=== PATIENT | female | born 1975 | race Caucasian/White ===

== ENCOUNTER 2016-06-09 10:20 | Emergency (ER) | payer MEDICAID ==
[~2016-06-09] VITALS: Ht 162.6 cm; Wt 81.6 kg
[~2016-06-09 10:20] MED LIST: ADVAIR 10028 PUFF/IN IN; ALBUTEROL-200 PUFFS/ IH; ALBUTEROL2 PUFFS/17 IN; ALBUTEROL2.5 MG/NEB IN; ARTHRITIS PILL PO; ASPIRIN ADULT L81 M2 PO; ATORVASTATIN CA80 MG PO; BACTRIM DS 8001 TA1 PO; BACTROBAN2% TP; BRILINTA90 MG PO; BUSPAR 10MG TAB10 MG PO; CETIRIZINE HCL10 MG PO; CETIRIZINE HYDR10 MG OR; CHANTIX0.5 MG PO; CIPRO 500MG TA500 MG PO; CITALOPRAM40 MG PO; CLINDAMYCIN HC300 MG PO; CLONAZEPAM 1MG T1 MG PO; DICLOFENAC SODI75 M3 PO; DOXYCYCLINE HY100 M3 PO; DULERA1 AR1 IH; DULERA1 ARO IH; FLEXERIL10 MG PO; FLONASE 50 MCG16 GM; GABAPENTIN100 M1 PO; GABAPENTIN100 MG PO; GABAPENTIN800 MG PO; HABITROL21 MG/24 H TD; HYDROCODONE1 TABLET PO; IMITREX100 MG PO; IPRATROPIUM BROM3 M1 IH; ISOSORBIDE MONO60 M1 PO; KEFLEX 500MG.500 MG PO; LEVAQUIN 750 M750 MG PO; LEVAQUIN500 MG PO; LEXAPRO 20 MG T20 MG PO; LEXAPRO10 MG PO; LISINOPRIL10 MG PO; LOPRESSOR 25MG.25 MG PO; LORTAB 5/500 501 TAB PO; MACROBID 100MG100 MG PO; MEDROL 4MG. DOSE4 MG PO; MINOCYCLINE 10100 MG PO; MORPHINE SULFAT15 M3 PO; NAPROSYN375 MG PO; NICODERM C21 MG/24 H TD; NITROGLYCERIN0.4 MG SL; NORCO 325 MG-101 TAB PO; NYSTATIN 1 ML1 M1; OMEPRAZOLE40 MG PO; PAROXETINE40 MG PO; PAXIL20 MG PO; PERCOCET 325 MG1 TA3 PO; PERCOGESIC PO; PREDNISONE 10MG10 MG PO; PREDNISONE 20MG20 MG PO; PREDNISONE50 MG PO; PRILOSEC OTC20 MG PO; PROVENTIL0.09 MG/AC IH; RANITIDINE HCL150 MG PO; SINGULAIR 10 MG10 MG PO; SLEEPING PILL PO; SPIRIVA HA1 PUFF/INH IH; TESSALON PERLE100 MG PO; TESSALON PERLE200 MG PO; TIZANIDINE HYDRO2 MG PO; TORADOL10 M2 PO; TRAMADOL 50MG T50 M1 PO; TRAMADOL 50MG T50 MG PO; TRAZADONE HYDR100 MG PO; VERAMYST27.5 MCG/A NS; VIBRAMYCIN 100100 MG PO; VICODIN 5/500 T1 TAB PO; VOLTAREN75 MG PO; ZANTAC 150150 MG PO; ZITHROMAX Z PA250 MG PO; ZITHROMAX Z-PA250 M1 PO; ZOFRAN4 MG PO; ZYRTEC ALLERGY10 MG PO; [UNRECOGNIZED DRUG - OTHER] PO; [UNRECOGNIZED DRUG - REMARK] PO
--- NOTE | 2016-06-09 10:26 | Emergency Room Report ---
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 Clinical Suspician of Infection? Mental Status: Sepsis Risk: Have you (or family members/close friends) recently traveled outside the [place]? If Yes, where/when: Have you had exposure to infectious disease within the past month? TB? Other? Specify: Patient with hx of panic attack, states experiencing panic attack now. Arrives per PD as event occurred during court. She is here for medical clearance. ALLERGIES Coded Allergies: Sulfa (Sulfonamide Antibiotics) (03/18/16) Home Medications Active Scripts Levofloxacin (Levaquin 500MG) 500 MG PO DAILY #7 TAB Prov: 03/19/16 Prednisone (Prednisone 20MG) 20 MG PO BID #10 TAB Prov: 03/19/16 Nicotine (Nicotine Patch) 21 MG TD DAILYP PRN SMOKING CESSATION #30 PATCH Prov: 03/19/16 Aspirin 81 MG PO DAILY 30 Days Prov: 02/26/15 Ticagrelor (Brilinta) 90 MG PO BID #60 TAB Ref 6 Prov: 12/24/15 Reported Medications Isosorbide Mononitrate (Isosorbide Mononitrate ER) 60 MG PO DAILY #30 ALBUTEROL-IPRATROPIUM (Iprat-Albut 0.5-3(2.5) MG/3 Ml) 3 ML IH Q2HP PRN COPD #360 Fluticasone Propionate (Flonase 50 Mcg Nasal [place]) 1 SPRAY NA DAILYP PRN ALLERGIES Clonazepam (Clonazepam 1MG) 1 MG PO BID #60 NITROGLYCERIN (Nitrostat) 0.4 MG SL [id number] PRN NEEDED FOR CHEST PAIN Metoprolol Tartrate (Lopressor) 12.5 MG PO BID #30 Atorvastatin Calcium 80 MG PO QHS #30 Montelukast Sodium (Singulair 10MG) 10 MG PO DAILY Cetirizine Hcl (Zyrtec) 10 MG PO DAILY PAROXETINE (Paroxetine HCl) 40 MG PO DAILY Tiotropium [place] (Spiriva) 1 PUFF IH DAILY Omeprazole (Omeprazole 40MG) 40 MG PO DAILY #30 Gabapentin (Gabapentin 800MG) 800 MG PO Q8 #90 History Medical History General CAD? Yes Angina: Yes NM: Yes Hypertension? Yes Hyperlipidemia? Yes CHF? No DVT? No PE? No COPD? Yes Asthma? Yes Anemia? No GERD? Yes Gastric ulcers? No GI Bleed? No Hernia? No Thyroid Problems? No Hypothyroidism? No CVA? No Seizures? No Diabetes? No Insulin Dependent: No Insulin Pump: No Home FSBS? No Renal Insuffiency? Yes End Stage Renal Disease? No UTI? Yes Stones? No BPH? No GB Disease: Yes Nephritic Syndrome? No Asplenia? No Hepatitis? No Sickle Cell Disease? No Arthritis? Yes Migraines? Yes Cataracts? No Glaucoma? No MRSA? No HIV? No TB? No Anxiety? Yes Depression? Yes Cancer? Yes Site: CERVICAL More? 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 ), WD/WN (anxious and angry) Eye Exam - bilateral eye normal exam, bilateral eye PERRL Ear, Nose, Throat hearing grossly normal (atraumatic) Neck normal inspection, non-tender, full range of motion Respiratory Status Yes: trachea midline, chest symmetrical, non tender chest. No: respiratory distress, tender on palpation, use of accessory muscles, pain on inspiration, pain on expiration, productive cough, non productive cough. Lung Sounds bilateral: normal breath sounds, lungs clear. 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 No tremor. Glascow Coma Scale Glascow Coma Scale Response Value EYE response: 4 Spontaneously 4 MOTOR response: 6 OBEYS 6 VERBAL response: 5 Oriented & Converses 5 Total 15 Mental status normal mood/affect (angry with PD) Skin intact, normal color, warm/dry Lymphatic no adenopathy Medical Decision Making LABS/Meds/Orders Pt receiving controlled substance in ED? No (offered Vistaril and Benadryl) Results/Orders Current Medication Orders Sig/Sylvia Start time Last Medication Dose Route Stop Time Status Admin Diphenhydramine HCl 25 MG ONCE ONE 06/09 1030 DC PO 06/09 1031 Hydroxyzine Pamoate 25 MG ONCE ONE 06/09 1030 DC PO 06/09 1031 Diphenhydramine HCl 0 .STK-MED ONE 06/09 1025 DC PO Hydroxyzine Pamoate 0 .STK-MED ONE 06/09 1025 DC PO Progress ED Progress Notes Date 06/09/16 Time 1035 Comment Patient cooperative, but will not answer if is suicidal, states she "doesn't care"; I recommend suuicide watch as a precaution and d/w PD at bedside. 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 Although you have not stated your are suicidal, you are in an emotional state where you state you "don't care", which puts you at risk for suicidal gesture or thoughts. For your own safety, I have recommended suicide watch until it's determined at the snf that you are calming down and have verbalized specifically that you are not suicidal. Discharge Counseling Counseled pt/family regarding diagnosis, Need for suicide watch ED Critical Care Critical Care No at [phone]
[2016-06-09 10:45] VITALS: BP 148/70
== END 2016-06-09 10:45 ==
LOC: ER 10:20
DX: F43.0 Acute stress reaction (principal); K21.9 Gastro-esophageal reflux disease without esophagitis; I10 Essential (primary) hypertension; J44.9 Chronic obstructive pulmonary disease, unspecified

== ENCOUNTER 2017-01-31 16:53 | Emergency (ER) | payer MEDICAID ==
[~2017-01-31] VITALS: Ht 160 cm; Wt 79.4 kg
--- NOTE | 2017-01-31 16:56 | Emergency Room Report ---
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 Clinical Suspician of Infection? Mental Status: Sepsis Risk: Have you (or family members/close friends) recently traveled outside the [place]? If Yes, where/when: Have you had exposure to infectious disease within the past month? TB? Other? Specify: Source patient, RN notes reviewed Exam Limitations no limitations Comment Pt brought to the ED with a stroke alert. On arrival, she was aphasic but I see no focal weakness but she is not Diabetic but has history of hypertension. CT Scan without contrast is normal but she has been in the ED now for about 30 min. Time of onset is unclear Cardiac Chest Pain Chest pain indicative of cardiac No Timing/Duration just prior to arrival ALLERGIES Coded Allergies: Sulfa (Sulfonamide Antibiotics) (01/31/17) Home Medications Active Scripts RANOLAZINE (RANEXA) 500 MG PO BID #60 TAB Ref 2 Prov: 12/30/16 Trazodone Hcl (Trazodone HCl) 50 MG PO QHS #30 TAB Prov: 12/30/16 ALBUTEROL-IPRATROPIUM (Iprat-Albut 0.5-3(2.5) MG/3 Ml) 3 ML IH Q2HP PRN COPD #360 Prov: 12/30/16 Ticagrelor (Brilinta) 90 MG PO BID #60 TAB Ref 6 Prov: 12/30/16 Aspirin 81 MG PO DAILY 30 Days Prov: 12/30/16 Atorvastatin Calcium 80 MG PO QHS #30 TAB Prov: 12/30/16 Metoprolol Tartrate (Lopressor) 12.5 MG PO BID #30 TAB Prov: 12/30/16 NITROGLYCERIN (Nitrostat) 0.4 MG SL [id number] PRN NEEDED FOR CHEST PAIN #25 Ref 2 Prov: 12/30/16 Isosorbide Mononitrate (Isosorbide Mononitrate ER) 60 MG PO DAILY #30 Prov: 12/30/16 Gabapentin (Gabapentin 800MG) 800 MG PO Q8 #90 TAB Prov: 12/30/16 Omeprazole (Omeprazole 40MG) 40 MG PO DAILY #30 Prov: 12/30/16 Tiotropium [place] (Spiriva) 1 PUFF IH DAILY #30 Ref 1 Prov: 12/30/16 Cetirizine Hcl (Zyrtec) 10 MG PO DAILY #30 CAPSULE Ref 1 Prov: 12/30/16 PAROXETINE (Paroxetine HCl) 40 MG PO DAILY #30 TAB Ref 2 Prov: 12/30/16 Montelukast Sodium (Singulair 10MG) 10 MG PO DAILY #30 TAB Ref 2 Prov: 12/30/16 Fluticasone Propionate (Flonase 50 Mcg Nasal [place]) 1 SPRAY NA DAILYP PRN ALLERGIES #2 Ref 2 Prov: 12/30/16 Clonazepam (Clonazepam 1MG) 1 MG PO BID #60 TAB Prov: 12/30/16 History Medical History General CAD? Yes Angina: Yes ID: Yes Hypertension? Yes Hyperlipidemia? Yes CHF? No DVT? No PE? No COPD? Yes Asthma? Yes Anemia? No GERD? Yes Gastric ulcers? No GI Bleed? No Hernia? No Thyroid Problems? No Hypothyroidism? No CVA? No Seizures? No Diabetes? No Insulin Dependent: No Insulin Pump: No Home FSBS? No Renal Insuffiency? Yes End Stage Renal Disease? No UTI? Yes Stones? No BPH? No GB Disease: Yes Nephritic Syndrome? No Asplenia? No Hepatitis? No Sickle Cell Disease? No Arthritis? Yes Migraines? Yes Cataracts? No Glaucoma? No MRSA? No HIV? No TB? No Anxiety? Yes Depression? Yes Cancer? Yes Site: CERVICAL More? Yes Additional hx: NEUROPATHY, BIPOLAR, FIBROMYLGIA, ENDOMETRIOSIS Immunization Hx DT/Tetanus 5-10 Years Ago Flu 2015-FSN Pneumonia Received In Past Surgical Hx Previous Surgery?Y [place]ET ORAL EXTRACTION W/RODS 2 KIDNEY SURGERIES 2 C -SECTION Hysterectomy-Partial Appendectomy [facility] LT FEMUR HEART STENTS X7 LEEP OPEN HEART SURGERY 09/27 [facility]ENTS [facility]RETER Family History Family Hx Diabetes Yes CAD Yes Hypertension Yes Hyperlipidemia Yes Cancer Yes TB No Social History Smoking Hx Packs/day 1 1/2 - 2 Packs Alcohol Alcohol: No Review of Systems All Other Systems Reviewed and Negative Constitutional see HPI Psychiatric/Neurological see HPI Physical Exam Vital Signs Vital Signs Date Time Temp Pulse Resp B/P Pulse O2 O2 Flow FiO2 Ox Delivery Rate 01/31 1711 98.0 70 18 156/94 96 - WBC >12,000 or <4,000 or 10% bands? 2 or more SIRS Criteria Met? B/P:156/94 MAP:114 Creatinine >2.0? UA output<0.5ml/kg/hr for 2 hrs? Platelet count >100,000? Lactate >2.0mmol/1? INR >1.2 or PTT > than 60 sec? Evidence of Organ Dysfunction? Provider documented clinical suspician of infection? N Sepsis Criteria Count: 0 Sepsis Risk: Low Sepsis Risk General Appearance no apparent distress, aphasic, no obvious facial weakness or extremity weakness Respiratory Status No: respiratory distress. Lung Sounds bilateral: wheezing. 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 No Results/Orders Laboratory Tests 01/31/17 1725: Sodium Pending, Potassium Pending, Chloride Pending, Carbon Dioxide Pending, BUN Pending, Creatinine Pending, Estimated Creat Clear Pending, Estimated GFR (MDRD) Pending, Glucose Pending, Calcium Pending, Total Bilirubin Pending, AST Pending, ALT Pending, Alkaline Phosphatase Pending, Creatine Kinase Pending, CK-MB (CK-2) Rel Index Pending, CK and CKMB Interp Pending, Troponin I Pending, Total Protein Pending, Albumin Pending, Globulin Pending, Albumin/Globulin Ratio Pending Orders Procedure Date/time Status DIET-NOTHING BY MOUTH 01/31 D Active ELECTROCARDIOGRAM REQUEST 01/31 172 Active URINALYSIS/COMPLETE 01/31 1729 Active CBC WITH AUTO DIFF 01/31 1729 Active CARDIAC ENZYMES 01/31 1729 Active CHEM 12 PROFILE 01/[address] HEAD REQ 01/31 1655 Complete Departure Departure Time of Disposition 1740 Disposition DC/XFER from ER to [facility] Clinical Impression Primary Impression: Expressive aphasia Condition STABLE Referrals NO REFERRAL Additional Instructions Discussed with Dr. Khalil of the Stroke Team and he will take her in transfer to for further workup Discharge Counseling Counseled pt/family regarding diagnosis, test results, follow up needs ED Critical Care Critical Care No If Critical Care minutes are documented, the time involved in the performance of seperately reportable procedures was not counted toward critical care time documented. I directly delivered medical care to this critically ill and/or injured patient. Timely evaluation and treatment was necessary to address the significant organ system(s) dysfunction present in this patient. at [id number]
--- NOTE | 2017-01-31 17:15 | RADIOLOGY REPORT PS360 ---
CT HEAD W/O CONTRAST HISTORY: Slurred speech, facial numbness STROKE ORDERING PHYSICIAN: Patricia John MD PATIENT AGE: 41 years COMPARISON: 04/13/2015 TECHNIQUE: Axial images obtained without contrast. Brain and bone windows reviewed. FINDINGS: No midline shift, mass effect, intracranial hemorrhage, hydrocephalus, or extra-axial fluid collection is evident. The calvarium has an unremarkable appearance. No mastoid effusion. The visualized paranasal sinuses are unremarkable. IMPRESSION: No acute intracranial findings. There is no evidence of intracranial hemorrhage, focal mass, or acute territorial infarction. A negative CT does not exclude an acute CVA. A follow-up head CT or MRI is recommended if neurological symptoms persist Significant findings called to the ER and given to Nithya on 01/31/2017 5:10 PM.
[2017-01-31 17:50] LABS: HEMOGLOBIN 11.8 g/dL (12.2-16.2); LYMPH # 1.9 K/mm3 (0.7-4.5); LYMPH % 19.4 % (10-50.0)
[2017-01-31 17:58] LABS: BUN 16 mg/dL (7-18); GFR (ESTIMATED) 33 ML/MIN (59-)
[2017-01-31 18:30] VITALS: BP 155/85
== END 2017-01-31 18:31 | disposition short-term general hospital (02) ==
LOC: ER 16:53
PROVIDERS: General Practice
DX: R47.01 Aphasia (principal); I25.10 Atherosclerotic heart disease of native coronary artery without angina pectoris; I25.2 Old myocardial infarction; J44.9 Chronic obstructive pulmonary disease, unspecified; F41.9 Anxiety disorder, unspecified; F31.9 Bipolar disorder, unspecified; Z79.82 Long term (current) use of aspirin; Z79.899 Other long term (current) drug therapy; G62.9 Polyneuropathy, unspecified

== ENCOUNTER 2017-02-13 12:35 | Emergency (ER) | payer MEDICAID ==
[~2017-02-13] VITALS: Ht 160 cm; Wt 90.7 kg
[2017-02-13 13:06] LABS: HEMOGLOBIN 12.5 g/dL (12.2-16.2); LYMPH # 2.2 K/mm3 (0.7-4.5); LYMPH % 17.6 % (10-50.0)
--- NOTE | 2017-02-13 13:17 | Emergency Room Report ---
History of Present Illness Time Seen by MD Bello Presenting Problem in Triage Pt arrived:Walked Presenting Problem:PT REPORTS PRESSURE ACROSS CHEST, STATES FEELS SOA WITH ACTIVITY, REPORTS TIRED FEELING. REPORTS LOOSE PRODUCTIVE COUGH. PT REPORTS NUMBNESS OF NUMBNESS AROUND MOUTH, TOP AND BOTTOM LIPS AND TIP OF TONGUE. STATES NUMBNESS REOCCURRED YESTERDAY AND HAS PERSISTED. STATES HAD NUMBNESS PREVIOUSLY AND WAS TRANSFERRED TO R/T IT. 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 N Clinical Suspician of Infection? N Mental Status: 1 - Regular (Normal Baseline) Sepsis Risk:Low Sepsis Risk Have you (or family members/close friends) recently traveled outside the [place]? N If Yes, where/when: Have you had exposure to infectious disease within the past month? N TB? Other? Specify: Source patient, RN notes reviewed Exam Limitations no limitations Comment Pt comes to the ED with complaints of a pressure across her chest and some SOA associated with increased activity and feels tired. She has a history of CAD and is on Ranexa, Brilinta and Aspirin. She also complains of a productive cough and some numbness around the mouth and tip of her tongue. She was seen here recently for numbness and expressive aphasia and sent to for a possible stroke alert. She is afebrile and her BP is 144/76 Cardiac Chest Pain Chest pain indicative of cardiac Yes Timing/Duration 1-3 hours ALLERGIES Coded Allergies: Sulfa (Sulfonamide Antibiotics) (01/31/17) Home Medications Active Scripts RANOLAZINE (RANEXA) 500 MG PO BID #60 TAB Ref 2 Prov: 12/30/16 Trazodone Hcl (Trazodone HCl) 50 MG PO QHS #30 TAB Prov: 12/30/16 ALBUTEROL-IPRATROPIUM (Iprat-Albut 0.5-3(2.5) MG/3 Ml) 3 ML IH Q2HP PRN COPD #360 Prov: 12/30/16 Ticagrelor (Brilinta) 90 MG PO BID #60 TAB Ref 6 Prov: 12/30/16 Aspirin 81 MG PO DAILY 30 Days Prov: 12/30/16 Atorvastatin Calcium 80 MG PO QHS #30 TAB Prov: 12/30/16 Metoprolol Tartrate (Lopressor) 12.5 MG PO BID #30 TAB Prov: 12/30/16 NITROGLYCERIN (Nitrostat) 0.4 MG SL [id number] PRN NEEDED FOR CHEST PAIN #25 Ref 2 Prov: 12/30/16 Isosorbide Mononitrate (Isosorbide Mononitrate ER) 60 MG PO DAILY #30 Prov: 12/30/16 Gabapentin (Gabapentin 800MG) 800 MG PO Q8 #90 TAB Prov: 12/30/16 Omeprazole (Omeprazole 40MG) 40 MG PO DAILY #30 Prov: 12/30/16 Tiotropium [place] (Spiriva) 1 PUFF IH DAILY #30 Ref 1 Prov: 12/30/16 Cetirizine Hcl (Zyrtec) 10 MG PO DAILY #30 CAPSULE Ref 1 Prov: 12/30/16 PAROXETINE (Paroxetine HCl) 40 MG PO DAILY #30 TAB Ref 2 Prov: 12/30/16 Montelukast Sodium (Singulair 10MG) 10 MG PO DAILY #30 TAB Ref 2 Prov: 12/30/16 Fluticasone Propionate (Flonase 50 Mcg Nasal [place]) 1 SPRAY NA DAILYP PRN ALLERGIES #2 Ref 2 Prov: 12/30/16 Clonazepam (Clonazepam 1MG) 1 MG PO BID #60 TAB Prov: 12/30/16 History Medical History General CAD? Yes Angina: Yes PA: Yes Hypertension? Yes Hyperlipidemia? Yes CHF? No DVT? No PE? No COPD? Yes Asthma? Yes Anemia? No GERD? Yes Gastric ulcers? No GI Bleed? No Hernia? No Thyroid Problems? No Hypothyroidism? No CVA? No Seizures? No Diabetes? No Insulin Dependent: No Insulin Pump: No Home FSBS? No Renal Insuffiency? Yes End Stage Renal Disease? No UTI? Yes Stones? No BPH? No GB Disease: Yes Nephritic Syndrome? No Asplenia? No Hepatitis? No Sickle Cell Disease? No Arthritis? Yes Migraines? Yes Cataracts? No Glaucoma? No MRSA? No HIV? No TB? No Anxiety? Yes Depression? Yes Cancer? Yes Site: CERVICAL More? 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 Respiratory see HPI Cardiovascular see HPI Physical Exam Vital Signs Vital Signs Date Time Temp Pulse Resp B/P Pulse O2 O2 Flow FiO2 Ox Delivery Rate 02/13 1243 98.1 74 18 144/76 97 General Appearance normal appearance, WD/WN, no apparent distress Ear, Nose, Throat hearing grossly normal, normal ENT inspection Respiratory Status No: respiratory distress. Lung Sounds bilateral: wheezing. 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 No Results/Orders Laboratory Tests 02/13/17 1250: Sodium 141, Potassium 4.5, Chloride 103, Carbon Dioxide 30, BUN 10, Creatinine 1.1 H, Estimated Creat Clear 94, Estimated GFR (MDRD) 54 L, Glucose 98, Calcium 8.6, Total Bilirubin 0.4, AST 8 L, ALT 24, Alkaline Phosphatase 113, Creatine Kinase 34, CK-MB (CK-2) Rel Index 1.5, CK and CKMB Interp < 0.5, Troponin I < 0.02, Total Protein 7.3, Albumin 3.4, Globulin 3.9 H, Albumin/ Globulin Ratio 0.9 L, WBC 12.8 H, RBC 3.80 L, Hgb 12.5, Hct 38.1, MCV 100.4 H, RDW 15.9, Plt Count 304, MPV 7.6, Gran % 76.7, Gran # 9.8 H, Lymphocytes % 17.6, Monocytes % 4.1, Eosinophils % 1.3, Basophils % 0.3, Lymphocytes # 2.2, Monocytes # 0.5, Eosinophils # 0.2, Basophils # 0.0, PUBS MCHC 32.8, MCH 32.9 H Current Medication Orders Sig/Sylvia Start time Last Medication Dose Route Stop Time Status Admin Ceftriaxone Sodium 0 .STK-MED ONE 02/13 1359 DC IV Methylprednisolone 0 .STK-MED ONE 02/13 1359 DC Sodium Succinate .ROUTE Sodium Chloride 50 ML .STK-MED ONE 02/13 1358 DC IV Ceftriaxone Sodium 1 GM ONCE ONE 02/13 1345 DC 02/13 Sodium Chloride 50 ML IV 02/13 1414 1409 Methylprednisolone 125 MG ONCE ONE 02/13 1345 DC 02/13 Sodium Succinate IV 02/13 1346 1409 Sodium Chloride 10 ML PRN PRN 02/13 1300 AC IV 02/14 1253 Orders Procedure Date/time Status DIET-NOTHING BY MOUTH 02/13 D Active ELECTROCARDIOGRAM REQUEST 02/[address] HEAD REQ 02/13 1254 Complete IV SALINE LOCK 02/13 1254 Active STEEL PLACER 02/13 1254 Active CBC WITH AUTO DIFF 02/13 1254 Complete CARDIAC ENZYMES 02/13 1254 Complete CHEM 12 PROFILE 02/13 1254 Complete 12 LEAD EKG-RICKY (INITIAL) 02/13 UNK Active XRAY/CT/US XRAY/CT/US XRAY chest XR interpretation by reviewed by me Xray Results normal/NAD Departure Departure Time of Disposition 1453 Disposition DC Home or Self Care(routine) Clinical Impression Primary Impression: Acute exacerbation of COPD with asthma Condition STABLE Referrals Luciano Thornton MD (Family): 2 Days-Call Office Patient Instructions Asthma (Alternative Therapy), Asthma -- Adult, Chronic Obstructive Pulmonary Disease, DI for Asthma -- Adult, DI for Chronic Obstructive Pulmonary Disease Additional Instructions Use inhalers and Nebulizers as ordered. Take medicines as directed. Return to the ED with any worsening symptoms Discharge Counseling Counseled pt/family regarding diagnosis, test results, medications/RX, home care, follow up needs Prescriptions Current Visit Scripts CEFDINIR (Cefdinir) 300 MG PO BID #20 CAP Prednisone (Prednisone 5MG) 5 MG PO DIRECTED #39 TAB 6 tab QD X 3D 4 tab QD X 3D 2 Tab QD X 3D 1 tab QD X 3D ED Critical Care Critical Care No If Critical Care minutes are documented, the time involved in the performance of seperately reportable procedures was not counted toward critical care time documented. I directly delivered medical care to this critically ill and/or injured patient. Timely evaluation and treatment was necessary to address the significant organ system(s) dysfunction present in this patient. at 0573
[2017-02-13 13:22] LABS: BUN 10 mg/dL (7-18)
[2017-02-13 13:24] LABS: GFR (ESTIMATED) 54 ML/MIN (59-)
--- NOTE | 2017-02-13 13:27 | RADIOLOGY REPORT PS360 ---
CT HEAD W/O CONTRAST HISTORY: 1 RECURRENT NUMBNESS AROUNG MOUTH ORDERING PHYSICIAN: Patricia John MD PATIENT AGE: 41 years COMPARISON: None 1916 TECHNIQUE: Axial images obtained without contrast. Brain and bone windows reviewed. FINDINGS: No midline shift, mass effect, intracranial hemorrhage, hydrocephalus, or extra-axial fluid collection is evident. The calvarium has an unremarkable appearance. No mastoid effusion. The visualized paranasal sinuses are unremarkable. IMPRESSION: 1. No acute intracranial findings. 2. There is no evidence of intracranial hemorrhage, focal mass, or acute territorial infarction. A negative CT does not exclude an acute CVA. A follow-up head CT or MRI is recommended if neurological symptoms persist
--- NOTE | 2017-02-13 13:34 | RADIOLOGY REPORT PS360 ---
CHEST-PORTABLE HISTORY: SOA, CHEST PAIN, COUGH ORDERING PHYSICIAN: Patricia John MD PATIENT AGE: 41 years COMPARISON: 12/28/2016 FINDINGS: There has been a prior median sternotomy with CABG. Normal heart size. No evidence of CHF. Lungs are clear bilaterally. No acute bony anomalies. IMPRESSION: Prior CABG. No change with no acute finding
[2017-02-13 15:16] VITALS: BP 130/73
--- OUTSIDE RECORDS SUMMARY | 2017-02-23 03:23 | External Medical Summary Rpt | CCD ---
Author Author , RYLIE RITTERDOT Address Unknown Phone [email or web address] Finance Scholar Care Team Providers Care Professional Athletes Coach Name Role Phone JAZZ-MARIBEL AHM, Unavailable Unavailable JAZZ-MARIBEL AHM ISAAC GILBERT, ISAAC Unavailable Unavailable GILBERT MARKELL ADA, MARKELL ADA Unavailable [facility]available [facility] Unavailable Unavailable [facility], [facility] ARNOLD GRACE, ARNOLD Unavailable Unavailable GRACE ARNOLD GRACE, ARNOLD Unavailable Unavailable GRACE ZEKE GOMEZ, ZEKE Unavailable Unavailable JASON GELLER, Unavailable Unavailable MD,PSC, ATTILA GELLER MD,PSC BEINEKE, BEINEKE Unavailable Unavailable BEINEKE MONALISA, BEINEKE Unavailable Unavailable MONALISA BESSON, BESSON Unavailable Unavailable BESSON KEN, BESSON Unavailable Unavailable KEN PETERS, PETERS Unavailable Unavailable PETERS ALL, PETERS ALL Unavailable Unavailable ZOYA ANT, ZOYA ANT Unavailable Unavailable ZOYA ANT, ZOYA ANT Unavailable Unavailable [facility] Unavailable Unavailable SERVICE, [facility] Unavailable Unavailable SERVICE, [facility] ROBERTA EBONI, ROBERTA Unavailable Unavailable EBONI BRODY CAR, BRODY Unavailable Unavailable [facility] Unavailable Unavailable [facility], [facility], Unavailable [facility]available [facility] Unavailable Unavailable PODIATRY, [facility] & Unavailable Unavailable [facility], [facility] & [facility]available Unavailable [facility], [facility] COOK, COOK Unavailable Unavailable CORNEA MIH, CORNEA Unavailable Unavailable MIH NICOLE, NICOLE Unavailable Unavailable NICOLE HENRY, Unavailable Unavailable NICOLE HENRY NICOLE HENRY, Unavailable Unavailable NICOLE HENRY GEOVANNY RBUY PA-C Unavailable Unavailable GEOVANNY TURK PA-C ROSLAEE CROFT MAT, CROFT Unavailable Unavailable MAT CALLAHAN, CALLAHAN Unavailable Unavailable [facility] Unavailable [place]available [place] [place] [facility] Unavailable Unavailable [facility]OC[facility], [facility] JUÁREZ, JUÁREZ Unavailable Unavailable JUÁREZ, JUÁREZ Unavailable Unavailable FARZAD MELISA, Unavailable Unavailable FARZAD MELISA FARZAD MELISA, Unavailable Unavailable FARZAD SAR STEVENS, STEVENS Unavailable Unavailable FRYMAN EUG, FRYMAN Unavailable Unavailable EUG BRANDYN RAFIA, BRANDYN Unavailable Unavailable RAFIA BRANDYN RAFIA, BRANDYN Unavailable Unavailable RAFIA BRIANA BRUCE MD, Unavailable Unavailable BRIANA BRUCE MD NA JONI, NA Unavailable Unavailable JONI HARPEL OSCAR, HARPEL Unavailable Unavailable OSCAR HARPEL OSCAR, HARPEL Unavailable Unavailable OSCAR [facility] Unavailable Unavailable INC, [facility] Unavailable Unavailable HOSPITAL, [facility] Unavailable [facility]available HOSPITAL P, [facility] P [address] SRAVANTHI, L[address] SRAVANTHI Unavailable Unavailable [facility], Unavailable Unavailable [facility], Unavailable Unavailable [facility] HILLARY SABRINA, HILLARY SABRINA Unavailable Unavailable JACKSON MARTHA, JACKSON MARTHA Unavailable Unavailable DELROY NAN, DELROY Unavailable Unavailable NAN RUBINA IMT, RUBINA Unavailable Unavailable IMT LISSETTE ABR, LISSETTE Unavailable Unavailable ABR [facility] Unavailable [facility], [facility] Unavailable Unavailable MEDICAL G, [facility] G KOSTELIC IAIN, Unavailable Unavailable KOSTELIC IAIN KSEIBI SARAH, KSEIBI Unavailable Unavailable SARAH LULA [facility], LULA [facility] Un[facility] LAMBERT CRI, LAMBERT CRI Unavailable Unavailable JEREMIAS, JEREMIAS Unavailable Unavailable RICKY JR, RICYK JR Unavailable Unavailable RICKY JR DWI, RICKY Unavailable Unavailable JR DWI RICKY JR DWI, RICKY Unavailable Unavailable JR DWI [facility] Unavailable Unavailable [facility], [facility] LIZ HAM, LIZ HAM Unavailable Unavailable LIZ HAM, LIZ HAM Unavailable Unavailable TINY LUIS ANTONIO, TINY Unavailable Unavailable LUIS ANTONIO FADIA CHRISTIN, Unavailable Unavailable FADIA CHRISTIN FADIA CHRISTIN, Unavailable Unavailable FADIA CHRISTIN ROSADO GRACE, ROSADO Unavailable Unavailable GRACE MCKEMIE JR PAULA, Unavailable Unavailable MCKEMIE JR PAULA MCKEMIE JR PAULA, Unavailable Unavailable MCKEMIE JR PAULA [facility] Unavailable Unavailable MEDICAL, [facility], Unavailable Unavailable [facility] NADIG VID, NADIG VID Unavailable Unavailable [facility], Unavailable Unavailable [facility], Unavailable Unavailable [facility], Unavailable Unavailable [facility], [facility] PETTEY JAM, PETTEY Unavailable Unavailable J[facility], Unavailable Unavailable [facility] RENUSCH PAULINA, RENUSCH Unavailable Unavailable PAULINA LAMONT KEN, LAMONT KEN Unavailable Unavailable RODES CHANDA, RODES CHANDA Unavailable Unavailable RODES CHANDA, RODES CHANDA Unavailable Unavailable SADEK MOH, SADEK MOH Unavailable Unavailable SANTROCK GILBERT, Unavailable Unavailable SANTROCK GILBERT SCALF GRACE, SCALF GRACE Unavailable Unavailable GREGORIO RAFIA, Unavailable Unavailable GREGORIO RAFIA SCIFRES, SCIFRES Unavailable Unavailable SCIFRES, SCIFRES Unavailable Unavailable SCIFRES ANG, SCIFRES Unavailable Unavailable ANG SCIFRES ANG, SCIFRES Unavailable Unavailable ANG EMY, EMY Unavailable Unavailable EMY MAT, Unavailable Unavailable EMY MAT [facility] Unavailable Unavailable [facility], [facility] Unavailable Unavailable [facility], [facility] SOTINGEANU, Unavailable Unavailable SOTINGEANU SOTINGEANU MONALISA, Unavailable Unavailable SOTINGEANU MONALISA [facility] Unavailable Unavailable EMERGENCY PHYS, [facility] JR. ADELAIDE MCGRAW, MARILUZ, Unavailable Unavailable JR. BRYSON [facility], Unavailable Unavailable [facility] WAFFORD SINA, WAFFORD Unavailable Unavailable SINA [facility] # Unavailable Unavailable [id number], [facility] # [id number] ORDONEZ LORENZ RAC, ORDONEZ Unavailable Unavailable LORENZ RAC WEHRMAN III PAULA, Unavailable Unavailable WEHRMAN III PAULA WEHRMAN III PAULA, Unavailable Unavailable WEHRMAN III PAULA BRANDON TRA, Unavailable Unavailable BRANDON TRA GELLER PET, GELLER Unavailable Unavailable [facility], Un[facility], Unavailable [facility]available [facility] Purpose Continuity of Care Document - 01-19-2011 through 2016 Problems Code Diagnosis DOS Provider Status E785 HYPERLIPIDE 12-29-2016 [facility] STACEY PHYSICIANS UNSPECIFIED GROUP I10 ESSENTIAL 12-29-2016 [facility] HYPERTENSIO IMAGING ASS N I2510 ASHD CHALKYITSIK 12-29-2016 [facility] CORONARY PHYSICIANS ARTERY W/O GROUP ANGINA PECTORIS R0602 SHORTNESS 12-29-2016 [facility] OF BREATH MEDICAL IMAGING ASS R079 CHEST PAIN 12-29-2016 [facility] UNSPECIFIED MEDICAL IMAGING ASS R5383 OTHER 12-29-2016 [facility] FATIGUE [facility]ICAL IMAGING ASS R9439 ABNORMAL 12-29-2016 [facility] OT PHYSICIANS CARDIOVASCU GROUP LR FUNCTION STUDY Z955 PRESENCE OF 12-29-2016 [facility] CORONARY PHYSICIANS ANGIOPLASTY GROUP IMPLANT & GRAFT E29105 PAIN IN 12-27-2016 [facility] RIGHT [facility] SHOULDER INC [id number] PAIN IN 12-27-2016 [facility] LEFT KNEE [facility] INC M542 CERVICALGIA 12-27-2016 [facility] INC M7061 TROCHANTERI 12-27-2016 [facility] C BURSITIS [facility] RIGHT HIP INC P36189 PAIN IN 11-04-2016 [facility] LEFT FOOT [place] INTERNAL MED Z0000 ENCOUNTER 11-04-2016 [facility] GEN ADULT [place] MED EXAM INTERNAL W/O MED ABNORMAL FIND M7989 OTHER 10-29-2016 [facility] SPECIFIED MEDICAL SOFT TISSUE IMAGING ASS DISORDERS [id number] UNSPECIFIED 10-29-2016 [facility] SPRAIN [facility] LEFT FOOT INC INITIAL ENCOUNTER L982LOF STRAIN 10-09-2016 [facility] MUSCLE FASC [facility] & TENDON INC NECK LEVL INIT ENC [id number] CONTUSION 10-09-2016 [facility] UNS FRONT [facility] WALL THORAX INC INITIAL ENCNTR I208 OTHER FORMS 08-23-2016 [facility] OF ANGINA PHYSICIANS PECTORIS GROUP J449 CHRONIC 08-23-2016 [facility] OBSTRUCTIVE [facility] PULMONARY INC DISEASE UNS Z720 TOBACCO USE 08-23-2016 [facility] INC I200 UNSTABLE 07-15-2016 [facility] ANGINA PHYSICIAN GROUP V60072 ASHD CHALKYITSIK 07-15-2016 [facility] COR ART PHYSICIAN W/UNSTABLE GROUP ANGINA PECTORIS Z70195 ASHD CHALKYITSIK 07-15-2016 [facility] COR ARTREY [facility] W/UNS INC ANGINA PECTORIS Z951 PRESENCE OF 07-15-2016 [facility] AORTOCORONA INC RY BYPASS GRAFT H5213 MYOPIA 06-30-2016 [facility] BILATERAL J441 CHRONIC 06-27-2016 [facility] OBSTRUCTIVE TISHOM[place]O PULMONARY INTERNAL DZ MED W/EXACERBAT ION R0789 OTHER CHEST 06-27-2016 [facility] PAIN [facility] INC R064 HYPERVENTIL 06-09-2016 [facility] AMBULANCE SERVICE J029 ACUTE 03-18-2016 [facility] UNSPECIFIED H75024 ASHD CHALKYITSIK 02-03-2016 [facility] COR ART PHYSICIANS W/OTH FORMS GROUP ANGINA PECTORIS I252 OLD 02-03-2016 [facility] MYOCARDIAL PHYSICIANS INFARCTION GROUP M797 FIBROMYALGI 02-03-2016 [facility] Z8679 PERSONAL 02-03-2016 [facility] H[facility] OT ASSOCIATES DISEASES CIRCULATORY SYSTEM R072 PRECORDIAL 02-02-2016 [facility] PAIN [facility], [facility] V10023 PAIN IN 01-16-2016 [facility] RIGHT ANKLE PHYSICIANS, [facility] [id number] SPRAIN 12-31-2015 [facility] UNSPEC PHYSICIAN LIGAMENT GROUP RIGHT ANKLE INITIAL ENC G479 SLEEP 12-30-2015 [facility] DISORDER PHYSICIANS UNSPECIFIED GROUP M549 DORSALGIA 12-30-2015 [facility] UNSPECIFIED PHYSICIANS GROUP I214 NON-ST 12-24-2015 [facility] ELEVATION PHYSICIANS MYOCARDIAL GROUP INFARCTION O97672 ATHEROSCLER 12-24-2015 [facility] OSIS CABG PHYSICIANS UNS UNSTABL GROUP ANGINA PECTORIS D39371 ATHEROSCLER 12-24-2015 [facility] OSIS CABG [facility] P ANGINA PECTORIS E118 TYPE 2 12-23-2015 [facility] DIABETES PHYSICIANS MELLITUS GROUP W/UNS COMPLICATIO NS I209 ANGINA 12-23-2015 [facility] PECTORIS PHYSICIANS UNSPECIFIED GROUP Z9119 PATIENTS 12-23-2015 [facility] NONCOMPLIAN PHYSICIANS CE W/OTH GROUP MED TX & REGIMEN Z9861 CORONARY 12-23-2015 [facility] ANGIOPLASTY PHYSICIANS STATUS GROUP L19338 OTHER LONG 12-07-2015 [facility] TERM PHYSICIANS CURRENT GROUP DRUG THERAPY M68570 PRESENCE OF 12-07-2015 [facility] OTHER PHYSICIANS CARDIAC GROUP IMPLANTS AND GRAFTS I2582 CHRONIC 12-02-2015 [facility] OCCLUSION FOUNDATION OF CORONARY ARTERY R9431 ABNORMAL 12-02-2015 [facility] ELECTROCARD SERV IOGRAM FOUNDATION G8929 OTHER 12-01-2015 [facility] CHRONIC SERV PAIN FOUND[facility] I351 NONRHEUMATI 12-01-2015 [facility] C AORTIC SERV VALVE FOUNDATION INSUFFICIEN CY R001 BRADYCARDIA 12-01-2015 [facility] UNSPECIFIED FOUNDATION I510 CARDIAC 11-30-2015 [facility] SEPTAL [facility] DEFECT FOUND[facility] ACQUIRED I517 CARDIOMEGAL 11-30-2015 [facility] Y SERV [facility] R7989 OTHER SPEC 11-13-2015 [facility] ABNORMAL PH[facility]ICIANS, FINDINGS [facility] BLOOD CHEMISTRY L0390 CELLULITIS 10-10-2015 [facility] UNSPECIFIED PHYSICIANS, [facility] J90 PLEURAL 10-03-2015 [facility] [place] [facility] NOT ELSEWHERE CLASSIFIED V41369 POSTPROC 10-01-2015 [facility] CIRC [facility] SYS PSC ORGAN/STRUC FLW CARD BP C86996H HEMORRHAGE 10-01-2015 [facility] D/T CARD HEALTH PROSTH DEV MEDICAL G IMPL & GFT INIT I6502 OCCLUSION 09-30-2015 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 J9811 ATELECTASIS 09-30-2015 [facility] R0989 OTH SPEC SX 09-30-2015 [facility] SIGNS [facility]BULANCE INVLV THE SERVICE CIRC & RESP SYS Q92901 ENCOUNTER 09-29-2015 [facility] FOR PHYSICIANS PREPROCEDUR GROUP AL CARIOVASCUL AR EXAM E663 OVERWEIGHT 09-04-2015 [facility] PHYSICIANS GROUP J40 BRONCHITIS 09-03-2015 [facility] NOT PHYSICIANS, SPECIFIED PLLC ACUTE OR CHRONIC R05 COUGH 09-03-2015 [facility] M80292L LAC W/O FB 08-12-2015 [facility] RT INDEX PHYSICIANS, FINGER W/O PLLC DAMAGE NAIL INIT M545 LOW BACK 08-05-2015 [facility] PAIN M546 PAIN IN 08-05-2015 [facility] THORACIC SPINE M9901 SEGMENTAL & 08-05-2015 [facility] SOMATIC DYSFUNCTION CERVICAL REGION M9902 SEGMENTAL & 08-05-2015 [facility] SOMATIC DYSFUNCTION THORACIC REGION M9903 SEGMENTAL & 08-05-2015 [facility] SOMATIC DYSFUNCTION OF LUMBAR REGION M9905 SEGMENTAL & 08-05-2015 [facility] SOMATIC DYSFUNCTION OF PELVIC REGION B078 OTHER VIRAL 08-04-2015 [facility] M2011 HALLUX 08-04-2015 [facility] VALGUS MEDICAL ACQUIRED IMAGING ASS RIGHT FOOT M2041 OTHER 08-04-2015 [facility] [place] HAMMER TOES MEDICAL ACQUIRED IMAGING ASS RIGHT FOOT M2570 OSTEOPHYTE 08-04-2015 [facility] UNSPECIFIED PODIATRY JOINT M7731 CALCANEAL 08-04-2015 [facility] SPUR RIGHT MEDICAL FOOT IMAGING ASS V20010 PAIN IN 08-04-2015 [facility] RIGHT FOOT PODIATRY K219 GASTRO-ESOP 07-23-2015 [facility] P WITHOUT ESOPHAGITIS Z23 ENCOUNTER 07-22-2015 [facility] FOR PHYSICIANS IMMUNIZATIO GROUP N B349 VIRAL 07-15-2015 [facility] INFECTION PHYSICIANS, UNSPECIFIED PLLC J069 ACUTE UPPER 07-15-2015 [facility], RESPIRATORY PLLC INFECTION UNSPECIFIED R197 DIARRHEA 07-15-2015 [facility] UNSPECIFIED PHYSICIANS, PLLC J439 EMPHYSEMA 07-09-2015 [facility] UNSPECIFIED SERV FOUNDATION N8320 UNSPECIFIED 07-09-2015 [facility] OVARIAN SERV CYSTS FOUNDATION R102 PELVIC AND 07-09-2015 [facility] PERINEAL [facility] PAIN [facility]OUND[facility] N9489 OTH COND 06-30-2015 BRIANA Hernandez ASSOC W/FE JANIS VIZCARRA GEN ORGN & MENSTRUAL CYCL [id number] CONTUSION 06-26-2015 [facility] LOWER BACK PHYSICIANS, & PELVIS PLLC INITIAL ENCOUNTER S67JLFN UNSPECIFIED 06-26-2015 [facility] INITIAL SERVICE ENCOUNTER Z043 ENCOUNTER 06-26-2015 [place] EXAM & MEDICAL OBSERVATION IMAGING ASS FOLLOW OTH ACCIDENT I455 OTHER 06-11-2015 [facility] SPECIFIED AMBULANCE HEART BLOCK SERVICE N761 SUBACUTE 06-08-2015 BRIANA Hernandez AND CHRONIC JANIS VIZCARRA VAGINITIS G99361 ENCOUNTER 06-08-2015 [facility] FOR OTHER [facility] PREPROCEDUR INC AL EXAMINATION N819 FEMALE 05-29-2015 BRIANA Hernandez GENITAL JANIS VIZCARRA PROLAPSE UNSPECIFIED N8329 OTHER 05-27-2015 [facility] OVARIAN PHYSICIANS, CYSTS PLLC R1084 GENERALIZED 05-27-2015 [facility] ABDOMINAL MEDICAL PAIN IMAGING ASS Z959 PRESENCE 04-30-2015 [facility] CARDIAC & [facility] VASCULAR INC IMPLANT & GRAFT UNS N202 CALCULUS OF 04-13-2015 [facility] KIDNEY [facility] WITH INC CALCULUS OF URETER N3000 ACUTE 04-13-2015 [facility] CYSTITIS PHYSICIANS, WITHOUT PLLC HEMATURIA N390 URINARY 04-13-2015 [facility] TRACT [facility]YSICIANS, INFECTION PLLC SITE NOT SPECIFIED R200 ANESTHESIA 04-13-2015 [place] OF SKIN MEDICAL IMAGING ASS R202 PARESTHESIA 04-13-2015 [facility] OF SKIN PHYSICIANS, PLLC R4781 SLURRED 04-13-2015 [facility] SPEECH MEDICAL IMAGING ASS F25168 PERSONAL 04-13-2015 [facility] HISTORY OF MEM [facility]OS[facility] NICOTINE INC DEPENDENCE F88363 PRESENCE OF 03-06-2015 [facility] OTHER [facility] VASCULAR INC IMPLANTS AND GRAFTS R9430 ABNORMAL 02-27-2015 [facility] RESULT CV LAR FUNCTION CONSULTANTS STUDY UNS O I459 CONDUCTION 02-26-2015 [facility] DISORDER [facility]ANCE UNSPECIFIED SERVICE J42 UNSPECIFIED 02-26-2015 [facility] R0600 DYSPNEA 02-26-2015 [facility] UNSPECIFIED LAR CONSULTANTS O Z881 ALLERGY 02-26-2015 [place] STATUS TO REGIONAL OTHER MEDICAL ANTIBIOTIC AGENTS STATUS I272 OTHER 02-25-2015 [facility] P HYPERTENSIO N J410 SIMPLE 02-25-2015 [facility] P R55 SYNCOPE AND 02-25-2015 [facility] COLLAPSE PHYSICIANS, [facility] J4520 MILD 02-23-2015 [facility] [place] [address] DEGEN 01-26-2015 [facility] LUMBAR/LUMB [facility] OSACRAL INC INTERVERTEB RAL DISC 7291 UNSPECIFIED 01-26-2015 [facility] MYALGIA [facility] AND INC MYOSITIS 9134 ELB 01-06-2015 [facility] FORARM&WRST PHYSICIANS, INSECT PLL BITE NONVENOMOUS W/O INF 5990 URINARY 12-14-2014 [facility] TRACT [facility] INFECTION INC SITE NOT SPECIFIED 73167 OBSTRUCTIVE 12-05-2014 [facility] [place] CHRONIC MEDICAL BRONCHITIS IMAGING ASS WITHOUT EXACERBAT 7862 COUGH 12-05-2014 [facility] 74431 OTHER 12-05-2014 [facility] [place] NONSPECIFIC MEDICAL ABNORMAL IMAGING ASS FINDING OF LUNG FIELD 30604 EXTRINSIC 12-04-2014 [facility] AST[facility], HOME UNSPECIFIED MEDICAL EQUIPME 42477 GEN 12-04-2014 [facility] OSTEOARTHRO HOME SIS MEDICAL INVOLVING EQUIPME MULTIPLE SITES 77503 PAIN IN 11-23-2014 [facility] JOINT, PHYSICIANS, LOWER LEG PLLC 7245 UNSPECIFIED 11-23-2014 [facility] BACKACHE PHYSICIANS, [facility] 4919 UNSPECIFIED 11-12-2014 [facility] CHRONIC [facility] BRONCHITIS INC 7231 CERVICALGIA 10-31-2014 ATTILA GELLER MD,PSC 7295 PAIN IN 10-31-2014 SELIN HOOD,PSC LIMB 4139 OTHER AND 10-24-2014 [facility] UNSPECIFIED [facility] ANGINA INC PECTORIS 496 CHRONIC 10-24-2014 [facility] AIRWAY [facility] OBSTRUCTION INC NEC 00536 PAIN IN 10-24-2014 [place] JOINT, MEDICAL FOREARM IMAGING ASS 23653 CONTUSION 10-24-2014 [facility] OF HAND PHYSICIANS, PLLC 5641 IRRITABLE 10-07-2014 [facility] BOWEL PHYSICIANS SYNDROME GROUP 98206 OBSTRUCTIVE 10-02-2014 [facility] P WITH EXACERBATIO N 6929 CONTACT 10-02-2014 [facility] DERMATITIS& [facility] OTHER [facility] P ECZEMA DUE UNSPEC CAUSE 88199 OTHER CHEST 10-02-2014 [facility] PAIN [facility] P 46225 CHEST PAIN 10-01-2014 [facility] UNSPECIFIED PHYSICIANS, [facility] 05589 ABDOMINAL 09-02-2014 [place] PAIN RIGHT MEDICAL UPPER IMAGING ASS QUADRANT 490 BRONCHITIS 08-18-2014 [facility] P ACUTE OR CHRONIC 7906 OTHER 08-18-2014 [facility] P CHEMISTRY 6256 FEMALE 06-17-2014 BRIANA BRUCE MD INCONTINENC E 34426 INSOMNIA 06-03-2014 [facility] UNSPECIFIED PHYSICIANS GROUP 7831 ABNORMAL 06-03-2014 [facility] WEIGHT GAIN PHYSICIANS GROUP V5415 AFTERCARE 03-26-2014 [facility] TRAUMATIC FOUNDATION FRACTURE UPPER LEG V5489 OTHER 03-26-2014 [facility] AFTERCARE 90896 PAIN IN 02-21-2014 [place] JOINT MEDICAL PELVIC IMAGING ASS REGION AND THIGH 56942 COR 2014 [facility] ATHEROSLERO [facility] UNSPEC INC TYPE VESSEL CHALKYITSIK/NATHALIE T V5869 LONG-TERM 02-12-2014 [facility] (CURRENT) DUYEN USE OF ,PSC OTHER MEDICATIONS V8281 SPECIAL 02-12-2014 [facility] SCREENING JOHNATHAN GELLER MD,PSC OSTEOPOROSI S 56059 CORONARY 02-11-2014 [facility] ATHEROSCLER SERV OSIS [facility]ATION CORONARY ARTERY 462 ACUTE 02-07-2014 [facility] PH[facility] 25245 NAUSEA WITH 01-27-2014 [facility] VOMITING MEDICAL IMAGING ASS 55087 ABDOMINAL 01-27-2014 [place] PAIN, MEDICAL UNSPECIFIED IMAGING ASS SITE 4019 UNSPECIFIED 12-18-2013 [place] ESSENTIAL DWI HYPERTENSIO N 49824 ASTHMA, 12-18-2013 [place] UNSPECIFIED DWI , UNSPECIFIED STATUS 04537 PRECORDIAL 12-18-2013 [facility] PAIN AMBULANCE SERVICE V7612 OTHER 10-22-2013 [facility] SCREENING [facility] MAMMOGRAM INC 7282 MUSCULAR 10-15-2013 [facility] WASTING AND DEN DISUSE ATROPHY NEC 70551 DISORDER OF 10-15-2013 [facility] BONE AND DEN CARTILAGE UNSPECIFIED 37558 OTHER 10-15-2013 [facility] MALAISE AND DEN FATIGUE 61103 OTHER 10-15-2013 [facility] GENERAL DEN SYMPTOMS 52510 NERVOUSNESS 10-15-2013 [facility] DEN 93665 ATTENTION 10-15-2013 [facility] OR DEN CONCENTRATI ON DEFICIT V7231 ROUTINE 10-11-2013 [facility] GYNECOLOGIC AL EXAMINATION V7641 SCREENING 10-11-2013 [facility] FOR MALIGNANT NEOPLASM OF THE RECTUM 3671 MYOPIA 09-20-2013 SCIF[facility] ANG 7840 HEADACHE 09-19-2013 BRAND[facility] RAFIA 8449 SPRAIN&STRA 05-08-2014 [facility] RAFIA IN OF UNSPECIFIED SITE OF KNEE&LEG 1120 CANDIDIASIS 09-12-2013 [facility] OF MOUTH CHRISTIN 2689 UNSPECIFIED 09-12-2013 [facility] VITAMIN D [facility] DEFICIENCY INC 2793 UNSPECIFIED 09-12-2013 [facility] IMMUNITY [facility] DEFICIENCY INC 2859 UNSPECIFIED 09-12-2013 [facility] ANEMIA [facility] INC 4739 UNSPECIFIED 09-12-2013 [facility] SINUSITIS CHRISTIN 60559 CHRONIC 09-12-2013 [facility] OBSTRUCTIVE [facility]OSP ASTHMA INC UNSPECIFIED 43968 CHRONIC 09-12-2013 [facility] OBSTRUCTIVE CHRISTIN ASTHMA W/STATUS ASTHMATICUS 96956 SCOLIOSIS , 09-12-2013 [facility] IDIOPATHIC HENRY 79293 OTHER 09-12-2013 [facility] DYSPNEA AND [place] ES 78859 ESOPHAGEAL 09-11-2013 BRANDYN RAFIA REFLUX 3804 IMPACTED 08-22-2013 [facility] CERUMEN CHRISTIN 4660 ACUTE 08-22-2013 [facility] BRONCHITIS CHRISTIN 4770 ALLERGIC 08-22-2013 [facility] RHINITIS CHRISTIN DUE TO POLLEN 4778 ALLERGIC 08-22-2013 [facility] RHINITIS CHRISTIN DUE TO OTHER ALLERGEN 38668 CHRONIC 08-22-2013 [facility] OBSTRUCTIVE CHRISTIN ASTHMA WITH EXACERBATIO N 3555 TARSAL 08-05-2013 RODES CHANDA TUNNEL SYNDROME 7350 HALLUX 08-05-2013 R[facility]ES CHANDA VALGUS 7354 OTHER 08-05-2013 R[facility]ES CHANDA HAMMER TOE 5759 UNSPECIFIED 06-22-2012 [facility] DISORDER HENRY OF GALLBLADDER 69407 ABDOMINAL 06-22-2012 [facility] PAIN RIGHT [facility] LOWER INC QUADRANT 486 PNEUMONIA, 06-07-2012 [place] ORGANISM PAULA UNSPECIFIED 37221 DIVERTICULI 06-07-2012 [place] TIS OF PAULA COLON 07228 DEHYDRATION 06-05-2012 BRANDYN RAFIA 95366 LEUKOCYTOSI 06-05-2012 BRANDYN RAFIA S UNSPECIFIED 5183 PULMONARY 06-05-2012 NICOLE EOSINOPHILI HENRY A 68458 FEVER 06-05-2012 [facility] UNSPECIFIED AMBULANCE SERVICE 40959 MIGRAINE 05-31-2012 [facility] UNSP W/O MELISA INTRACT W/O STATUS MIGRAINOSUS 7242 LUMBAGO 05-31-2012 F[facility] MELISA 03679 SPASM OF 05-31-2012 [facility] MUSCLE MELISA 7292 UNSPECIFIED 05-31-2012 [facility] NEURALGIA MELISA NEURITIS AND RADICULITIS V5883 ENCOUNTER 05-31-2012 F[facility]AD FOR [facility] THERAPEUTIC DRUG MONITORING 4772 ALLERGIC 04-17-2012 FADIA RHINITIS CHRISTIN DUE TO ANIMAL HAIR AND DANDER 7011 ACQUIRED 04-12-2012 RODES CHANDA KERATODERMA 34767 OTHER 04-12-2012 RODES CHANDA DISORDERS OF BONE AND CARTILAGE OTHER 09999 CONTUSION 04-12-2012 RODES CHANDA OF FOOT 9243 CONTUSION 01-31-2012 WEHRMAN III OF TOE PAULA 9599 INJURY 01-31-2012 [place] OTHER AND MEDICAL UNSPECIFIED IMAGING ASS UNSPECIFIED SITE 03993 OBESITY, 01-28-2012 NEHA EDWARDS UNSPECIFIED 45387 OSTEOARTHRO 11-03-2011 NEHA EDWARDS S INVLV MX SITES BUT NOT SPEC GEN 5999 UNSPECIFIED 09-28-2011 NEHA EDWARDS DISORDER OF URETHRA&URI NARY TRACT 78762 DIARRHEA 09-21-2011 [facility] ANT 7873 FLATULENCE 08-03-2011 [facility] ANT ERUCTATION AND GAS PAIN V642 SURG/OTH 07-31-2011 [facility] PROC NOT [facility] CARRIED OUT INC BECAUSE PTS DECN 4780 HYPERTROPHY 06-02-2011 COMMUNITY OF NASAL ALLERGY & TURBINATES ASTHMA P 62941 EXTRINSIC 06-02-2011 COMM[facility] ASTHMA, ALLERGY & WITH ASTHMA P EXACERBATIO N V720 EXAMINATION 04-29-2011 SCIF[facility] ANG OF EYES AND VISION 83643 ENTHESOPATH 04-05-2011 [facility] Y OF H PODIATRY UNSPECIFIED SITE 7213 LUMBOSACRAL 03-30-2011 LIZ HAM SPONDYLOSIS WITHOUT MYELOPATHY 7234 BRACHIAL 03-11-2011 [facility] NEURITIS OR [facility] INC RADICULITIS NOS 7244 THORACIC/SOFIA 03-11-2011 [facility] MBOSACRAL [facility] NEURITIS/RA INC DICULITIS UNSPEC 31742 PAIN IN 02-09-2011 [facility] JOINT, [facility] MULTIPLE INC SITES 26454 MUSCLE 02-09-2011 [facility] WEAKNESS [facility] (GENERALIZE INC D) V727 DIAGNOSTIC 02-03-2011 [facility] SKIN AND CHRISTIN SENSITIZATI ON TESTS V5409 OTH 01-28-2011 [place] INVOLVING IMAGING ASS INTERNAL FIXATION DEVICE Medications Na ND Rx Da Fi Fi Am Da Di Ph RX Ph St me C No te ll ll ou ys ag ar # ys at rm s nt no ma ic us Or Da si cy ia de te s n re d MO 57 09 10 30 30 00 SD Ac NT 23 -0 -0 .0 00 L- ti EL 70 8- 6- 00 07 MA ve UK 25 20 20 50 RT 53 17 17 46 T 0 78 PH SO AR D MA 10 CY MG #5 91 TA BL ET TR 50 08 30 30 00 SD Ac AZ 11 -1 -1 .0 00 L- ti OD 10 8- 5- 07 MA ve ON 43 20 20 50 RT E 30 17 17 46 50 1 70 PH AR MG MA CY TA BL #5 ET 91 BR 00 08 09 60 30 00 SD Ac IL 18 -1 -1 .0 00 L- ti IN 60 8- - 07 MA ve TA 77 20 20 50 RT 76 17 17 46 90 0 71 PH AR MG MA CY TA BL #5 ET 91 AT 68 08 30 30 00 SD Ac OR 64 -1 -1 .0 00 L- ti VA 50 8- 5- [address] 46 20 20 50 RT AT 15 17 17 46 IN 4 74 PH AR 80 MA CY MG #5 TA 91 BL ET SP 00 08 30 30 00 SD Ac IR 59 -1 -1 .0 00 L- ti IV 70 8- 07 MA ve A 07 20 20 50 RT 18 54 17 17 48 1 65 PH MC AR G MA CP CY -H AN #5 DI 91 LOWERY LE R FL 60 08 16 30 00 SD Ac UT 43 -1 -1 .0 00 L- ti IC 20 8- 5- 00 07 MA ve 26 20 20 50 RT ON 41 17 17 48 E 5 66 PH AZ AR OP MA CY 50 #5 MC 91 G SP RA Y EQ 49 08 30 30 00 SD Ac 03 -1 -1 .0 00 L- ti 50 8- 5- 08 MA ve PI 46 20 20 84 RT RI 76 17 17 07 N 8 68 PH 81 AR MA MG CY CH #5 EW 91 AB LE TA B NI 43 08 09 25 5 00 SD Ac TR 59 -1 -1 .0 00 L- ti OG 80 8- 5- 00 07 MA ve LY 43 20 20 50 RT CE 61 17 17 48 RI 1 67 PH N AR 0. MA 4 CY MG #5 TA 91 BL ET SL IP 00 08 09 10 30 00 SD Ac RA 48 -1 -1 80 00 L- ti T- 70 8- 5- .0 07 MA ve AL 20 20 20 00 50 RT BU 10 17 17 48 T 3 68 PH 0. AR 5- MA 3( CY 2. 5) #5 91 MG /3 ML OM 60 08 30 30 00 SD Ac EP 50 -1 -1 .0 00 L- ti RA 50 8- 5- 00 07 MA ve ZO 14 20 20 50 RT LE 60 17 17 [address] AR MA 40 CY MG #5 91 CA PS UL E GA 00 08 09 30 00 WA Ac BA 22 -1 -1 .0 00 L- ti PE 82 8- 5- 00 04 MA ve NT 63 20 20 53 RT IN 71 17 17 17 1 22 PH 80 AR 0 MA MG CY TA #5 BL 91 ET CE 16 08 02 11 30 SD Ac TI 57 -2 -1 .0 00 L- ti RI 10 0- 5- 00 08 MA ve ZI 40 20 20 84 RT NE 25 17 17 07 0 53 PH HC AR L MA 10 CY MG #5 91 TA BL ET PA 68 08 02 11 30 SD Ac RO 38 -2 -1 .0 00 L- ti XE 20 0- 5- 00 07 MA ve TI 00 20 20 50 RT NE 10 17 17 46 6 73 PH HC AR L MA 40 CY MG #5 91 TA BL ET LI 68 08 02 11 30 00 SD Ac SI 64 -2 -1 .0 00 L- ti NO 50 1- 5- 00 07 MA ve AZ 55 20 20 50 RT IL 25 17 17 51 4 47 PH 10 AR MA MG CY TA #5 BL 91 ET CL 16 08 30 00 SD Ac ON 72 -1 -0 .0 00 L- ti AZ 90 5- 8- 00 04 MA ve EP 13 20 20 53 RT AM 71 17 17 16 1 6 46 PH AR MG MA CY TA BL #5 ET 91 MO 57 08 30 30 00 SD Ac NT 23 -1 -0 .0 00 L- ti EL 70 6- 8- 00 07 MA ve UK 25 20 20 49 RT 53 17 17 26 T 0 16 PH SO AR D MA 10 CY MG #5 91 TA BL ET IS 23 08 30 30 00 SD Ac OS 15 -0 -0 .0 00 L- ti OR 50 4- 1- 00 07 MA ve BI 17 20 20 49 RT DE 80 17 17 33 1 53 PH MN AR MA ER CY 60 #5 91 MG TA BL ET ME 00 08 30 30 00 SD Ac TO 37 -0 -0 .0 00 L- ti AZ 80 4- 1- 00 07 MA ve OL 01 20 20 49 RT OL 80 17 17 68 5 53 PH TA AR RT MA RA CY TE #5 25 91 MG TA B SP 00 08 09 4. 30 00 SD Ac IR 59 -0 -0 00 00 L- ti IV 70 8- 1- 0 07 MA ve A 16 20 20 50 RT RE 06 17 17 26 SP 1 43 PH IM AR AT MA CY 1. 25 #5 91 MC G IN H PA 68 07 08 30 30 00 SD Ac RO 38 -2 -2 .0 00 L- ti XE 20 8- 5- 00 07 MA ve TI 00 20 20 47 RT NE 10 17 17 42 6 92 PH HC AR L MA 40 CY MG #5 91 TA BL ET CE 16 07 08 30 30 00 SD Ac TI 57 -2 -2 .0 00 L- ti RI 10 8- 5- 00 08 MA ve ZI 40 20 20 83 RT NE 25 17 17 68 0 85 PH HC AR L MA 10 CY MG #5 91 TA BL ET PN 00 07 08 0. 1 00 SD Ac EU 00 -2 -1 50 00 L- ti MO 64 4- 8- 0 07 MA ve VA 83 20 20 50 RT X 70 17 17 03 23 3 63 PH AR SY MA RI CY NG E #5 91 TR 50 07 08 30 30 00 SD Ac AZ 11 -2 -1 .0 00 L- ti OD 10 5- 8- 00 07 MA ve ON 43 20 20 50 RT E 30 17 17 03 50 1 96 PH AR MG MA CY TA BL #5 ET 91 GA 00 07 08 90 30 00 SD Ac BA 22 -1 -1 .0 00 L- ti PE 82 5- 1- 00 04 MA ve NT 63 20 20 53 RT IN 71 17 17 10 1 77 PH 80 AR 0 MA MG CY TA #5 BL 91 ET OM 60 07 08 30 30 00 SD Ac EP 50 -1 -1 .0 00 L- ti RA 50 9- 1- 00 07 MA ve ZO 14 20 20 49 RT LE 60 17 17 [address] AR MA 40 CY MG #5 91 CA PS UL E CL 16 07 08 60 30 00 SD Ac ON 72 -1 -1 .0 00 L- ti AZ 90 4- 1- 00 04 MA ve EP 13 20 20 53 RT AM 71 17 17 10 1 6 47 PH AR MG MA CY TA BL #5 ET 91 BR 00 07 08 60 30 00 WA Ac IL 18 -1 -1 .0 00 L- ti IN 60 4- 1- 00 07 MA ve TA 77 20 20 49 RT 76 17 17 87 90 0 20 PH AR MG MA CY TA BL #5 ET 91 MO 31 07 08 30 30 00 SD Ac NT 72 -1 -0 .0 00 L- ti EL 20 2- 4- 00 07 MA ve UK 72 20 20 49 RT 61 17 17 26 T 0 16 PH SO AR D MA 10 CY MG #5 91 TA BL ET IS 23 07 08 30 30 00 SD Ac OS 15 -0 -0 .0 00 L- ti OR 50 6- 4- 00 07 MA ve BI 17 20 20 49 RT DE 80 17 17 33 1 53 PH MN AR MA ER CY 60 #5 91 MG TA BL ET CE 16 10 19 30 30 00 SD Ac TI 57 -3 -2 .0 00 L- ti RI 10 0- 8- 00 08 MA ve ZI 40 20 20 83 RT NE 25 17 17 68 0 85 PH HC AR L MA 10 CY MG #5 91 TA BL ET PA 68 06 30 30 00 SD Ac RO 38 -3 -2 .0 00 L- ti XE 20 0- 8- 00 07 MA ve TI 00 20 20 47 RT NE 10 17 17 42 6 92 PH HC AR L MA 40 CY MG #5 91 TA BL ET EQ 49 07 30 30 00 SD Ac 03 -0 -2 .0 00 L- ti 50 5- 8- 00 08 MA ve PI 56 20 20 83 RT RI 33 17 17 57 N 2 52 PH EC AR MA 81 CY MG #5 91 TA BL ET ME 00 11 18 30 30 00 SD Ac TO 37 -0 -2 .0 00 L- ti AZ 80 5- 8- 00 07 MA ve OL 01 20 20 49 RT OL 80 17 17 68 5 53 PH TA AR RT MA RA CY TE #5 25 91 MG TA B SP 00 10 19 30 30 00 SD Ac IR 59 -2 -2 .0 00 L- ti IV 70 5- 1- 00 07 MA ve A 07 20 20 48 RT 18 54 17 17 08 1 47 PH MC AR G MA CP CY -H AN #5 DI 91 LOWERY LE R OM 60 06 12 11 30 00 SD Ac EP 50 -1 -1 .0 00 L- ti RA 50 9- 4- 00 07 MA ve ZO 14 20 20 49 RT LE 60 17 17 [address] AR MA 40 CY MG #5 91 CA PS UL E MO 57 10 19 30 30 00 WA Ac NT 23 -0 -0 .0 00 L- ti EL 70 9- 7- 00 07 MA ve UK 25 20 20 49 RT 53 17 17 26 T 0 16 PH SO AR D MA 10 CY MG #5 91 TA BL ET CL 16 06 07 60 30 00 WA Ac ON 72 -0 -0 .0 00 L- ti AZ 90 9- 7- 00 04 MA ve EP 13 20 20 53 RT AM 71 17 17 05 1 6 95 PH AR MG MA CY TA BL #5 ET 91 TR 50 10 19 30 30 00 WA Ac AZ 11 -1 -0 .0 00 L- ti OD 10 3- 7- 00 07 MA ve ON 43 20 20 48 RT E 30 17 17 69 50 1 03 PH AR MG MA CY TA BL #5 ET 91 BR 00 10 19 60 30 00 SD Ac IL 18 -1 -0 .0 00 L- ti IN 60 2 7- 00 07 MA ve TA 77 20 20 43 RT 76 17 17 60 90 0 75 PH AR MG MA CY TA BL #5 ET 91 00 10 19 30 30 00 WA Ac PI 90 -1 -0 .0 00 L- ti R- 47 2- 7- 00 08 MA ve LO 70 20 20 83 RT W 48 17 17 57 EC 0 52 PH AR 81 MA CY MG #5 TA 91 BL ET AT 68 10 19 30 30 00 SD Ac OR 64 -1 -0 .0 00 L- ti VA 50 2- 7- [address] 46 20 20 43 RT AT 15 17 17 60 IN 4 78 PH AR 80 MA CY MG #5 TA 91 BL ET ME 00 07 30 30 00 WA Ac TO 37 -1 -0 .0 00 L- ti AZ 80 2- 7- 00 07 MA ve OL 01 20 20 43 RT OL 80 17 17 61 5 11 PH TA AR RT MA RA CY TE #5 25 91 MG TA B GA 00 06 07 90 30 00 WA Ac BA 22 -1 -0 .0 00 L- ti PE 82 2- 7- 00 07 MA ve NT 63 20 20 49 RT IN 71 17 17 28 1 97 PH 80 AR 0 MA MG CY TA #5 BL 91 ET IS 23 06 07 30 30 00 WA Ac OS 15 -1 -0 .0 00 L- ti OR 50 3- 7- 00 07 MA ve BI 17 20 20 49 RT DE 80 17 17 33 1 53 PH MN AR MA ER CY 60 #5 91 MG TA BL ET AM 00 10 18 30 30 00 SD Ac LO 37 -0 -3 .0 00 L- ti DI 85 2- 0- 00 07 MA ve PI 20 20 20 49 RT NE 90 17 17 13 5 87 PH BE AR SY MA LA CY TE 5 #5 91 MG TA B PA 68 06 11 11 30 00 SD Ac RO 38 -0 -3 .0 00 L- ti XE 20 2- 0- 00 07 MA ve TI 00 20 20 47 RT NE 10 17 17 42 6 92 PH HC AR L MA 40 CY MG #5 91 TA BL ET CE 16 06 11 11 30 00 SD Ac TI 57 -0 -3 .0 00 L- ti RI 10 2- 0- 00 08 MA ve ZI 40 20 20 83 RT NE 25 17 17 68 0 85 PH HC AR L MA 10 CY MG #5 91 TA BL ET NI 43 05 06 25 7 00 SD Ac TR 59 -3 -2 .0 00 L- ti OG 80 0- 3- 00 07 MA ve LY 43 20 20 49 RT CE 61 17 17 06 RI 1 69 PH N AR 0. MA 4 CY MG #5 TA 91 BL ET SL HY 00 05 06 [address] 40 -3 -2 .0 00 L- ti OC 60 0- 3- 00 02 MA ve OD 12 20 20 24 RT ON 30 17 17 05 -A 1 38 PH CE AR TA MA SC CY NO PH #5 EN 91 5- 32 5 OM 60 05 30 30 00 SD Ac EP 50 -2 -1 .0 00 L- ti RA 50 2- 6- 00 07 MA ve ZO 14 20 20 48 RT LE 60 17 17 [address] AR MA 40 CY MG #5 91 CA PS UL E BR 00 05 60 30 00 SD Ac IL 18 -1 -0 .0 00 L- ti IN 60 5- 9- 00 07 MA ve TA 77 20 20 43 RT 76 17 17 60 90 0 75 PH AR MG MA CY TA BL #5 ET 91 LI 54 05 30 30 00 SD Ac SI 45 -1 -0 .0 00 L- ti NO 80 5- 9- 00 07 MA ve AZ 99 20 20 43 RT IL 71 17 17 60 0 82 PH 10 AR MA MG CY TA #5 BL 91 ET AT 60 05 11 11 29 00 WA Ac OR 50 -1 -0 .0 00 L- ti VA [address] 67 20 20 43 RT AT 10 17 17 60 IN 9 78 PH AR 80 MA CY MG #5 TA 91 BL ET ME 00 SD Ac TO 37 -1 -0 .0 00 L- ti AZ 80 07 MA ve OL 01 20 20 43 RT OL 80 17 17 61 5 11 PH TA AR RT MA RA CY TE #5 25 91 MG TA B IS 23 SD Ac OS 15 -1 -0 .0 00 L- ti OR 50 07 MA ve BI 17 20 20 45 RT DE 80 17 17 10 1 79 PH MN AR MA ER CY 60 #5 91 MG TA BL ET GA 00 05 30 00 SD Ac BA 22 -1 -0 .0 00 L- ti PE 82 07 MA ve NT 63 20 20 47 RT IN 71 17 17 76 1 13 PH 80 AR 0 MA MG CY TA #5 BL 91 ET EQ 49 00 SD Ac 03 -1 -0 .0 00 L- ti 50 08 MA ve PI 56 20 20 83 RT RI 33 17 17 57 N 2 52 PH EC AR MA 81 CY MG #5 91 TA BL ET CE 16 00 SD Ac TI 57 -0 -0 .0 00 L- ti RI 10 7- 2- 08 MA ve ZI 40 20 20 83 RT NE 25 17 17 68 0 85 PH HC AR L MA 10 CY MG #5 91 TA BL ET PA 68 05 SD Ac RO 38 -0 -0 .0 00 L- ti XE 20 7- 2- 00 07 MA ve TI 00 20 20 47 RT NE 10 17 17 42 6 92 PH HC AR L MA 40 CY MG #5 91 TA BL ET TR 50 00 SD Ac AZ 11 -0 -0 .0 00 L- ti OD 10 9 2- 07 MA ve ON 43 20 20 48 RT E 30 17 17 69 50 1 03 PH AR MG MA CY TA BL #5 ET 91 CL 16 05 30 00 SD Ac ON 72 -0 -0 .0 00 L- ti AZ 90 9- 2- 00 04 MA ve EP 13 20 20 53 RT AM 71 17 17 02 1 6 87 PH AR MG MA CY TA BL #5 ET 91 OM 60 04 05 30 30 00 WA Ac EP 50 -2 -1 .0 00 L- ti RA 50 1- 9- 00 07 MA ve ZO 14 20 20 48 RT LE 60 17 17 [address] AR MA 40 CY MG #5 91 CA PS UL E AT 68 04 05 30 30 00 WA Ac OR 64 -1 -1 .0 00 L- ti VA 50 8- 2- [address] 46 20 20 43 RT AT 15 17 17 60 IN 4 78 PH AR 80 MA CY MG #5 TA 91 BL ET IS 23 04 05 30 30 00 WA Ac OS 15 -1 -1 .0 00 L- ti OR 50 8- 2- 00 07 MA ve BI 17 20 20 45 RT DE 80 17 17 10 1 79 PH MN AR MA ER CY 60 #5 91 MG TA BL ET ME 00 04 30 30 00 SD Ac TO 37 -1 -1 .0 00 L- ti AZ 80 8- 2- 00 07 MA ve OL 01 20 20 43 RT OL 80 17 17 61 5 11 PH TA AR RT MA RA CY TE #5 25 91 MG TA B BR 00 04 05 60 30 00 WA Ac IL 18 -1 -1 .0 00 L- ti IN 60 8- 2- 00 07 MA ve TA 77 20 20 43 RT 76 17 17 60 90 0 75 PH AR MG MA CY TA BL #5 ET 91 LI 68 04 05 30 30 00 SD Ac SI 18 -1 -1 .0 00 L- ti NO 00 8- 2- 00 07 MA ve AZ 51 20 20 43 RT IL 40 17 17 60 1 82 PH 10 AR MA MG CY TA #5 BL 91 ET GA 00 04 05 90 30 00 WA Ac BA 22 -1 -1 .0 00 L- ti PE 82 8- 2- 00 07 MA ve NT 63 20 20 47 RT IN 71 17 17 76 1 13 PH 80 AR 0 MA MG CY TA #5 BL 91 ET 00 04 05 30 30 00 WA Ac PI 53 -1 -1 .0 00 L- ti RI 61 8- 2- 00 08 MA ve N 00 20 20 83 RT EC 41 17 17 57 0 52 PH 81 AR MA MG CY TA #5 BL 91 ET FL 60 04 05 16 30 00 WA Ac UT 50 -1 -1 .0 00 L- ti IC 50 8- 2- 00 07 MA ve 82 20 20 48 RT ON 90 17 17 29 E 1 48 PH AZ AR OP MA CY 50 #5 MC 91 G SP RA Y PA 68 04 10 11 30 00 SD Ac RO 38 -0 -0 .0 00 L- ti XE 20 9- 07 MA ve TI 00 20 20 47 RT NE 10 17 17 42 6 92 PH HC AR L MA 40 CY MG #5 91 TA BL ET CE 16 04 10 11 30 00 SD Ac TI 57 -0 -0 .0 00 L- ti RI 10 08 MA ve ZI 40 20 20 83 RT NE 25 17 17 68 0 85 PH HC AR L MA 10 CY MG #5 91 TA BL ET CL 16 04 30 00 SD Ac ON 72 -0 -0 .0 00 L- ti AZ 90 6 5 04 MA ve EP 13 20 20 52 RT AM 71 17 17 99 1 6 24 PH AR MG MA CY TA BL #5 ET 91 SP 00 04 10 11 29 00 SD Ac IR 59 -0 -0 .0 00 L- ti IV 70 6 07 MA ve A 07 20 20 48 RT 18 54 17 17 08 1 47 PH MC AR G MA CP CY -H AN #5 DI 91 LOWERY LE R ME 00 03 09 11 29 00 SD Ac TO 37 -2 -1 .0 00 L- ti AZ 80 4 07 MA ve OL 01 20 20 43 RT OL 80 17 17 61 5 11 PH TA AR RT MA RA CY TE #5 25 91 MG TA B BR 00 03 04 30 00 SD Ac IL 18 -2 -1 .0 00 L- ti IN 60 07 MA ve TA 77 20 20 43 RT 76 17 17 60 90 0 75 PH AR MG MA CY TA BL #5 ET 91 LI 54 03 30 30 00 SD Ac SI 45 -2 -1 .0 00 L- ti NO 80 07 MA ve AZ 99 20 20 43 RT IL 71 17 17 60 0 82 PH 10 AR MA MG CY TA #5 BL 91 ET IS 23 03 04 30 30 00 SD Ac OS 15 -2 -1 .0 00 L- ti OR 50 07 MA ve BI 17 20 20 45 RT DE 80 17 17 10 1 79 PH MN AR MA ER CY 60 #5 91 MG TA BL ET AT 68 03 04 30 30 00 WA Ac OR 64 -2 -1 .0 00 L- ti VA 50 1- 4- [address] 46 20 20 43 RT AT 15 17 17 60 IN 4 78 PH AR 80 MA CY MG #5 TA 91 BL ET FL 60 03 04 16 30 00 WA Ac UT 43 -2 -1 .0 00 L- ti IC 20 1- 4- 00 07 MA ve 26 20 20 44 RT ON 41 17 17 78 E 5 07 PH AZ AR OP MA CY 50 #5 MC 91 G SP RA Y EQ 49 03 04 30 30 00 WA Ac 03 -2 -1 .0 00 L- ti 50 1- 4- 00 08 MA ve PI 56 20 20 83 RT RI 33 17 17 57 N 2 52 PH EC AR MA 81 CY MG #5 91 TA BL ET GA 00 03 04 90 30 00 WA Ac BA 22 -2 -1 .0 00 L- ti PE 82 1- 4- 00 07 MA ve NT 63 20 20 47 RT IN 71 17 17 76 1 13 PH 80 AR 0 MA MG CY TA #5 BL 91 ET PA 68 03 03 30 30 00 WA Ac RO 38 -0 -3 .0 00 L- ti XE 20 4- 1- 00 07 MA ve TI 00 20 20 47 RT NE 10 17 17 42 6 92 PH HC AR L MA 40 CY MG #5 91 TA BL ET OM 60 03 03 30 30 00 WA Ac EP 50 -0 -3 .0 00 L- ti RA 50 7- 1- 00 07 MA ve ZO 14 20 20 45 RT LE 60 17 17 [address] AR MA 40 CY MG #5 91 CA PS UL E CL 16 03 03 60 30 00 WA Ac ON 72 -0 -3 .0 00 L- ti AZ 90 6- 1- 00 04 MA ve EP 13 20 20 52 RT AM 71 17 17 95 1 6 75 PH AR MG MA CY TA BL #5 ET 91 MO 54 03 03 30 30 00 WA Ac NT 45 -0 -3 .0 00 L- ti EL 80 8- 1- 00 07 MA ve UK 89 20 20 47 RT 01 17 17 50 T 0 02 PH SO AR D MA 10 CY MG #5 91 TA BL ET ME 00 02 03 30 30 00 WA Ac TO 37 -2 -2 .0 00 L- ti AZ 80 3- 4- 00 07 MA ve OL 01 20 20 43 RT OL 80 17 17 61 5 11 PH TA AR RT MA RA CY TE #5 25 91 MG TA B LI 54 02 03 30 30 00 WA Ac SI 45 -2 -2 .0 00 L- ti NO 80 3- 4- 00 07 MA ve AZ 99 20 20 43 RT IL 71 17 17 60 0 82 PH 10 AR MA MG CY TA #5 BL 91 ET CE 16 02 03 30 30 00 WA Ac TI 57 -2 -2 .0 00 L- ti RI 10 3- 4- 00 08 MA ve ZI 40 20 20 83 RT NE 25 17 17 68 0 85 PH HC AR L MA 10 CY MG #5 91 TA BL ET BR 00 02 03 60 30 00 WA Ac IL 18 -1 -1 .0 00 L- ti IN 60 8- 7- 00 07 MA ve TA 77 20 20 43 RT 76 17 17 60 90 0 75 PH AR MG MA CY TA BL #5 ET 91 AT 68 02 03 30 30 00 WA Ac OR 64 -1 -1 .0 00 L- ti VA 50 8- 7- [address] 46 20 20 43 RT AT 15 17 17 60 IN 4 78 PH AR 80 MA CY MG #5 TA 91 BL ET IS 23 02 03 30 30 00 WA Ac OS 15 -1 -1 .0 00 L- ti OR 50 8- 7- 00 07 MA ve BI 17 20 20 45 RT DE 80 17 17 10 1 79 PH MN AR MA ER CY 60 #5 91 MG TA BL ET FL 60 02 03 16 30 00 WA Ac UT 50 -1 -1 .0 00 L- ti IC 50 8- 7- 00 07 MA ve 82 20 20 44 RT ON 90 17 17 78 E 1 07 PH AZ AR OP MA CY 50 #5 MC 91 G SP RA Y GA 00 02 03 90 30 00 WA Ac BA 22 -1 -1 .0 00 L- ti PE 82 8- 7- 00 07 MA ve NT 63 20 20 46 RT IN 71 17 17 04 1 12 PH 80 AR 0 MA MG CY TA #5 BL 91 ET EQ 49 02 03 30 30 00 WA Ac 03 -1 -1 .0 00 L- ti 50 8- 7- 00 08 MA ve PI 56 20 20 83 RT RI 33 17 17 57 N 2 52 PH EC AR MA 81 CY MG #5 91 TA BL ET MO 54 02 03 30 30 00 WA Ac NT 45 -0 -0 .0 00 L- ti EL 80 3- 3- 00 07 MA ve UK 89 20 20 46 RT 01 17 17 85 T 0 23 PH SO AR D MA 10 CY MG #5 91 TA BL ET OM 60 02 03 30 30 00 WA Ac EP 50 -0 -0 .0 00 L- ti RA 50 8- 3- 00 07 MA ve ZO 14 20 20 45 RT LE 60 17 17 [address] AR MA 40 CY MG #5 91 CA PS UL E CL 16 01 02 60 30 00 WA Ac ON 72 -3 -2 .0 00 L- ti AZ 90 0- 4- 00 04 MA ve EP 13 20 20 52 RT AM 71 17 17 91 1 6 97 PH AR MG MA CY TA BL #5 ET 91 LI 54 01 02 30 30 00 SD Ac SI 45 -2 -2 .0 00 L- ti NO 80 8- 4- 00 07 MA ve AZ 99 20 20 43 RT IL 71 17 17 60 0 82 PH 10 AR MA MG CY TA #5 BL 91 ET ME 00 02 30 30 00 SD Ac TO 37 -2 -2 .0 00 L- ti AZ 80 8- 4- 00 07 MA ve OL 01 20 20 43 RT OL 80 17 17 61 5 11 PH TA AR RT MA RA CY TE #5 25 91 MG TA B CE 16 02 30 30 00 SD Ac TI 57 -2 -2 .0 00 L- ti RI 10 8- 4- 00 08 MA ve ZI 40 20 20 83 RT NE 25 17 17 68 0 18 PH HC AR L MA 10 CY MG #5 91 TA BL ET IS 23 02 30 30 00 WA Ac OS 15 -2 -1 .0 00 L- ti OR 50 3- 7- 00 07 MA ve BI 17 20 20 45 RT DE 80 17 17 10 1 79 PH MN AR MA ER CY 60 #5 91 MG TA BL ET AT 68 01 02 30 30 00 WA Ac OR 64 -2 -1 .0 00 L- ti VA 50 3- 7- [address] 46 20 20 43 RT AT 15 17 17 60 IN 4 78 PH AR 80 MA CY MG #5 TA 91 BL ET BR 00 01 02 60 30 00 WA Ac IL 18 -2 -1 .0 00 L- ti IN 60 3- 7- 00 07 MA ve TA 77 20 20 43 RT 76 17 17 60 90 0 75 PH AR MG MA CY TA BL #5 ET 91 00 01 02 30 30 00 WA Ac PI 53 -2 -1 .0 00 L- ti RI 61 3- 7- 00 08 MA ve N 00 20 20 83 RT EC 41 17 17 57 0 52 PH 81 AR MA MG CY TA #5 BL 91 ET GA 00 01 02 90 30 00 WA Ac BA 22 -2 -1 .0 00 L- ti PE 82 3- 7- 00 07 MA ve NT 63 20 20 46 RT IN 71 17 17 04 1 12 PH 80 AR 0 MA MG CY TA #5 BL 91 ET FL 60 01 02 16 30 00 SD Ac UT 43 -2 -1 .0 00 L- ti IC 20 3- 7- 00 07 MA ve 26 20 20 44 RT ON 41 17 17 78 E 5 07 PH AZ AR OP MA CY 50 #5 MC 91 G SP RA Y PA 68 05 16 29 30 00 SD Ac RO 38 -2 -1 .0 00 L- ti XE 20 5- 7- 00 07 MA ve TI 00 20 20 46 RT NE 10 17 17 69 6 89 PH HC AR L MA 40 CY MG #5 91 TA BL ET OM 60 05 16 29 30 00 SD Ac EP 50 -1 -1 .0 00 L- ti RA 50 3- 0- 00 07 MA ve ZO 14 20 20 45 RT LE 60 17 17 [address] AR MA 40 CY MG #5 91 CA PS UL E LI 54 12 30 00 SD Ac SI 45 -3 -0 .0 00 L- ti NO 80 0- 3- 00 07 MA ve AZ 99 20 20 43 RT IL 71 16 17 60 0 82 PH 10 AR MA MG CY TA #5 BL 91 ET CE 16 05 15 29 30 SD Ac TI 57 -0 -2 .0 00 L- ti RI 10 2- 7- 00 08 MA ve ZI 40 20 20 83 RT NE 25 17 17 68 0 18 PH HC AR L MA 10 CY MG #5 91 TA BL ET ME 00 05 15 30 30 00 SD Ac TO 37 -0 -2 .0 00 L- ti AZ 80 2- 7- 00 07 MA ve OL 01 20 20 43 RT OL 80 17 17 61 5 11 PH TA AR RT MA RA CY TE #5 25 91 MG TA B MO 54 01 06 13 30 SD Ac NT 45 -0 -2 .0 00 L- ti EL 80 2- 7- 00 07 MA ve UK 89 20 20 46 RT 01 17 17 19 T 0 54 PH SO AR D MA 10 CY MG #5 91 TA BL ET IP 00 01 01 36 30 00 YO Ac RA 48 -0 -2 0. 00 UR ti T- 70 4- 7- 00 00 ve AL 20 20 20 0 03 PH BU 16 17 17 19 AR T 0 03 MA 0. CY 5- 3( LL 2. C 5) MG /3 ML BR 00 12 60 30 00 WA Ac IL 18 -2 -2 .0 00 L- ti IN 60 3- 7- 00 07 MA ve TA 77 20 20 43 RT 76 16 17 60 90 0 75 PH AR MG MA CY TA BL #5 ET 91 AT 68 12 06 13 30 00 WA Ac OR 64 -2 -2 .0 00 L- ti VA 50 3- 7- [address] 46 20 20 43 RT AT 15 16 17 60 IN 4 78 PH AR 80 MA CY MG #5 TA 91 BL ET EC 42 12 06 13 30 00 WA Ac OT 03 -2 -2 .0 00 L- ti RI 70 3 7- 00 08 MA ve N 10 20 20 83 RT EC 42 16 17 57 7 52 PH 81 AR MA MG CY TA #5 BL 91 ET CL 16 12 60 30 00 WA Ac ON 72 -2 -2 .0 00 L- ti AZ 90 3- 7- 00 04 MA ve EP 13 20 20 52 RT AM 71 16 17 88 1 6 29 PH AR MG MA CY TA BL #5 ET 91 GA 00 12 01 90 30 00 WA Ac BA 22 -2 -2 .0 00 L- ti PE 82 3- 7- 00 07 MA ve NT 63 20 20 46 RT IN 71 16 17 04 1 12 PH 80 AR 0 MA MG CY TA #5 BL 91 ET PA 68 12 30 30 00 WA Ac RO 38 -1 -2 .0 00 L- ti XE 20 5- 0- 00 07 MA ve TI 00 20 20 45 RT NE 10 16 17 84 6 50 PH HC AR L MA 40 CY MG #5 91 TA BL ET NI 43 12 28 28 00 WA Ac CO 59 -1 -2 .0 00 L- ti TI 80 6- 0- 00 08 MA ve NE 44 20 20 83 RT 82 16 17 73 21 8 60 PH AR MG MA /2 CY 4H R #5 PA 91 TC H IS 23 12 01 30 30 00 WA Ac OS 15 -1 -1 .0 00 L- ti OR 50 4- 3- 00 07 MA ve BI 17 20 20 45 RT DE 80 16 17 10 1 79 PH MN AR MA ER CY 60 #5 91 MG TA BL ET OM 57 12 06 13 29 00 WA Ac EP 23 -0 -1 .0 00 L- ti RA 70 9- 3- 00 07 MA ve ZO 16 20 20 45 RT LE 23 16 17 [address] AR MA 40 CY MG #5 91 CA PS UL E ME 00 12 WA Ac TO 37 -0 -0 .0 00 L- ti AZ 80 2- 9- 00 07 MA ve OL 01 20 20 43 RT OL 80 16 17 61 5 11 PH TA AR RT MA RA CY TE #5 25 91 MG TA B LI 68 12 06 13 29 00 WA Ac SI 18 -0 -0 .0 00 L- ti NO 00 3 9 07 MA ve AZ 51 20 20 43 RT IL 40 16 17 60 1 82 PH 10 AR MA MG CY TA #5 BL 91 ET CE 16 12 WA Ac TI 57 -0 -0 .0 00 L- ti RI 10 2- 9- 00 08 MA ve ZI 40 20 20 83 RT NE 25 16 17 68 0 18 PH HC AR L MA 10 CY MG #5 91 TA BL ET AL 67 10 10 2 90 30 EA 24 AR Ac AZ 25 -2 -[address] 65 NO ti AZ 30 5- 5- 00 SI 22 LD ve OL 90 20 20 DE AM 35 11 11 RI 2 0 PH CH AR AR MG MA D CY W TA BL OF ET CY NT HI AN A CI 55 07 10 5 30 30 WA 71 NO Ac TA 11 -2 -1 .0 L- 28 RF ti LO 10 8- 8- 00 MA 73 LE ve AZ 34 20 20 RT 5 ET AM 43 11 11 R 0 PH HB AR HE R MA NR 40 CY Y # MG 10 TA 05 BL 91 ET SY 00 09 10 6 10 30 WA 71 MA Ac MB 18 -2 -1 .1 L- 36 SH ti IC 60 2- 2- 99 MA 02 BU ve OR 37 20 20 RT 2 RN T 02 11 11 16 0 PH AM 0- AR Y 4. MA B 5 CY MC # G IN 10 [place] 05 LE 91 R TR 00 10 10 0 12 3 WA 44 WE Ac AM 37 -0 -1 .0 L- 96 HR ti AD 84 6- 0- 00 MA 78 MA ve OL 15 20 20 RT 9 N 10 11 11 II HC 1 PH I L AR WI 50 MA LL CY IA MG # M E TA 10 BL 05 ET 91 00 10 10 0 15 5 WA 71 WE Ac 37 -0 -1 .0 L- 38 HR ti 80 6- 0- 00 MA 28 MA ve 75 20 20 RT 8 N 19 11 11 II 3 PH I AR WI MA LL CY IA # M E 10 05 91 00 09 10 6 30 30 SD 71 CO Ac 00 -2 -0 .0 L- 36 MM ti 60 2- 9- 00 MA 02 UN ve 11 20 20 RT 3 IT 73 11 11 Y 1 PH AL AR LE MA RG CY Y # & 10 TH 05 MA 91 PS C 00 09 10 6 30 30 SD 71 MA Ac 00 -2 -0 .0 L- 36 SH ti 60 2- 9- 00 MA 02 BU ve 11 20 20 RT 3 RN 73 11 11 1 PH AM AR Y MA B CY # 10 05 91 SY 00 09 09 5 10 30 SD 71 AR Ac MB 18 -1 -1 .1 L- 34 NO ti IC 60 5- 5- 99 MA 97 LD ve OR 37 20 20 RT 5 T 02 11 11 RI 16 0 PH CH 0- AR AR 4. MA D 5 CY W MC # G IN 10 [place] 05 LE 91 R 00 09 09 5 30 30 SD 71 AR Ac 00 -0 -1 .0 L- 34 NO ti 60 7- 2- 00 MA 00 LD ve 11 20 20 RT 4 73 11 11 RI 1 PH CH AR AR MA D CY W # 10 05 91 GA 53 04 09 2 90 30 SD 71 NO Ac BA 74 -1 -0 .0 L- 15 RF ti PE 60 4- 9- 00 MA 31 LE ve NT 10 20 20 RT 0 ET IN 10 11 11 R 1 PH 10 AR HE 0 MA NR MG CY Y # CA PS 10 UL 05 E 91 59 09 09 5 8. 16 SD 71 AR Ac 31 -0 -0 50 L- 34 NO ti 00 7- 7- 0 MA 00 LD ve 57 20 20 RT 3 92 11 11 RI 0 PH CH AR AR MA D CY W # 10 05 91 Immunization Name Date Rout CVX Reac Dose Comm Prov Is Faci e tion ent ider Refu lity Give sed n PCV1 03-0 133 [facility] No [facility] 3 9-20 [facility] PHYS VACC 16 ICIA INE STON NS FOR E GROU INTR PA-C P AMUS ROSALEE CULA R USE Procedures Procedure DOS Code Location Performer Comment INITIAL [address] [facility] 7 PHYSICIAN CARE/DAY S GROUP 70 MINUTES MYOCARDIA 00953 [place] [place] SPECT 7 MEDICAL MULTIPLE IMAGING STUDIES ASS RADIOLOGI 77332 [place] [facility] 7 MEDICAL EXAMINATI IMAGING ON CHEST ASS SINGLE VIEW FRONTAL ECG 56936 FABRICE DAVILA ROUTINE 7 PHYSICIAN U ECG S, PLLC W/LEAST 12 LDS I&R ONLY PHYSICAL 23180 [facility] 7 [facility] EVALU[facility] INC INC N HIGH COMPLEX 45 MINS RADIOLOGI 14769 [place] [facility] 7 MEDICAL EXAMINATI IMAGING ON FEMUR ASS MINIMUM 2 VIEWS RADIOLOGI 21662 [place] [facility] 7 MEDICAL EXAMINATI IMAGING ON KNEE 3 ASS VIEWS THERAPEUT 44809 [place] [facility] IC 7 [facility] PROP[facility]AC INTERNAL TIC/DX MED INJECTION SUBQ/IM INJECTION J3301 [facility] [facility] 7 [facility] TRIAMCINO INTERNAL LONE MED ACETONIDE NOS 10 MG LIPID 31126 [facility] PANEL 7 [facility] INC INC COMPREHEN 27315 [facility] SIVE 7 [facility] METABOLIC INC INC PANEL THERAPEUT 50143 [facility] IC 7 [facility] PROPHYLAC INTERNAL TIC/DX MED INJECTION SUBQ/IM INJECTION J3301 [place] [facility] 7 [facility] TRIAMCINO INTERNAL LONE MED [place] NOS 10 MG RADEX 04054 [place] NICOLE FOOT 7 MEDICAL COMPLETE IMAGING MINIMUM 3 ASS VIEWS RADIOLOGI 53183 [facility] EXAM 7 [facility] CHEST 2 INC INC VIEWS FRONTAL&[place] [address] [facility] THORACIC 7 [facility] SPINE W/[place] [address] [facility] CERVICAL 7 [facility] SPINE W/O INC INC CONTRAST MATERIAL THERAPEUT 05316 [facility] IC 7 [facility] INJECTION INC INC IV PUSH EACH NEW DRUG THER 86710 [facility] PROPH/DX 7 [facility] NJX IV INC INC PUSH SINGLE/1S T SBST/DRUG UNCLASSIF J3490 [facility] IED DRUGS 7 [facility] INC INC ECG 44859 YENY QUEVEDO ROUTINE 7 PHYSICIAN ECG S GROUP W/LEAST 12 LDS I&R ONLY ECG 30860 [facility] ROUTINE 7 [facility] ECG INC INC W/LEAST 12 LDS TRCG ONLY W/O I&R COLLECTIO 86621 [facility] N VENOUS 7 [facility] BLOOD INC INC VENIPUNCT URE BASIC 52047 [facility] METABOLIC 7 [facility] PANEL INC INC CALCIUM TOTAL BASIC 76409 [facility] METABOLIC 7 [facility] PANEL INC INC CALCIUM TOTAL CATH PLMT 21156 [facility] EMY L HRT & 7 PHYSICIAN ARTS GROUP W/NJX & ANGIO IMG S&I CATHETER C1725 [facility] TRANSLUMI 7 [facility] NAL INC INC ANGIOPLAS TY NON-LASER GUIDE C1769 [facility] WIRE 7 [facility] INC INC STENT C1876 [facility] NON-COATE 7 [facility] D/NON-COV INC INC ERED W/DELIVER Y SYSTEM UNCLASSIF J3490 [facility] IED DRUGS 7 [facility] [place] PRQ [address] [facility] EMY TRLUML 7 PHYSICIAN CORONARY GROUP ANGIOPLAS TY ONE ART/BRANC H CLOSURE C1760 [facility] DEVICE 7 [facility] VASCULAR INC INC INTRDUCR/ C1894 [facility] SHEATH 7 [facility] NOT GUID INC INC INTRACARD EP NON-LASR COAGULATI 53234 [place] [facility] ON TIME 7 [facility] [place] DOP 07053 [facility] EMY MARKUS&/OR 7 PHYSICIAN PRESS GROUP C/LACIE RSRV DINORA 1ST VSL PRQ 77339 [place] [facility] TRLUML 7 [facility] CORONARY INC INC [place] [address] [facility] EMY TRLUML 7 PHYSICIAN CORONARY GROUP STENT W/ANGIO ONE ART/BRNCH OPHTH 04829 [employer] [facility] 7 XM&EVAL COMPRHNSV ESTAB PT 1/> MYOCARDIA 31995 [place] [facility] L SPECT 7 [facility] MULTIPLE INC INC STUDIES CV STRS 61303 [place] [facility] TST 7 [facility] XERS&/OR INC INC RX CONT ECG TRCG ONLY CV STRS 03880 [facility] KATHY TST 7 PHYSICIAN XERS&/OR S GROUP RX CONT ECG W/O I&R OBSERVATI 05079 [facility] [facility] ON CARE 7 [facility] WITH [facility] G0378 [place] [facility] OBSERVATI 7 [facility] ON INC INC SERVICE PER HOUR UNCLASSIF J3490 [facility] [facility] IED DRUGS 7 [facility] INC INC UNCLASSIF J3490 [facility] IED DRUGS 7 [facility] INC INC BASIC 22978 [place] [facility] METABOLIC 7 [facility] G0378 [place] [facility] OBSERVATI 7 [facility] ON INC INC SERVICE PER HOUR NONINVASI 46986 [place] [facility] VE 7 [facility] EAR/PULSE INC INC OXIMETRY SINGLE DETER LIPID 08198 [place] [facility] PANEL 7 [facility] INC INC ECG 83990 [place] GARCÍA JR ROUTINE 7 [facility] W/LEAST P 12 LDS I&R ONLY ECHO 59843 [place] [facility] TTHRC R-T 7 [facility] 2D INC INC W/WOM-MOD E COMPL SPEC&COLR D THROMBOPL 68709 [place] [facility] ASTIN 7 [facility] TIME INC INC PARTIAL PLASMA/WH OLE BLOOD PROTHROMB 72174 [place] [facility] IN TIME 7 [facility] INC INC CREATINE 88812 [place] [facility] KINASE 7 [facility] TOTAL INC INC CREATINE 00180 [place] [facility] KINASE MB 7 [facility] [place] [address] [place] [facility] TROPONIN 7 [facility] QUANTITAT INC INC ROMERO INITIAL 74026 JOVANNI MALLOY OBSERVATI 7 [facility] INTERNAL [facility]ARE/DAY MED 30 MINUTES ECG 10023 [place] [facility] ROUTINE 7 [facility] ECG INC INC W/LEAST 12 LDS TRCG ONLY W/O I&R RADIOLOGI 74770 [facility] C EXAM 7 [facility] CHEST 2 INC INC VIEWS FRONTAL&L ATERAL AMB A0427 [facility] SERVICE 7 AMBULANCE AMBULANCE ALS SERVICE SERVICE EMERGENCY TRANSPORT LEVEL 1 GROUND A0425 [facility] MILEAGE 7 AMBULANCE AMBULANCE PER SERVICE SERVICE STATUTE MILE ADMN SET A7005 YOUR YOUR W/SM VOL 6 [facility]ARM[facility]Y [facility] NEBULIZR NON-DISPB L CREATINE 96843 [place] [facility] KINASE 6 [facility] TOTAL INC INC INITIAL 51835 [facility] 6 PHYSICIAN MAT CARE/DAY S GROUP 70 MINUTES INITIAL 45771 [place] [facility] OBSERVATI 6 [facility] ON INC INC CARE/DAY 50 [place] [address] [place] [facility] TROPONIN 6 [facility] QUANTITAT INC INC ROMERO CREATINE 66258 [place] [facility] KINASE MB 6 [facility] FRACTION INC INC ONLY COLLECTIO 39833 [place] [facility] N VENOUS 6 [facility] BLOOD INC INC VENIPUNCT URE COLLECTIO 42242 [place] [facility] N VENOUS 6 [facility] BLOOD INC INC VENIPUNCT URE CREATINE 18755 [place] [facility] KINASE MB 6 [facility] [place] [address] [place] [facility] TROPONIN 6 [facility] QUANTITAT INC INC ROMERO BLOOD 76943 [facility] COUNT 6 [facility] COMPLETE INC INC AUTO&AUTO DIFRNTL WBC INITIAL 74564 [place] [facility] OBSERVATI 6 [facility] ON INC INC CARE/DAY 50 MINUTES TOBACCO 48577 [place] [facility] USE 6 [facility] CESSATION INC INC INTERMEDI ATE 3-10 MINUTES CREATINE 18278 [place] [facility] KINASE 6 [facility] TOTAL INC INC RADIOLOGI 19878 [facility] C 6 [facility] EXAMINATI INC INC ON CHEST SINGLE VIEW FRONTAL ECG 17691 [facility] [facility] ROUTINE 6 [facility] ECG INC INC W/LEAST 12 LDS TRCG ONLY W/O I&R COMPREHEN 20010 [facility] SIVE 6 [facility] METABOLIC INC INC PANEL ECG 12195 [place] GARCÍA JR ROUTINE 6 [facility] W/LEAST P 12 LDS I&R ONLY NONINVASI 20523 [facility] VE 6 [facility] EAR/PULSE INC INC OXIMETRY SINGLE DETER RADEX 50957 [place] [facility] ANKLE 6 MEDICAL COMPLETE IMAGING MINIMUM 3 ASS VIEWS DRUG TST G0477 [facility] PRESUMP;C 6 [facility] PBL BEING INC INC READ DC OPT OBV ONLY DRUG TEST G0480 [facility] DEFINITV 6 [facility] DR ID INC INC METH P DAY 1-7 DRUG CL OBSERVATI 71787 [facility] 6 PHYSICIAN EUG DISCHARGE S GROUP MANAGEMEN T INITIAL 29128 [place] [facility] OBSERVATI 6 [facility] ON INC INC CARE/DAY 50 MINUTES CATH PLMT 68552 [facility] L 6 [facility] HRT/ARTS/ INC INC GRFTS WNJX & ANGIO IMG S&I ECG 51456 [place] GARC[facility]A JR ROUTINE 6 [facility] W/LEAST P 12 LDS I&R ONLY GUIDE C1769 [facility] WIRE 6 [facility] INC INC CATHETER C1725 [facility] [facility] TRANSLUMI 6 [facility] NAL INC INC ANGIOPLAS TY NON-LASER ECG 20022 [place] GARCÍA JR ROUTINE 6 [facility] W/LEAST P 12 LDS I&R ONLY BLOOD 63658 [facility] COUNT 6 [facility] COMPLETE INC INC AUTO&AUTO DIFRNTL WBC INITIAL 80478 [facility] [place] OBSERVATI 6 [facility] ON INC INC CARE/DAY 50 [place] [address] [facility] TROPONIN 6 [facility] QUANTITAT INC INC ROMERO CREATINE 41963 [facility] KINASE MB 6 [facility] FRACTION INC INC ONLY THROMBOPL 59797 [facility] ASTIN 6 [facility] TIME INC INC PARTIAL PLASMA/WH OLE BLOOD CREATINE 57868 [place] KINASE 6 [facility] TOTAL INC INC PROTHROMB 10883 [place] IN TIME 6 [facility] INC INC INITIAL 54368 [facility] 6 PHYSICIAN MAT CARE/DAY S GROUP 70 MINUTES COMPREHEN 16348 [place] SIVE 6 [facility] METABOLIC INC INC PANEL RADIOLOGI 23704 [facility] C EXAM 6 [facility] CHEST 2 INC INC VIEWS FRONTAL&L ATERAL ECG 08177 [facility] ROUTINE 6 [facility] ECG INC INC W/LEAST 12 LDS TRCG ONLY W/O I&R PRQ 27887 [place] [facility] TRLUML 6 MEDICAL CORONARY SERV BYP GRFT FOUNDATIO REVASC N ONE VESSEL PRQ 04534 [place] TRLUML 6 MEDICAL CORONARY SERV STENT FOUNDATIO W/ANGIO N ONE ART/BRNCH ECG 00503 [place] [facility] SABRINA ROUTINE 6 MEDICAL ECG SERV W/LEAST FOUNDATIO 12 LDS N I&R ONLY CATH PLMT 10266 [place] JEREMI[facility] & NJX 6 MEDICAL CORONARY SERV ART/GRFT FOUNDATIO ANGIO IMG N S&I ECG 42587 [place] [facility] S[facility] ROUTINE 6 MEDICAL ECG SERV W/LEAST FOUNDATIO 12 LDS N I&R ONLY CARDIAC 64371 [place] KURTIS VID MRI FOR 6 MEDICAL VELOCITY SERV FLOW FOUNDATIO MAPPING N CARDIAC 99617 LOBO NADIG VID MRI W/W/O 6 MEDICAL CONTRAST SERV W/STRESS FOUNDATIO N SBSQ 41855 [facility] 6 MEDICAL GRACE CARE/DAY SERV 25 FOUNDATIO MINUTES N CRITICAL 27673 [facility] 6 PHYSICIAN PAULINA ILL/INJUR S, PLLC ED PATIENT INIT 30-74 MIN AMB A0427 [facility] SERVICE 6 AMBULANCE AMBULANCE ALS SERVICE SERVICE EMERGENCY TRANSPORT LEVEL 1 RADIOLOGI 62911 [facility] ALL C 6 MEDICAL EXAMINATI IMAGING ON CHEST ASS SINGLE VIEW FRONTAL GROUND A0425 [facility] MILEAGE 6 AMBULANCE AMBULANCE PER SERVICE SERVICE STATUTE MILE INITIAL 76261 [facility] 6 MEDICAL GRACE CARE/DAY SERV 50 FOUNDATIO MINUTES N ECG 03207 [facility]I ROUTINE 6 MEDICAL ECG SERV W/LEAST FOUNDATIO 12 LDS N I&R ONLY RADIOLOGI 85732 [place] [facility] ALL C 6 MEDICAL EXAMINATI IMAGING ON CHEST ASS SINGLE VIEW FRONTAL RADIOLOGI 31455 [facility] [place] KOSTELIC C 6 RADIOLOGY IAIN EXAMINATI ON CHEST SINGLE VIEW FRONTAL RADIOLOGI 09091 [facility] [place] KOSTELIC C 6 RADIOLOGY IAIN EXAMINATI ON CHEST SINGLE VIEW FRONTAL RADIOLOGI 85521 [facility] [place] BRODY C 6 RADIOLOGY CAR EXAMINATI ON CHEST SINGLE VIEW FRONTAL RADIOLOGI 49571 [facility] [place] ISAAC C 6 RADIOLOGY GILBERT EXAMINATI ON CHEST [place] [address] [facility] NA HEMRRG 6 [facility] THROMBOSI MEDICAL S/INFCTJ G CH ANES HRT 44723 ANESTHESI JR. MARILUZ PERICARDI 6 A JAM AL SAC& ASSOCIATE GRT VESLS S PSC W/O ULTRASONIC HAND SOLDERER OXT ANES 62553 ANESTHESI CORNEA DIRECT 6 A MIH CABG ASSOCIATE W/PUMP S PSC OXYGENATO R NDSC SURG 60762 [facility] NA 6 [facility] W/VIDEO-A MEDICAL SSISTED G HARVEST VEIN CABG CORONARY 31986 [facility] NA ARTERY 6 [facility] BYP MEDICAL W/VEIN & G ARTERY GRAFT 2 VEIN GROUND A0425 [facility] MILEA 6 AMBULANCE AMBULANCE PER SERVICE SERVICE STATUTE MILE ARTL 42746 ANESTHESI [facility] CATHJ/CAN 6 A GILBERT NULJ ASSOCIATE MNTR/BURT S PSC SFUSION SPX PRQ CABG 52767 [facility] NA W/ARTERIA 6 [facility] L GRAFT MEDICAL SINGLE G ARTERIAL GRAFT RADIOLOGI 42849 [facility] [place] ISAAC C 6 RADIOLOGY GILBERT EXAMINATI ON CHEST SINGLE VIEW FRONTAL AMB A0427 [facility] SERVICE 6 AMBULANCE AMBULANCE ALS SERVICE SERVICE EMERGENCY TRANSPORT LEVEL 1 [facility] 19762 ANESTHESI [place] ACCESS 6 A GILBERT SITS VSL ASSOCIATE PATENCY S PSC NDL ENTRY ECHO 38012 ANESTHESI CORNEA TRANSESOP [address] [facility] HAG R-T ASSOCIATE 2D W/PRB S PSC IMG ACQUISJ I&R DOP 47025 ANESTHESI CORNEA ECHOCARD [address] [facility] COLOR ASSOCIATE FLOW S PSC VELOCITY MAPPING ECG 66582 [facility] ROUTINE 6 NE [facility] ECG MEDICAL W/LEAST G 12 LDS I&R ONLY SPMTRY 91929 [facility] KSEIBI W/VC 6 NE [facility] EXPIRATOR MEDICAL Y LACIE G W/WO MXML VOL VNTJ INSERTION 12051 ANESTHESI [place] FLOW 6 A GIL[facility]ERT DIRECTED ASSOCIATE CATHETER S PSC FOR MONITORIN G DOPPLER 50818 ANESTHESI CORNEA ECHOCARD [address] [facility] PULSE ASSOCIATE WAVE S PSC W/SPECTRA L DISPLAY CATH PLMT 78823 [place] [address] PHYSICIAN MAT HRT/ARTS/ S GROUP GRFTS WNJX & ANGIO IMG S&I SLCTV 68525 [facility] CATH 6 PHYSICIAN PHYSICIAN SUBCLAVIA S GROUP S GROUP N ART ANGIO VERTEBRAL ARTERY [facility] 30915 [facility] BRANDYN DISCHARGE 6 PHYSICIAN RAFIA DAY S GROUP MANAGEMEN T 30 MIN/< INITIAL 79469 [facility] 6 PHYSICIAN MAT CARE/DAY S GROUP 70 MINUTES INITIAL 90108 [facility] 6 PHYSICIAN RAFIA CARE/DAY S GROUP 50 MINUTES RADIOLOGI 89659 [facility] ALL C 6 MEDICAL EXAMINATI IMAGING ON CHEST ASS SINGLE VIEW FRONTAL CRITICAL 03916 [facility] 6 PHYSICIAN U MONALISA ILL/INJUR S, PLLC ED PATIENT INIT 30-74 MIN ECG 74640 [place] GARCÍA JR ROUTINE 6 [facility] W/LEAST P 12 LDS I&R ONLY RADIOLOGI 41638 [place] FRAN ALL C EXAM 6 MEDICAL CHEST 2 IMAGING VIEWS ASS FRONTAL&L ATERAL ECG 16008 [facility] ROUTINE 6 Y Y ECG [facility] W/LEAST 12 LDS TRCG ONLY W/O I&R ECG 36668 [facility] CHI ROUTINE 6 MEDICAL ECG SERV W/LEAST FOUNDATIO 12 LDS N I&R ONLY SMPL 82212 FABRICE CROFT REPAIR 6 PHYSICIAN MAT SCALP/NEC S, PLLC K/AX/BRUNILDA T/TRUNK 2.6-7.5CM CHIROPRAC 11030 JUÁREZ JUÁREZ TIC 6 MANIPULAT [place] SPINAL 3-4 REGIONS DESTRUCTI 26748 PROGRESSI ROBERTA ON BENIGN 6 VE EBNOI LESIONS PODIATRY 15/> RADEX 39718 [place] NICOLE FOOT 6 MEDICAL HENRY COMPLETE IMAGING MINIMUM 3 ASS VIEWS CHIROPRAC 10289 JUÁREZ JUÁREZ TIC 6 MANIPULAT ROMERO TX SPINAL 3-4 REGIONS CHIROPRAC 33488 JUÁREZ JUÁREZ TIC 6 MANIPULAT ROMERO [place] SPINAL 3-4 REGIONS RADEX 42085 JUÁREZ JUÁREZ SPINE 6 LUMBOSACR AL 2/3 VIEWS RADEX 36577 JUÁREZ JUÁREZ SPINE 6 THORACIC 2 VIEWS COLLECTIO 75799 [place] Block VENOUS 6 [facility] BLOOD INC INC VENIPUNCT URE LIPID 84154 [place] [facility] PANEL 6 [facility] INC INC ECG 81752 [place] [facility] ROUTINE 6 [facility] ECG INC INC W/LEAST 12 LDS TRCG ONLY W/O I&R HEPATIC 55143 [facility] FUNCTION 6 [facility] PANEL INC INC THERAPEUT 26183 [facility] IC 6 [facility] INJECTION INC INC IV PUSH EACH NEW DRUG THER 82452 [place] [facility] PROPH/DX 6 [facility] NJX IV INC INC PUSH SINGLE/1S T SBST/DRUG ECG 06094 [place] MALLOY ROUTINE 6 [facility] W/LEAST P 12 LDS I&R ONLY UNCLASSIF J3490 [facility] IED DRUGS 6 [facility] INC INC ECG 75245 [place] GUILLAUME ADA ROUTINE 6 [facility] ECG INC W/LEAST 12 LDS TRCG ONLY W/O I&R COMPREHEN 93697 [place] [facility] SIVE 6 [facility] METABOLIC INC INC PANEL CREATINE 18179 [facility] KINASE MB 6 [facility] [place] [address] [place] [facility] TROPONIN 6 [facility] QUANTITAT INC INC ROMERO BLOOD 85806 [place] COUNT 6 [facility] COMPLETE INC INC AUTO&AUTO DIFRNTL WBC CREATINE 48369 [place] [facility] KINASE 6 [facility] TOTAL INC INC PCV13 42793 [facility] GEOVANNY VACCINE 6 PHYSICIAN STONE FOR S GROUP PA-C ROSALEE INTRAMUSC ULAR USE IM ADM 30103 [facility] GEOVANNY PRQ ID 6 PHYSICIAN STONE SUBQ/IM S GROUP PA-C [place] NJXS 1 VACCINE RADIOLOGI 99669 [place] [facility] ALL C EXAM 6 MEDICAL CHEST 2 IMAGING VIEWS ASS FRONTAL&L ATERAL OPHTH 88929 [facility] MEDICAL 6 XM&EVAL COMPRHNSV ESTAB PT 1/> RADIOLOGI 10969 [place] BEINEKE C 6 MEDICAL MONALISA EXAMINATI IMAGING ON PELVIS ASS 1/2 VIEWS AMB A0427 [facility] SERVICE 6 AMBULANCE AMBULANCE ALS SERVICE SERVICE EMERGENCY TRANSPORT LEVEL 1 GROUND A0425 [facility] 6 AMBULANCE AMBULANCE PER SERVICE SERVICE STATUTE MILE RADEX 02051 [facility] SPINE 6 MEDICAL MONALISA LUMBOSACR IMAGING AL ASS MINIMUM 4 [facility] [address] ABR DAY HEART MANAGEMEN T > 30 MIN SBSQ [address] ABR CARE/DAY HEART 25 MINUTES PRQ 59780 [facility]ARDI[facility] 6 CULAR CULAR CORONARY CONSULTAN CONSULTAN STENT TS O TS O W/ANGIO ONE ART/BRNCH SBSQ 21489 [place] [address] CULAR MAT CARE/DAY CONSULTAN 35 TS O MINUTES INITIAL 36796 [place] [address] CULAR MAT CARE/DAY CONSULTAN 50 TS O MINUTES GROUND A0425 [facility] 6 AMBULANCE AMBULANCE PER SERVICE SERVICE STATUTE MILE INITIAL [address] ABR CARE/DAY HEART 70 MINUTES AMB A0427 [facility] 6 AMBULANCE AMBULANCE ALS SERVICE SERVICE EMERGENCY TRANSPORT LEVEL 1 CATH PLMT 16124 CARDIOVAS EMY L HRT & 6 CULAR MAT ARTS CONSULTAN W/NJX & TS O ANGIO IMG S&I SMR PRIM 61165 BRIANA BRUCE SRC WET 6 JANIS CHAN NFCT AGT URNLS DIP 07631 [place] 6 [facility] STICK/TAB INC INC LET REAGENT AUTO MICROSCOP Y BLOOD 69741 [place] COUNT 6 [facility] COMPLETE INC INC AUTO&AUTO DIFRNTL WBC GONADOTRO 95698 [facility] PIN 6 [facility] CHORIONIC INC INC QUALITATI VE COLLECTIO 03191 [facility] N VENOUS 6 [facility] [place] [address] [place] [facility] TRANSVAGI 6 [facility] NAL INC INC IMMUNOASS 80140 [place] [facility] AY TUMOR 6 [facility] ANTIGEN INC INC QUANTITAT ROMERO COLLECTIO 27057 [facility] N VENOUS 6 [facility] [place] [address] [place] [facility] & 6 MEDICAL HENRY PELVIS IMAGING W/O ASS CONTRAST MATERIAL LIPID 26675 [place] [facility] PANEL 5 [facility] INC INC HEPATIC 28730 [place] [facility] FUNCTION 5 [facility] PANEL INC INC COLLECTIO 26375 [facility] N VENOUS 5 [facility] BLOOD INC INC VENIPUNCT URE BLOOD 59422 [place] [facility] COUNT 5 [facility] COMPLETE INC INC AUTO&AUTO DIFRNTL WBC PROTHROMB 21194 [place] [facility] IN TIME 5 [facility] INC INC THROMBOPL 19915 [place] [facility] ASTIN 5 [facility] TIME INC INC PARTIAL PLASMA/WH OLE BLOOD COMPREHEN 09053 [place] [facility] SIVE 5 [facility] [address] [facility] HEAD/BRAI 5 [facility] N W/O INC INC CONTRAST MATERIAL URNLS DIP 47466 [place] [facility] 5 [facility] STICK/TAB INC [place] [address] [place] [facility] INFUSION 5 [facility] THERAPY/P INC INC ROPHYLAXI S /DX 1ST TO 1 HR CULTURE 43691 [place] [facility] BCT 5 [facility] ISOL&PRSM INC INC PTV ID ISOLATE EA URINE CULTURE 14490 [place] [facility] BACTERIAL 5 [facility] INC INC QUANTTATI VE COLONY COUNT URINE SUSCEPTIB 01574 [place] [facility] LTY STDY 5 [facility] ANTIMICRB INC INC IAL MICRO/AGA R DILUTJ ECG 10174 [facility] ROUTINE 5 CULAR MAT ECG CONSULTAN W/LEAST TS O 12 LDS I&R ONLY ECG 74996 [place] [facility] ROUTINE 5 [facility] ECG INC INC W/LEAST 12 LDS TRCG ONLY W/O [facility] [address] HEART MANAGEMEN T 30 MIN/< SBSQ [address] ABR CARE/DAY HEART 25 MINUTES SBSQ 86209 [facility] 5 CULAR MAT CARE/DAY CONSULTAN 35 TS O MINUTES PRQ 50120 [facility] 5 CULAR MAT CORONARY CONSULTAN STENT TS O W/ANGIO ONE ART/BRNCH ENDOLUMIN 36885 [facility] 5 CULAR MAT CORONARY CONSULTAN IVUS OCT TS O I&R INITIAL VESSEL DILATION [id number] YUE MEAAIDEN CA 1 5 W W ARTERY REGIONAL REGIONAL RX-ELUT MEDICAL MEDICAL INTRALUM DEVC PERQ R & L HRT 09645 [facility] 5 CULAR MAT WINJX HRT CONSULTAN ART& L TS O VENTR IMG AMB A0427 [facility] SERVICE 5 AMBULANCE AMBULANCE ALS SERVICE SERVICE EMERGENCY TRANSPORT LEVEL 1 OBSERVATI 15333 [place] HAGEN ON/INPATI 5 [facility] CARE 40 MINUTES INITIAL [address] CARE/DAY HEART 70 MINUTES GROUND A0425 [facility] MILEAGE 5 AMBULANCE AMBULANCE PER SERVICE SERVICE STATUTE MILE GROUND A0425 [facility] MILEAGE 5 AMBULANCE AMBULANCE PER SERVICE SERVICE STATUTE MILE AMB A0427 [facility] SERVICE 5 AMBULANCE AMBULANCE ALS SERVICE SERVICE EMERGENCY TRANSPORT LEVEL 1 RADIOLOGI 43400 [place] [facility] ALL C EXAM 5 MEDICAL CHEST 2 IMAGING VIEWS ASS FRONTAL&L ATERAL ECG 80767 [place] GARCÍA JR ROUTINE 5 [facility] W/LEAST P 12 LDS I&R ONLY ADMN SET A7005 YOUR YOUR W/SM VOL 5 [facility] NE[facility]UL[facility] NON-DISPB L THERAPEUT 12791 [place] [facility] IC 5 [facility] PROPHYLAC INC INC TIC/DX INJECTION SUBQ/IM THERAPEUT 98986 [facility] IC 5 [facility] PROPHYLAC INC INC TIC/DX INJECTION SUBQ/IM THERAPEUT 89891 [facility] IC 5 [facility] PROPHYLAC INC INC TIC/DX INJECTION SUBQ/IM THERAPEUT 75148 [facility] IC 5 [facility] PROPHYLAC INC INC TIC/DX INJECTION SUBQ/IM THERAPEUT 23486 [facility] IC 5 [facility] PROPHYLAC INC INC TIC/DX INJECTION SUBQ/IM CT THORAX 24218 [facility] W/O 5 [facility] CONTRAST INC INC MATERIAL CANE INCL E0100 CELINA CELINA CANES 5 HOME HOME ALL MEDICAL MEDICAL MATERIAL EQUIPME EQUIPME ADJUSTBLE /FIX W/TIP SUSCEPTIB 42987 [facility] LTY STDY 5 [facility] ANTIMICRB INC INC IAL MICRO/AGA R DILUTJ CULTURE 36105 [facility] BACTERIAL 5 [facility] INC INC QUANTTATI VE COLONY COUNT URINE CULTURE 64694 [facility] BCT 5 [facility] ISOL&PRSM INC INC PTV ID ISOLATE EA URINE SPMTRY 05962 [facility] W/VC 5 [facility] EXPIRATOR INC INC Y LACIE W/WO MXML VOL VNTJ RADEX 47885 [place] [facility] WRIST 5 [facility] COMPLETE IMAGING MINIMUM 3 ASS VIEWS RADEX 81606 [facility] HAND 5 [facility] MINIMUM 3 INC INC VIEWS CREATINE 24907 [facility] KINASE 5 [facility] [place] [address] [facility] TROPONIN 5 [facility] QUANTITAT INC INC ROMERO CRE[facility]INE 10042 [facility] KINASE MB 5 [facility] FRACTION INC INC ONLY ECG 51653 [facility] ROUTINE 5 [facility] ECG INC INC W[facility]LEAST 12 LDS TRCG ONLY W/O I&R ECG 62979 [facility] MALLOY ROUTINE 5 [facility] W[facility]LEAST P 12 LDS I&R ONLY THER 38062 [facility] PROPH/DX 5 [facility] NJX IV INC INC PUSH SINGLE/1S T SBST/DRUG PRESSURIZ 17896 [facility] ED/NONPRE 5 [facility] SSURIZED INC INC INHALATIO N TREATMENT PRESSURIZ 27999 [facility] ED/NONPRE 5 [facility] SSURIZED INC INC INHALATIO N TREATMENT CULTURE 02873 [facility] BACTERIAL 5 [facility] BLOOD INC INC AEROBIC W/ID ISOLATES RADIOLOGI 62889 [facility] C EXAM 5 [facility] CHEST 2 INC INC VIEWS FRONTAL&L ATERAL COMPREHEN 47056 [facility] SIVE 5 [facility] METABOLIC INC INC PANEL BLOOD 85938 [facility] COUNT 5 [facility] COMPLETE INC INC AUTO&[place] [address] [place] ABDOMINAL 5 [facility] REAL IMAGING TIME ASS W/[place] [address] [facility] INFUSION 5 [facility] THER INC INC PROPH ADDL [place]ENT[place] L [place] [address] [facility] INFUSION 5 [facility] THERAPY/P INC INC ROPHYLAXI S /DX 1ST TO 1 HR ECG 77749 [facility] GARCÍA JR ROUTINE 5 [facility] W/LEAST P 12 LDS I&R ONLY RADIOLOGI 34562 [place] [facility] C EXAM 5 [facility] CHEST 2 IMAGING VIEWS ASS FRONTAL&L ATERAL COMPREHEN 96522 [facility] KLEINE 5 [facility] METABOLIC INC INC PANEL ECG 44451 [facility] ROUTINE 5 [facility] ECG INC INC W/LEAST 12 LDS TRCG ONLY W/O I&R BLOOD 79981 [facility] COUNT 5 [facility] COMPLETE INC INC AUTO&[place] [address] [facility] TROPONIN 5 [facility] QUANTITAT INC INC ROMERO CREATINE 56019 [facility] KINASE MB 5 [facility] FRACTION INC INC ONLY CREATINE 04775 [facility] KINASE 5 [facility] TOTAL INC INC ADMN SET A7005 YOUR YOUR W/SM VOL 5 [facility] [employer] [facility] NEBULIZR NON-DISPB L URINLS 38431 BRIANA BRUCE DIP 5 JANIS VIZCARRA OSCAR STICK/TAB [place] [address] [facility] FREE 5 [facility] [place] [address] [facility] THYROID 5 [facility] STIMULATI INC INC NG HORMONE TSH BLOOD 79183 [facility] COUNT 5 [facility] COMPLETE INC INC AUTO&AUTO DIFRNTL WBC 25 08227 [facility] HYDROXY 5 [facility] INCLUDES INC INC FRACTIONS IF PERFORMED COMPREHEN 92099 [facility] SIVE 5 [facility] METABOLIC INC INC PANEL RADIOLOGI 14596 [facility] [address] [facility] 2 VIEWS RADIOLOGI 31572 [facility]AM 4 MEDICAL HENRY CHEST 2 IMAGING VIEWS ASS FRONTAL&L ATERAL RADEX HIP [address] [place] [address] MEDICAL HENRY UNIL[place]A IMAGING L ASS COMPLETE MINIMUM 2 VIEWS CV STRS 81392 [place] [facility] TST 4 [facility] XERS&/OR INC INC RX CONT ECG TRCG ONLY CV STRS 25727 [place] MALLOY TST 4 [facility]&/OR [facility] RX CONT P ECG I&R ONLY MYOCARDIA 72058 [facility] SPECT 4 MEDICAL HENRY MULTIPLE IMAGING STUDIES ASS TECHNETIU A9500 [place] M TC-99M 4 [facility] SESTAMIBI INC INC DX PER STUDY DOSE INJECTION J2785 [place] [facility] 4 [facility] REGADENOS INC INC ON 0.1 MG ECHO 61232 [place] [facility] TTHRC R-T 4 [facility] 2D INC INC W/WOM-MOD E COMPL SPEC&COLR D DXA BONE 15970 ATTILA GELLER DENSITY 4 DUYEN PET STUDY 1/> ,[facility] SITES AXIAL SKEL ECHO 94096 LOBO ALANIS TTHRC R-T 4 MEDICAL ALI 2D SERV W/WOM-MOD FOUNDATIO E COMPL N SPEC&COLR D RADIOLOGI 91222 [place] C EXAM 4 MEDICAL MONALISA CHEST 2 IMAGING VIEWS ASS FRONTAL&L ATERAL ECG 22642 [place] [facility] ROUTINE 4 [facility] ECG INC INC W/LEAST 12 LDS TRCG ONLY W/O I&R 78768 [facility] ABDOM[facility]AL 4 MEDICAL HENRY REAL IMAGING TIME ASS W/IMAGE LIMITED RADIOLOGI 69085 [place] N[place]LE C EXAM 4 MEDICAL HENRY CHEST 2 IMAGING VIEWS ASS FRONTAL&L ATERAL AMB A0427 [facility] SERVICE 4 AMBULANCE AMBULANCE ALS SERVICE SERVICE EMERGENCY TRANSPORT LEVEL 1 GROUND A0425 [facility] MILEAGE 4 AMBULANCE AMBULANCE PER SERVICE SERVICE STATUTE MILE ECG 45031 RICKY GARCÍA JR ROUTINE 4 DWI DWI ECG W/LEAST 12 LDS I&R ONLY SCREENING G0202 NICOLE NICOLE 4 HENRY HENRY MAMMOGRAP HY [place] INCL CAD WHEN PERFORMD COMPUTER- 78515 NICOLE NICOLE AIDED 4 HENRY HENRY DETECTION SCREENING MAMMOGRAP HY DEHYDROEP 15888 [facility] IANDROSTE 4 DEN DEN SOO-SULF ATE 25 57565 [facility] HYDROXY 4 DEN DEN INCLUDES FRACTIONS IF PERFORMED BLOOD 66376 HARPE[facility] HARPEL OCCULT 4 OSCAR OSCAR PEROXIDAS E ACTV QUAL FECES 1-3 SPEC URINLS 61794 [facility] HARPEL DIP 4 OSCAR OSCAR STICK/TAB LET REAGNT NON-AUTO MICRSCPY CULTURE 42115 [facility] HARPEL CHLAMYDIA 4 OSCAR OSCAR ANY SOURCE IADNA 93127 HARPEL HARPEL NEISSERIA 4 OSCAR OSCAR GONORRHOE AE DIRECT PROBE TQ OPHTH 01481 SCIFRES SCIFRES MEDICAL 4 ANG ANG XM&EVAL COMPRHNSV ESTAB PT 1/> RADIOLOGI 30607 NICOLE NICOLE C EXAM 4 HENRY HENRY CHEST 2 VIEWS FRONTAL&L ATERAL COMPREHEN 90351 [place] [facility] SIVE 4 [facility] METABOLIC INC INC PANEL C-REACTIV 46257 [place] [facility] E PROTEIN 4 [place] [address] [place] [facility] GAMMAGLOB 4 [facility] ULIN IGA [place] [address] [place] [facility] GAMMAGLOB 4 [facility] [place] [address] [place] [facility] FREE 4 [facility] THYROXINE INC INC 25 04030 [place] [facility] HYDROXY 4 [facility] INCLUDES INC INC FRACTIONS IF PERFORMED SEDIMENTA 59181 [place] [facility] TIROXI RATE 4 [facility] RBC INC INC NON-AUTOM ATED CYANOCOBA 05423 [place] [facility] BALAJI 4 [facility] VITAMIN INC INC B-12 GAMMAGLOB 54347 [place] [facility] ULIN 4 [facility] IMMUNOGLO INC INC BULIN SUBCLASSE S ANTIBODY 39398 [place] [facility] BACTERIUM 4 [facility] NOT INC INC ELSEWHERE SPECIFIED BRNCDILAT 78723 FADIA FADIA RSPSE 4 CHRISTIN CHRISTIN SPMTRY PRE&POST- BRNCDILAT ADMN HEPATITIS 51235 [place] [facility] C 4 [facility] [place] [address] [place] [facility] HEPATITIS 4 [facility] B INC INC SURFACE ANTIGEN HEPATITIS 57409 [place] [facility] B CORE 4 [facility] ANTIBODY INC INC HBCAB TOTAL HEPATITIS 63352 [place] Sandoval SURF 4 [facility] ANTIBODY INC INC HBSAB BASIC 98054 [place] [facility] METABOLIC 4 [facility] [place] [address] [place] [facility] THYROXINE 4 [facility] TOTAL INC INC HEMOGLOBI 16543 [facility] N 4 [facility] GLYCOSYLA [place] [address] [place] [facility] THYROID 4 [facility] STIMULATI INC INC NG HORMONE TSH BLOOD 83824 [place] [facility] COUNT 4 [facility] COMPLETE INC INC AUTO&AUTO DIFRNTL WBC HEPATITIS 69561 [place] [facility] A 4 [facility] ANTIBODY INC INC HAAB LIPID 11914 [place] [facility] PANEL 4 [facility] INC INC REMOVAL 22928 FADIA FADIA IMPACTED 4 CHRISTIN CHRISTIN CERUMEN INSTRUMEN TATION UNILAT ADMN SET A7005 YOUR YOUR W/SM VOL 4 [facility] NEBULIZR NON-DISPB L NEBULIZER E0570 CELINA PATRICK WITH 4 HOME HOME COMPRESSO MEDICAL MEDICAL R EQUIPME EQUIPME BRNCDILAT 16551 FADIA FADIA RSPSE 4 CHRISTIN CHRISTIN SPMTRY PRE&POST- BRNCDILAT ADMN RADEX 92409 RODES CHNADA RODES CHANDA FOOT 4 COMPLETE MINIMUM 3 VIEWS COMPREHEN 99370 [place] [facility] SIVE 3 [facility] METABOLIC INC INC PANEL RADIOLOGI 19681 [place] [facility] C EXAM 3 [facility] CHEST 2 INC INC VIEWS FRONTAL&L ATERAL 3D 73341 [place] [facility] RENDERING 3 [facility] INC INC W/INTERP& [place] [address] NICOLE NICOLE ABDOMEN & 3 HENRY HENRY PELVIS W/[place] [address] [place] [facility] AMYLASE 3 [facility] INC INC BLOOD 99143 [place] [facility] COUNT 3 [facility] COMPLETE INC INC AUTO&[place] [address] [place] [facility] LIPASE 3 [facility] INC INC URNLS DIP 74401 [place] [facility]U 3 [facility] STICK/TAB INC INC LET REAGENT AUTO MICROSCOP Y CULTURE 71305 [place] [facility] BACTERIAL 3 [facility] INC INC QUANTTATI VE [facility]ONY [facility] 45519 BESSON BESSON DISCHARGE 3 KEN KEN DAY MANAGEMEN T 30 MIN/< SBSQ 66159 [facility] 3 JR PAULA MITCHELL CARE/DAY 25 MINUTES SBSQ 90079 [facility] 3 JR PAULA MITCHELL CARE/DAY 25 MINUTES INITIAL 39164 [facility] 3 KEN KEN CARE/[place] [address] [place] [address] NICOLE NICOLE ABDOMEN & 3 HENRY HENRY PELVIS W/O CONTRAST MATERIAL RADIOLOGI 98266 NICOLE NICOLE C EXAM 3 HENRY HENRY CHEST 2 VIEWS FRONTAL&L ATERAL RADIOLOGI 35301 NICOLE NICOLE C EXAM 3 HENRY HENRY CHEST 2 VIEWS FRONTAL&L ATERAL CRITICAL 57694 [facility] 3 RAFIA RAFIA ILL/INJUR ED PATIENT INIT 30-74 MIN INITIAL 20942 [facility] 3 KEN KEN ON CARE/DAY 30 MINUTES GROUND A0425 [facility]ULANCE PER SERVICE SERVICE STATUTE MILE AMBULANCE A0429 [facility] SERVICE 3 AMBULANCE AMBULANCE BLS SERVICE SERVICE EMERGENCY TRANSPORT INJECTION J3301 [place] 2 NAN NAN TRIAMCINO LONE ACETONIDE NOS 10 MG IM ADM 11791 [place] [facility] PRQ ID 2 NAN NAN SUBQ/IM NJXS 1 VACCINE BRNCDILAT 00112 FADIA FADIA RSPSE 2 CHRISTIN CHRISTIN SPMTRY PRE&POST- BRNCDILAT ADMN RADEX 82321 REN ARMAS RODES CHANDA FOOT 2 COMPLETE MINIMUM 3 VIEWS RADEX 94320 [place] NICOLE FOOT 2 MEDICAL HENRY COMPLETE IMAGING MINIMUM 3 ASS VIEWS DEMO&/RUSLAN 30887 [facility] L OF PT 2 ALLERGY ALLERGY UTILIZ & ASTHMA & ASTHMA AERSL P P GEN/NEB/I NHLR/IP SPMTRY 03759 [facility] W/VC 2 ALLERGY ALLERGY EXPIRATOR & ASTHMA & ASTHMA Y LACIE P P W/WO MXML VOL VNTJ DETERMINA 71366 SCIFRES SCIFRES TION 1 ANG ANG REFRACTIV E STATE OPHTH 06462 SCIFRES SCIFRES MEDICAL 1 ANG ANG XM&EVAL COMPRHNSV ESTAB PT 1/> FOOT L3020 COMMONKENRICK MCCLURE CHANDA INSRT 1 LTH REMV MOLD PODIATRY PT MDL LNGTUDNL/ MT SUPP EA DRUG SCR G0434 LIZ VALE LIZNAIMA VALE NOT 1 CHROMATOG RAPHIC; ANY NUMBER PT ENC 3D 12955 [place] [facility] RENDERING 1 [facility] INC INC W/INTERP& POSTPROC DIFF WORK STATION CT LUMBAR 72400 [facility] SPINE 1 [facility] W/[place] [address] [place] [facility] CERVICAL 1 [facility] SPINE W/O INC INC CONTRAST MATERIAL RADEX 44239 [facility] [place] [facility] FOOT 1 RADIOLOGY COMPLETE MINIMUM 3 VIEWS RADEX 46933 [place] [facility] SPINE 1 [facility] LUMBOSACR INC INC AL MINIMUM 4 VIEWS RADEX 46037 [place] [facility] SPINE 1 [facility] THORACIC INC INC 3 VIEWS RADIOLOGI 13148 [facility] C EXAM 1 MEDICAL HENRY CHEST 2 IMAGING VIEWS ASS FRONTAL&L ATERAL COMPREHEN 94369 [place] [facility] SIVE 1 [facility] METABOLIC INC INC PANEL 25 73018 [place] [facility] HYDROXY 1 [facility] INCLUDES INC INC FRACTIONS IF PERFORMED CYANOCOBA 50162 [place] [facility] BALAJI 1 [facility] VITAMIN INC INC B-12 BLOOD 92673 [place] DAOON COUNT 1 [facility] COMPLETE INC INC AUTO&[place] [address] [facility] THYROID 1 [facility] STIMULATI INC INC NG HORMONE TSH SPACR A4627 MT MED MT MED BAG/RESRV 1 EQUIPMENT EQUIPMENT OR W/WO INC INC MASK W/METRD DOSE INHAL ADMN SET A7005 MT MED MT MED W/SM VOL 1 EQUIPMENT EQUIPMENT NONFILTR INC INC NEBULIZR NON-DISPB L DEMO&/RUSLAN 52752 FADIA FADIA L OF PT 1 CHRISTIN CHRISTIN UTILIZ AERSL GEN/NEB/I NHLR/IP NEBULIZER E0570 [facility] WITH 1 EQUIPMENT EQUIPMENT COMPRESSO INC INC R PERCUTANE 76514 FADIA FADIA OUS TESTS 1 CHRISTIN CHRISTIN W/ALLERGE ALBERTO EXTRACTS INTRACUTA 77784 FADIA FADIA NEOUS 1 CHRISTIN CHRISTIN TESTS W/ALLERGE ALBERTO EXTRACTS BRNCDILAT 72118 FADIA FADIA RSPSE 1 CHRISTIN CHRISTIN SPMTRY PRE&POST- BRNCDILAT ADMN RADIOLOGI 46495 [place] NICOLE Bernardo 1 MEDICAL HENRY EXAMINATI IMAGING ON KNEE 3 ASS VIEWS RADIOLOGI 60373 [place] NICOLE C 1 MEDICAL HENRY EXAMINATI IMAGING ON FEMUR ASS 2 VIEWS Encounters Encounter Start End Date Code Location Performer Type Date EMERGENCY 39958 FABRICE DAVILA DEPT 7 7 PHYSICIAN U VISIT S, [facility] HIGH SEVERITY& THREAT [facility] 7 7 [facility]PATI[facility] OFFICE 42014 [facility] 7 7 [facility] VIS[facility] INTERNAL 15 MED MINUTES HOSP[facility] - 7 7 [facility]PAT[facility]EN [facility] - 7 7 [facility] OFFICE 82165 [facility] OUT[facility] 7 7 [place] T VISIT INTERNAL 25 MED MINUTES HOSPITAL [facility] - 7 7 [facility] OFFICE 35143 [place] OUTPATIEN 7 7 [facility] T V[facility] [place] 7 7 [facility]PATIEN [facility] EMERGENCY 74966 [place] 7 7 [facility] VISIT HIGH/URGE NT SEVERITY HOSPITAL [place] - 7 7 [facility] OUTPATIEN [facility] OFFICE 84216 [facility] EMY OUTPATIEN 7 7 PHYSICIAN T VISIT S GROUP 25 MINUTES HOSPITAL [place] - 7 7 [facility] OUTPATIEN [facility] H[facility]PITAL [place] - 7 7 [facility] OUTPATIEN [facility] EMERGENCY 83968 FABRICE LOVELL DEPT 6 6 PHYSICIAN PAULINA VISIT S, [facility] HIGH SEVERITY& THREAT [facility] [place] [facility] 6 6 [facility] OUTPATIEN [facility] EMERGENCY 80438 [facility] DEPT 6 6 [facility] VISIT INC HIGH SEVERITY& THREAT FUN EMERGENCY 59724 FABRICE AHUMADA 6 6 PHYSICIAN RAFIA DEPARTMEN S, [facility] T VISIT MODERATE SEVERITY OFFICE 12784 [facility] STEVENS OUTPATIEN 6 6 PHYSICIAN T VISIT GROUP 10 MINUTES OFFICE 50886 [facility] FRYMAN OUTPATIEN 6 6 PHYSICIAN EUG T VISIT S GROUP 15 MINUTES HOSPITAL [place] - 6 6 [facility] OUTPATIEN [facility] - 6 6 [facility] OUTPATIEN [facility] EMERGENCY 95259 FABRICE DAVILA DEPT 6 6 PHYSICIAN U MONALISA VISIT S, [facility] HIGH SEVERITY& [facility] CONSULTAT 6 6 PHYSICIAN EUG ION S GROUP NEW/ESTAB PATIENT 60 MIN EMERGENCY 90426 [place] 6 6 [facility] DEPARTMEN [facility] T VISIT HIGH/URGE NT SEVERITY OFFICE 70671 [facility] [place] OUTPATIEN 6 6 PHYSICIAN EUG T VISIT S GROUP 15 MINUTES EMERGENCY 55993 LOBO CROFT DEPT 6 6 MEDICAL MAT VISIT SERV HIGH FOUNDATIO SEVERITY& N THREAT FUN EMERGENCY 47785 FABRICE AHUMADA DEPT 6 6 PHYSICIAN RAFIA VISIT S, [facility] HIGH SEVERITY& THREAT FUNCJ EMERGENCY 39030 FABRICE AHUMADA 6 6 PHYSICIAN RAFIA DEPARTMEN S, [facility] T VISIT MODERATE SEVERITY OFFICE 59079 [facility] YMKAUSHAL OUTPATIEN 6 6 PHYSICIAN EUG T VISIT S GROUP 25 MINUTES OFFICE 05969 [place] [facility] CONSULTAT 6 6 MEDICAL IF AHM ION SERV NEW/ESTAB FOUNDATIO PATIENT N 40 MIN OFFICE 75342 [facility] BRANDYN OUTPATIEN 6 6 PHYSICIAN RAFIA T VISIT S GROUP 10 MINUTES EMERGENCY 46783 FABRICE AHUMADA 6 6 PHYSICIAN [facility] S, [facility] T VISIT MODERATE SEVERITY HOSPITAL [facility] - 6 6 Y [facility] EMERGENCY 41539 FABRICE CROFT 6 6 PHYSICIAN [facility] S, [facility] T VISIT LOW/MODER SEVERITY OFFICE 54605 PROGRESSI ROBERTA OUTPATIEN 6 6 VE EBONI T NEW 30 PODIATRY MINUTES OFFICE 78860 JUÁREZ JUÁREZ OUTPATIEN 6 6 T NEW 30 MINUTES HOSPITAL [place] - 6 6 [facility] OUTPATIEN INC T HOSPITAL [place] - 6 6 [facility] OUTPATIEN INC EMERGENCY 05421 FABRICE AHUMADA DEPT 6 6 PHYSICIAN RAFIA VISIT S, [facility] HIGH SEVERITY& THREAT FUNCJ EMERGENCY 99078 [place] 6 6 [facility] VISIT MODERATE SEVERITY EMERGENCY 45190 FABRICE THOMAS 6 6 PHYSICIAN [facility] S, [facility] T VISIT HIGH/URGE NT SEVERITY OFFICE 70308 LOBO ORDONEZ CONSULTAT 6 6 MEDICAL LORENZ ION SERV RAC NEW/ESTAB FOUNDATIO PATIENT N 80 MIN OFFICE 02396 BRIANA BRUCE OUTPATIEN 6 6 [facility] T VISIT 15 MINUTES EMERGENCY 02296 FABRICE THOMAS 6 6 PHYSICIAN DEPARTMEN [facility] VISIT MODERATE SEVERITY OFFICE 51968 BRIANA BRUCE OUTPATIEN 6 6 [facility] T VISIT 25 MINUTES HOSPITAL [place] - 6 6 [facility] OUTPATIEN [facility] T OFFICE 94749 BRIANA BRUCE OUTPATIEN 6 6 [facility] T VISIT 25 MINUTES HOSPITAL [place] - 6 6 [facility] OUTPATIEN [facility] T OFFICE 37311 BRIANA BRUCE OUTPATIEN 6 6 [facility] T VISIT 25 MINUTES HOSPITAL [place] - 6 6 [facility] OUTPATIEN [facility] EMERGENCY 16076 FABRICE AHUMADA DEPT 6 6 PHYSICIAN RAFIA VISIT [facility] HIGH SEVERITY& THREAT [facility] [place] - 5 5 [facility] OUTPATIEN [facility] EMERGENCY 87712 FABRICE DAVILA DEPT 5 5 PHYSICIAN U MONALISA VISIT [facility] HIGH SEVERITY& THREAT [facility] [place] - 5 5 [facility] OUTPATIEN [facility] EMERGENCY 10510 [place] 5 5 [facility] T VISIT HIGH/URGE NT SEVERITY OFFICE 09691 S [facility] CONSULTAT 5 5 NURSE SINA BOLAÑOS NEW/ESTAB NER GR PATIENT 60 MIN OFFICE 81558 CARDIOVAS EMY OUTPATIEN 5 5 CULAR MAT T VISIT CONSULTAN 25 TS O MINUTES HOSPITAL [place] - 5 5 [facility] OUTPATIEN [facility] HOSPITAL YUE Paige 5 5 W [facility]PAT[facility] 12619 FABRICE AHUMADA DEPT 5 5 PHYSICIAN RAFIA VISIT S, [facility] HIGH SEVERITY& THREAT FUNCJ OFFICE 84527 MELISSA VERDIN [facility] OUTPATIEN 5 5 MD PATRICK, T NEW 45 PSC MINUTES HOSPITAL [place] - 5 5 [facility] OUTPATIEN [facility] T OFFICE 74406 [place] OUT[facility]IEN 5 5 [facility] T VISIT INC 10 MINUTES EMERGENCY 36914 FABRICE FRANKS 5 5 PHYSICIAN LUIS ANTONIO MARIEMEN , [facility] T VISIT MODERATE SEVERITY EMERGENCY 42064 FABRICE [facility] 5 5 PHYSICIAN DEPARTMEN , [facility] T VISIT MODERATE SEVERITY HOSPITAL [place] - 5 5 [facility] OUTPATIEN INC T [facility] [place] - 5 5 [facility] OUTPATIEN INC [facility] [place] - 5 5 [facility] OUTPATIEN INC T [facility] [place] [facility] 5 5 [facility] OUTPATIEN INC T [facility] [place] [facility] 5 5 [facility] OUTPATIEN INC T [facility] [place] [facility] 5 5 [facility] OUTPATIEN INC T OFFICE 17475 [facility]AEGN OUTPATIEN 5 5 [facility] T VISIT HOSPITAL 15 MINUTES HOSPITAL [place] - 5 5 [facility] OUTPATIEN INC T EMERGENCY 71472 FABRICE AHUMADA 5 5 PHYSICIAN RAFIA DEPARTMEN S, [facility] T VISIT HIGH/URGE NT SEVERITY HOSPITAL [place] - 5 5 [facility] OUTPATIEN INC OFFICE 72529 ATTILA VILLAGRAN OUTPATIEN 5 5 SHANTI GELLER T VISIT ,[facility] 25 MINUTES HOSPITAL [place] - 5 5 [facility] OUTPATIEN INC T EMERGENCY 74563 [place] 5 5 [facility] DEPARTMEN INC T VISIT LOW/MODER SEVERITY EMERGENCY 68777 FABRICE DAVILA 5 5 PHYSICIAN [facility] S, [facility] T VISIT MODERATE SEVERITY OFFICE 28214 [facility] PHYSICIAN RAFIA T VISIT S GROUP 15 MINUTES EMERGENCY 54001 FABRICE AHUMADA DEPT 5 5 PHYSICIAN RAFIA VISIT S, [facility] HIGH SEVERITY& THREAT FUN HOSPITAL [place] - 5 5 [facility] OUTPATIEN INC T EMERGENCY 98296 [place] [address] [facility] T VISIT HIGH/URGE NT SEVERITY HOSPITAL [place] - 5 5 [facility] OUTPATIEN [facility] T EMERGENCY 79749 [place] [address] [facility] T VISIT HIGH/URGE NT SEVERITY EMERGENCY 91495 [place] AHUMADA 5 5 [facility] T VISIT P MODERATE SEVERITY HOSPITAL [place] - 5 5 MEM [facility] OUTPATIEN [facility] T OFFICE 31050 [facility] T VISIT 15 MINUTES OFFICE 97679 [facility] 5 PHYSICIAN RAFIA T VISIT S GROUP 25 MINUTES HOSPITAL [place] - 5 5 MEM [facility] OUTPATIEN [facility] T OFFICE 45635 UNIVERSIT OUTPATIEN 4 4 Y T VISIT 5 HOSPITAL MINUTES [facility] T EMERG[facility]Y 21850 ALAN CESPEDES 4 4 [facility] EMERGENCY T VISIT PHYS HIGH/URGE NT SEVERITY HOSPITAL [place] - 4 4 [facility] OUTPATIEN INC [facility] [place] - 4 4 [facility] OUTPATIEN INC T EMERGENCY 48229 [facility] 4 4 ATA RAFIA DEPARTMEN EMERGENCY T VISIT PHYS MODERATE SEVERITY HOSPITAL [place] - 4 4 [facility] OUTPATIEN INC T HOSPITAL [place] - 4 4 [facility] OUTPATIEN [facility] HOSPITAL [place] - 4 4 [facility] OUTPATIEN INC T PERIODIC 15647 HARPEL HARPEL PREVENTIV 4 4 OSCAR OSCAR E MED EST PATIENT 40-64YRS OFFICE 22645 BRANDYN AHUMADA OUTPATIEN 4 4 RAFIA RAFIA T VISIT 10 MINUTES OFFICE 20369 FADIA LOAIZA OUTPATIEN 4 4 CHRISTIN CHRISTIN T VISIT 40 MINUTES HOSPITAL [place] - 4 4 [facility] OUTPATIEN [facility] T OFFICE 20552 BRANDYN SANCHEZEY OUTPATIEN 4 4 RAFIA RAFIA T VISIT 15 MINUTES HOSPITAL [place] - 4 4 [facility] OUTPATIEN [facility] OFFICE 67124 FADIA MALONEHBURN OUTPATIEN 4 4 CHRISTIN CHRISTIN T VISIT 40 MINUTES OFFICE 56160 REN ARMAS RODNEW CHANDA OUTPATIEN 4 4 T VISIT 25 MINUTES EMERGENCY 55516 LAMONT KEN LAMONT KEN 4 4 DEPARTMEN T VISIT HIGH/URGE NT SEVERITY HOSPITAL [place] - 3 3 [facility] OUTPATIEN INC T EMERGENCY 27258 [place] 3 3 [facility] DEPARTMEN INC T VISIT LOW/MODER SEVERITY EMERGENCY 04109 BRANDYN AHUMADA DEPT 3 3 RAFIA RAFIA VISIT HIGH SEVERITY& THREAT [facility] - 3 3 [facility] INPATIENT INC OFFICE 05152 FARZAD PANDA OUTPATIEN 3 3 MELISA MELISA T VISIT 15 MINUTES OFFICE 33011 DELROY POTTS OUTPATIEN 2 2 NAN NAN T VISIT 15 MINUTES OFFICE 32949 FADIA FADIA OUTPATIEN 2 2 CHRISTIN CHRISTIN T VISIT 25 MINUTES OFFICE 10968 REN MCCLURE CHANDA OUTPATIEN 2 2 T VISIT 15 MINUTES EMERGENCY 64692 [facility] 2 2 [facility] INC T VISIT LOW/MODER SEVERITY EMERGENCY 18604 RADAMES CRUM 2 2 III PAULA III [facility] T VISIT MODERATE SEVERITY HOSPITAL [facility] - 2 2 [facility] T OFFICE 98825 NEHA SOLOMON OUTPATIEN 2 2 [facility] T VISIT 15 MINUTES OFFICE 51297 NEHA SOLOMON OUTVERONICAEN 2 2 [facility] T VISIT 15 MINUTES OFFICE 84373 NEHA SOLOMON OUTPATIEN 2 2 [facility] T VISIT 15 MINUTES OFFICE 86013 ZOYA ANT ZOYA ANT OUTPATIEN 2 2 T VISIT 25 MINUTES OFFICE 05959 ZOYA ANT ZOYA ANT CONSULTAT 2 2 ION NEW/ESTAB PATIENT 60 MIN [facility]OSP[facility] 2 2 [facility] T EMERGENCY 07687 [place] [address] [facility] T VISIT LIMITED/M INOR PROB OFFICE 85505 NEHA SOLOMON OUTPATIEN 2 2 [facility] T VISIT 15 MINUTES OFFICE 40259 [facility] OUTPATIEN 2 2 ALLERGY ALLERGY T VISIT & ASTHMA & ASTHMA 15 P P MINUTES OFFICE 13004 KRISHNAARIELLEWilfred ARMAS OUTPATIEN 1 1 [facility] T VISIT PODIATRY 15 MINUTES OFFICE 79058 LIZ HAM LIZ HAM OUTPATIEN 1 1 T VISIT 15 MINUTES HOSPITAL [facility] - 1 1 [facility] T [facility] - 1 1 N OUTPATIEN COMMUNITY T HOSPITA OFFICE 55122 REN MCCLURE CHANDA OUTPATIEN 1 1 T NEW 45 MINUTES EMERGENCY 53034 [facility] 1 1 [facility] T VISIT LOW/MODER SEVERITY HOSPITAL [facility] - 1 1 [facility] T EMERGENCY 35350 RICKY CRUM 1 1 EMERGENCY III [facility] SERVICES T VISIT HIGH/URGE NT SEVERITY [facility] - 1 1 [facility]EN [facility] T OFFICE 35473 FADIA LOAIZA CONSULTAT 1 1 CHRISTIN WALLER ION NEW/ESTAB PATIENT 60 MIN OFFICE 91713 [facility] MELISSA OUTPATIEN 1 1 PHYSICIAN ADELAIDE ARCE 30 S GROUP MINUTES HOSPITAL [facility] - 1 1 [facility] INC T OFFICE 58005 NEHA SOLOMON OUTPATIEN 1 1 GRACE Gonzalez NEW 30 MINUTES
--- OUTSIDE RECORDS SUMMARY | 2017-02-23 03:23 | External Medical Summary Rpt | CCD ---
Author Author , RYLIE RITTERDOT Address Unknown Phone [email or web address] Care Team Providers Care Dispensing Optician Apprentice Name Role Phone JAZZ-MARIBEL AHM, Unavailable Unavailable [...] Unavailable ZOYA ANT, ZOYA ANT Unavailable Unavailable [facility]available Unavailable SERVICE, [facility] SERVICE [facility] Unavailable Unavailable SERVICE, [facility] SERVICE ROBERTA EBONI, ROBERTA Unavailable Unavailable EBONI BRODY CAR, BRODY Unavailable Unavailable [facility] Unavailable Unavailable [facility], [facility], Unavailable Unavailable [facility] Unavailable Unavailable PODIATRY, [facility] & Unavailable Unavailable [facility], [facility] & Unavailable Unavailable [facility], [facility] COOK, COOK Unavailable Unavailable CORNEA MIH, CORNEA Unavailable Unavailable MIH NICOLE, NICOLE Unavailable Unavailable NICOLE HENRY, Unavailable Unavailable NICOLE HENRY NICOLE HENRY, Unavailable Unavailable NICOLE HENRY GEOVANNY RUBY PA-C Unavailable Unavailable GEOVANNY TURK PA-C ROSALEE CROFT MAT, CROFT Unavailable Unavailable MAT CALLAHAN, CALLAHAN Unavailable Unavailable [facility] [place] [place] [facility] Unavailable Unavailable [...] INC, [facility] Unavailable Unavailable HOSPITAL, [facility] Unavailable Unavailable HOSPITAL P, [facility] P [address] SRAVANTHI, LANE SRAVANTHI Unavailable Unavailable [facility], Unavailable Unavailable [facility], Unavailable Unavailable [facility] HILLARY SABRINA, HILLARY SABRINA Unavailable Unavailable JACKSON MARTHA, JACKSON MARTHA Unavailable Unavailable DELROY NAN, DELROY Unavailable Unavailable NAN RUBINA IMT, RUBINA Unavailable Unavailable IMT LISSETTE ABR, LISSETTE Unavailable Unavailable [facility] Unavailable Unavailable MEDICAL G, [facility] MED[facility] G KOSTELIC IAIN, Unavailable Unavailable KOSTELIC IAIN KSEIBI SARAH, KSEIBI Unavailable Unavailable SARAH LULA [facility], LULA [facility] Un[facility] LAMBERT CRI, LAMBERT CRI Unavailable Unavailable JEREMIAS, JEREMIAS Unavailable Unavailable RICKY JR, RICKY JR Unavailable Unavailable RICKY JR DWI, RICKY Unavailable Unavailable JR DWI RICKY JR DWI, RICKY Unavailable Unavailable JR DWI [facility] Unavailable Unavailable [facility], [facility] LIZ HAM, LIZ HAM Unavailable Unavailable LIZ HAM, LIZ HAM Unavailable Unavailable TINY LUIS ANTONIO, TINY Unavailable Unavailable LUIS ANTONIO FADIA CHRISTIN, Unavailable Unavailable FADIA CHRISTIN FADIA CHRISTIN, Unavailable Unavailable FADIA CHRISTIN ROSADO GRACE, ROSADO Unavailable Unavailable GRACE MCKEMIE JR PAULA, Unavailable Unavailable MCKEMIE JR PAULA MCKEMIE JR PAULA, Unavailable Unavailable MCKEMIE JR PAULA [facility] Unavailable Unavailable MEDICAL, [facility], Unavailable Unavailable [...] SOTINGEANU SOTINGEANU MONALISA, Unavailable Unavailable SOTINGEANU MONALISA [facility] Unavailable Unavailable EMERGENCY PHYS, [facility] JR. ADELAIDE MCGRAW, MARILUZ, Unavailable Unavailable [facility]. [facility], Unavailable Unavailable [facility] WAFFORD SINA, WAFFORD Unavailable Unavailable SINA [facility] # Unavailable Unavailable [id number], [facility] # [id number] ORDONEZ LORENZ RAC, ORDONEZ Unavailable Unavailable LORENZ [...] Diagnosis DOS Provider Status E785 HYPERLIPIDE 12-29-2016 [facility] UNSPECIFIED GROUP I10 ESSENTIAL 12-29-2016 [facility]YPERTEN[facility] ASS N I2510 ASHD [place] 12-29-2016 [facility] CORONARY PHYS[facility]ANS ARTERY W/O GROUP ANGINA PECTORIS R0602 SHORTNESS 12-29-2016 [place] OF BREATH MEDICAL IMAGING ASS R079 CHEST PAIN 12-29-2016 [place] UNSPECIFIED [facility]ICAL IMAGING ASS R5383 OTHER 12-29-2016 [facility] FAT[facility]UE [facility] R9439 ABNORMAL 12-29-2016 [facility] OT PHYSICIANS CARDIOVASCU GROUP LR FUNCTION STUDY Z955 PRESENCE OF 12-29-2016 [facility] CORONARY PHYSICIANS ANGIOPLASTY GROUP IMPLANT & GRAFT K06134 PAIN IN 12-27-2016 [facility] RIGHT [facility] SHOULDER INC G50176 PAIN IN 12-27-2016 [facility] LEFT KNEE [facility] INC M542 CERVICALGIA 12-27-2016 [facility] INC M7061 TROCHANTERI 12-27-2016 [facility] C BURSITIS [facility] RIGHT HIP INC [id number] PAIN IN 11-04-2016 [facility] LEFT [facility]OT [facility] INTERNAL MED Z0000 ENCOUNTER 11-04-2016 [facility] GEN ADULT [place] MED EXAM INTERNAL W/O MED ABNORMAL FIND M7989 OTHER 10-29-2016 [place] SPECIFIED MEDICAL SOFT TISSUE IMAGING ASS DISORDERS [id number] UNSPECIFIED 10-29-2016 [facility] SPRAIN [facility] LEFT FOOT INC INITIAL ENCOUNTER [id number] STRAIN 10-09-2016 [facility] MUSCLE FASC [facility] & TENDON INC NECK LEVL INIT ENC [id number] CONTUSION 10-09-2016 [facility] UNS FRONT [facility] WALL THORAX INC INITIAL ENCNTR I208 OTHER FORMS 08-23-2016 [facility] OF ANGINA PHYSICIANS PECTORIS GROUP J449 CHRONIC 08-23-2016 [facility] OBSTRUCTIVE [facility] PULMONARY INC DISEASE UNS Z720 TOBACCO USE 08-23-2016 [facility] INC I200 UNSTABLE 07-15-2016 [facility] ANGINA PHYSICIAN GROUP [id number] [place] [place] 07-15-2016 [facility] COR ART PHYSICIAN W/UNSTABLE GROUP ANGINA PECTORIS D75798 ASHD [place] 07-15-2016 [facility] COR ARTREY [facility] W/UNS INC ANGINA PECTORIS Z951 PRESENCE OF 07-15-2016 [facility] AORTOCORONA INC RY BYPASS GRAFT H5213 MYOPIA 06-30-2016 [facility] BILATERAL J441 CHRONIC 06-27-2016 [facility] OBSTRUCTIVE [place] PULMONARY INTERNAL DZ MED W/EXACERBAT ION R0789 OTHER CHEST 06-27-2016 [facility] PAIN [facility] INC R064 HYPERVENTIL 06-09-2016 [facility] AMBULANCE SERVICE J029 ACUTE 03-18-2016 [facility] PH[facility]NGITIS [facility], PLL[facility] UNSPECIFIED K05103 [place]SHD [place] 02-03-2016 [facility] COR ART PHYSICIANS W/OTH FORMS GROUP ANGINA PECTORIS I252 OLD 02-03-2016 [facility] MYOCARDIAL PHYSICIANS INFARCTION GROUP M797 FIBROMYALGI 02-03-2016 [facility] Z8679 PERSONAL 02-03-2016 [facility] HISTORY OT ASSOCIATES DISEASES CIRCULATORY SYSTEM R072 PRECORDIAL 02-02-2016 [facility] PAIN PHYSICIANS, [facility] N41107 PAIN IN 01-16-2016 [facility] RIGHT ANKLE PHYSICIANS, [facility] F38495H SPRAIN 12-31-2015 [facility] UNSPEC PHYSICIAN LIGAMENT GROUP RIGHT ANKLE INITIAL ENC G479 SLEEP 12-30-2015 [facility] DISORDER PHYSICIANS UNSPECIFIED GROUP M549 DORSALGIA 12-30-2015 [facility] UNSPECIFIED PHYSICIANS GROUP I214 NON-ST 12-24-2015 [facility] ELEVATION PHYSICIANS MYOCARDIAL GROUP INFARCTION W95218 ATHEROSCLER 12-24-2015 [facility] OSIS CABG PHYSICIANS UNS UNSTABL GROUP ANGINA PECTORIS A26449 ATHEROSCLER 12-24-2015 [facility] P ANGINA PECTORIS E118 TYPE 2 12-23-2015 [facility] DIABETES PHYSICIANS MELLITUS GROUP W/UNS COMPLICATIO NS I209 ANGINA 12-23-2015 [facility] PECTORIS PHYSICIANS UNSPECIFIED GROUP Z9119 PATIENTS 12-23-2015 [facility] NONCOMPLIAN PHYSICIANS CE W/OTH GROUP MED TX & REGIMEN Z9861 CORONARY 12-23-2015 [facility] ANGIOPLASTY PHYSICIANS STATUS GROUP [id number] OTHER LONG 12-07-2015 [facility] TERM PHYSICIANS CURRENT GROUP DRUG THERAPY T97544 PRESENCE OF 12-07-2015 [facility] OTHER PHYSICIANS CARDIAC GROUP IMPLANTS AND GRAFTS I2582 CHRONIC 12-02-2015 [facility] OCCLUSION [facility]OUNDATION OF CORONARY ARTERY R9431 ABNORMAL 12-02-2015 [facility] ELECTROCARD SERV IOGRAM FOUNDATION G8929 OTHER 12-01-2015 [facility] CHRONIC SERV PAIN [facility]OUND[facility] I351 NONRHEUMATI 12-01-2015 [facility] AORTIC SERV VALVE FOUNDATION INSUFFICIEN CY R001 BRADYCARDIA 12-01-2015 [place] [facility] UNSPECIFIED FOUNDATION I510 CARDIAC 11-30-2015 [facility]PTAL [facility] DEFECT [facility]OUND[facility] ACQUIRED I517 CARDIOMEGAL 11-30-2015 [facility] Y SERV [facility] R7989 OTHER SPEC 11-13-2015 [facility] ABNORMAL PHYSICIANS, FINDINGS [facility] BLOOD CHEMISTRY L0390 CELLULITIS 10-10-2015 [facility] UNSPECIFIED PHYSICIANS, [facility] J90 PLEURAL 10-03-2015 [facility] [place] [facility] NOT ELSEWHERE CLASSIFIED W41889 POSTPROC 10-01-2015 [facility] CIRC [facility] SYS PSC ORGAN/STRUC FLW CARD BP [id number] HEMORRHAGE 10-01-2015 [facility] D/T CARD HEALTH PROSTH DEV MEDICAL G IMPL & GFT INIT I6502 OCCLUSION 09-30-2015 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 J9811 ATELECTASIS 09-30-2015 [facility] [place] [facility] R0989 OTH SPEC SX 09-30-2015 [facility] SIGNS AMBULANCE INVLV THE SERVICE CIRC & RESP SYS A29461 ENCOUNTER 09-29-2015 [facility] FOR PH[facility]ANS PREPROCEDUR GROUP AL CARIOVASCUL AR EXAM E663 OVERWEIGHT 09-04-2015 [facility] J40 BRONCHITIS 09-03-2015 [facility] NOT PHYSICIANS, SPECIFIED PLLC ACUTE OR CHRONIC R05 COUGH 09-03-2015 [facility] N95596Y LAC W/O FB 08-12-2015 [facility] RT INDEX PHYSICIANS, FINGER W/O PLLC DAMAGE NAIL INIT M545 LOW BACK 08-05-2015 [facility] PAIN M546 PAIN IN 08-05-2015 [facility] THORACIC SPINE M9901 SEGMENTAL & 08-05-2015 [facility] SOMATIC DYSFUNCTION CERVICAL REGION M9902 SEGMENTAL & 08-05-2015 [facility] SOMATIC DYSFUNCTION THORACIC REGION M9903 SEGMENTAL & 08-05-2015 [facility] SOMATIC DYSFUNCTION OF LUMBAR REGION M9905 SEGMENTAL & 08-05-2015 [facility] SOMATIC DYSFUNCTION OF PELVIC REGION B078 OTHER VIRAL 08-04-2015 [facility] M2011 HALLUX 08-04-2015 [facility] VALGUS [facility]ICAL ACQUIRED IMAGING ASS RIGHT FOOT M2041 OTHER 08-04-2015 [place] HAMMER TOES MEDICAL ACQUIRED IMAGING ASS RIGHT FOOT M2570 OSTEOPHYTE 08-04-2015 [facility] UNSPECIFIED PODIATRY JOINT M7731 CALCANEAL 08-04-2015 [place] SPUR RIGHT MEDICAL FOOT IMAGING ASS T36852 PAIN IN 08-04-2015 [facility] RIGHT FOOT PODIATRY K219 GASTRO-ESOP 07-23-2015 [facility] [place] P WITHOUT ESOPHAGITIS Z23 ENCOUNTER 07-22-2015 [facility] IMMUNIZATIO GROUP N B349 VIRAL 07-15-2015 [facility] INFECTION PHYSICIANS, UNSPECIFIED PLLC J069 ACUTE UPPER 07-15-2015 [facility], RESPIRATORY PLLC INFECTION UNSPECIFIED R197 DIARRHEA 07-15-2015 [facility] UNSPECIFIED PHYSICIANS, PLLC J439 EMPHYSEMA 07-09-2015 [facility]PECIF[facility] SERV [facility]OUNDATION N8320 UNSPECIFIED 07-09-2015 [facility] OVARIAN SERV CYSTS [facility] R102 PELVIC AND 07-09-2015 [place] [facility] PERINEAL SERV PAIN [facility] N9489 OTH COND 06-30-2015 [facility] Hernandez ASSOC W/FE JANIS VIZCARRA GEN ORGN & MENSTRUAL CYCL [id number] CONTUSION 06-26-2015 [facility] LOWER BACK PHYSICIANS, & PELVIS PLLC INITIAL ENCOUNTER N36JOHJ UNSPECIFIED 06-26-2015 [facility] INITIAL SERVICE ENCOUNTER Z043 ENCOUNTER 06-26-2015 [place] EXAM & MEDICAL OBSERVATION IMAGING ASS FOLLOW OTH ACCIDENT I455 OTHER 06-11-2015 [facility] SPECIFIED AMBULANCE HEART BLOCK SERVICE N761 SUBACUTE 06-08-2015 BRIANA Hernandez AND CHRONIC JANIS VIZCARRA VAGINITIS U90052 ENCOUNTER 06-08-2015 [facility] FOR OTHER MEM [facility] PREPROCEDUR INC AL EXAMINATION N819 FEMALE 05-29-2015 BRIANA Hernandez GENITAL JANIS VIZCARRA PROLAPSE UNSPECIFIED N8329 OTHER 05-27-2015 [facility] OVARIAN PHYSICIANS, CYSTS PLLC R1084 GENERALIZED 05-27-2015 [place] ABDOMINAL MEDICAL PAIN IMAGING ASS Z959 PRESENCE 04-30-2015 [facility] C[facility]AC & [facility] VASCULAR INC IMPLANT & GRAFT UNS N202 CALCULUS OF 04-13-2015 [facility] KIDNEY [facility] WITH INC CALCULUS OF URETER N3000 ACUTE 04-13-2015 [facility] CYSTITIS PH[facility]ICIANS, WITHOUT PLLC HEMATURIA N390 URINARY 04-13-2015 [facility] TRACT PHYSICIANS, INFECTION PLLC SITE NOT SPECIFIED R200 ANESTHESIA 04-13-2015 [place] OF SKIN MEDICAL IMAGING ASS R202 PARESTHESIA 04-13-2015 [facility] OF SKIN PHYSICIANS, PLLC R4781 SLURRED 04-13-2015 [place] SPEECH MEDICAL IMAGING ASS U80751 PERSONAL 04-13-2015 [facility] HISTORY OF MEM [facility]OS[facility] NICOTINE INC DEPENDENCE U62344 PRESENCE OF 03-06-2015 [facility] OTHER [facility] VASCULAR INC IMPLANTS AND GRAFTS R9430 ABNORMAL 02-27-2015 [facility] RESULT CV LAR FUNCTION CONSULTANTS STUDY UNS O I459 CONDUCTION 02-26-2015 [facility] DISORDER [facility]ANCE UNSPECIFIED SERVICE J42 UNSPECIFIED 02-26-2015 [facility] R0600 DYSPNEA 02-26-2015 [facility] UNSPECIFIED LAR CONSULTANTS O Z881 ALLERGY 02-26-2015 [facility] STATUS TO REGIONAL OTHER MEDICAL ANTIBIOTIC AGENTS STATUS I272 OTHER 02-25-2015 [facility] P HYPERTENSIO N J410 SIMPLE 02-25-2015 [facility] P R55 SYNCOPE AND 02-25-2015 [facility] COLLAPSE PHYSICIANS, [facility] J4520 MILD 02-23-2015 [facility] [place] [address] DEGEN 01-26-2015 [facility] LUMBAR/LUMB [facility] OSACRAL INC INTERVERTEB RAL DISC 7291 UNSPECIFIED 01-26-2015 [facility] MYALGIA [facility] AND INC MYOSITIS 9134 ELB 01-06-2015 [facility] FORARM&WRST PHYSICIANS, INSECT PLL BITE NONVENOMOUS W/O INF 5990 URINARY 12-14-2014 [facility] TRACT [facility] INFECTION INC SITE NOT SPECIFIED 85107 OBSTRUCTIVE 12-05-2014 [place] CHRONIC MEDICAL BRONCHITIS IMAGING ASS WITHOUT EXACERBAT 7862 COUGH 12-05-2014 [facility] 30043 OTHER 12-05-2014 [place] NONSPECIFIC MEDICAL ABNORMAL IMAGING ASS FINDING OF LUNG FIELD 12831 EXTRINSIC 12-04-2014 C[facility] ASTHMA, HOME UNSPECIFIED MEDICAL EQUIPME 79507 GEN 12-04-2014 [facility] OSTEOARTHRO HOME SIS MEDICAL INVOLVING EQUIPME MULTIPLE SITES 52615 PAIN IN 11-23-2014 [facility] JOINT, PHYSICIANS, LOWER LEG PLLC 7245 UNSPECIFIED 11-23-2014 [facility] BACKACHE PHYSICIANS, [facility] 4919 UNSPECIFIED 11-12-2014 [facility] CHRONIC [facility] BRONCHITIS INC 7231 CERVICALGIA 10-31-2014 ATTILA GELLER MD,PSC 7295 PAIN IN 10-31-2014 SELIN HOOD,PSC LIMB 4139 OTHER AND 10-24-2014 [facility] UNSPECIFIED [facility] ANGINA INC PECTORIS 496 CHRONIC 10-24-2014 [facility] AIRWAY [facility] OBSTRUCTION INC NEC 21570 PAIN IN 10-24-2014 [place] JOINT, MEDICAL FOREARM IMAGING ASS 39306 CONTUSION 10-24-2014 [facility] OF HAND PHYSICIANS, PLLC 5641 IRRITABLE 10-07-2014 [facility] PHYS[facility]ANS SYNDROME GROUP 26999 OBSTRUCTIVE 10-02-2014 [facility] P WITH EXACERBATIO N 6929 CONTACT 10-02-2014 [facility]ITIS& [facility] OTHER [facility] P ECZEMA DUE UNSPEC CAUSE 67884 OTHER CHEST 10-02-2014 [facility] PAIN [facility] P 62950 CHEST PAIN 10-01-2014 [facility] UNSPECIFIED PHYSICIANS, [facility] 88587 ABDOMINAL 09-02-2014 [place] PAIN RIGHT MEDICAL UPPER IMAGING ASS QUADRANT 490 BRONCHITIS 08-18-2014 [facility] P ACUTE OR CHRONIC 7906 OTHER 08-18-2014 [facility] P CHEMISTRY 6256 FEMALE 06-17-2014 B[place]ANA [place]INENC E [address]153 INSOMNIA 06-03-2014 [facility] UNSPECIFIED PHYSICIANS GROUP 7831 ABNORMAL 06-03-2014 [facility] WEIGHT GAIN PHYSICIANS GROUP V5415 AFTERCARE 03-26-2014 [facility] TRAUMATIC FOUNDATION FRACTURE UPPER LEG V5489 OTHER 03-26-2014 [facility] AFTERCARE 32383 PAIN IN 02-21-2014 [place] JOINT MEDICAL PELVIC IMAGING ASS REGION AND THIGH 53339 COR 2014 [facility] ATHEROSLERO [facility] UNSPEC INC TYPE VESSEL [place]/NATHALIE T V5869 LONG-TERM 02-12-2014 [facility] (CURRENT) DUYEN USE OF ,PSC OTHER MEDICATIONS V8281 SPECIAL 02-12-2014 [facility] SCREENING JOHNATHAN GELLER MD,PSC OSTEOPOROSI S 83727 CORONARY 02-11-2014 [facility] ATHEROSCLER SERV [facility] [place] [facility]ATION CORONARY ARTERY 462 ACUTE 02-07-2014 [facility]Y PH[facility] 34730 NAUSEA WITH 01-27-2014 [facility] VOMITING MEDICAL IMAGING ASS 10054 ABDOMINAL 01-27-2014 [place] PAIN, MEDICAL UNSPECIFIED IMAGING ASS SITE 4019 UNSPECIFIED 12-18-2013 [facility] ESSENTIAL DWI HYPERTENSIO N 79606 ASTHMA, 12-18-2013 [facility] [place] UNSPECIFIED DWI , UNSPECIFIED STATUS 33765 PRECORDIAL 12-18-2013 [facility] PAIN AMBULANCE SERVICE V7612 OTHER 10-22-2013 [facility] SCREENING [facility] MAMMOGRAM INC 7282 MUSCULAR 10-15-2013 [facility] WASTING AND DEN DISUSE ATROPHY NEC 43973 DISORDER OF 10-15-2013 [facility] BONE AND DEN CARTILAGE UNSPECIFIED 72829 OTHER 10-15-2013 [facility] MALAISE AND DEN FATIGUE 62302 OTHER 10-15-2013 [facility] GENERAL DEN SYMPTOMS 83236 NERVOUSNESS 10-15-2013 [facility] DEN 70333 ATTENTION 10-15-2013 [facility] OR DEN CONCENTRATI ON [...] INC 4739 UNSPECIFIED 09-12-2013 [facility] SINUSITIS CHRISTIN 03417 CHRONIC 09-12-2013 [facility] OBSTRUCTIVE [facility]P ASTHMA INC UNSPECIFIED 45198 CHRONIC 09-12-2013 [facility] OBSTRUCTIVE CHRISTIN ASTHMA W/STATUS ASTHMATICUS 66271 SCOLIOSIS , 09-12-2013 [facility] IDIOPATHIC HENRY 28934 OTHER 09-12-2013 NICOLE DYSPNEA [place] [address] ESOPHAGEAL 09-11-2013 BRANDYN RAFIA REFLUX 3804 IMPACTED 08-22-2013 [facility] CERUMEN CHRISTIN 4660 ACUTE 08-22-2013 [facility] BRONCHITIS CHRISTIN 4770 ALLERGIC 08-22-2013 [facility] RHINITIS CHRISTIN DUE TO POLLEN 4778 ALLERGIC 08-22-2013 [facility] RHINITIS CHRISTIN DUE TO OTHER ALLERGEN 50990 CHRONIC 08-22-2013 [facility] OBSTRUCTIVE CHRISTIN ASTHMA WITH EXACERBATIO N 3555 TARSAL 08-05-2013 RODES CHANDA TUNNEL SYNDROME 7350 HALLUX 08-05-2013 [facility] CHANDA VALGUS 7354 OTHER 08-05-2013 [facility] CHANDA HAMMER TOE 5759 UNSPECIFIED 06-22-2012 NICOLE DISORDER HENRY OF GALLBLADDER 01748 ABDOMINAL 06-22-2012 [facility] PAIN RIGHT [facility] LOWER INC QUADRANT 486 PNEUMONIA, 06-07-2012 [facility] ORGANISM PAULA UNSPECIFIED 16565 DIVERTICULI 06-07-2012 [facility] TIS OF PAULA COLON 31562 DEHYDRATION 06-05-2012 [facility] RAFIA 62440 LEUKOCYTOSI 06-05-2012 [facility] RAFIA S UNSPECIFIED 5183 PULMONARY 06-05-2012 N[facility] EOSINOPHILI HENRY A 47075 FEVER 06-05-2012 [facility] UNSPECIFIED AMBULANCE SERVICE 41400 MIGRAINE 05-31-2012 [facility] UNSP W/O MELISA INTRACT W/O STATUS MIGRAINOSUS 7242 LUMBAGO 05-31-2012 [facility] MELISA 32255 SPASM OF 05-31-2012 [facility] MUSCLE MELISA 7292 UNSPECIFIED 05-31-2012 [facility] NEURALGIA MELISA NEURITIS AND RADICULITIS V5883 ENCOUNTER 05-31-2012 [facility] FOR [facility] THERAPEUTIC DRUG MONITORING 4772 ALLERGIC 04-17-2012 [facility] RHINITIS CHRISTIN DUE TO ANIMAL HAIR AND DANDER 7011 ACQUIRED 04-12-2012 RODES CHANDA KERATODERMA 37436 OTHER 04-12-2012 RODES CHANDA DISORDERS OF BONE AND CARTILAGE OTHER 12266 CONTUSION 04-12-2012 R[facility]ES CHANDA OF FOOT 9243 CONTUSION 01-31-2012 WEHRMAN III OF TOE PAULA 9599 INJURY 01-31-2012 [place] OTHER AND MEDICAL UNSPECIFIED IMAGING ASS UNSPECIFIED SITE 09527 OBESITY, 01-28-2012 NEHA EDWARDS UNSPECIFIED 71787 OSTEOARTHRO 11-03-2011 NEHA EDWARDS S INVLV MX SITES BUT NOT SPEC GEN 5999 UNSPECIFIED 09-28-2011 NEHA EDWARDS DISORDER OF URETHRA&URI NARY TRACT 13603 DIARRHEA 09-21-2011 [facility] ANT 7873 FLATULENCE 08-03-2011 [facility] ANT ERUCTATION AND GAS PAIN V642 SURG/OTH 07-31-2011 [facility] PROC NOT [facility] CARRIED OUT INC BECAUSE PTS DECN 4780 HYPERTROPHY 06-02-2011 [facility] OF NASAL ALLERGY & TURBINATES [facility] P 07585 EXTRINSIC 06-02-2011 [facility], ALLERGY & WITH [facility] P EXACERBATIO N V720 EXAMINATION 04-29-2011 [facility] ANG OF EYES AND VISION 29260 ENTHESOPATH 04-05-2011 [facility] Y OF H PODIATRY UNSPECIFIED SITE 7213 LUMBOSACRAL 03-30-2011 [facility] SPONDYLOSIS WITHOUT MYELOPATHY 7234 BRACHIAL 03-11-2011 [facility] NEURITIS OR [facility] INC RADICULITIS NOS 7244 THORACIC/SOFIA 03-11-2011 [facility] MBOSACRAL [facility] NEURITIS/RA INC DICULITIS UNSPEC 03472 PAIN IN 02-09-2011 [facility] JOINT, [facility]OS[facility] MULTIPLE INC SITES 83811 MUSCLE 02-09-2011 [facility] WEAKNESS [facility] (GENERALIZE INC D) V727 DIAGNOSTIC 02-03-2011 [facility] SKIN AND CHRISTIN SENSITIZATI ON TESTS V5409 OTH 01-28-2011 [place] AFTERMCLAREN [place] MEDICAL INVOLVING IMAGING ASS INTERNAL FIXATION DEVICE Medications Na ND Rx Da Fi Fi Am Da Di Ph RX Ph St me C No te ll ll ou ys ag ar # ys at rm s nt no ma ic us Or Da si cy ia de te s n re d MO 57 09 10 30 30 00 ID Ac NT 23 -0 -0 .0 00 L- ti EL 70 8- 6- 00 07 MA ve UK 25 20 20 50 RT 53 17 17 46 T 0 78 PH SO AR D MA 10 CY MG #5 91 TA BL ET TR 50 08 30 30 00 ID Ac AZ 11 -1 -1 .0 00 L- ti OD 10 8- 5- 07 MA ve ON 43 20 20 50 RT E 30 17 17 46 50 1 70 PH AR MG MA CY TA BL #5 ET 91 BR 00 08 09 60 30 00 ID Ac IL 18 -1 -1 .0 00 L- ti IN 60 8- - 07 MA ve TA 77 20 20 50 RT 76 17 17 46 90 0 71 PH AR MG MA CY TA BL #5 ET 91 AT 68 08 30 30 00 ID Ac OR 64 -1 -1 .0 00 L- ti VA 50 8- 5- [address] 46 20 20 50 RT AT 15 17 17 46 IN 4 74 PH AR 80 MA CY MG #5 TA 91 BL ET SP 00 08 30 30 00 ID Ac IR 59 -1 -1 .0 00 L- ti IV 70 8- 07 MA ve A 07 20 20 50 RT 18 54 17 17 48 1 65 PH MC AR G MA CP CY -H AN #5 DI 91 LOWERY LE R FL 60 08 16 30 00 ID Ac UT 43 -1 -1 .0 00 L- ti IC 20 8- 5- 00 07 MA ve 26 20 20 50 RT ON 41 17 17 48 E 5 66 PH WY AR OP MA CY 50 #5 MC 91 G SP RA Y EQ 49 08 30 30 00 ID Ac 03 -1 -1 .0 00 L- ti 50 8- 5- 08 MA ve PI 46 20 20 84 RT RI 76 17 17 07 N 8 68 PH 81 AR MA MG CY CH #5 EW 91 AB LE TA B NI 43 08 09 25 5 00 ID Ac TR 59 -1 -1 .0 00 L- ti OG 80 8- 5- 00 07 MA ve LY 43 20 20 50 RT CE 61 17 17 48 RI 1 67 PH N AR 0. MA 4 CY MG #5 TA 91 BL ET SL IP 00 08 09 10 30 00 ID Ac RA 48 -1 -1 80 00 L- ti T- 70 8- 5- .0 07 MA ve AL 20 20 20 00 50 RT BU 10 17 17 48 T 3 68 PH 0. AR 5- MA 3( CY 2. 5) #5 91 MG /3 ML OM 60 08 30 30 00 ID Ac EP 50 -1 -1 .0 00 [...] ET CE 16 08 02 11 30 ID Ac TI 57 -2 -1 .0 00 L- ti RI 10 0- 5- 00 08 MA ve ZI 40 20 20 84 RT NE 25 17 17 07 0 53 PH HC AR L MA 10 CY MG #5 91 TA BL ET PA 68 08 02 11 30 ID Ac RO 38 -2 -1 .0 00 L- ti XE 20 0- 5- 00 07 MA ve TI 00 20 20 50 RT NE 10 17 17 46 6 73 PH HC AR L MA 40 CY MG #5 91 TA BL ET LI 68 08 02 11 30 00 ID Ac SI 64 -2 -1 .0 00 L- ti NO 50 1- 5- 00 07 MA ve [place] 55 20 20 50 RT [place] 25 17 17 51 4 47 PH 10 AR MA MG CY TA #5 BL 91 ET CL 16 08 30 00 ID Ac ON 72 -1 -0 .0 00 L- ti AZ 90 5- 8- 00 04 MA ve EP 13 20 20 53 RT AM 71 17 17 16 1 6 46 PH AR MG MA CY TA BL #5 ET 91 MO 57 08 30 30 00 ID Ac NT 23 -1 -0 .0 00 L- ti EL 70 6- 8- 00 07 MA ve [place] 25 20 20 49 RT 53 17 17 26 T 0 16 PH SO AR D MA 10 CY MG #5 91 TA BL ET IS 23 08 30 30 00 ID Ac OS 15 -0 -0 .0 00 L- ti OR 50 4- 1- 00 07 MA ve BI 17 20 20 49 RT DE 80 17 17 33 1 53 PH MN AR MA ER CY 60 #5 91 MG TA BL ET ME 00 08 30 30 00 ID Ac TO 37 -0 -0 .0 00 L- ti W[place] 80 4- 1- 00 07 MA ve OL 01 20 20 49 RT OL 80 17 17 68 5 53 PH TA AR RT MA RA CY TE #5 25 91 MG TA B SP 00 08 09 4. 30 00 ID Ac IR 59 -0 -0 00 00 L- ti IV 70 8- 1- 0 07 MA ve A 16 20 20 50 RT RE 06 17 17 26 SP 1 43 PH IM AR AT MA CY 1. 25 #5 91 MC G IN H PA 68 07 08 30 30 00 ID Ac RO 38 -2 -2 .0 00 L- ti XE 20 8- 5- 00 07 MA ve TI 00 20 20 47 RT NE 10 17 17 42 6 92 PH HC AR L MA 40 CY MG #5 91 TA BL ET CE 16 07 08 30 30 00 ID Ac TI 57 -2 -2 .0 00 L- ti RI 10 8- 5- 00 08 MA ve ZI 40 20 20 83 RT NE 25 17 17 68 0 85 PH HC AR L MA 10 CY MG #5 91 TA BL ET PN 00 07 08 0. 1 00 ID Ac EU 00 -2 -1 50 00 L- ti MO 64 4- 8- 0 07 MA ve VA 83 20 20 50 RT X 70 17 17 03 23 3 63 PH AR SY MA RI CY NG E #5 91 TR 50 07 08 30 30 00 ID Ac AZ 11 -2 -1 .0 00 L- ti OD 10 5- 8- 00 07 MA ve ON 43 20 20 50 RT E 30 17 17 03 50 1 96 PH AR MG MA CY TA BL #5 ET 91 GA 00 07 08 90 30 00 ID Ac BA 22 -1 -1 .0 00 L- ti PE 82 5- 1- 00 04 MA ve NT 63 20 20 53 RT IN 71 17 17 10 1 77 PH 80 AR 0 MA MG CY TA #5 BL 91 ET OM 60 07 08 30 30 00 ID Ac EP 50 -1 -1 .0 00 L- ti RA 50 9- 1- 00 07 MA ve ZO 14 20 20 49 RT LE 60 17 [address] AR MA 40 CY MG #5 91 CA PS UL E CL 16 07 08 60 30 00 ID Ac ON 72 -1 -1 .0 00 [...] MO 31 07 08 30 30 00 ID Ac NT 72 -1 -0 .0 00 L- ti EL 20 2- 4- 00 07 MA ve [place] 72 20 20 49 RT 61 17 17 26 T 0 16 PH SO AR D MA 10 CY MG #5 91 TA BL ET IS 23 07 08 30 30 00 ID Ac OS 15 -0 -0 .0 00 L- ti OR 50 6- 4- 00 07 MA ve BI 17 20 20 49 RT DE 80 17 17 33 1 53 PH MN AR MA ER CY 60 #5 91 MG TA BL ET CE 16 10 19 30 30 00 ID Ac TI 57 -3 -2 .0 00 L- ti RI 10 0- 8- 00 08 MA ve ZI 40 20 20 83 RT NE 25 17 17 68 0 85 PH HC AR L MA 10 CY MG #5 91 TA BL ET PA 68 06 30 30 00 ID Ac RO 38 -3 -2 .0 00 L- ti XE 20 0- 8- 00 07 MA ve TI 00 20 20 47 RT NE 10 17 17 42 6 92 PH HC AR L MA 40 CY MG #5 91 TA BL ET EQ 49 07 30 30 00 ID Ac 03 -0 -2 .0 00 L- ti 50 5- 8- 00 08 MA ve PI 56 20 20 83 RT RI 33 17 17 57 N 2 52 PH EC AR MA 81 CY MG #5 91 TA BL ET ME 00 11 18 30 30 00 ID Ac TO 37 -0 -2 .0 00 L- ti WY 80 5- 8- 00 07 MA ve OL 01 20 20 49 RT OL 80 17 17 68 5 53 PH TA AR RT MA RA CY TE #5 25 91 MG TA B SP 00 10 19 30 30 00 ID Ac IR 59 -2 -2 .0 00 L- ti IV 70 5- 1- 00 07 MA ve A 07 20 20 48 RT 18 54 17 17 08 1 47 PH MC AR G MA CP CY -H AN #5 DI 91 LOWERY LE R OM 60 06 12 11 30 00 ID Ac EP 50 -1 -1 .0 00 [...] BR 00 10 19 60 30 00 ID Ac IL 18 -1 -0 .0 00 [...] AT 68 10 19 30 30 00 ID Ac OR 64 -1 -0 .0 00 L- ti VA 50 2- 7- [address] 46 20 20 43 RT AT 15 17 17 60 IN 4 78 PH AR 80 MA CY MG #5 TA 91 BL ET ME 00 07 30 30 00 WA Ac TO 37 -1 -0 .0 00 L- ti WY 80 2- 7- 00 07 MA ve [...] AM 00 10 18 30 30 00 ID Ac LO 37 -0 -3 .0 00 L- ti DI 85 2- 0- 00 07 MA ve PI 20 20 20 49 RT NE 90 17 17 13 5 87 PH BE AR SY MA LA CY TE 5 #5 91 MG TA B PA 68 06 11 11 30 00 ID Ac RO 38 -0 -3 .0 00 L- ti XE 20 2- 0- 00 07 MA ve TI 00 20 20 47 RT NE 10 17 17 42 6 92 PH HC AR L MA 40 CY MG #5 91 TA BL ET CE 16 06 11 11 30 00 ID Ac TI 57 -0 -3 .0 00 L- ti RI 10 2- 0- 00 08 MA ve ZI 40 20 20 83 RT NE 25 17 17 68 0 85 PH HC AR L MA 10 CY MG #5 91 TA BL ET NI 43 05 06 25 7 00 ID Ac TR 59 -3 -2 .0 00 L- ti OG 80 0- 3- 00 07 MA ve LY 43 20 20 49 RT CE 61 17 17 06 RI 1 69 PH N AR 0. MA 4 CY MG #5 TA 91 BL ET SL HY 00 05 06 [address] 40 -3 -2 .0 00 L- ti OC 60 0- 3- 00 02 MA ve OD 12 20 20 24 RT ON 30 17 17 05 -A 1 38 PH CE AR TA MA MA CY NO PH #5 EN 91 5- 32 5 OM 60 05 30 30 00 ID Ac EP 50 -2 -1 .0 00 L- ti RA 50 2- 6- 00 07 MA ve ZO 14 20 20 48 RT LE 60 17 17 [address] AR MA 40 CY MG #5 91 CA PS UL E BR 00 05 60 30 00 ID Ac IL 18 -1 -0 .0 00 L- ti IN 60 5- 9- 00 07 MA ve TA 77 20 20 43 RT 76 17 17 60 90 0 75 PH AR MG MA CY TA BL #5 ET 91 LI 54 05 30 30 00 ID Ac SI 45 -1 -0 .0 00 L- ti NO 80 5- 9- 00 07 MA ve WY 99 20 20 43 RT IL 71 [...] #5 TA 91 BL ET ME 00 ID Ac TO 37 -1 -0 .0 00 L- ti WY 80 07 MA ve OL 01 20 20 43 RT OL 80 17 17 61 5 11 PH TA AR RT MA RA CY TE #5 25 91 MG TA B IS 23 ID Ac OS 15 -1 -0 .0 00 L- ti OR 50 07 MA ve BI 17 20 20 45 RT DE 80 17 17 10 1 79 PH MN AR MA ER CY 60 #5 91 MG TA BL ET GA 00 05 30 00 ID Ac BA 22 -1 -0 .0 00 L- ti PE 82 07 MA ve NT 63 20 20 47 RT IN 71 17 17 76 1 13 PH 80 AR 0 MA MG CY TA #5 BL 91 ET EQ 49 00 ID Ac 03 -1 -0 .0 00 L- ti 50 08 MA ve PI 56 20 20 83 RT RI 33 17 17 57 N 2 52 PH EC AR MA 81 CY MG #5 91 TA BL ET CE 16 00 ID Ac TI 57 -0 -0 .0 00 L- ti RI 10 7- 2- 08 MA ve ZI 40 20 20 83 RT NE 25 17 17 68 0 85 PH HC AR L MA 10 CY MG #5 91 TA BL ET PA 68 05 ID Ac RO 38 -0 -0 .0 00 L- ti XE 20 7- 2- 00 07 MA ve TI 00 20 20 47 RT NE 10 17 17 42 6 92 PH HC AR L MA 40 CY MG #5 91 TA BL ET TR 50 00 ID Ac AZ 11 -0 -0 .0 00 L- ti OD 10 9 2- 07 MA ve ON 43 20 20 48 RT E 30 17 17 69 50 1 03 PH AR MG MA CY TA BL #5 ET 91 CL 16 05 30 00 ID Ac ON 72 -0 -0 .0 00 [...] ET ME 00 04 30 30 00 ID Ac TO 37 -1 -1 .0 00 L- ti WY 80 8- 2- 00 07 MA ve [...] LI 68 04 05 30 30 00 ID Ac SI 18 -1 -1 .0 00 L- ti NO 00 8- 2- 00 07 MA ve WY 51 20 20 43 RT IL 40 [...] 17 17 29 E 1 48 PH WY AR OP MA CY 50 #5 MC 91 G SP RA Y PA 68 04 10 11 30 00 ID Ac RO 38 -0 -0 .0 00 L- ti XE 20 9- 07 MA ve TI 00 20 20 47 RT NE 10 17 17 42 6 92 PH HC AR L MA 40 CY MG #5 91 TA BL ET CE 16 04 10 11 30 00 ID Ac TI 57 -0 -0 .0 00 L- ti RI 10 08 MA ve ZI 40 20 20 83 RT NE 25 17 17 68 0 85 PH HC AR L MA 10 CY MG #5 91 TA BL ET CL 16 04 30 00 ID Ac ON 72 -0 -0 .0 00 L- ti AZ 90 6 5 04 MA ve EP 13 20 20 52 RT AM 71 17 17 99 1 6 24 PH AR MG MA CY TA BL #5 ET 91 SP 00 04 10 11 29 00 ID Ac IR 59 -0 -0 .0 00 L- ti IV 70 6 07 MA ve A 07 20 20 48 RT 18 54 17 17 08 1 47 PH MC AR G MA CP CY -H AN #5 DI 91 LOWERY LE R ME 00 03 09 11 29 00 ID Ac TO 37 -2 -1 .0 00 L- ti WY 80 4 07 MA ve OL 01 20 20 43 RT OL 80 17 17 61 5 11 PH TA AR RT MA RA CY TE #5 25 91 MG TA B BR 00 03 04 30 00 ID Ac IL 18 -2 -1 .0 00 L- ti IN 60 07 MA ve TA 77 20 20 43 RT 76 17 17 60 90 0 75 PH AR MG MA CY TA BL #5 ET 91 LI 54 03 30 30 00 ID Ac SI 45 -2 -1 .0 00 L- ti NO 80 07 MA ve WY 99 20 20 43 RT IL 71 17 17 60 0 82 PH 10 AR MA MG CY TA #5 BL 91 ET IS 23 03 04 30 30 00 ID Ac OS 15 -2 -1 .0 00 [...] 17 17 78 E 5 07 PH WY AR OP MA CY 50 #5 MC [...] 37 -2 -2 .0 00 L- ti WY 80 3- 4- 00 07 MA ve OL 01 20 20 43 RT OL 80 17 17 61 5 11 PH TA AR RT MA RA CY TE #5 25 91 MG TA B LI 54 02 03 30 30 00 WA Ac SI 45 -2 -2 .0 00 L- ti NO 80 3- 4- 00 07 MA ve WY 99 20 20 43 RT IL 71 [...] 17 17 78 E 1 07 PH WY AR OP MA CY 50 #5 MC [...] LI 54 01 02 30 30 00 ID Ac SI 45 -2 -2 .0 00 L- ti NO 80 8- 4- 00 07 MA ve WY 99 20 20 43 RT IL 71 17 17 60 0 82 PH 10 AR MA MG CY TA #5 BL 91 ET ME 00 02 30 30 00 ID Ac TO 37 -2 -2 .0 00 L- ti WY 80 8- 4- 00 07 MA ve OL 01 20 20 43 RT OL 80 17 17 61 5 11 PH TA AR RT MA RA CY TE #5 25 91 MG TA B CE 16 02 30 30 00 ID Ac TI 57 -2 -2 .0 00 [...] FL 60 01 02 16 30 00 ID Ac UT 43 -2 -1 .0 00 L- ti IC 20 3- 7- 00 07 MA ve 26 20 20 44 RT ON 41 17 17 78 E 5 07 PH WY AR OP MA CY 50 #5 MC 91 G SP RA Y PA 68 05 16 29 30 00 ID Ac RO 38 -2 -1 .0 00 L- ti XE 20 5- 7- 00 07 MA ve TI 00 20 20 46 RT NE 10 17 17 69 6 89 PH HC AR L MA 40 CY MG #5 91 TA BL ET OM 60 05 16 29 30 00 ID Ac EP 50 -1 -1 .0 00 L- ti RA 50 3- 0- 00 07 MA ve ZO 14 20 20 45 RT LE 60 17 17 [address] AR MA 40 CY MG #5 91 CA PS UL E LI 54 12 30 00 ID Ac SI 45 -3 -0 .0 00 L- ti NO 80 0- 3- 00 07 MA ve WY 99 20 20 43 RT IL 71 16 17 60 0 82 PH 10 AR MA MG CY TA #5 BL 91 ET CE 16 05 15 29 30 ID Ac TI 57 -0 -2 .0 00 L- ti RI 10 2- 7- 00 08 MA ve ZI 40 20 20 83 RT NE 25 17 17 68 0 18 PH HC AR L MA 10 CY MG #5 91 TA BL ET ME 00 05 15 30 30 00 ID Ac TO 37 -0 -2 .0 00 L- ti WY 80 2- 7- 00 07 MA ve OL 01 20 20 43 RT OL 80 17 17 61 5 11 PH TA AR RT MA RA CY TE #5 25 91 MG TA B MO 54 01 06 13 30 ID Ac NT 45 -0 -2 .0 00 [...] 37 -0 -0 .0 00 L- ti WY 80 2- 9- 00 07 MA ve OL 01 20 20 43 RT OL 80 16 17 61 5 11 PH TA AR RT MA RA CY TE #5 25 91 MG TA B LI 68 12 06 13 29 00 WA Ac SI 18 -0 -0 .0 00 L- ti NO 00 3 9 07 MA ve WY 51 20 20 43 RT IL 40 [...] 2 90 30 EA 24 AR Ac WY 25 -2 -[address] 65 NO [...] 8- 8- 00 MA 73 LE ve WY 34 20 20 RT 5 ET AM [...] 91 00 09 10 6 30 30 ID 71 CO Ac 00 -2 -0 .0 L- 36 MM ti 60 2- 9- 00 MA 02 UN ve 11 20 20 RT 3 IT 73 11 11 Y 1 PH AL AR LE MA RG CY Y # & 10 TH 05 MA 91 PS C 00 09 10 6 30 30 ID 71 MA Ac 00 -2 -0 .0 L- 36 SH ti 60 2- 9- 00 MA 02 BU ve 11 20 20 RT 3 RN 73 11 11 1 PH AM AR Y MA B CY # 10 05 91 SY 00 09 09 5 10 30 ID 71 AR Ac MB 18 -1 -1 .1 L- 34 NO ti IC 60 5- 5- 99 MA 97 LD ve OR 37 20 20 RT 5 T 02 11 11 RI 16 0 PH CH 0- AR AR 4. MA D 5 CY W MC # G IN 10 LOWERY 05 LE 91 R 00 09 09 5 30 30 ID 71 AR Ac 00 -0 -1 .0 L- 34 NO ti 60 7- 2- 00 MA 00 LD ve 11 20 20 RT 4 73 11 11 RI 1 PH CH AR AR MA D CY W # 10 05 91 GA 53 04 09 2 90 30 ID 71 NO Ac BA 74 -1 -0 .0 L- 15 RF ti PE 60 4- 9- 00 MA 31 LE ve NT 10 20 20 RT 0 ET IN 10 11 11 R 1 PH 10 AR HE 0 MA NR MG CY Y # CA PS 10 UL 05 E 91 59 09 09 5 8. 16 ID 71 AR Ac 31 -0 -0 50 [...] Procedure DOS Code Location Performer Comment INITIAL [address]57[address] [facility] 7 PHYSICIAN CARE/DAY S GROUP 70 MINUTES MYOCARDIA 05872 [place] [facility] [facility] SPECT 7 MEDICAL MULTIPLE IMAGING STUDIES ASS RADIOLOGI 50995 [place] [facility] 7 MEDICAL EXAMINATI IMAGING ON CHEST ASS SINGLE VIEW FRONTAL ECG 62959 FABRICE DAVILA ROUTINE 7 PHYSICIAN U ECG S, PLLC W/LEAST 12 LDS I&R ONLY PHYSICAL 71370 [facility] THERAPY 7 [facility] EVALUATIO INC INC N HIGH COMPLEX 45 MINS RADIOLOGI 57743 [place] [facility] 7 MEDICAL EXAMINATI IMAGING ON FEMUR ASS MINIMUM 2 VIEWS RADIOLOGI 20297 [place] [facility] 7 MEDICAL EXAMINATI IMAGING ON KNEE 3 ASS VIEWS THERAPEUT 86911 [facility] 7 [facility] PROPHYLAC INTERNAL TIC/DX MED INJECTION SUBQ/IM INJECTION J3301 [facility] CALL[facility]AN 7 [facility] TRIAMCINO INTERNAL LONE MED ACETONIDE NOS 10 MG LIPID 50165 [facility] PANEL 7 [facility] INC INC COMPREHEN 71348 [facility] SIVE [facility] METABOLIC INC INC PANEL THERAPEUT 63785 [facility] CALL[facility] IC 7 [facility] PROPHYLAC INTERNAL TIC/DX MED INJECTION SUBQ/IM INJECTION J3301 [facility] 7 [facility] TRIAMCINO INTERNAL LONE MED ACETONIDE NOS 10 MG RADEX 03981 [place] NICOLE FOOT 7 MEDICAL COMPLETE IMAGING MINIMUM 3 ASS VIEWS RADIOLOGI 72426 [facility] Bernardo EXAM 7 [facility] CHEST 2 INC INC VIEWS FRONTAL&[place] [address] [facility] THORACIC 7 [facility] SPINE W/[place] [address] [facility] CERV[facility] SPINE W/O INC INC CONTRAST MATERIAL THERAPEUT 97363 [facility] IC 7 [facility] INJECTION INC INC IV PUSH EACH NEW DRUG THER 11643 [facility] PROPH/DX 7 [facility] NJX IV INC INC PUSH SINGLE/1S T SBST/DRUG UNCLASSIF J3490 [facility] IED DRUGS 7 [facility] INC INC ECG 03048 YENY QUEVEDO ROUTINE 7 PHYSICIAN ECG S GROUP W/LEAST 12 LDS I&R ONLY ECG 01869 [facility] ROUTINE 7 [facility] ECG INC INC W/LEAST 12 LDS TRCG ONLY W/O I&R COLLECTIO 44200 [facility] N VENOUS 7 [facility] BLOOD INC INC VENIPUNCT URE BASIC 97789 [facility] METABOLIC 7 [facility] PANEL INC INC CALCIUM TOTAL BASIC 21056 [facility] METABOLIC 7 [facility] PANEL INC INC CALCIUM TOTAL CATH PLMT 05167 [facility] L HRT & 7 PHYSICIAN ARTS GROUP W/NJX & ANGIO IMG S&I CATHETER C1725 [facility] TRANSLUMI 7 [facility] NAL INC INC ANGIOPLAS TY NON-LASER GUIDE C1769 [facility] WIRE 7 [facility] INC INC STENT C1876 [facility] NON-COATE 7 [facility] D/NON-COV INC INC ERED W/DELIVER Y SYSTEM UNCLASSIF J3490 [facility] IED DRUGS 7 [facility] [place] PRQ [address]11 [facility] TRLUML 7 PHYSICIAN CORONARY GROUP ANGIOPLAS TY ONE ART/BRANC H CLOSURE C1760 [facility] DEVICE 7 [facility] VASCULAR INC INC INTRDUCR/ C1894 [facility] SHEATH 7 [facility] NOT GUID INC INC INTRACARD EP NON-LASR COAGULATI 02770 [facility] ON TIME 7 [facility] ACTIVATED INC INC IV DOP 12651 [facility] MARKUS&/OR 7 PHYSICIAN PRESS GROUP C/LACIE RSRV DINORA 1ST VSL PRQ 72061 [facility] TRLUML 7 [facility] CORONARY INC [place] [address] [facility] TRLUML 7 PHYSICIAN CORONARY GROUP STENT W/ANGIO ONE ART/BRNCH OPHTH 59533 [facility] XM&EVAL COMPRHNSV ESTAB PT 1/> MYOCARDIA 39503 [facility] L SPECT 7 [facility] MULTIPLE INC INC STUDIES CV STRS 35127 [facility] TST 7 [facility] XERS&/OR INC INC RX CONT ECG TRCG ONLY CV STRS 31531 [facility] TST 7 PHYSICIAN XERS&/OR S GROUP RX CONT ECG W/O I&R OBSERVATI 03842 [place] [facility] ON CARE 7 [facility] INTERNAL MED [facility] G0378 [facility] OBSERVATI 7 [facility] ON INC INC SERVICE PER HOUR UNCLASSIF J3490 [facility] IED DRUGS 7 [facility] INC INC UNCLASSIF J3490 [facility] IED DRUGS 7 [facility] INC INC BASIC 04615 [facility] METABOLIC 7 [facility] PANEL INC INC CAL[facility] G0378 [facility] OBSERVATI 7 [facility] ON INC INC SERVICE PER HOUR NONINVASI 92275 [facility] VE 7 [facility] EAR/PULSE INC INC OXIMETRY SINGLE DETER LIPID 50706 [facility] PANEL 7 [facility] INC INC ECG 40427 [facility] GARCÍA JR ROUTINE 7 [facility] W/LEAST P 12 LDS I&R ONLY ECHO 50631 [facility] TTHRC R-T 7 [facility] 2D INC INC W/WOM-MOD E COMPL SPEC&COLR D THROMBOPL 12673 [facility] ASTIN 7 [facility] TIME INC INC PARTIAL PLASMA/WH OLE BLOOD PROTHROMB 71749 [facility] IN TIME 7 [facility] INC INC CREATINE 01972 [facility] KINASE 7 [facility] TOTAL INC INC CREATINE 68228 [facility] KINASE MB 7 [facility] [place] [address] [facility] TROPONIN 7 [facility] QUANTITAT INC INC ROMERO INITIAL 53257 JOVANNI MALLOY OBSERVATI 7 [facility] INTERNAL CARE/DAY MED 30 MINUTES ECG 92072 [facility] ROUTINE 7 [facility] ECG INC INC W/LEAST 12 LDS TRCG ONLY W/O I&R RADIOLOGI 47046 [facility] C EXAM 7 [facility] CHEST 2 INC INC VIEWS FRONTAL&L ATERAL AMB A0427 [facility] SERVICE 7 AMBULANCE AMBULANCE ALS SERVICE SERVICE EMERGENCY TRANSPORT LEVEL 1 GROUND A0425 [facility] MILEAGE 7 AMBULANCE AMBULANCE PER SERVICE SERVICE STATUTE MILE ADMN SET A7005 YOUR YOUR W/SM VOL 6 PHARMACY [facility]ARMACY [facility] NEBULIZR NON-DISPB L CREATINE 98602 [facility] KINASE 6 [facility] TOTAL INC INC INITIAL 29478 [facility] 6 PHYSICIAN MAT CARE/DAY S GROUP 70 MINUTES INITIAL 19817 [facility] OBSERVATI 6 [facility] ON INC INC CARE/DAY 50 [place] [address] [facility] TROPONIN 6 [facility] QUANTITAT INC INC ROMERO CREATINE 26909 [facility] KINASE MB 6 [facility] FRACTION INC INC ONLY COLLECTIO 08641 [facility] N VENOUS 6 [facility] BLOOD INC INC VENIPUNCT URE COLLECTIO 67620 [facility] N VENOUS 6 [facility] BLOOD INC INC VENIPUNCT URE CREATINE 14735 [facility] KINASE MB 6 [facility] [place] [address] [facility] TROPONIN 6 [facility] QUANTITAT INC INC ROMERO BLOOD 26425 [facility] COUNT 6 [facility] COMPLETE INC INC AUTO&AUTO DIFRNTL WBC INITIAL 99223 [facility] OBSERVATI 6 [facility] ON INC INC CARE/DAY 50 MINUTES TOBACCO 52131 [facility] USE 6 [facility] CESSATION INC INC INTERMEDI ATE 3-10 MINUTES CREATINE 86182 [facility] KINASE 6 [facility] TOTAL INC INC RADIOLOGI 96725 [facility] C 6 [facility] EXAMINATI INC INC ON CHEST SINGLE VIEW FRONTAL ECG 45703 [facility] ROUTINE 6 [facility] ECG INC INC W/LEAST 12 LDS TRCG ONLY W/O I&R COMPREHEN 79887 [facility] SIVE 6 [facility] METABOLIC INC INC PANEL ECG 68348 [facility] GARC[facility] JR ROUTINE 6 [facility] W/LEAST P 12 LDS I&R ONLY NONINVASI 65288 [facility] VE 6 [facility] EAR/PULSE INC INC OXIMETRY SINGLE DETER RADEX 74936 [place] BE[place] ANKLE 6 MEDICAL COMPLETE IMAGING MINIMUM 3 ASS VIEWS DRUG TST G0477 [facility] PRESUMP;C 6 [facility] PBL BEING INC INC READ DC OPT OBV ONLY DRUG TEST G0480 [facility] DEFINITV 6 [facility] DR ID INC INC METH P DAY 1-7 DRUG CL OBSERVATI 27427 [facility] ON CARE 6 PHYSICIAN EUG DISCHARGE S GROUP MANAGEMEN T INITIAL 13179 [facility] OBSERVATI 6 [facility] ON INC INC CARE/DAY [address]ES C[address]MT 43522 [facility] L 6 [facility] HRT/ARTS/ INC INC GRFTS WNJX & ANGIO IMG S&I ECG 34329 [facility] GARC[facility] JR ROUTINE 6 [facility] W/LEAST P 12 LDS I&R ONLY GUIDE C1769 [facility] WIRE 6 [facility] INC INC CATHETER C1725 [facility] TRANSLUMI 6 [facility] NAL INC INC ANGIOPLAS TY NON-LASER ECG 56125 [facility] GARCÍA JR ROUTINE 6 [facility] W/LEAST P 12 LDS I&R ONLY BLOOD 34360 [facility] COUNT 6 [facility] COMPLETE INC INC AUTO&AUTO DIFRNTL WBC INITIAL 49973 [facility] OBSERVATI 6 [facility] ON INC INC CARE/DAY [address] [place] [address] [facility] TROPONIN 6 [facility] QUANTITAT INC INC ROMERO CREATINE 03561 [facility] KINASE MB 6 [facility] FRACTION INC INC ONLY THROMBOPL 35321 [facility] ASTIN 6 [facility] TIME INC INC PARTIAL PLASMA/WH OLE BLOOD CREATINE 86688 [facility] KINASE 6 [facility] TOTAL INC INC PROTHROMB 37678 [facility] IN TIME 6 [facility] INC INC INITIAL 11426 [facility] 6 PHYSICIAN MAT CARE/DAY S GROUP 70 MINUTES COMPREHEN 18011 [facility] SIVE 6 [facility] METABOLIC INC INC PANEL RADIOLOGI 10551 [facility] C EXAM 6 [facility] CHEST 2 INC INC VIEWS FRONTAL&L ATERAL ECG 98629 [facility] ROUTINE 6 [facility] ECG INC INC W/LEAST 12 LDS TRCG ONLY W/O I&R PRQ 43839 [place] [facility] TRLUML 6 MEDICAL CORONARY SERV BYP GRFT FOUNDATIO REVASC [place] PR[place] 08345 [place] [facility] TRLUML 6 MEDICAL CORONARY SERV STENT FOUNDATIO W/ANGIO N ONE ART/BRNCH ECG 90319 [place] [facility] SABRINA ROUTINE 6 MEDICAL ECG SERV W/LEAST FOUNDATIO 12 LDS N I&R ONLY CATH PLMT 18137 [place] [facility] & NJX 6 MEDICAL CORONARY SERV ART/GRFT FOUNDATIO ANGIO IMG N S&I ECG 20616 [place] [facility] S[facility] ROUTINE 6 MEDICAL ECG SERV W/LEAST FOUNDATIO 12 LDS N I&R ONLY CARDIAC 71051 [place] KURTIS VID MRI FOR 6 MEDICAL VELOCITY SERV FLOW FOUNDATIO MAPPING N CARDIAC 62571 LOBO NADIG VID MRI W/W/O 6 MEDICAL CONTRAST SERV W/STRESS FOUNDATIO N SBSQ 07656 [facility] 6 MEDICAL GRACE CARE/DAY SERV 25 FOUNDATIO MINUTES N CRITICAL 17590 [facility] 6 PHYSICIAN PAULINA ILL/INJUR S, PLLC ED PATIENT INIT 30-74 MIN AMB A0427 [facility] SERVICE 6 AMBULANCE AMBULANCE ALS SERVICE SERVICE EMERGENCY TRANSPORT LEVEL 1 RADIOLOGI 25756 [place] [facility] [facility] C 6 MEDICAL EXAMINATI IMAGING ON CHEST ASS SINGLE VIEW FRONTAL GROUND A0425 [facility] MILEAGE 6 AMBULANCE AMBULANCE PER SERVICE SERVICE STATUTE MILE INITIAL 12353 [facility] 6 MEDICAL GRACE CARE/DAY SERV 50 FOUNDATIO MINUTES N ECG 83265 [facility] L[facility] CHI ROUTINE 6 MEDICAL ECG SERV W/LEAST FOUNDATIO 12 LDS N I&R ONLY RADIOLOGI 17434 [place] ALL C 6 MEDICAL EXAMINATI IMAGING ON CHEST ASS SINGLE VIEW FRONTAL RADIOLOGI 55749 [facility] [place] KOSTELIC C 6 RADIOLOGY IAIN EXAMINATI ON CHEST SINGLE VIEW FRONTAL RADIOLOGI 41838 [facility] [place] KOSTELIC C 6 RADIOLOGY IAIN EXAMINATI ON CHEST SINGLE VIEW FRONTAL RADIOLOGI 38613 [facility] [place] BRODY C 6 RADIOLOGY CAR EXAMINATI ON CHEST SINGLE VIEW FRONTAL RADIOLOGI 55849 [facility] [place] ISAAC C 6 RADIOLOGY GILBERT EXAMINATI [place] [address] [facility] NA HEMRRG 6 [facility] THROMBOSI MEDICAL S/INFCTJ G CH ANES HRT 06508 ANESTHESI JR. MARILUZ PERICARDI 6 A JAM AL SAC& ASSOCIATE GRT VESLS S PSC W/O BRAKE OPERATOR SHEET METAL OXT ANES 82234 ANESTHESI CORNEA DIRECT 6 A MIH CABG ASSOCIATE W/PUMP S PSC OXYGENATO R NDSC SURG 79353 [facility] NA 6 [facility] W/VIDEO-A MEDICAL SSISTED G HARVEST VEIN CABG CORONARY 03025 [facility] NA ARTERY 6 [facility] BYP MEDICAL W/VEIN & G ARTERY GRAFT 2 VEIN GROUND A0425 [facility] MILEA 6 AMBULANCE AMBULANCE PER SERVICE SERVICE STATUTE MILE ARTL 32829 ANESTHESI SANTROCK CATHJ/CAN 6 A GILBERT NULJ ASSOCIATE MNTR/BURT S PSC SFUSION SPX PRQ CABG 03096 [facility] NA W/ARTERIA 6 [facility] L GRAFT MEDICAL SINGLE G ARTERIAL GRAFT RADIOLOGI 17062 [facility] [place] ISA[place] C 6 RADIOLOGY GILBERT EXAMINATI ON CHEST SINGLE VIEW FRONTAL AMB A0427 [facility] SERVICE 6 AMBULANCE AMBULANCE ALS SERVICE SERVICE EMERGENCY TRANSPORT LEVEL 1 [facility] 86918 ANESTHESI SANTROCK ACCESS 6 A GILBERT SITS VSL ASSOCIATE PATENCY S PSC NDL ENTRY ECHO 45047 ANESTHESI CORNEA TRANSESOP 6 A [facility] HAG R-T ASSOCIATE 2D W/PRB S PSC IMG ACQUISJ I&R DOP 15444 ANESTHESI CORNEA ECHOCARD 6 A [facility] COLOR ASSOCIATE FLOW S PSC VELOCITY MAPPING ECG 63596 [facility] ROUTINE 6 NE [facility] ECG MEDICAL W/LEAST G 12 LDS I&R ONLY SPMTRY 22015 [facility] KSEIBI W/VC [address] [facility] EXPIRATOR MEDICAL Y LACIE G W/WO MXML VOL VNTJ INSERTION 55764 ANESTHESI [place]OCK FLOW 6 A GILBERT DIRECTED ASSOCIATE CATHETER S PSC FOR MONITORIN G DOPPLER 69976 ANESTHESI CORNEA ECHOCARD 6 A [facility] PULSE ASSOCIATE WAVE S PSC W/SPECTRA L DISPLAY CATH PLMT [address] [place] [address] PHYSICIAN MAT HRT/ARTS/ S GROUP GRFTS WNJX & ANGIO IMG S&I SLCTV 26436 [facility] CATH 6 PHYSICIAN PHYSICIAN SUBCLAVIA S GROUP S GROUP N ART ANGIO VERTEBRAL ARTERY [facility] [address] [facility] DISCHARGE 6 PHYSICIAN RAFIA DAY S GROUP MANAGEMEN T 30 MIN/< INITIAL 98540 [facility] 6 PHYSICIAN MAT CARE/DAY S GROUP 70 MINUTES INITIAL 96918 [facility] 6 PHYSICIAN RAFIA CARE/DAY S GROUP 50 MINUTES RAD[facility]OLOGI 69847 [facility] C 6 MEDICAL EXAMINATI IMAGING ON CHEST ASS SINGLE VIEW FRONTAL CRITICAL 94526 [facility] 6 PHYSICIAN U MONALISA ILL/INJUR S, PLLC ED PATIENT INIT 30-74 MIN ECG 73261 [place] GARCÍA JR ROUTINE 6 [facility] W/LEAST P 12 LDS I&R ONLY RADIOLOGI 60071 [place] FRAN ALL C EXAM 6 MEDICAL CHEST 2 IMAGING VIEWS ASS FRONTAL&L ATERAL ECG 16385 [facility] ROUTINE 6 Y Y [facility] W/LEAST 12 LDS TRCG ONLY W/O I&R ECG 31201 [facility] [place] CHI ROUTINE 6 MEDICAL ECG SERV W/LEAST FOUNDATIO 12 LDS N I&R ONLY SMPL 97791 FABRICE CROFT REPAIR 6 PHYSICIAN MAT SCALP/NEC S, PLLC K/AX/BRUNILDA T/TRUNK 2.6-7.5CM CHIROPRAC 61641 JUÁREZ JUÁREZ TIC 6 MANIPULAT [place] SPINAL 3-4 REGIONS DESTRUCTI 25809 PROGRESSI ROBERTA ON BENIGN 6 VE EBONI LESIONS PODIATRY 15/> RADEX 83222 [place] NICOLE FOOT 6 MEDICAL HENRY COMPLETE IMAGING MINIMUM 3 ASS VIEWS CHIROPRAC 89306 JUÁREZ JUÁREZ TIC 6 MANIPULAT [place] SPINAL 3-4 REGIONS CHIROPRAC 86494 JUÁREZ JUÁREZ TIC 6 MANIPULAT [place] SPINAL 3-4 REGIONS RADEX 57855 JUÁREZ JUÁREZ SPINE 6 LUMBOSACR AL 2/3 VIEWS RADEX 01116 JUÁREZ JUÁREZ SPINE 6 THORACIC 2 VIEWS COLLECTIO 90040 [facility] Block VENOUS 6 [facility] BLOOD INC INC VENIPUNCT URE LIPID 20441 [place] PANEL 6 [facility] INC INC ECG 46158 [place] [facility] ROUTINE 6 [facility] ECG INC INC W/LEAST 12 LDS TRCG ONLY W/O I&R HEPATIC 35846 [facility] FUNCTION 6 [facility] PANEL INC INC THERAPEUT 41646 [place] IC 6 [facility] INJECTION INC INC IV PUSH EACH NEW DRUG THER 59183 [place] PROPH/DX 6 [facility] NJX IV INC INC PUSH SINGLE/1S T SBST/DRUG ECG 65553 [place] MALLOY ROUTINE 6 [facility] W/LEAST P 12 LDS I&R ONLY UNCLASSIF J3490 [place] [facility] IED DRUGS 6 [facility] INC INC ECG 96430 [place] GUILLAUME ADA ROUTINE 6 [facility] ECG INC W/LEAST 12 LDS TRCG ONLY W/O I&R COMPREHEN 76637 [place] [facility] SIVE 6 [facility] METABOLIC INC INC PANEL CREATINE 59330 [facility] KINASE MB 6 [facility] [place] [address] [facility] TROPONIN 6 [facility] QUANTITAT INC INC ROMERO BLOOD 33993 [facility] COUNT 6 [facility] COMPLETE INC INC AUTO&AUTO DIFRNTL WBC CREATINE 79056 [place] [facility] KINASE 6 [facility] TOTAL INC INC PCV13 20647 [facility] VACCINE 6 PHYSICIAN STONE FOR S GROUP PA-C ROSALEE INTRAMUSC ULAR USE IM ADM 18609 [facility] PRQ ID 6 PHYSICIAN STONE SUBQ/IM S GROUP PA-C ROSALEE NJXS 1 VACCINE RADIOLOGI 11995 [place] PETERS ALL C EXAM 6 MEDICAL CHEST 2 IMAGING VIEWS ASS FRONTAL&L ATERAL OPHTH 33615 [facility] MEDICAL 6 XM&EVAL COMPRHNSV ESTAB PT 1/> RADIOLOGI 62570 [place] BEINEKE C 6 MEDICAL MONALISA EXAMINATI IMAGING ON PELVIS ASS 1/2 VIEWS AMB A0427 [facility] SERVICE 6 AMBULANCE AMBULANCE ALS SERVICE SERVICE EMERGENCY TRANSPORT LEVEL 1 GROUND A0425 [facility] DORAL 6 AMBULANCE AMBULANCE PER SERVICE SERVICE STATUTE MILE RADEX 61696 [facility] BEINEKE SPINE 6 MEDICAL MONALISA LUMBOSACR IMAGING AL ASS MINIMUM 4 [facility] [address] ABR DAY HEART MANAGEMEN T > 30 MIN SBSQ [address] ABR CARE/DAY HEART 25 MINUTES PRQ 76445 [facility]ARD[facility] T[facility] 6 CULAR CULAR CORONARY CONSULTAN CONSULTAN STENT TS O TS O W/ANGIO ONE ART/BRNCH SBSQ 45034 [place] [address] CULAR MAT CARE/DAY CONSULTAN 35 TS O MINUTES INITIAL 03621 [place] [address] CULAR MAT CARE/DAY CONSULTAN 50 TS O MINUTES GROUND A0425 [facility] DORAL 6 AMBULANCE AMBULANCE PER SERVICE SERVICE STATUTE MILE INITIAL [address] ABR CARE/DAY HEART 70 MINUTES AMB A0427 [facility] 6 AMBULANCE AMBULANCE ALS SERVICE SERVICE EMERGENCY TRANSPORT LEVEL 1 CATH PLMT 97242 CARDIOVAS EMY L HRT & 6 CULAR MAT ARTS CONSULTAN W/NJX & TS O ANGIO IMG S&I SMR PRIM 82673 BRIANA BRUCE SRC WET 6 JANIS CHAN NFCT AGT URNLS DIP 00055 [place] 6 [facility] STICK/TAB INC INC LET REAGENT AUTO MICROSCOP Y BLOOD 22047 [place] [facility] COUNT 6 [facility] COMPLETE INC INC AUTO&AUTO DIFRNTL WBC GONADOTRO 79086 [facility] PIN 6 [facility] CHORIONIC INC INC QUALITATI VE COLLECTIO 94980 [facility] N VENOUS 6 [facility] [place] [address] [facility] [facility] TRANSVAGI 6 [facility] NAL INC INC IMMUNOASS 95150 [facility] AY TUMOR 6 [facility] ANTIGEN INC INC QUANTITAT ROMERO COLLECTIO 51004 [facility] N VENOUS 6 [facility] [place] [address] [place] ABDOMEN & 6 MEDICAL HENRY PELVIS IMAGING W/O ASS CONTRAST MATERIAL LIPID 97972 [place] [facility] PANEL 5 [facility] INC INC HEPATIC 74254 [place] FUNCTION 5 [facility] PANEL INC INC COLLECTIO 57993 [facility] N [facility]ENOUS 5 [facility] BLOOD INC INC VENIPUNCT URE BLOOD 76118 [facility] COUNT 5 [facility] COMPLETE INC INC AUTO&AUTO DIFRNTL WBC PROTHROMB 18400 [facility] IN TIME 5 [facility] INC INC THROMBOPL 19227 [place] [facility] ASTIN 5 [facility] TIME INC INC PARTIAL PLASMA/WH OLE BLOOD COMPREHEN 64418 [place] [facility] SIVE 5 [facility] [address] [facility] HEAD/BRAI 5 [facility] N W/O INC INC CONTRAST MATERIAL URNLS DIP 11756 [place] [facility] 5 [facility] STICK/TAB INC [place] [address] [place] [facility] INFUSION 5 [facility] THERAPY/P INC INC ROPHYLAXI S /DX 1ST TO 1 HR CULTURE 49365 [place] BCT 5 [facility] ISOL&PRSM INC INC PTV ID ISOLATE EA URINE CULTURE 61478 [place] [facility] BACTERIAL 5 [facility] INC INC QUANTTATI VE COLONY COUNT URINE SUSCEPTIB 20766 [place] LTY STDY 5 [facility] ANTIMICRB INC INC IAL MICRO/AGA R DILUTJ ECG 33344 CARDIOVAS [facility] ROUTINE 5 CULAR MAT ECG CONSULTAN W/LEAST TS O 12 LDS I&R ONLY ECG 18965 [place] [facility] ROUTINE 5 [facility] ECG INC INC W/LEAST 12 LDS TRCG ONLY W/O I&R HOSPITAL [address] HEART MANAGEMEN T 30 MIN/< SBSQ [address] ABR CARE/DAY HEART 25 MINUTES SBSQ 18491 [facility] 5 CULAR MAT CARE/DAY CONSULTAN 35 TS O MINUTES PRQ 59014 CARD[facility]OVAS [facility] 5 CULAR MAT CORONARY CONSULTAN STENT TS O W/ANGIO ONE ART/BRNCH ENDOLUMIN 31851 [facility]ARD[facility]OVAS [facility] 5 CULAR MAT CORONARY CONSULTAN IVUS OCT TS O I&R INITIAL VESSEL DILATION 308409H YUE MEAAIDEN CA 1 5 W W [facility] RX-ELUT MEDICAL MEDICAL INTRALUM DEVC PERQ R & L HRT 17025 CARDIOVAS [facility] 5 CULAR MAT WINJX HRT CONSULTAN ART& L TS O VENTR IMG AMB A0427 [facility] SERVICE 5 AMBULANCE AMBULANCE ALS SERVICE SERVICE EMERGENCY TRANSPORT LEVEL 1 OBSERVATI 76128 [place] HAGEN ON/INPATI 5 [facility] 40 MINUTES INITIAL [address] CARE/DAY HEART 70 MINUTES GROUND A0425 [facility] MILEAGE 5 AMBULANCE AMBULANCE PER SERVICE SERVICE STATUTE MILE GROUND A0425 [facility] MILEAGE 5 AMBULANCE AMBULANCE PER SERVICE SERVICE STATUTE MILE AMB A0427 [facility] SERVICE 5 AMBULANCE AMBULANCE ALS SERVICE SERVICE EMERGENCY TRANSPORT LEVEL 1 RADIOLOGI 08379 [place] [facility] ALL C EXAM 5 MEDICAL CHEST 2 IMAGING VIEWS ASS FRONTAL&L ATERAL ECG 60768 [place] GARCÍA JR ROUTINE 5 [facility] W/LEAST P 12 LDS I&R ONLY ADMN SET A7005 YOUR YOUR W/SM VOL 5 PHARMACY PHARMACY NONFILMOSES [facility] NEBULIZR NON-DISPB L THERAPEUT 06524 [place] [facility] IC 5 [facility] PROPHYLAC INC INC TIC/DX INJECTION SUBQ/IM THERAPEUT 96820 [place] IC 5 [facility] PROPHYLAC INC INC TIC/DX INJECTION SUBQ/IM THERAPEUT 27850 [place] IC 5 [facility] PROPHYLAC INC INC TIC/DX INJECTION SUBQ/IM THERAPEUT 06723 [facility] IC 5 [facility] PROPHYLAC INC INC TIC/DX INJECTION SUBQ/IM THERAPEUT 71387 [facility] IC 5 [facility] PROPHYLAC INC INC TIC/DX INJECTION SUBQ/IM CT THORAX 18534 [facility] W/O 5 [facility] CONTRAST INC INC MATERIAL CANE INCL E0100 CELINA CELINA CANES 5 [facility] MEDICAL MATERIAL EQUIPME EQUIPME ADJUSTBLE /FIX W/TIP SUSCEPTIB 51586 [facility] LTY STDY 5 [facility] ANTIMICRB INC INC IAL MICRO/AGA R DILUTJ CULTURE 13195 [facility] BACTERIAL 5 [facility] INC INC QUANTTATI VE COLONY COUNT URINE CULTURE 43483 [facility] BCT 5 [facility] ISOL&PRSM INC INC PTV ID ISOLATE EA URINE SPMTRY 62886 [facility] W/VC 5 [facility] EXPIRATOR INC INC Y LACIE W/WO MXML VOL VNTJ RADEX 20441 [place] NICOLE WRIST 5 MEDICAL HENRY COMPLETE IMAGING MINIMUM 3 ASS VIEWS RADEX 44785 [facility] HAND 5 [facility] MINIMUM 3 INC INC VIEWS CREATINE 22940 [facility] KINASE 5 [facility] [place] [address] [facility] TROPONIN 5 [facility] QUANTITAT INC INC ROMERO CREATINE 55398 [facility] KINASE MB 5 [facility] FRACTION INC INC ONLY ECG 50270 [facility] ROUTINE 5 [facility] ECG INC INC W/LEAST 12 LDS TRCG ONLY W/O I&R ECG 03823 [place] MALLOY ROUTINE 5 [facility] W/LEAST P 12 LDS I&R ONLY THER 12781 [place] [facility] PROPH/DX 5 [facility] NJX IV INC INC PUSH SINGLE/1S T SBST/DRUG PRESSURIZ 24930 [place] ED/NONPRE 5 [facility] SSURIZED INC INC INHALATIO N TREATMENT PRESSURIZ 94207 [place] ED/NONPRE 5 [facility] SSURIZED INC INC INHALATIO N TREATMENT CULTURE 45868 [place] BACTERIAL 5 [facility] BLOOD INC INC AEROBIC W/ID ISOLATES RADIOLOGI 78312 [place] C EXAM 5 [facility] CHEST 2 INC INC VIEWS FRONTAL&L ATERAL COMPREHEN 46779 [facility] SIVE 5 [facility] METABOLIC INC INC PANEL BLOOD 03541 [facility] COUNT 5 [facility] COMPLETE INC INC AUTO&[place] [address] [place] N[place] ABDOMINAL 5 MEDICAL HENRY REAL IMAGING TIME ASS W/[place] [address] [facility] INFUSION 5 [facility] THER INC INC PROPH ADDL SEQUENT[place] L [place] [address] [place] [facility] INFUSION 5 [facility] THERAPY/P INC INC ROPHYLAXI S /DX 1ST TO 1 HR ECG 37853 [place] GARCÍA JR ROUTINE 5 [facility] W/LEAST P 12 LDS I&R ONLY RADIOLOGI 67756 [place] [facility] C EXAM 5 MEDICAL MONALISA CHEST 2 IMAGING VIEWS ASS FRONTAL&L ATERAL COMPREHEN 77556 [place] KLEINE 5 [facility] METABOLIC INC INC PANEL ECG 79548 [place] [facility] ROUTINE 5 [facility] ECG INC INC W/LEAST 12 LDS TRCG ONLY W/O I&R BLOOD 07424 [facility] COUNT 5 [facility] COMPLETE INC INC AUTO&[place] [address] [place] [facility] TROPONIN 5 [facility] QUANTITAT INC INC ROMERO CREATINE 47661 [place] KINASE MB 5 [facility] FRACTION INC INC ONLY CREATINE 40444 [place] [facility] KINASE 5 [facility] TOTAL INC INC ADMN SET A7005 YOUR YOUR W/SM VOL 5 PHARMACY PHARMACY [employer] NEBULIZR NON-DISPB L URINLS 33970 BRIANA BRUCE DIP 5 JANIS VIZCARRA OSCAR STICK/TAB [place] [address] [place] [facility] FREE 5 [facility] [place] [address] [facility] THYROID 5 [facility] STIMULATI INC INC NG HORMONE TSH BLOOD 66396 [facility] COUNT 5 [facility] COMPLETE INC INC AUTO&AUTO DIFRNTL WBC 25 62990 [place] [facility] HYDROXY 5 [facility] INCLUDES INC INC FRACTIONS IF PERFORMED COMPREHEN 28083 [place] [facility] SIVE 5 [facility] METABOLIC INC INC PANEL RADIOLOGI 82676 [facility] 2 VIEWS RADIOLOGI 81260 [facility] EXAM 4 MEDICAL HENRY CHEST 2 IMAGING VIEWS ASS FRONTAL&L ATERAL RADEX HIP 10309 [place] [address] MEDICAL HENRY [place] IMAGING L ASS COMPLETE MINIMUM 2 VIEWS CV STRS 06882 [place] [facility] TST 4 [facility] XERS&/OR INC INC RX CONT ECG TRCG ONLY CV STRS 14810 [place] MALLOY TST 4 [facility]&/OR [facility] RX CONT P ECG I&R ONLY MYOCARDIA 21850 [facility] SPECT 4 MEDICAL HENRY MULTIPLE IMAGING STUDIES ASS TECHNETIU A9500 [place] [facility] M TC-99M 4 [facility] SESTAMIBI INC INC DX PER STUDY DOSE INJECTION J2785 [place] 4 [facility] REGADENOS INC INC ON 0.1 MG ECHO 75511 [place] [facility] TTHRC R-T 4 [facility] 2D INC INC W/WOM-MOD E COMPL SPEC&COLR D DXA BONE 46033 ATTILA GELLER DENSITY 4 DUYEN PET STUDY 1/> ,[facility] SITES AXIAL SKEL ECHO 53203 LOBO ALANIS TTHRC R-T 4 MEDICAL ALI 2D SERV W/WOM-MOD FOUNDATIO E COMPL N SPEC&COLR D RADIOLOGI 88406 [place] C EXAM 4 MEDICAL MONALISA CHEST 2 IMAGING VIEWS ASS FRONTAL&L ATERAL ECG 93957 [place] [facility] ROUTINE 4 [facility] ECG INC INC W/LEAST 12 LDS TRCG ONLY W/O I&R 98517 [facility] A[facility]AL 4 MED[facility] HENRY REAL IMAGING TIME ASS W/IMAGE LIMITED RADIOLOGI 07158 [place] N[place] C EXAM 4 MEDICAL HENRY CHEST 2 IMAGING VIEWS ASS FRONTAL&L ATERAL AMB A0427 [facility] SERVICE 4 AMBULANCE AMBULANCE ALS SERVICE SERVICE EMERGENCY TRANSPORT LEVEL 1 GROUND A0425 [facility] MILEAGE 4 AMBULANCE AMBULANCE PER SERVICE SERVICE STATUTE MILE ECG 71924 RIKCY GARCÍA JR ROUTINE 4 [facility] DWI ECG W/LEAST 12 LDS I&R ONLY SCREENING G0202 NICOLE NICOLE 4 HENRY HENRY MAMMOGRAP HY [place]UGUSTA INCL CAD WHEN PERFORMD COMPUTER- 30648 NICOLE NICOLE AIDED 4 HENRY HENRY DETECTION SCREENING MAMMOGRAP HY DEHYDROEP 01514 [facility] IANDROSTE 4 DEN DEN SOO-SULF ATE 25 78810 [facility] HYDROXY 4 DEN DEN INCLUDES FRACTIONS IF PERFORMED BLOOD 09996 [facility] OCCULT 4 OSCAR OSCAR PEROXIDAS E ACTV QUAL FECES 1-3 SPEC URINLS 44242 [facility] HARPEL DIP 4 OSCAR OSCAR STICK/TAB LET REAGNT NON-AUTO MICRSCPY CULTURE 82726 [facility] HARPEL CHLAMYDIA 4 OSCAR OSCAR ANY SOURCE IADNA 43274 [facility] HAR[facility] NEISSERIA 4 OSCAR OSCAR GONORRHOE AE DIRECT PROBE TQ OPHTH 48576 SCIFRES SCIFRES MEDICAL 4 ANG ANG XM&EVAL COMPRHNSV ESTAB PT 1/> RADIOLOGI 92475 NICOLE NICOLE C EXAM 4 HENRY HENRY CHEST 2 VIEWS FRONTAL&L ATERAL COMPREHEN 97817 [facility] SIVE 4 [facility] METABOLIC INC INC PANEL C-REACTIV 24123 [place] E PROTEIN 4 [place] [address] [place] [facility] GAMMAGLOB 4 [facility] ULIN IGA INC [place] [address] [facility] GAMMAGLOB 4 [facility] [place] [address] [facility] FREE 4 [facility] THYROXINE INC INC 25 19421 [place] [facility] HYDROXY 4 [facility] INCLUDES INC INC FRACTIONS IF PERFORMED SEDIMENTA 69136 [place] [facility] TIROXI RATE 4 [facility] RBC INC INC NON-AUTOM ATED CYANOCOBA 68245 [place] [facility] BALAJI 4 [facility] VITAMIN INC INC B-12 GAMMAGLOB 83898 [place] [facility] ULIN 4 [facility] IMMUNOGLO INC INC BULIN SUBCLASSE S ANTIBODY 14512 [place] [facility] BACTERIUM 4 [facility] NOT INC INC ELSEWHERE SPECIFIED BRNCDILAT 77688 FADIA FADIA RSPSE 4 CHRISTIN CHRISTIN SPMTRY PRE&POST- BRNCDILAT ADMN HEPATITIS 52140 [place] C 4 [facility] [place] [address] [facility] HEPATITIS 4 [facility] B INC INC SURFACE ANTIGEN HEPATITIS 43705 [place] [facility] B CORE 4 [facility] ANTIBODY INC INC HBCAB TOTAL HEPATITIS 84701 [place] Sandoval SURF 4 [facility] ANTIBODY INC INC HBSAB BASIC 40688 [facility] METABOLIC 4 [facility] [place] [address] [facility] THYROXINE 4 [facility] TOTAL INC INC HEMOGLOBI 71310 [facility] N 4 [facility] GLYCOSYLA [place] [address] [place] [facility] THYROID 4 [facility] STIMULATI INC INC NG HORMONE TSH BLOOD 12137 [facility] [facility] COUNT 4 [facility] COMPLETE INC INC AUTO&AUTO DIFRNTL WBC HEPATITIS 45814 [facility] A 4 [facility] ANTIBODY INC INC HAAB LIPID 00996 [place] [facility] PANEL 4 [facility] INC INC REMOVAL 43762 FADIA FADIA IMPACTED 4 CHRISTIN CHRISTIN CERUMEN INSTRUMEN TATION UNILAT ADMN SET A7005 YOUR YOUR W/SM VOL 4 [facility] NON-DISPB L NEBULIZER E0570 CELINA PATRICK WITH 4 HOME HOME COMPRESSO MEDICAL MEDICAL R EQUIPME EQUIPME BRNCDILAT 24885 FADIA FADIA RSPSE 4 CHRISTIN CHRISTIN SPMTRY PRE&POST- BRNCDILAT ADMN RADEX 22466 RODES CHANDA RODES CHANDA FOOT 4 COMPLETE MINIMUM 3 VIEWS COMPREHEN 27821 [place] [facility] SIVE 3 [facility] METABOLIC INC INC PANEL RADIOLOGI 15164 [facility] C EXAM 3 [facility] CHEST 2 INC INC VIEWS FRONTAL&L ATERAL 3D 22445 [place] [facility] RENDERING 3 [facility] INC INC W/INTERP& [place] [address] NICOLE NICOLE ABDOMEN & 3 HENRY HENRY PELVIS W/[place] [address] [place] [facility] AMYLASE 3 [facility] INC INC BLOOD 95633 [facility] COUNT 3 [facility] COMPLETE INC INC AUTO&[place] [address] [facility] LIPASE 3 [facility] INC INC URNLS DIP 93279 [place] SIU 3 [facility] STICK/TAB INC INC LET REAGENT AUTO MICROSCOP Y CULTURE 64409 [place] [facility] BACTERIAL 3 [facility] INC INC QUANTTATI VE COLONY COUNT URINE HOSPITAL 93897 [facility] DISCHARGE 3 KEN KEN DAY MANAGEMEN T 30 MIN/< SBSQ 08853 [facility] 3 JR PAULA MITCHELL CARE/DAY 25 MINUTES SBSQ 64937 [facility] 3 JR PAULA MITCHELL CARE/DAY 25 MINUTES INITIAL 21351 [facility] 3 KEN KEN CARE/[address] [place] [address] NICOLE NICOLE ABDOMEN & 3 HENRY HENRY PELVIS W/O CONTRAST MATERIAL RADIOLOGI 26946 NICOLE NICOLE C EXAM 3 HENRY HENRY CHEST 2 VIEWS FRONTAL&L ATERAL RADIOLOGI 13752 NICOLE NICOLE C EXAM 3 HENRY HENRY CHEST 2 VIEWS FRONTAL&L ATERAL CRITICAL 54020 [facility] 3 RAFIA RAFIA ILL/INJUR ED PATIENT INIT 30-74 MIN INITIAL 42591 [facility] 3 KEN KEN ON CARE/DAY 30 MINUTES GROUND A0425 [facility] AM[facility]ULANCE PER SERVICE SERVICE STATUTE MILE AMBULANCE A0429 [facility] SERVICE 3 AMBULANCE AMBULANCE BLS SERVICE SERVICE EMERGENCY TRANSPORT INJECTION J3301 [facility] 2 NAN NAN TRIAMCINO LONE ACETONIDE NOS 10 MG IM ADM 50912 [facility] PRQ ID 2 NAN NAN SUBQ/IM NJXS 1 VACCINE BRNCDILAT 66085 FADIA FADIA RSPSE 2 CHRISTIN CHRISTIN SPMTRY PRE&POST- BRNCDILAT ADMN RADEX 84879 ERN ARMAS RODES CHANDA FOOT 2 COMPLETE MINIMUM 3 VIEWS RADEX 89099 [place] FOOT 2 MEDICAL HENRY COMPLETE IMAGING MINIMUM 3 ASS VIEWS DEMO&/RUSLAN 14842 [facility] OF PT 2 ALLERGY ALLERGY UTILIZ & ASTHMA & ASTHMA AERSL P P GEN/NEB/I NHLR/IP SPMTRY 51047 [facility] W/VC 2 ALLERGY ALLERGY EXPIRATOR & ASTHMA & ASTHMA Y LACIE P P W/WO MXML VOL VNTJ DETERMINA 96253 SCIFRES SCIFRES TION 1 ANG ANG REFRACTIV E STATE OPHTH 02575 SCIFRES SCIFRES MEDICAL 1 ANG ANG XM&EVAL COMPRHNSV ESTAB PT 1/> FOOT L3020 COMMONKENRICK MCCLURE CHANDA INSRT 1 LTH REMV MOLD PODIATRY PT MDL LNGTUDNL/ MT SUPP EA DRUG SCR G0434 LIZ VALE LIZNAIMA VALE NOT 1 CHROMATOG RAPHIC; ANY NUMBER PT ENC 3D 78743 [facility] INC INC W/INTERP& POSTPROC DIFF WORK STATION CT LUMBAR 26337 [facility] SPINE [facility] [place] [address] [facility] CERVICAL [facility] SPINE W/O INC INC CONTRAST MATERIAL RADEX 52695 [facility] [place] [facility] FOOT 1 RADIOLOGY COMPLETE MINIMUM 3 VIEWS RADEX 50216 [facility] SPINE 1 [facility] LUMBOSACR INC INC AL MINIMUM 4 VIEWS RADEX 81223 [facility] SPINE 1 [facility] THORACIC INC INC 3 VIEWS RADIOLOGI 84289 [facility] C EXAM 1 MEDICAL HENRY CHEST 2 IMAGING VIEWS ASS FRONTAL&L ATERAL COMPREHEN 20752 [facility] SIVE 1 [facility] METABOLIC INC INC PANEL 25 59377 [facility] HYDROXY 1 [facility] INCLUDES INC INC FRACTIONS IF PERFORMED CYANOCOBA 63146 [facility] BALAJI 1 [facility] VITAMIN INC INC B-12 BLOOD 42012 [facility] COUNT 1 [facility] COMPLETE INC INC AUTO&[place] [address] [facility] THYROID 1 [facility] STIMULATI INC INC NG HORMONE TSH SPACR A4627 MT MED MT MED BAG/RESRV 1 EQUIPMENT EQUIPMENT OR W/WO INC INC MASK W/METRD DOSE INHAL ADMN SET A7005 MT MED MT MED W/SM VOL 1 EQUIPMENT EQUIPMENT NONFILTR INC INC NEBULIZR NON-DISPB L DEMO&/RUSLAN 28616 FADIA FADIA L OF PT 1 CHRISTIN CHRISTIN UTILIZ AERSL GEN/NEB/I NHLR/IP NEBULIZER E0570 [facility] [place] WITH 1 EQUIPMENT EQUIPMENT COMPRESSO INC INC R PERCUTANE 48667 FADIA FADIA OUS TESTS 1 CHRISTIN CHRISTIN W/ALLERGE ALBERTO EXTRACTS INTRACUTA 36489 FADIA FADIA NEOUS 1 CHRISTIN CHRISTIN TESTS W/ALLERGE ALBERTO EXTRACTS BRNCDILAT 45179 FADIA FADIA RSPSE 1 CHRISTIN CHRISTIN SPMTRY PRE&POST- BRNCDILAT ADMN RADIOLOGI 70291 [place] Bernardo 1 MEDICAL HENRY EXAMINATI IMAGING ON KNEE 3 ASS VIEWS RADIOLOGI 15590 [place] C 1 MEDICAL HENRY EXAMINATI IMAGING ON FEMUR ASS 2 VIEWS Encounters Encounter Start End Date Code Location Performer Type Date EMERGENCY 92674 FABRICE DAVILA DEPT 7 7 PHYSICIAN U VISIT S, [facility] HIGH SEVERITY& THREAT [facility] 7 [facility] 16612 [facility] 7 [facility] INTERNAL 15 MED MINUTES [facility] OFF[facility] 97842 [facility] 7 7 [facility] V[facility] INTERNAL 25 MED MINUT[facility] OFF[facility] 58607 [facility] 7 7 [facility] 5 INC [facility] [place] EMERGENCY 99385 [facility] 7 7 [facility] VISIT HIGH/URGE NT [facility]VERITY [facility]OSP[facility] OFF[facility] 14974 [facility] OUTPATI[facility] 7 7 PHYSICIAN T VISIT S GROUP 25 MINUTES HOSPITAL [facility] 7 7 [facility] [facility] 70415 FABRICE LOVELL DEPT 6 6 PHYSICIAN PAULINA VISIT S, [facility] HIGH SEVERITY& THREAT FUN [facility] 6 [facility] 78707 [facility] 6 6 [facility] V[facility]IT INC HIGH SEVERITY& THREAT FUN EMERGENCY 35538 FABRICE AHUMADA 6 6 PHYSICIAN RAFIA DEPARTMEN S, [facility] T VISIT MODERATE SEVERITY OFFICE 64681 [facility] OUTPATIEN 6 6 PHYSICIAN T VISIT GROUP 10 MINUTES OFFICE 50575 [facility] OUTPATIEN 6 6 PHYSICIAN EUG T VISIT S GROUP 15 MINUTES [facility] 6 [facility] EMERGENCY 05995 FABRICE DAVILA DEPT 6 6 PHYSICIAN U MONALISA VISIT S, [facility] HIGH SEVERITY& [facility] CONSULTAT 6 6 PHYSICIAN EUG ION S GROUP NEW/ESTAB PATIENT 60 MIN EMERGENCY 68353 [facility] 6 6 [facility] DEPARTMEN [facility] T VISIT HIGH/URGE NT SEVERITY OFFICE 59543 [facility] OUTPATIEN 6 6 PHYSICIAN EUG T VISIT S GROUP 15 MINUTES EMERGENCY 62473 LOBO CROFT DEPT 6 6 MEDICAL MAT VISIT SERV HIGH FOUNDATIO SEVERITY& N THREAT FUN EMERGENCY 28137 FABRICE AHUMADA DEPT 6 6 PHYSICIAN RAFIA VISIT S, [facility] HIGH SEVERITY& THREAT FUNCJ EMERGENCY 17214 FABRICE AHUMADA 6 6 PHYSICIAN RAFIA DEPARTMEN S, [facility] T VISIT MODERATE SEVERITY OFFICE 39406 [facility] OUTPATIEN 6 6 PHYSICIAN EUG T VISIT S GROUP 25 MINUTES OFFICE 79598 [place] [facility] CONSULTAT 6 6 MEDICAL IF AHM ION SERV NEW/ESTAB FOUNDATIO PATIENT N 40 MIN OFFICE 29209 [facility] OUTPATIEN 6 6 PHYSICIAN RAFIA T VISIT S GROUP 10 MINUTES EMERGENCY 45885 FABRICE AHUMADA [address] [facility] S, [facility] T VISIT MODERATE SEVERITY [facility] - 6 6 Y [facility] EMERGENCY 59541 FABRICE CROFT 6 6 PHYSICIAN [facility] S, [facility] T VISIT LOW/MODER SEVERITY OFFICE 02438 PROGRESSI ROBERTA OUTPATIEN 6 6 VE EBONI T NEW 30 PODIATRY MINUTES OFFICE 23778 JUÁREZ JUÁREZ OUTPATIEN 6 6 T NEW 30 MINUTES [facility] 6 [facility] INC T [facility] 6 6 [facility] INC EMERGENCY 27833 FABRICE AHUMADA DEPT 6 6 PHYSICIAN RAFIA VISIT S, [facility] HIGH SEVERITY& THREAT FUNCJ EMERGENCY 81733 [facility] 6 6 [facility] T VISIT MODERATE SEVERITY EMERGENCY 54756 FABRICE THOMAS 6 6 PHYSICIAN [facility] S, [facility] T VISIT HIGH/URGE NT SEVERITY OFFICE 75030 LOBO ORDONEZ CONSULTAT 6 6 MEDICAL LORENZ ION SERV RAC NEW/ESTAB FOUNDATIO PATIENT N 80 MIN OFFICE 94685 BRIANA BRUCE OUTPATIEN 6 6 JANIS MOORE T VISIT 15 MINUTES EMERGENCY 43121 FABRICE THOMAS 6 6 PHYSICIAN DEPARTMEN [facility] VISIT MODERATE SEVERITY OFFICE 38147 BRIANA BRUCE OUTPATIEN 6 6 JANIS MOORE T VISIT 25 MINUTES [facility] 6 6 [facility] T OFFICE 40397 [facility]RIANA BRUCE OUTPATIEN 6 6 JANIS MOORE T VISIT 25 MINUTES [facility] 6 6 [facility]EN [facility] T OFFICE 58198 BRIANA BRUCE OUTPATIEN 6 6 JANIS MOORE T VISIT 25 MINUTES [facility] 6 6 [facility] EMERGENCY 46337 FABRICE AHUMADA DEPT 6 6 PHYSICIAN RAFIA VISIT [facility] HIGH SEVERITY& THREAT [facility] 5 5 [facility] EMERGENCY 80172 FABRICE DAVILA DEPT 5 5 PHYSICIAN U MONALISA VISIT [facility] HIGH SEVERITY& THREAT [facility] 5 5 [facility] EMERGENCY 05737 [facility] T VISIT HIGH/URGE NT SEVERITY OFFICE 29036 S [facility] CONSULTAT 5 5 NURSE SINA BOLAÑOS NEW/ESTAB NER GR PATIENT 60 MIN OFFICE 04629 CARDIOVAS EMY OUTPATIEN 5 5 CULAR MAT T VISIT CONSULTAN 25 TS O MINUTES [facility] HOSPITAL YUE Paige 5 5 W INPATIENT [facility] 60446 FABRICE AHUMADA DEPT 5 5 PHYSICIAN RAFIA VISIT S, [facility] HIGH SEVERITY& THREAT FUNCJ OFFICE 39872 [facility] OUTPATIEN 5 5 MD PATRICK, T NEW 45 PSC MINUTES [facility] 5 5 [facility] OUTPATIEN [facility] T OFFICE 56123 [facility] 5 5 [facility] T VISIT INC 10 MINUTES EMERGENCY 67448 FABRICE FRANKS 5 5 PHYSICIAN LUIS ANTONIO MARIEMEN , [facility] T VISIT MODERATE SEVERITY EMERGENCY 06073 [facility]ICE [facility] 5 5 PHYSICIAN DEPARTMEN , [facility] T VISIT MODERATE SEVERITY [facility] [...] 5 [facility] OUTPATIEN INC T OFFICE 14996 [facility] 5 5 [facility] T VISIT HOSPITAL 15 MINUTES [facility] 5 5 [facility] OUTPATIEN INC T EMERGENCY 06392 FABRICE AHUMADA 5 5 PHYSICIAN RAFIA DEPARTMEN S, [facility] T VISIT HIGH/URGE NT SEVERITY [facility] 5 5 [facility] OUTPATIEN INC OFFICE 54762 ATTILA VILLAGRAN OUTPATIEN 5 5 SHANTI GELLER T VISIT ,[facility] 25 MINUTES [facility] 5 5 [facility] OUTPATIEN INC T EMERGENCY 84306 [facility] 5 5 [facility] DEPARTMEN INC T VISIT LOW/MODER SEVERITY EMERGENCY 79212 FABRICE DAVILA 5 5 PHYSICIAN U [facility] S, [facility] T VISIT MODERATE SEVERITY OFFICE 42889 [facility] PHYSICIAN RAFIA T VISIT S GROUP 15 MINUTES EMERGENCY 64337 FABRICE AHUMADA DEPT 5 5 PHYSICIAN RAFIA VISIT S, [facility] HIGH SEVERITY& THREAT FUN [facility] 5 5 [facility] OUTPATIEN INC T EMERGENCY 85841 [facility] 5 5 [facility] T VISIT HIGH/URGE NT SEVERITY [facility] 5 5 [facility] OUTPATIEN [facility] T EMERGENCY 88605 [facility] 5 5 [facility] T VISIT HIGH/URGE NT SEVERITY EMERGENCY 31955 [facility] AHUMADA 5 5 [facility] T VISIT P MODERATE SEVERITY [facility] 5 5 [facility] OUTPATIEN [facility] T OFFICE 33236 BRIANA BRUCE [facility] 5 5 JANIS MOORE T VISIT 15 MINUTES OFFICE 05200 [facility] PHYSICIAN RAFIA T VISIT S GROUP 25 MINUTES [facility] 5 5 [facility] OUTPATIEN [facility] T OFFICE 31497 [facility] OUTPATIEN 4 4 Y T VISIT 5 HOSPITAL MINUTES [facility] - 4 4 Y [facility] H[facility]PITAL T EMERGENCY 16269 ALAN CESPEDES 4 4 [facility] EMERGENCY T VISIT PHYS HIGH/URGE NT SEVERITY [facility] 4 4 [facility] OUTPAT[facility]EN INC [facility] 4 4 [facility] OUTPAT[facility]EN INC T EMERGENCY 30371 [facility] 4 4 ATA RAFIA DEPARTMEN EMERGENCY T VISIT PHYS MODERATE SEVERITY [facility] 4 4 [facility] INC T [facility] 4 4 [facility] 4 4 [facility] OUTPATIEN INC T PERIODIC 51370 HARPEL HARPEL PREVENTIV 4 4 OSCAR OSCAR E MED EST PATIENT 40-64YRS OFFICE 88956 BRANDYN AHUMADA OUTPATIEN 4 4 RAFIA RAFIA T VISIT 10 MINUTES OFFICE 43384 FADIA LOAIZA OUTPATIEN 4 4 CHRISTIN CHRISTIN T VISIT 40 MINUTES [facility] 4 4 [facility]EN [facility] T OFFICE 37702 BRANDYN SANCHEZEY OUTPATIEN 4 4 RAFIA RAFIA T VISIT 15 MINUTES [facility] 4 4 [facility] OFFICE 59808 FADIA MALONEHBURN OUTPATIEN 4 4 CHRISTIN CHRISTIN T VISIT 40 MINUTES OFFICE 81411 REN ARMAS RODNEW CHANDA OUTPATIEN 4 4 T VISIT 25 MINUTES EMERGENCY 57375 LAMONT KEN LAMONT KEN 4 4 DEPARTMEN T VISIT HIGH/URGE NT SEVERITY [facility] 3 3 [facility] OUTPAT[facility]EN INC T EMERGENCY 66375 [facility] 3 3 [facility] DEPARTMEN INC T VISIT LOW/MODER SEVERITY EMERGENCY 68264 BRANDYN AHUMADA DEPT 3 3 RAFIA RAFIA VISIT HIGH SEVERITY& THREAT [facility] - 3 3 [facility] INPATIENT INC OFFICE 11584 FARZAD PANDA OUTPATIEN 3 3 MELISA MELISA T VISIT 15 MINUTES OFFICE 42232 [facility] OUTPATIEN 2 2 NAN NAN T VISIT 15 MINUTES OFFICE 28371 FADIA FADIA OUTPATIEN 2 2 CHRISTIN CHRISTIN T VISIT 25 MINUTES OFFICE 48998 REN MCCLURE CHANDA OUTPATIEN 2 2 T VISIT 15 MINUTES EMERGENCY 62787 [facility] 2 2 [facility] INC T VISIT LOW/MODER SEVERITY EMERGENCY 87807 RADAMES CRUM 2 2 III PAULA III [facility] EMERGENCY DEPARTMENT T VISIT MODERATE SEVERITY [facility] 2 2 [facility] T OFFICE 42082 NEHA SOLOMON OUTPATIEN 2 2 [facility] T VISIT 15 MINUTES OFFICE 79044 NEHA SOLOMON OUTVERONICAEN 2 2 [facility] T VISIT 15 MINUTES OFFICE 49525 NEHA SOLOMON OUTPATIEN 2 2 [facility] T VISIT 15 MINUTES OFFICE 43368 ZOYA ANT ZOYA ANT OUTPATIEN 2 2 T VISIT 25 MINUTES OFFICE 71604 ZOYA ANT ZOYA ANT CONSULTAT 2 2 ION NEW/ESTAB PATIENT 60 MIN [facility] 2 [facility] T EMERGENCY 41105 [facility] 2 2 [facility] T VISIT LIMITED/M INOR PROB OFFICE 17535 NEHA SOLOMON OUTPATIEN 2 2 GRACE GRACE T VISIT 15 MINUTES OFFICE 37171 [facility] OUTPATIEN 2 2 ALLERGY ALLERGY T VISIT & ASTHMA & ASTHMA 15 P P MINUTES OFFICE 43348 KRISHNAARIELLEWilfred ARMAS OUTPATIEN 1 1 [facility] T VISIT PODIATRY 15 MINUTES OFFICE 09038 LIZ HAM LIZ HAM OUTPATIEN 1 1 T VISIT 15 MINUTES [facility] 1 1 [facility] OUT[facility]EN [facility] T HOSPITAL [facility] - 1 1 N OUTPATIEN COMMUNITY T HOSPITA OFFICE 30238 REN MCCLURE CHANDA OUTPATIEN 1 1 T NEW 45 MINUTES EMERGENCY 55484 [facility] 1 1 [facility] T VISIT LOW/MODER SEVERITY [facility] 1 1 [facility] T EMERGENCY 48988 RICKY CRUM 1 1 EMERGENCY III [facility] EMERGENCY DEPARTMENT SERVICES T VISIT HIGH/URGE NT SEVERITY [facility] 1 1 [facility] T OFFICE 04831 FADIA LOAIZA CONSULTAT 1 1 CHRISTIN WALLER ION NEW/ESTAB PATIENT 60 MIN OFFICE 49606 [facility] OUTPATI[facility] 1 1 PHYSICIAN ADELAIDE ARCE 30 S GROUP MINUTES [facility] OUTPATIEN INC T OFFICE 32900 NEHA SOLOMON OUTPATIEN 1 1 GRACE Gonzalez NEW 30 MINUTES
--- OUTSIDE RECORDS SUMMARY | 2017-02-23 03:25 | External Medical Summary Rpt | CCD ---
Author Author , RYLIE YOUNGBLOOD Address Unknown Phone [email or web address] Immunization Name Date Rout CVX Reac Dose Comm Prov Is Faci e tion ent ider Refu lity Give sed n Infl 09-2 Intr 150 0.5 Hist [facility] No [facility] uenz 5-20 amus mL oric ART5 ART5 a 17 cula al 91 91 Quad r Info Inj rmat ion - Sour ce Unsp ecif ied PPV2 07-2 Intr 33 0.5 Hist [facility] No W[facility] 3 4-20 amus mL oric ART5 ART5 17 cula al 91 91 r Info rmat ion - Sour ce Unsp ecif ied Infl 09-0 Intr 150 0.5 Hist [facility] No [facility] uenz 1-20 amus mL oric ART5 ART5 a 16 cula al 91 91 Quad r Info Inj rmat ion - Sour ce Unsp ecif ied
--- OUTSIDE RECORDS SUMMARY | 2017-02-23 03:25 | External Medical Summary Rpt ---
Author Author [employer], [employer] Organization [employer] Address Unknown Phone Unavailable Results CBC W Auto Differential panel in Blood Observa Value Referen Units Interpr Notes Date tion ce etation Range Basophils 0 - 0.2 K/MM3 Normal No Feb 13 inform2016 [#/volume on in 12:50 PM ] in source Blood by data Automated count Basophils 0.1 - 2.0 % Normal No Feb 13 informati 2016 leukocyte on in 12:50 PM s in source Blood by data Automated count Eosinophi 0.0 - 0.4 K/mm3 Normal No Feb 13 ls inform2016 [#/volume on in 12:50 PM ] in source Blood by data Automated count Eosinophi 0.1 - % Normal No Feb 13 ls/100 12.0 inform2016 leukocyte on in 12:50 PM s in source Blood by data Automated count Granulocy 1.8 - 7.8 K/mm3 High No Feb 13 kamaljit 2016 [#/volume on in 12:50 PM ] in source Blood by data Automated count Granulocy 37.0 - % Normal No Feb 13 kamaljit/100 80.0 inform2016 leukocyte on in 12:50 PM s in source Blood by data Automated count Hematocri 37.0 - % Normal No Feb 13 t [Volume 47.0 ati 2016 on in 12:50 PM Fraction] source of Blood data Hemoglobi 12.2 - g/dL Normal No Feb 13 n 16.2 2016 [Mass/vol on in 12:50 PM ume] in source Blood data Lymphocyt 0.7 - 4.5 K/mm3 Normal No Feb 13 es inform2016 [#/volume on in 12:50 PM ] in source Unspecifi data ed specimen by Automated count Lymphocyt 10 - 50.0 % Normal No Feb 13 es inform2016 [#/volume on in 12:50 PM ] in source Unspecifi data ed specimen by Automated count Erythrocy 27 - 31.2 pg High No Feb 13 te mean informati 2017 corpuscul on in 12:50 PM ar source hemoglobi data n [Entitic mass] Erythrocy 31.8 - g/dl Normal No Feb 13 te mean 35.4 2016 corpuscul on in 12:50 PM ar source hemoglobi data n concentra tion [Mass/vol ume] by Automated count Erythrocy 82.2 - fl High No Feb 2 te mean 97.8 2016 corpuscul on in 12:50 PM ar volume source [Entitic data volume] by Automated count Monocytes 0.1 - 1.0 K/mm3 Normal No Feb 132016 [#/volume on in 12:50 PM ] in source Blood by data Automated count Monocytes 1.7 - 9.3 % Normal No Feb 132016 leukocyte on in 12:50 PM s in source Blood by data Automated count Platelet 7.4 - fl Normal No Feb 13 mean 10.4 2016 volume on in 12:50 PM [Entitic source volume] data in Blood by Automated count Platelets 142 - 424 K/mm3 Normal No Feb 132016 [#/volume on in 12:50 PM ] in source Blood data Erythrocy 4.2 - 5.4 M/mm3 Low No Feb 13 kamaljit 2016 [#/volume on in 12:50 PM ] in source Amniotic data fluid Erythrocy 11.5 - % Normal No Feb 13 te 17.5 2016 distribut on in 12:50 PM ion width source [Entitic data volume] by Automated count Leukocyte 4.8 - K/MM3 High No Feb 13 s 10.8 2016 [#/volume on in 12:50 PM ] in source Blood data CBC W Auto Differential panel in Blood Observa Value Referen Units Interpr Notes Date tion ce etation Range Basophils 0 - 0.2 K/MM3 Normal No Sep 19 2016 5:40 [#/volume on in PM ] in source Blood by data Automated count Basophils 0.1 - 2.0 % Normal No Sep 19 /100 2016 5:40 leukocyte on in PM s in source Blood by data Automated count Eosinophi 0.0 - 0.4 K/mm3 Normal No Sep 19 ls 2016 5:40 [#/volume on in PM ] in source Blood by data Automated count Eosinophi 0.1 - % Normal No Sep 19 ls/100 12.0 informati 2017 5:40 leukocyte on in PM s in source Blood by data Automated count Granulocy 1.8 - 7.8 K/mm3 Normal No Sep 19 kamaljit informati 2017 5:40 [#/volume on in PM ] in source Blood by data Automated count Granulocy 37.0 - % Normal No Sep 19 kamaljit/100 80.0 informati 2017 5:40 leukocyte on in PM s in source Blood by data Automated count Hematocri 37.0 - % Low No Sep 19 t [Volume 47.0 informati 2017 5:40 on in PM Fraction] source of Blood data Hemoglobi 12.2 - g/dL Low No Sep 19 n 16.2 informati 2017 5:40 [Mass/vol on in PM ume] in source Blood data Lymphocyt 0.7 - 4.5 K/mm3 Normal No Sep 19 es informati 2017 5:40 [#/volume on in PM ] in source Unspecifi data ed specimen by Automated count Lymphocyt 10 - 50.0 % Normal No Sep 19 es informati 2016 5:40 [#/volume on in PM ] in source Unspecifi data ed specimen by Automated count Erythrocy 27 - 31.2 pg High No Sep 19 te mean informati 2017 5:40 corpuscul on in PM ar source hemoglobi data n [Entitic mass] Erythrocy 31.8 - g/dl Normal No Sep 19 te mean 35.4 informati 2016 5:40 corpuscul on in PM ar source hemoglobi data n concentra tion [Mass/vol ume] by Automated count Erythrocy 82.2 - fl High No Sep 19 te mean 97.8 informati 2016 5:40 corpuscul on in PM ar volume source [Entitic data volume] by Automated count Monocytes 0.1 - 1.0 K/mm3 Normal No Sep 19 informati 2017 5:40 [#/volume on in PM ] in source Blood by data Automated count Monocytes 1.7 - 9.3 % Normal No Sep 19 /100 informati 2017 5:40 leukocyte on in PM s in source Blood by data Automated count Platelet 7.4 - fl Normal No Sep 19 mean 10.4 informati 2016 5:40 volume on in PM [Entitic source volume] data in Blood by Automated count Platelets 142 - 424 K/mm3 No No Sep 19 informati informati 2016 5:40 [#/volume on in on in PM ] in source source Blood data data Erythrocy 4.2 - 5.4 M/mm3 Low No Jan 19 kamaljit informati 2016 5:40 [#/volume on in PM ] in source Amniotic data fluid Erythrocy 11.5 - % Normal No Jan 19 te 17.5 informati 2016 5:40 distribut on in PM ion width source [Entitic data volume] by Automated count Leukocyte 4.8 - K/MM3 Normal No Jan 19 s 10.8 informati 2016 5:40 [#/volume on in PM ] in source Blood data CBC W Auto Differential panel in Blood Observa Value Referen Units Interpr Notes Date tion ce etation Range Basophils 0 - 0.2 K/MM3 Normal No Dec 28 informati 2016 4:57 [#/volume on in PM ] in source Blood by data Automated count Basophils 0.1 - 2.0 % Normal No Dec 28 / informati 2016 4:57 leukocyte on in PM s in source Blood by data Automated count Eosinophi 0.0 - 0.4 K/mm3 Normal No Dec 28 ls informati 2016 4:57 [#/volume on in PM ] in source Blood by data Automated count Eosinophi 0.1 - % Normal No Dec 28 ls/100 12.0 informati 2016 4:57 leukocyte on in PM s in source Blood by data Automated count Granulocy 1.8 - 7.8 K/mm3 High No Dec 28 kamaljit informati 2016 4:57 [#/volume on in PM ] in source Blood by data Automated count Granulocy 37.0 - % Normal No Dec 28 kamaljit/100 80.0 informati 2016 4:57 leukocyte on in PM s in source Blood by data Automated count Hematocri 37.0 - % Normal No Dec 28 t [Volume 47.0 informati 2016 4:57 on in PM Fraction] source of Blood data Hemoglobi 12.2 - g/dL No No Dec 28 n 16.2 informati informati 2016 4:57 [Mass/vol on in on in PM ume] in source source Blood data data Lymphocyt 0.7 - 4.5 K/mm3 Normal No Dec 28 es informati 2016 4:57 [#/volume on in PM ] in source Unspecifi data ed specimen by Automated count Lymphocyt 10 - 50.0 % Normal No Dec 28 es informati 2016 4:57 [#/volume on in PM ] in source Unspecifi data ed specimen by Automated count Erythrocy 27 - 31.2 pg High No Dec 28 te mean informati 2016 4:57 corpuscul on in PM ar source hemoglobi data n [Entitic mass] Erythrocy 31.8 - g/dl Normal No Dec 28 te mean 35.4 informati 2016 4:57 corpuscul on in PM ar source hemoglobi data n concentra tion [Mass/vol ume] by Automated count Erythrocy 82.2 - fl High No Dec 28 te mean 97.8 informati 2017 4:57 corpuscul on in PM ar volume source [Entitic data volume] by Automated count Monocytes 0.1 - 1.0 K/mm3 Normal No Dec 28 informati 2016 4:57 [#/volume on in PM ] in source Blood by data Automated count Monocytes 1.7 - 9.3 % Normal No Dec 16 /100 informati 2017 4:57 leukocyte on in PM s in source Blood by data Automated count Platelet 7.4 - fl Normal No Dec 28 mean 10.4 informati 2017 4:57 volume on in PM [Entitic source volume] data in Blood by Automated count Platelets 142 - 424 K/mm3 No No Dec 28 informati informati 2017 4:57 [#/volume on in on in PM ] in source source Blood data data Erythrocy 4.2 - 5.4 M/mm3 Low No Dec 16 kamaljit informati 2017 4:57 [#/volume on in PM ] in source Amniotic data fluid Erythrocy 11.5 - % Normal No Dec 28 te 17.5 informati 2017 4:57 distribut on in PM ion width source [Entitic data volume] by Automated count Leukocyte 4.8 - K/MM3 High No Dec 16 s 10.8 informati 2017 4:57 [#/volume on in PM ] in source Blood data Comprehensive metabolic 2000 panel in Serum or Plasma Observa Value Referen Units Interpr Notes Date tion ce etation Range Albumin/G 1.1 - 1.8 No Normal No Nov 09 lobulin informati informati 2016 8:14 [Mass on in on in AM ratio] in source source Serum or data data Plasma Albumin 3.4 - 5.0 gm/dL Normal No Nov 09 [Mass/vol informati 2016 8:14 ume] in on in AM Serum or source Plasma data Alkaline 46 - 116 U/L Normal No Nov 09 phosphata informati 2016 8:14 se on in AM [Enzymati source c data activity/ volume] in Serum or Plasma Bilirubin 0.2 - 1.0 mg/dL Normal Nov 09 .total informati 2016 8:14 [Mass/vol on in AM ume] in source Serum or data Plasma Urea 7 - 18 mg/dL Normal Nov 09 nitrogen informati 2016 8:14 [Mass/vol on in AM ume] in source Serum or data Plasma Calcium 8.5 - mg/dL Normal No Nov 09 [Mass/vol 10.1 informati 2016 8:14 ume] in on in AM Serum or source Plasma data Chloride 98 - 107 mmoL/L Normal No Nov 09 [Moles/vo informati 2016 8:14 lume] in on in AM Serum or source Plasma data Carbon 21.0 - mmoL/L Normal No Nov 09 dioxide, 32.0 informati 2016 8:14 total on in AM [Moles/vo source lume] in data Serum or Plasma Creatinin 0.55 - mg/dL Normal No Nov 09 e 1.02 informati 2016 8:14 [Mass/vol on in AM ume] in source Serum or data Plasma Estimated 59- ML/MIN No REFERENCE Nov 09 informati RANGE: 2017 8:14 glomerula on in >60 AM r source ML/MIN/1. filtratio data 73 SQUARE n rate METERSIf (GF this patient is -A merican, then multiply theresult by 1.210. Globulin 1.3 - 3.2 gm/dL High No Nov 09 [Mass/vol informati 2016 8:14 ume] in on in AM Serum source data Glucose 74 - 106 mg/dL Normal No Nov 09 [Mass/vol informati 2016 8:14 ume] in on in AM Serum or source Plasma data Potassium 3.5 - 5.1 mmoL/L Normal No Nov 09 informati 2016 8:14 [Moles/vo on in AM lume] in source Serum or data Plasma Sodium 136 - 145 mmoL/L Normal No Nov 09 [Moles/vo informati 2017 8:14 lume] in on in AM Serum or source Plasma data Aspartate 15 - 37 U/L Low No Nov 09 informati 2017 8:14 aminotran on in AM sferase source [Enzymati data c activity/ volume] in Serum or Plasma Alanine 12 - 78 U/L Normal No Nov 09 aminotran informati 2016 8:14 sferase on in AM [Enzymati source c data activity/ volume] in Serum or Plasma Protein 6.4 - 8.2 gm/dL Normal No Nov 09 [Mass/vol informati 2016 8:14 ume] in on in AM Serum or source Plasma data Lipid 1996 panel in Serum or Plasma Observa Value Referen Units Interpr Notes Date tion ce etation Range Cholester < 200 mg/dL No No Nov 09 ol informati informati 2016 8:14 [Moles/vo on in on in AM lume] in source source Unspecifi data data ed specimen Cholester 40 - 60 MG/DL Normal No Nov 09 ol in HDL informati 2016 8:14 on in AM [Mass/vol source ume] in data Serum or Plasma Cholester 0 - 130 mg/dL Normal No Nov 09 ol in LDL informati 2016 8:14 on in AM [Mass/vol source ume] in data Serum or Plasma by calcjorge on Triglycer 30 - 200 mg/dL Normal No Nov 09 viviane informati 2016 8:14 [Moles/vo on in AM lume] in source Serum or data Plasma Cholester 0 - 40 No Normal No Nov 09 ol in informati informati 2017 8:14 VLDL on in on in AM [Mass/vol source source ume] in data data Serum or Plasma
--- OUTSIDE RECORDS SUMMARY | 2017-02-23 03:25 | External Medical Summary Rpt | CCD ---
Author Author , [facility] [employer] Address Unknown Phone [email or web address] Immunization Name Date Rout CVX Reac Dose [...]
== END 2017-02-13 15:14 | disposition home or self-care (01) ==
LOC: UTC 12:35 → ER 12:35
PROVIDERS: General Practice
DX: J44.1 Chronic obstructive pulmonary disease with (acute) exacerbation (principal); Z72.0 Tobacco use; K21.9 Gastro-esophageal reflux disease without esophagitis; F41.8 Other specified anxiety disorders; I25.10 Atherosclerotic heart disease of native coronary artery without angina pectoris; Z88.2 Allergy status to sulfonamides; Z79.82 Long term (current) use of aspirin; I10 Essential (primary) hypertension

== ENCOUNTER 2017-03-20 09:19 | Emergency (ER) | payer MEDICAID ==
[~2017-03-20] VITALS: Ht 160 cm; Wt 93.0 kg
[~2017-03-20 09:19] MED LIST changes: +CEFDINIR 300MG300 MG PO; +NORCO 325 MG-51 TAB PO; +PERCOGESIC EXTR1 TAB PO; +PREDNISONE 5MG.5 MG PO; +RANEXA500 M1 PO; +TRAZODONE50 MG PO
--- OUTSIDE RECORDS SUMMARY | 2017-03-20 09:37 | External Medical Summary Rpt | CCD ---
Author Author , RYLIE Organization RYLIE Address Unknown Phone Care Team Providers Care Staff Physical Therapist Name Role Phone [facility] [place], [facility]available Unavailable [facility] [place] Unavailable Unavailable [facility], [facility] ARNSTU GRACE, ARNOLD Unavailable Unavailable GRACE ATTILA GELLER, Unavailable Unavailable MD,PSC, ATTILA GELLER MD,PSC ZOYA ANT, ZOYA ANT Unavailable Unavailable [facility] Unavailable Unavailable SERVICE, [facility] Unavailable Unavailable CONSULTANTS O, [facility], Unavailable Unavailable [facility] Unavailable Unavailable PODIATRY, [facility] & Unavailable Unavailable [facility] P, [facility] NICOLE HENRY, Unavailable Unavailable NICOLE HENRY [facility] Unavailable Unavailable [place], [facility] Unavailable Unavailable ASSOCIATES, [facility] FRANCK JUÁREZ Unavailable Unavailable FARZAD MELISA, Unavailable Unavailable FARZAD MELISA BRANDYN RAFIA, BRANDYN Unavailable Unavailable RAFIA BRIANA BRUCE MD, Unavailable Unavailable JANIS GARAY MD Unavailable Unavailable [facility] Unavailable Unavailable INC, [facility] Unavailable Unavailable HOSPITAL, [facility] Unavailable Unavailable HOSPITAL P, [facility] HOSPITAL P [facility], Unavailable Unavailable [facility], Unavailable Unavailable [facility] Unavailable Unavailable IMAGING ASS, [facility] Unavailable Unavailable MEDICAL G, [facility], [facility] RICKY JR DWI, RICKY Unavailable Unavailable JR DWI [facility] Unavailable Unavailable INTERNAL MED, [facility] LIZ HAM, LIZ HAM Unavailable Unavailable FADIA CHRISTIN, Unavailable Unavailable FADIA MITCHELL, Unavailable Unavailable VERO MITCHELL [facility] Unavailable Unavailable MEDICAL, [facility], Unavailable Unavailable [facility], Unavailable Unavailable PLL[facility], [facility], Unavailable Unavailable [facility] RODES CHANDA, RODES CHANDA Unavailable Unavailable SCIFRES, SCIFRES Unavailable Unavailable SCIFRES ANG, SCIFRES Unavailable Unavailable ANG [facility] Unavailable Unavailable [facility], [facility] Un[facility] Un[facility], [facility] Unavailable [facility]available HOSPITALS, [facility], Unavailable Unavailable [facility] Verena Mosley MD, Unavailable Unavailable Verena Mosley MD [facility] # Unavailable Unavailable [id number], [email or web address] # [id number] RADAMES MITCHELL, Unavailable Unavailable ARIELLEHRMAN III PAULA [facility], Unavailable Unavailable [facility] Purpose Continuity of Care Document - 01-19-2011 through 2016 Problems Code Diagnosis DOS Provider Status I340 NONRHEUMATI 02-01-2017 [place] [facility] INSUFFICIEN CY I351 NONRHEUMATI 02-01-2017 [place] [facility] AORTIC [facility] INSUFFICIEN CY I361 NONRHEUMATI 02-01-2017 [place] [facility] TRICUSPID SERV [facility]VE [facility] INSUFFICIEN CY A23457 OTHER 02-01-2017 [place] [facility] SYMPTOMS & SERV SIGNS [facility] INVOLVING THE NS I10 ESSENTIAL 01-31-2017 [facility] N I2510 [facility] [place] 01-31-2017 CORONARY HEALTHCARE ARTERY W/O HOSPITALS ANGINA PECTORIS I252 OLD 01-31-2017 [facility] IN[facility]CTION [facility] I639 CEREBRAL 01-31-2017 [place] [facility] SERV UNSPECIFIED FOUNDATION B41835 OTH S&S 01-31-2017 [facility] COGNITIVE SERVICE FUNCT FLW CEREB INFARCT K219 GASTRO-ESOP 01-31-2017 H RE[facility]UX [facility]CARE DISEASE HOSPITALS WITHOUT ESOPHAGITIS R200 ANESTHESIA 01-31-2017 [place] OF [facility] [id number] NGHIA 01-31-2017 [facility] COMA SCALE [place] SCORE 9-12 UNSPECIFIED TIME R471 DYSARTHRIA 01-31-2017 [facility] R4781 SLURRED 01-31-2017 [place] SPEECH [facility]ICAL [facility]ING ASS R9431 ABNORMAL 01-31-2017 [place] [facility] ELECTROCARD SERV [employer] FOUNDATION Z743 NEED FOR 01-31-2017 [facility] CONTINUOUS [place] SUPERVISION Z9861 CORONARY 01-31-2017 ANGIOPLASTY [facility]ALTHCARE STATUS HOSPITALS E785 HYPERLIPIDE 01-24-2017 [facility] STACEY [facility] UNSPECIFIED INC I119 HYPERTENSIV 01-24-2017 [facility] E HEART [facility] DISEASE INC WITHOUT HEART FAILURE J449 CHRONIC 01-24-2017 [facility] OBSTRUCTIVE [facility] PULMONARY INC DISEASE UNS Z720 TOBACCO USE 01-24-2017 [facility] INC R0602 SHORTNESS 12-29-2016 [place] OF BREATH MEDICAL IM[facility]ING ASS R079 CHEST PAIN 12-29-2016 [place] UNSPECIFIED MEDICAL IMAGING ASS R5383 OTHER 12-29-2016 [place] FATIGUE [facility]ICAL [facility] ASS R9439 ABNORMAL 12-29-2016 [facility] RESULT [facility] PHYSICIANS CARDIOVASCU GROUP LR FUNCTION STUDY Z955 PRESENCE OF 12-29-2016 [facility] CORONARY PHYSICIANS ANGIOPLASTY GROUP IMPLANT & GRAFT E119 TYPE 2 12-28-2016 [facility] DIABETES GRATZ MELLITUS INTERNAL WITHOUT MED COMPLICATIO NS F65397 PAIN IN 12-27-2016 [facility] RIGHT [facility] SHOULDER INC H91377 PAIN IN 12-27-2016 [facility] LEFT KNEE [facility] INC M542 CERVICALGIA 12-27-2016 [facility] INC M7061 TROCHANTERI 12-27-2016 [facility] C BURSITIS MEM [facility]OS[facility] RIGHT HIP INC W27171 PAIN IN 11-04-2016 [facility] LEFT FOOT VALLEY INTERNAL MED Z0000 ENCOUNTER 11-04-2016 [facility] GEN ADULT VALLEY MED EXAM INTERNAL W/O MED ABNORMAL FIND M7989 OTHER 10-29-2016 [place] SPECIFIED MEDICAL SOFT TISSUE IMAGING ASS DISORDERS [id number] UNSPECIFIED 10-29-2016 [facility] SPRAIN [facility] LEFT FOOT INC INITIAL ENCOUNTER A921LVM STRAIN 10-09-2016 [facility] MUSCLE FASC [facility] & TENDON INC NECK LEVL INIT ENC [id number] CONTUSION 10-09-2016 [facility] UNS FRONT [facility] WALL THORAX INC INITIAL ENCNTR I208 OTHER FORMS 08-23-2016 [facility] OF ANGINA PHYSICIANS PECTORIS GROUP I200 UNSTABLE 07-15-2016 [facility] ANGINA PHYSICIAN GROUP [id number] [place]D [place] 07-15-2016 [facility] COR ART PHYSICIAN W/UNSTABLE GROUP ANGINA PECTORIS [id number] ASHD [place] 07-15-2016 [facility] COR ARTREY [facility] W/UNS INC ANGINA PECTORIS Z951 PRESENCE OF 07-15-2016 [facility] AORTOCORONA INC RY BYPASS GRAFT H5213 MYOPIA 06-30-2016 [facility] BILATERAL J441 CHRONIC 06-27-2016 [facility] OBSTRUCTIVE VALLEY PULMONARY INTERNAL DZ MED W/EXACERBAT ION R0789 OTHER CHEST 06-27-2016 [facility] PAIN [facility] INC R064 HYPERVENTIL 06-09-2016 [facility] AMBULANCE SERVICE J029 ACUTE 03-18-2016 [facility] PHARYNGITIS PHYSICIANS, [facility] UNSPECIFIED J209 ACUTE 03-18-2016 [facility] BRONCHITIS [facility] UNSPECIFIED INC D47870 A[facility]D [place] 02-03-2016 [facility] COR ART PHYSICIANS W/OTH FORMS GROUP ANGINA PECTORIS M797 FIBROMYALGI 02-03-2016 [facility] Z8679 PERSONAL 02-03-2016 [facility] HISTORY OT ASSOCIATES DISEASES CIRCULATORY SYSTEM R072 PRECORDIAL 02-02-2016 [facility] PAIN PHYSICIANS, [facility] N57176 PAIN IN 01-16-2016 [facility] RIGHT ANKLE PHYSICIANS, [facility] [id number] SPRAIN 12-31-2015 [facility] UNSPEC PHYSICIAN LIGAMENT GROUP RIGHT ANKLE INITIAL ENC G479 SLEEP 12-30-2015 [facility] DISORDER PHYSICIANS UNSPECIFIED GROUP M549 DORSALGIA 12-30-2015 [facility] UNSPECIFIED PHYSICIANS GROUP I214 NON-ST 12-24-2015 [facility] ELEVATION PHYSICIANS MYOCARDIAL GROUP INFARCTION P44408 ATHEROSCLER 12-24-2015 [facility] PHYSICIANS UNS UNSTABL GROUP ANGINA PECTORIS V79402 ATHEROSCLER 12-24-2015 [facility] P ANGINA PECTORIS E118 TYPE 2 12-23-2015 [facility] DIABETES PHYSICIANS MELLITUS GROUP W/UNS COMPLICATIO NS I209 ANGINA 12-23-2015 [facility] PECTORIS PHYSICIANS UNSPECIFIED GROUP Z9119 PATIENTS 12-23-2015 [facility] NONCOMPLIAN PHYSICIANS CE W/OTH GROUP MED TX & REGIMEN L22577 OTHER LONG 12-07-2015 [facility] TERM PHYSICIANS CURRENT GROUP DRUG THERAPY T11810 PRESENCE OF 12-07-2015 [facility] OTHER PHYSICIANS CARDIAC GROUP IMPLANTS AND GRAFTS I2582 CHRONIC 12-02-2015 [place] [facility] T[place] [facility] OCCLUSION FOUNDATION OF CORONARY ARTERY G8929 OTHER 12-01-2015 [place] [facility] CHRONIC SERV PAIN FOUNDATION R001 BRADYCARDIA 12-01-2015 [place] [facility] UNSPECIFIED FOUNDATION I510 CARDIAC 11-30-2015 [place] [facility] SEPTAL SERV DEFECT FOUNDATION ACQUIRED I517 CARDIOMEGAL 11-30-2015 [place] [employer] R7989 OTHER SPEC 11-13-2015 [facility] ABNORMAL PHYSICIANS, FINDINGS PLLC BLOOD CHEMISTRY L0390 CELLULITIS 10-10-2015 [facility] UNSPECIFIED PHYSICIANS, PLLC J90 PLEURAL 10-03-2015 [facility] [place] [facility] NOT ELSEWHERE CLASSIFIED W98758 POSTPROC 10-01-2015 [facility] HEMORR CIRC ASSOC[facility]ATES SYS PSC ORGAN/STRUC FLW CARD BP [id number] HEMORRHAGE 10-01-2015 [facility] D/T CARD HEALTH PROSTH DEVC MEDICAL G IMPL & GFT INIT I6502 OCCLUSION 09-30-2015 [facility] 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 J9811 ATELECTASIS 09-30-2015 [facility] [place] [facility] R0989 OTH SPEC SX 09-30-2015 [facility] SIGNS AMBULANCE INVLV THE SERVICE CIRC & RESP SYS V81706 ENCOUNTER 09-29-2015 [facility] FOR PHYSICIANS PREPROCEDUR GROUP AL CARIOVASCUL AR EXAM E663 OVERWEIGHT 09-04-2015 [facility] PHYSICIANS GROUP J40 BRONCHITIS 09-03-2015 [facility] NOT PHYSICIANS, SPECIFIED PLLC ACUTE OR CHRONIC R05 COUGH 09-03-2015 [place] [facility] [id number] LAC W/O FB 08-12-2015 [facility] RT INDEX [...] 08-04-2015 [facility] [place] M2011 HALLUX 08-04-2015 [place] VALGUS MEDICAL ACQUIRED IMAGING ASS RIGHT FOOT M2041 OTHER 08-04-2015 [place] HAMMER TOES MEDICAL ACQUIRED IMAGING ASS RIGHT FOOT M2570 OSTEOPHYTE 08-04-2015 PROGRESSIVE UNSPECIFIED PODIATRY JOINT M7731 CALCANEAL 08-04-2015 [place] SPUR RIGHT MEDICAL FOOT IMAGING ASS A22822 PAIN IN 08-04-2015 [facility] RIGHT FOOT PODIATRY Z23 ENCOUNTER 07-22-2015 [facility] FOR PHYSICIANS IMMUNIZATIO GROUP N B349 VIRAL 07-15-2015 [facility] INFECTION PHYSICIANS, UNSPECIFIED PLLC J069 ACUTE UPPER 07-15-2015 [facility], RESPIRATORY PLLC INFECTION UNSPECIFIED R197 DIARRHEA 07-15-2015 [facility] UNSPECIFIED PHYSICIANS, PLLC J439 EMPHYSEMA 07-09-2015 [place] [facility] UNSPECIFIED SERV FOUNDATION N8320 UNSPECIFIED 07-09-2015 [place] [facility] OVARIAN SERV CYSTS FOUNDATION R102 PELVIC AND 07-09-2015 [place] [facility] PERINEAL SERV PAIN [facility]OUND[facility] N9489 OTH COND 06-30-2015 BRIANA Hernandez ASSOC W/FE JANIS VIZCARRA GEN ORGN & MENSTRUAL CYCL N699DBJ CONTUSION 06-26-2015 [facility] LOWER BACK PHYSICIANS, & PELVIS PLLC INITIAL ENCOUNTER K64CPLA UNSPECIFIED 06-26-2015 [facility] INITIAL SERVICE ENCOUNTER Z043 ENCOUNTER 06-26-2015 [place] EXAM & MEDICAL OBSERVATION IMAGING ASS FOLLOW OTH ACCIDENT I455 OTHER 06-11-2015 [facility] SPECIFIED AMBULANCE HEART BLOCK SERVICE N761 SUBACUTE 06-08-2015 BRIANA BRUCE MD VAGINITIS P03674 ENCOUNTER 06-08-2015 [facility] FOR OTHER [facility] PREPROCEDUR INC AL EXAMINATION N819 FEMALE 05-29-2015 BRIANA Hernandez GENITAL JANIS VIZCARRA PROLAPSE UNSPECIFIED N8329 OTHER 05-27-2015 [facility] OVARIAN PHYSICIANS, CYSTS PLLC R1084 GENERALIZED 05-27-2015 [place] ABDOMINAL MEDICAL PAIN IMAGING ASS Z959 PRESENCE 04-30-2015 [facility] CARDIAC & [facility] VASCULAR INC IMPLANT & GRAFT UNS N202 CALCULUS OF 04-13-2015 [facility] KIDNEY [facility] WITH INC CALCULUS OF URETER N3000 ACUTE 04-13-2015 [facility] CYSTITIS PHYSICIANS, WITHOUT PLLC HEMATURIA N390 URINARY 04-13-2015 [facility] TRACT PHYSICIANS, INFECTION PLL SITE NOT SPECIFIED R202 PARESTHESIA 04-13-2015 [facility] OF SKIN PHYSICIANS, [facility] P89711 PERSONAL 04-13-2015 [facility] HISTORY OF [facility]OS[facility] NICOTINE INC DEPENDENCE N62732 PRESENCE OF 03-06-2015 [facility] OTHER [facility] VASCULAR INC IMPLANTS AND GRAFTS R9430 ABNORMAL 02-27-2015 [facility] RESULT CV LAR FUNCTION CONSULTANTS STUDY UNS O I459 CONDUCTION 02-26-2015 [facility] DISORDER [facility]BULANCE UNSPECIFIED SERVICE J42 UNSPECIFIED 02-26-2015 [facility] R0600 DYSPNEA 02-26-2015 [facility] UNSPECIFIED LAR CONSULTANTS O Z881 ALLERGY 02-26-2015 [place] STATUS TO REGIONAL OTHER MEDICAL ANTIBIOTIC AGENTS STATUS I272 OTHER 02-25-2015 [facility] P HYPERTENSIO N J410 SIMPLE 02-25-2015 [facility] P R55 SYNCOPE AND 02-25-2015 [facility] COLLAPSE PHYSICIANS, [facility] J4520 MILD 02-23-2015 [facility] [place] [address] DEGEN 01-26-2015 [facility] LUMBAR/LUMB [facility] OSACRAL INC INTERVERTEB RAL DISC 7291 UNSPECIFIED 01-26-2015 [facility] MYALGIA [facility] AND INC MYOSITIS 9134 ELB 01-06-2015 [facility] FORARM&WRST PHYSICIANS, INSECT [facility] BITE NONVENOMOUS W/O INF 5990 URINARY 12-14-2014 [facility] TRACT [facility] INFECTION INC SITE NOT SPECIFIED 13561 OBSTRUCTIVE 12-05-2014 [facility] MEDICAL BRONCHITIS IMAGING ASS WITHOUT EXACERBAT 7862 COUGH 12-05-2014 [place] [facility] 35266 OTHER 12-05-2014 [place] NONSPECIFIC MEDICAL ABNORMAL IMAGING ASS FINDING OF LUNG FIELD 47259 EXTRINSIC 12-04-2014 C[facility] ASTHMA, HOME UNSPECIFIED MEDICAL EQUIPME 11024 GEN 12-04-2014 C[facility] OSTEOARTHRO HOME SIS MEDICAL INVOLVING EQUIPME MULTIPLE SITES 85208 PAIN IN 11-23-2014 [facility] JOINT, PHYSICIANS, LOWER LEG PLL 7245 UNSPECIFIED 11-23-2014 [facility] BACKACHE PHYSICIANS, [facility] 4919 UNSPECIFIED 11-12-2014 [facility] BRONCHITIS INC 7231 CERVICALGIA 10-31-2014 ATTILA GELLER MD,PSC 7295 PAIN IN 10-31-2014 ATTILA GELLER, TISSUES OF ,PSC LIMB 4139 OTHER AND 10-24-2014 [facility] UNSPECIFIED MEM HOSP ANGINA INC PECTORIS 496 CHRONIC 10-24-2014 [facility] AIRWAY MEM HOSP OBSTRUCTION INC NEC 48955 PAIN IN 10-24-2014 [place] JOINT, MEDICAL FOREARM IMAGING ASS 07923 CONTUSION 10-24-2014 [facility] OF HAND PHYSICIANS, [facility] 5641 IRRITABLE 10-07-2014 [facility] BOWEL PHYSICIANS SYNDROME GROUP 85258 OBSTRUCTIVE 10-02-2014 [facility] P WITH EXACERBATIO N 6929 CONTACT 10-02-2014 [facility] DERMATITIS& [facility] OTHER HOSPITAL P ECZEMA DUE UNSPEC CAUSE 85003 OTHER CHEST 10-02-2014 [facility] PAIN [facility] P 93020 CHEST PAIN 10-01-2014 [facility] UNSPECIFIED PHYSICIANS, [facility] 31930 ABDOMINAL 09-02-2014 [place] PAIN RIGHT MEDICAL UPPER IMAGING ASS QUADRANT 490 BRONCHITIS 08-18-2014 [facility] NOT [facility] SPECIFIED HOSPITAL P ACUTE OR CHRONIC 7906 OTHER 08-18-2014 [facility] ABNORMAL [facility] BLOOD [facility] P CHEMISTRY 6256 FEMALE 06-17-2014 BRIANA BRUCE MD INCONTINENC E 59237 INSOMNIA 06-03-2014 [facility] UNSPECIFIED PHYSICIANS GROUP 7831 ABNORMAL 06-03-2014 [facility] WEIGHT GAIN PHYSICIANS GROUP V5415 AFTERCARE 03-26-2014 [place] [facility] TRAUMATIC [facility]OUNDATION FRACTURE UPPER LEG V5489 OTHER 03-26-2014 [facility] AFTERCARE 02942 PAIN IN 02-21-2014 [place] JOINT MEDICAL PELVIC IMAGING ASS REGION AND THIGH 10302 COR 2014 [facility] ATHEROSLERO [facility] UNSPEC INC TYPE VESSEL [place]/NATHALIE T V5869 LONG-TERM 02-12-2014 ATTILA (CURRENT) DUYEN USE OF ,PSC OTHER MEDICATIONS V8281 SPECIAL 02-12-2014 [facility] SCREENING JOHNATHAN GELLER MD,PSC OSTEOPOROSI S 09667 CORONARY 02-11-2014 [place] [facility]ICAL ATHEROSCLER SERV [facility] [place] [facility] CORONARY ARTERY 462 ACUTE 02-07-2014 [facility] EMERGENCY PHYS 72209 NAUSEA WITH 01-27-2014 [place] VOMITING MEDICAL IMAGING ASS 57287 ABDOMINAL 01-27-2014 [place] PAIN, MEDICAL UNSPECIFIED IMAGING ASS SITE 4019 UNSPECIFIED 12-18-2013 [facility] ESSENTIAL DWI HYPERTENSIO N 79584 ASTHMA, 12-18-2013 [place] UNSPECIFIED DWI , UNSPECIFIED STATUS 09616 PRECORDIAL 12-18-2013 [facility] PAIN AMBULANCE SERVICE V7612 OTHER 10-22-2013 [facility] SCREENING [facility] MAMMOGRAM INC 7282 MUSCULAR 10-15-2013 [facility] WASTING AND DEN DISUSE ATROPHY NEC 68743 DISORDER OF 10-15-2013 [facility] BONE AND DEN CARTILAGE UNSPECIFIED 04901 OTHER 10-15-2013 [facility] MALAISE AND DEN FATIGUE 03183 OTHER 10-15-2013 [facility] GENERAL DEN SYMPTOMS 11658 NERVOUSNESS 10-15-2013 [facility] DEN 68591 ATTENTION 10-15-2013 [facility] OR DEN CONCENTRATI ON DEFICIT V7231 ROUTINE 10-11-2013 [facility] GYNECOLOGIC AL EXAMINATION V7641 SCREENING 10-11-2013 [facility] FOR MALIGNANT NEOPLASM OF THE RECTUM 3671 MYOPIA 09-20-2013 SCIFRNEW ANG 7840 HEADACHE 09-19-2013 BRANDYN RAFIA 8449 SPRAIN&STRA 09-19-2013 BRANDYN RAFIA IN OF UNSPECIFIED SITE OF KNEE&LEG 1120 CANDIDIASIS 09-12-2013 F[facility] OF MOUTH CHRISTIN 2689 UNSPECIFIED 09-12-2013 [facility] VITAMIN D [facility] DEFICIENCY INC 2793 UNSPECIFIED 09-12-2013 [facility] IMMUNITY [facility] DEFICIENCY INC 2859 UNSPECIFIED 09-12-2013 [facility] ANEMIA [facility] INC 4739 UNSPECIFIED 09-12-2013 [facility] SINUSITIS CHRISTIN 80353 CHRONIC 09-12-2013 [facility] OBSTRUCTIVE [facility]OSP ASTHMA INC UNSPECIFIED 49737 CHRONIC 09-12-2013 [facility] OBSTRUCTIVE CHRISTIN ASTHMA W/STATUS ASTHMATICUS 40878 SCOLIOSIS , 09-12-2013 NICOLE IDIOPATHIC HENRY 81062 OTHER 09-12-2013 NICOLE DYSPNEA [place] [address] ESOPHAGEAL 09-11-2013 BRANDYN RAFIA REFLUX 3804 IMPACTED 08-22-2013 [facility] CERUMEN CHRISTIN 4660 ACUTE 08-22-2013 [facility] BRONCHITIS CHRISTIN 4770 ALLERGIC 08-22-2013 [facility] RHINITIS CHRISTIN DUE TO POLLEN 4778 ALLERGIC 08-22-2013 [facility] RHINITIS CHRISTIN DUE TO OTHER ALLERGEN 57331 CHRONIC 08-22-2013 [facility] OBSTRUCTIVE CHRISTIN ASTHMA WITH EXACERBATIO N 3555 TARSAL 08-05-2013 RODES CHANDA TUNNEL SYNDROME 7350 HALLUX 08-05-2013 RODES CHANDA VALGUS 7354 OTHER 08-05-2013 RODES CHANDA HAMMER TOE 5759 UNSPECIFIED 06-22-2012 NICOLE DISORDER HENRY OF GALLBLADDER 37107 ABDOMINAL 06-22-2012 [facility] PAIN RIGHT [facility] LOWER INC QUADRANT 486 PNEUMONIA, 06-07-2012 [facility] ORGANISM PAULA UNSPECIFIED 25046 DIVERTICULI 06-07-2012 [facility] TIS OF PAULA COLON 88573 DEHYDRATION 06-05-2012 BRANDYN RAFIA 81066 LEUKOCYTOSI 06-05-2012 BRANDYN RAFIA S UNSPECIFIED 5183 PULMONARY 06-05-2012 NICOLE EOSINOPHILI HENRY A 22724 FEVER 06-05-2012 [facility] UNSPECIFIED AMBULANCE SERVICE 49864 MIGRAINE 05-31-2012 [facility] UNSP W/O MELISA INTRACT W/O STATUS MIGRAINOSUS 7242 LUMBAGO 05-31-2012 F[facility]AD MELISA 05678 SPASM OF 05-31-2012 [facility] MUSCLE MELISA 7292 UNSPECIFIED 05-31-2012 [facility] NEURALGIA MELISA NEURITIS AND RADICULITIS V5883 ENCOUNTER 05-31-2012 [facility] FOR MELISA THERAPEUTIC DRUG MONITORING 4772 ALLERGIC 04-17-2012 F[facility] RHINITIS CHRISTIN DUE TO ANIMAL HAIR AND DANDER 7011 ACQUIRED 04-12-2012 RODES CHANDA KERATODERMA 56356 OTHER 04-12-2012 RODES CHANDA DISORDERS OF BONE AND CARTILAGE OTHER 97203 CONTUSION 04-12-2012 RODES CHANDA OF FOOT 9243 CONTUSION 01-31-2012 WEHR[facility] III OF TOE PAULA 9599 INJURY 01-31-2012 [place] OTHER AND MEDICAL UNSPECIFIED IMAGING ASS UNSPECIFIED SITE 37474 OBESITY, 01-28-2012 NEHA EDWARDS UNSPECIFIED 67204 OSTEOARTHRO 11-03-2011 NEHA EDWARDS S INVLV MX SITES BUT NOT SPEC GEN 5999 UNSPECIFIED 09-28-2011 NEHA EDWARDS DISORDER OF URETHRA&URI NARY TRACT 90004 DIARRHEA 09-21-2011 ZOYA ANT 7873 FLATULENCE 08-03-2011 [facility] ANT ERUCTATION AND GAS PAIN V642 SURG/OTH 07-31-2011 [facility] PROC NOT [facility] CARRIED OUT INC BECAUSE PTS DECN 4780 HYPERTROPHY 06-02-2011 COMMUNITY OF NASAL ALLERGY & TURBINATES ASTHMA P 74255 EXTRINSIC 06-02-2011 COMMUNITY ASTHMA, ALLERGY & WITH ASTHMA P EXACERBATIO N V720 EXAMINATION 04-29-2011 SCIFRES ANG OF EYES AND VISION 12259 ENTHESOPATH 04-05-2011 [facility] Y OF H PODIATRY UNSPECIFIED SITE 7213 LUMBOSACRAL 03-30-2011 [facility] SPONDYLOSIS WITHOUT MYELOPATHY 7234 BRACHIAL 03-11-2011 [facility] NEURITIS OR [facility] INC RADICULITIS NOS 7244 THORACIC/SOFIA 03-11-2011 [facility] MB[facility]CRAL [facility] NEURITIS/RA INC DICULITIS UNSPEC 03260 PAIN IN 02-09-2011 [facility]INT, [facility] MULTIPLE INC SITES 33010 MUSCLE 02-09-2011 [facility] (GENERALIZE INC D) V727 DIAGNOSTIC 02-03-2011 [facility] SKIN [facility]RIST[facility] SENSITIZATI ON TESTS V5409 OTH 01-28-2011 [facility] MEDICAL INVOLVING IMAGING ASS INTERNAL FIXATION DEVICE 562.11 Diverticuli [facility] [id number] Chronic [facility] Allergies, Adverse Reactions, Alerts Type Drug Allergy Adverse Reaction to Substance Substance Reaction Severity SULFA (sulfonamide) Unknown Unknown Clinical Alert Notifications Alert Diabetes: no eye exam in the last 365 days Diabetes: no lipid panel in the last 365 days Diabetes: no urine protein screening in the last 365 days Medications Na ND Rx Da Fi Fi Am Da Di Ph RX Ph St me C No te ll ll ou ys ag ar # ys at rm s nt no ma ic us Or Da si cy ia de te s n re d PA 68 10 11 30 30 00 LA Ac RO 38 -0 -0 .0 00 L- ti XE 20 8- 3- 00 07 MA ve TI 00 20 20 50 RT NE 10 17 17 46 6 73 PH HC AR L MA 40 CY MG #5 91 TA BL ET [place] 00 10 10 39 9 00 [place] Ac ED 14 -0 -2 .0 00 L- ti NI 39 2- 7- 00 07 MA ve SO 74 20 20 51 RT NE 01 17 17 31 5 0 35 PH AR MG MA CY TA BL #5 ET 91 CE 68 10 10 20 10 00 WA Ac FD 18 -0 -2 .0 00 L- ti IN 00 2- 7- 00 07 MA ve IR 71 20 20 51 RT 16 17 17 31 30 0 36 PH 0 AR MG MA CY CA PS #5 UL 91 E FL 58 09 10 0. 1 00 LA Ac UA 16 -2 -2 50 00 L- ti RI 00 5- 0- 0 07 MA ve X 90 20 20 51 RT QU 75 17 17 18 AD 2 06 PH AR 20 MA 17 CY -2 01 #5 8 91 SY RI NG E GA 00 09 10 90 30 00 WA Ac BA 22 -2 -2 .0 00 L- ti PE 82 5- 0- 00 04 MA ve NT 63 20 20 53 RT IN 71 17 17 17 1 22 PH 80 AR 0 MA MG CY TA #5 BL 91 ET NI 43 09 10 25 5 00 WA Ac TR 59 -2 -2 .0 00 L- ti OG 80 5- 0- 00 07 MA ve LY 43 20 20 50 RT CE 61 17 17 48 RI 1 67 PH N AR 0. MA 4 CY MG #5 TA 91 BL ET SL TR 50 09 10 30 30 00 WA Ac AZ 11 -2 -2 .0 00 L- ti OD 10 5- 0- 00 07 MA ve ON 43 20 20 50 RT E 30 17 17 03 50 1 96 PH AR MG MA CY TA BL #5 ET 91 BR 00 09 10 60 30 00 LA Ac IL 18 -2 -2 .0 00 L- ti IN 60 5- 0- 00 07 MA ve TA 77 20 20 50 RT 76 17 17 46 90 0 71 PH AR MG MA CY TA BL #5 ET 91 SP 00 09 10 30 30 00 LA Ac IR 59 -2 -2 .0 00 L- ti IV 70 5- 0- 00 07 MA ve A 07 20 20 50 RT 18 54 17 17 48 1 65 PH MC AR G MA CP CY -H AN #5 DI 91 LOWERY LE R ME 00 09 10 30 30 00 LA Ac TO 37 -2 -2 .0 00 L- ti [place] 80 5- 0- 00 07 MA ve OL 01 20 20 50 RT OL 80 17 17 46 1 72 PH TA AR RT MA RA CY TE #5 25 91 MG TA B OM 60 09 10 30 30 00 LA Ac EP 50 -2 -2 .0 00 L- ti RA 50 5- 0- 00 07 MA ve ZO 14 20 20 50 RT LE 60 17 [address] AR MA 40 CY MG #5 91 CA PS UL E IS 23 09 10 30 30 00 LA Ac OS 15 -2 -2 .0 00 L- ti OR 50 5- 0- 00 07 MA ve BI 17 20 20 50 RT DE 80 17 17 48 1 70 PH MN AR MA ER CY 60 #5 91 MG TA BL ET CE 16 09 10 30 30 00 LA Ac TI 57 -2 -2 .0 00 L- ti RI 10 5- 0- 00 08 MA ve ZI 40 20 20 84 RT NE 25 17 17 07 0 53 PH HC AR L MA 10 CY MG #5 91 TA BL ET EQ 49 09 10 30 30 00 WA Ac 03 -2 -2 .0 00 L- ti 50 5- 0- 00 08 MA ve PI 46 20 20 84 RT RI 76 17 17 07 N 8 68 PH 81 AR MA MG CY CH #5 EW 91 AB LE TA B AT 68 09 10 30 30 00 LA Ac OR 64 -2 -2 .0 00 L- ti VA 50 5- 0- [address] 46 20 20 51 RT AT 15 17 17 18 IN 4 09 PH AR 80 MA CY MG #5 TA 91 BL ET CL 00 09 10 60 30 00 WA Ac ON 18 -2 -2 .0 00 L- ti AZ 50 1- 0- 00 04 MA ve EP 06 20 20 53 RT AM 40 17 17 21 1 5 61 PH AR MG MA CY TA BL #5 ET 91 PA 68 09 10 30 30 00 WA Ac RO 38 -1 -1 .0 00 L- ti XE 20 5- 3- 00 07 MA ve TI 00 20 20 47 RT NE 10 17 17 42 6 92 PH HC AR L MA 40 CY MG #5 91 TA BL ET MO 57 09 10 30 30 00 WA Ac NT 23 -0 -0 .0 00 L- ti EL 70 8- 6- 00 07 MA ve [place] 25 20 20 50 RT 53 17 17 46 T 0 78 PH SO AR D MA 10 CY MG #5 91 TA BL ET TR 50 08 09 30 30 00 LA Ac AZ 11 -1 -1 .0 00 L- ti OD 10 8- 5- 00 07 MA ve ON 43 20 20 50 RT E 30 17 17 46 50 1 70 PH AR MG MA CY TA BL #5 ET 91 AT 68 08 09 30 30 00 WA Ac OR 64 -1 -1 .0 00 L- ti VA 50 8- 5- [address] 46 20 20 50 RT AT 15 17 17 46 IN 4 74 PH AR 80 MA CY MG #5 TA 91 BL ET BR 00 08 09 60 30 00 LA Ac IL 18 -1 -1 .0 00 L- ti IN 60 8- 5- 00 07 MA ve TA 77 20 20 50 RT 76 17 17 46 90 0 71 PH AR MG MA CY TA BL #5 ET 91 GA 00 08 09 90 30 00 WA Ac BA 22 -1 -1 .0 00 L- ti PE 82 8- 5- 00 04 MA ve NT 63 20 20 53 RT IN 71 17 17 17 1 22 PH 80 AR 0 MA MG CY TA #5 BL 91 ET OM 60 08 09 30 30 00 WA Ac EP 50 -1 -1 .0 00 L- ti RA 50 8- 5- 00 07 MA ve ZO 14 20 20 50 RT LE 60 17 [address] AR MA 40 CY MG #5 91 CA PS UL E IP 00 08 09 10 30 00 WA Ac RA 48 -1 -1 80 00 L- ti T- 70 8- 5- .0 07 MA ve AL 20 20 20 00 50 RT BU 10 17 17 48 T 3 68 PH 0. AR 5- MA 3( CY 2. 5) #5 91 MG /3 ML NI 43 08 09 25 5 00 LA Ac TR 59 -1 -1 .0 00 L- ti OG 80 8- 5- 00 07 MA ve LY 43 20 20 50 RT CE 61 17 17 48 RI 1 67 PH N AR 0. MA 4 CY MG #5 TA 91 BL ET SL EQ 49 08 09 30 30 00 LA Ac 03 -1 -1 .0 00 L- ti 50 8- 5- 00 08 MA ve PI 46 20 20 84 RT RI 76 17 17 07 N 8 68 PH 81 AR MA MG CY CH #5 EW 91 AB LE TA B FL 60 08 16 30 00 LA Ac UT 43 -1 -1 .0 00 L- ti IC 20 8- 5- 00 07 MA ve 26 20 20 50 RT ON 41 17 17 48 E 5 66 PH [place] AR OP MA CY 50 #5 MC 91 G SP RA Y SP 00 [address] [facility] IR 59 -1 -1 .0 00 L- ti IV 70 8- 5- 00 07 MA ve A 07 20 20 50 RT 18 54 17 17 48 1 65 PH MC AR G MA CP CY -H AN #5 DI 91 LOWERY LE R CE 16 [address] [facility] TI 57 -2 -1 .0 00 L- ti RI 10 0- 5- 00 08 MA ve ZI 40 20 20 84 RT NE 25 17 17 07 0 53 PH HC AR L MA 10 CY MG #5 91 TA BL ET PA 68 08 30 30 00 LA Ac RO 38 -2 -1 .0 00 L- ti XE 20 0- 5- 00 07 MA ve TI 00 20 20 50 RT NE 10 17 17 46 6 73 PH HC AR L MA 40 CY MG #5 91 TA BL ET LI 68 08 30 30 00 LA Ac SI 64 -2 -1 .0 00 L- ti NO 50 1- 5- 00 07 MA ve [place] 55 20 20 50 RT [place] 25 17 17 51 4 47 PH 10 AR MA MG CY TA #5 BL 91 ET CL 16 08 60 30 00 LA Ac ON 72 -1 -0 .0 00 L- ti AZ 90 5- 8- 00 04 MA ve EP 13 20 20 53 RT AM 71 17 17 16 1 6 46 PH AR MG MA CY TA BL #5 ET 91 MO 57 08 09 30 30 00 WA Ac NT 23 -1 -0 .0 00 L- ti EL 70 6- 8- 00 07 MA ve [place] 25 20 20 49 RT 53 17 17 26 T 0 16 PH SO AR D MA 10 CY MG #5 91 TA BL ET IS 23 08 09 30 30 00 LA Ac OS 15 -0 -0 .0 00 L- ti OR 50 4- 1- 00 07 MA ve BI 17 20 20 49 RT DE 80 17 17 33 1 53 PH MN AR MA ER CY 60 #5 91 MG TA BL ET ME 00 08 09 30 30 00 WA Ac TO 37 -0 -0 .0 00 L- ti [place] 80 4- 1- 00 07 MA ve OL 01 20 20 49 RT OL 80 17 17 68 5 53 PH TA AR RT MA RA CY TE #5 25 91 MG TA B SP 00 08 09 4. 30 00 LA Ac IR 59 -0 -0 00 00 L- ti IV 70 8- 1- 0 07 MA ve A 16 20 20 50 RT RE 06 17 17 26 SP 1 43 PH IM AR AT MA CY 1. 25 #5 91 MC G IN H PA 68 07 08 30 30 00 WA Ac RO 38 -2 -2 .0 00 L- ti XE 20 8- 5- 00 07 MA ve TI 00 20 20 47 RT NE 10 17 17 42 6 92 PH HC AR L MA 40 CY MG #5 91 TA BL ET CE 16 07 08 30 30 00 WA Ac TI 57 -2 -2 .0 00 L- ti RI 10 8- 5- 00 08 MA ve ZI 40 20 20 83 RT NE 25 17 17 68 0 85 PH HC AR L MA 10 CY MG #5 91 TA BL ET TR 50 07 08 30 30 00 LA Ac AZ 11 -2 -1 .0 00 L- ti OD 10 5- 8- 00 07 MA ve ON 43 20 20 50 RT E 30 17 17 03 50 1 96 PH AR MG MA CY TA BL #5 ET 91 PN 00 07 08 0. 1 00 WA Ac EU 00 -2 -1 50 00 L- ti MO 64 4- 8- 0 07 MA ve VA 83 20 20 50 RT X 70 17 17 03 23 3 63 PH AR SY MA RI CY NG E #5 91 OM 60 07 08 30 30 00 WA Ac EP 50 -1 -1 .0 00 L- ti RA 50 9- 1- 00 07 MA ve ZO 14 20 20 49 RT LE 60 17 [address] AR MA 40 CY MG #5 91 CA PS UL E CL 16 07 08 60 30 00 WA Ac ON 72 -1 -1 .0 00 [...] GA 00 07 08 90 30 00 WA Ac BA 22 -1 -1 .0 00 L- ti PE 82 5- 1- 00 04 MA ve NT 63 20 20 53 RT IN 71 17 17 10 1 77 PH 80 AR 0 MA MG CY TA #5 BL 91 ET MO 31 08 30 30 00 LA Ac NT 72 -1 -0 .0 00 L- ti EL 20 2- 4- 00 07 MA ve UK 72 20 20 49 RT 61 17 17 26 T 0 16 PH SO AR D MA 10 CY MG #5 91 TA BL ET IS 23 07 08 30 30 00 LA Ac OS 15 -0 -0 .0 00 L- ti OR 50 6- 4- 00 07 MA ve BI 17 20 20 49 RT DE 80 17 17 33 1 53 PH MN AR MA ER CY 60 #5 91 MG TA BL ET EQ 49 07 07 30 30 00 LA Ac 03 -0 -2 .0 00 L- ti 50 5- 8- 00 08 MA ve PI 56 20 20 83 RT RI 33 17 17 57 N 2 52 PH EC AR MA 81 CY MG #5 91 TA BL ET CE 16 06 07 30 30 00 WA Ac TI 57 -3 -2 .0 00 L- ti RI 10 0- 8- 00 08 MA ve ZI 40 20 20 83 RT NE 25 17 17 68 0 85 PH HC AR L MA 10 CY MG #5 91 TA BL ET PA 68 06 07 30 30 00 LA Ac RO 38 -3 -2 .0 00 L- ti XE 20 0- 8- 00 07 MA ve TI 00 20 20 47 RT NE 10 17 17 42 6 92 PH HC AR L MA 40 CY MG #5 91 TA BL ET ME 00 11 18 30 30 00 LA Ac TO 37 -0 -2 .0 00 L- ti [place] 80 5- 8- 00 07 MA ve OL 01 20 20 49 RT OL 80 17 17 68 5 53 PH TA AR RT MA RA CY TE #5 25 91 MG TA B SP 00 06 30 30 00 LA Ac IR 59 -2 -2 .0 00 L- ti IV 70 5- 1- 00 07 MA ve A 07 20 20 48 RT 18 54 17 17 08 1 47 PH MC AR G MA CP CY -H AN #5 DI 91 LOWERY LE R OM 60 06 30 30 00 LA Ac EP 50 -1 -1 .0 00 L- ti RA 50 9- 4- 00 07 MA ve ZO 14 20 20 49 RT LE 60 17 [address] AR MA 40 CY MG #5 91 CA PS UL E TR 50 06 30 30 00 LA Ac AZ 11 -1 -0 .0 00 L- ti OD 10 3- 7- 00 07 MA ve ON 43 20 20 48 RT E 30 17 17 69 50 1 03 PH AR MG MA CY TA BL #5 ET 91 BR 00 10 19 60 30 00 LA Ac IL 18 -1 -0 .0 00 L- ti IN 60 2 7- 00 07 MA ve TA 77 20 20 43 RT 76 17 17 60 90 0 75 PH AR MG MA CY TA BL #5 ET 91 MO 57 06 30 30 00 LA Ac NT 23 -0 -0 .0 00 L- ti EL 70 9- 7- 00 07 MA ve UK 25 20 20 49 RT 53 17 17 26 T 0 16 PH SO AR D MA 10 CY MG #5 91 TA BL ET CL 16 06 60 30 00 LA Ac ON 72 -0 -0 .0 00 L- ti AZ 90 9- 7- 00 04 MA ve EP 13 20 20 53 RT AM 71 17 17 05 1 6 95 PH AR MG MA CY TA BL #5 ET 91 00 10 19 30 30 00 LA Ac PI 90 -1 -0 .0 00 L- ti R- 47 2- 7- 00 08 MA ve LO 70 20 20 83 RT W 48 17 17 57 EC 0 52 PH AR 81 MA CY MG #5 TA 91 BL ET AT 68 06 07 30 30 00 LA Ac OR 64 -1 -0 .0 00 L- ti VA 50 2- 7- [address] 46 20 20 43 RT AT 15 17 17 60 IN 4 78 PH AR 80 MA CY MG #5 TA 91 BL ET ME 00 07 30 30 00 LA Ac TO 37 -1 -0 .0 00 L- ti [place] 80 2- 7- 00 07 MA ve OL 01 20 20 43 RT OL 80 17 17 61 5 11 PH TA AR RT MA RA CY TE #5 25 91 MG TA B GA 00 06 07 90 30 00 LA Ac BA 22 -1 -0 .0 00 L- ti PE 82 2- 7- 00 07 MA ve NT 63 20 20 49 RT IN 71 17 17 28 1 97 PH 80 AR 0 MA MG CY TA #5 BL 91 ET IS 23 06 07 30 30 00 LA Ac OS 15 -1 -0 .0 00 L- ti OR 50 3- 7- 00 07 MA ve BI 17 20 20 49 RT DE 80 17 17 33 1 53 PH MN AR MA ER CY 60 #5 91 MG TA BL ET AM 00 06 06 30 30 00 LA Ac LO 37 -0 -3 .0 00 L- ti DI 85 2- 0- 00 07 MA ve PI 20 20 20 49 RT NE 90 17 17 13 5 87 PH BE AR SY MA LA CY TE 5 #5 91 MG TA B PA 68 06 30 30 00 LA Ac RO 38 -0 -3 .0 00 L- ti XE 20 2- 0- 00 07 MA ve TI 00 20 20 47 RT NE 10 17 17 42 6 92 PH HC AR L MA 40 CY MG #5 91 TA BL ET CE 16 06 30 30 00 LA Ac TI 57 -0 -3 .0 00 L- ti RI 10 2- 0- 00 08 MA ve ZI 40 20 20 83 RT NE 25 17 17 68 0 85 PH HC AR L MA 10 CY MG #5 91 TA BL ET NI 43 05 06 25 7 00 LA Ac TR 59 -3 -2 .0 00 L- ti OG 80 0- 3- 00 07 MA ve LY 43 20 20 49 RT CE 61 17 17 06 RI 1 69 PH N AR 0. MA 4 CY MG #5 TA 91 BL ET SL HY 00 05 06 [address] 40 -3 -2 .0 00 L- ti OC 60 0- 3- 00 02 MA ve OD 12 20 20 24 RT ON 30 17 17 05 -A 1 38 PH CE AR TA MA VA CY NO PH #5 EN 91 5- 32 5 OM 60 05 06 30 30 00 WA Ac EP 50 -2 -1 .0 00 L- ti RA 50 6 07 MA ve ZO 14 20 20 48 RT LE 60 17 17 [address] AR MA 40 CY MG #5 91 CA PS UL E BR 00 00 WA Ac IL 18 -1 -0 .0 00 L- ti IN 60 07 MA ve TA 77 20 20 43 RT 76 17 17 60 90 0 75 PH AR MG MA CY TA BL #5 ET 91 LI 54 05 LA Ac SI 45 -1 -0 .0 00 L- ti NO 80 07 MA ve [place] 99 20 20 43 RT [place] 71 17 17 60 0 82 PH 10 AR MA MG CY TA #5 BL 91 ET AT 60 LA Ac OR 50 -1 -0 .0 00 L- ti VA [address] 67 20 20 43 RT AT 10 17 17 60 IN 9 78 PH AR 80 MA CY MG #5 TA 91 BL ET ME 00 LA Ac TO 37 -1 -0 .0 00 L- ti [place] 80 07 MA ve OL 01 20 20 43 RT OL 80 17 17 61 5 11 PH TA AR RT MA RA CY TE #5 25 91 MG TA B IS 23 LA Ac OS 15 -1 -0 .0 00 L- ti OR 50 07 MA ve BI 17 20 20 45 RT DE 80 17 17 10 1 79 PH MN AR MA ER CY 60 #5 91 MG TA BL ET GA 00 00 LA Ac BA 22 -1 -0 .0 00 L- ti PE 82 07 MA ve NT 63 20 20 47 RT IN 71 17 17 76 1 13 PH 80 AR 0 MA MG CY TA #5 BL 91 ET EQ 49 WA Ac 03 -1 -0 .0 00 L- ti 50 08 MA ve PI 56 20 20 83 RT RI 33 17 17 57 N 2 52 PH EC AR MA 81 CY MG #5 91 TA BL ET CE 16 WA Ac TI 57 -0 -0 .0 00 L- ti RI 10 08 MA ve ZI 40 20 20 83 RT NE 25 17 17 68 0 85 PH HC AR L MA 10 CY MG #5 91 TA BL ET PA 68 05 30 30 00 WA Ac RO 38 -0 -0 .0 00 L- ti XE 20 7- 2- 00 07 MA ve TI 00 20 20 47 RT NE 10 17 17 42 6 92 PH HC AR L MA 40 CY MG #5 91 TA BL ET TR 50 05 06 30 30 00 WA Ac AZ 11 -0 -0 .0 00 L- ti OD 10 9- 2- 00 07 MA ve ON 43 20 20 48 RT E 30 17 17 69 50 1 03 PH AR MG MA CY TA BL #5 ET 91 CL 16 05 06 60 30 00 LA Ac ON 72 -0 -0 .0 00 L- ti AZ 90 9- 2- 00 04 MA ve EP 13 20 20 53 RT AM 71 17 17 02 1 6 87 PH AR MG MA CY TA BL #5 ET 91 OM 60 04 30 30 00 LA Ac EP 50 -2 -1 .0 00 L- ti RA 50 1- 9- 00 07 MA ve ZO 14 20 20 48 RT LE 60 17 17 [address] AR MA 40 CY MG #5 91 CA PS UL E AT 68 04 30 30 00 LA Ac OR 64 -1 -1 .0 00 L- ti VA 50 8- 2- [address] 46 20 20 43 RT AT 15 17 17 60 IN 4 78 PH AR 80 MA CY MG #5 TA 91 BL ET IS 23 04 30 30 00 LA Ac OS 15 -1 -1 .0 00 L- ti OR 50 8- 2- 00 07 MA ve BI 17 20 20 45 RT DE 80 17 17 10 1 79 PH MN AR MA ER CY 60 #5 91 MG TA BL ET ME 00 04 30 30 00 LA Ac TO 37 -1 -1 .0 00 L- ti [place] 80 8- 2- 00 07 MA ve [...] LI 68 04 05 30 30 00 LA Ac SI 18 -1 -1 .0 00 L- ti NO 00 8- 2- 00 07 MA ve [place] 51 20 20 43 RT IL 40 [...] 17 17 29 E 1 48 PH [place] AR OP MA CY 50 #5 MC 91 G SP RA Y PA 68 04 05 30 30 00 LA Ac RO 38 -0 -0 .0 00 L- ti XE 20 9- 5- 00 07 MA ve TI 00 20 20 47 RT NE 10 17 17 42 6 92 PH HC AR L MA 40 CY MG #5 91 TA BL ET CE 16 04 05 30 30 00 LA Ac TI 57 -0 -0 .0 00 L- ti RI 10 9- 5- 00 08 MA ve ZI 40 20 20 83 RT NE 25 17 17 68 0 85 PH HC AR L MA 10 CY MG #5 91 TA BL ET CL 16 04 05 60 30 00 LA Ac ON 72 -0 -0 .0 00 L- ti AZ 90 6- 5- 00 04 MA ve EP 13 20 20 52 RT AM 71 17 17 99 1 6 24 PH AR MG MA CY TA BL #5 ET 91 SP 00 04 05 30 30 00 LA Ac IR 59 -0 -0 .0 00 L- ti IV 70 6- 5- 00 07 MA ve A 07 20 20 48 RT 18 54 17 17 08 1 47 PH MC AR G MA CP CY -H AN #5 DI 91 LOWERY LE R ME 00 03 04 30 30 00 LA Ac TO 37 -2 -1 .0 00 L- ti [place] 80 1- 4- 00 07 MA ve OL 01 20 20 43 RT OL 80 17 17 61 5 11 PH TA AR RT MA RA CY TE #5 25 91 MG TA B BR 00 03 04 60 30 00 LA Ac IL 18 -2 -1 .0 00 L- ti IN 60 1- 4- 07 MA ve TA 77 20 20 43 RT 76 17 17 60 90 0 75 PH AR MG MA CY TA BL #5 ET 91 LI 54 03 04 30 30 00 WA Ac SI 45 -2 -1 .0 00 L- ti NO 80 1 4- 07 MA ve [place] 99 20 20 43 RT [place] 71 17 17 60 0 82 PH 10 AR MA MG CY TA #5 BL 91 ET IS 23 03 04 30 30 00 WA Ac OS 15 -2 -1 .0 00 L- ti OR 50 1 4- 07 MA ve BI 17 20 20 45 RT DE 80 17 17 10 1 79 PH MN AR MA ER CY 60 #5 91 MG TA BL ET AT 68 03 04 30 30 00 WA Ac OR 64 -2 -1 .0 00 L- ti VA 50 1- [address] 46 20 20 43 RT AT 15 17 17 60 IN 4 78 PH AR 80 MA CY MG #5 TA 91 BL ET FL 60 03 04 16 30 00 LA Ac UT 43 -2 -1 .0 00 L- ti IC 20 1 07 MA ve 26 20 20 44 RT ON 41 17 17 78 E 5 07 PH [place] AR OP MA CY 50 #5 MC 91 G SP RA Y EQ 49 03 04 30 30 00 WA Ac 03 -2 -1 .0 00 L- ti 50 08 MA ve PI 56 20 20 83 RT RI 33 17 17 57 N 2 52 PH EC AR MA 81 CY MG #5 91 TA BL ET GA 00 03 04 90 30 00 LA Ac BA 22 -2 -1 .0 00 L- ti PE 82 07 MA ve NT 63 20 20 47 RT IN 71 17 17 76 1 13 PH 80 AR 0 MA MG CY TA #5 BL 91 ET MO 54 03 03 30 30 00 WA Ac NT 45 -0 -3 .0 00 L- ti EL 80 8- 1- 07 MA ve [place] 89 20 20 47 RT 01 17 17 50 T 0 02 PH SO AR D MA 10 CY MG #5 91 TA BL ET PA 68 03 03 30 30 00 WA Ac RO 38 -0 -3 .0 00 L- ti XE 20 4- 07 MA ve TI 00 20 20 [...] MA CY TA BL #5 ET 91 ME 00 02 03 30 30 00 WA Ac TO 37 -2 -2 .0 00 L- ti [place] 80 3- 4- 00 07 MA ve OL 01 20 20 43 RT OL 80 17 17 61 5 11 PH TA AR RT MA RA CY TE #5 25 91 MG TA B LI 54 02 03 30 30 00 WA Ac SI 45 -2 -2 .0 00 L- ti NO 80 3- 4- 00 07 MA ve [place] 99 20 20 43 RT [place] 71 [...] CY MG #5 91 TA BL ET AT 68 02 03 30 30 00 [...] 17 17 78 E 1 07 PH [place] AR OP MA CY 50 #5 MC [...] TA BL #5 ET 91 OM 60 02 30 30 00 WA Ac EP 50 -0 -0 .0 00 L- ti RA 50 8- 3- 00 07 MA ve ZO 14 20 20 45 RT LE 60 17 17 [address] AR MA 40 CY MG #5 91 CA PS UL E MO 54 02 30 30 00 LA Ac NT 45 -0 -0 .0 00 L- ti EL 80 3- 3- 00 07 MA ve UK 89 20 20 46 RT 01 17 17 85 T 0 23 PH SO AR D MA 10 CY MG #5 91 TA BL ET ME 00 02 30 30 00 WA Ac TO 37 -2 -2 .0 00 L- ti [place] 80 8- 4- 00 07 MA ve OL 01 20 20 43 RT OL 80 17 17 61 5 11 PH TA AR RT MA RA CY TE #5 25 91 MG TA B CE 16 01 02 30 30 00 WA Ac TI 57 -2 -2 .0 00 L- ti RI 10 8- 4- 00 08 MA ve ZI 40 20 20 83 RT NE 25 17 17 68 0 18 PH HC AR L MA 10 CY MG #5 91 TA BL ET CL 16 01 02 60 30 00 WA Ac ON 72 -3 -2 .0 00 L- ti AZ 90 0- 4- 00 04 MA ve EP 13 20 20 52 RT AM 71 17 17 91 1 6 97 PH AR MG MA CY TA BL #5 ET 91 LI 54 01 02 30 30 00 WA Ac SI 45 -2 -2 .0 00 L- ti NO 80 8- 4- 00 07 MA ve [place] 99 20 20 43 RT [place] 71 17 17 60 0 82 PH 10 AR MA MG CY TA #5 BL 91 ET PA 68 01 30 30 00 WA Ac RO 38 -2 -1 .0 00 L- ti XE 20 5- 7- 00 07 MA ve TI 00 20 20 46 RT NE 10 17 17 69 6 89 PH HC AR L MA 40 CY MG #5 91 TA BL ET IS 23 01 02 30 30 00 WA Ac OS [...] #5 TA 91 BL ET BR 00 02 60 30 00 WA Ac IL 18 -2 -1 .0 00 L- ti IN 60 3- 7- 00 07 MA ve TA 77 20 20 43 RT 76 17 17 60 90 0 75 PH AR MG MA CY TA BL #5 ET 91 00 02 30 30 00 WA Ac PI [...] FL 60 01 02 16 30 00 WA Ac UT 43 -2 -1 .0 00 L- ti IC 20 3- 7- 00 07 MA ve 26 20 20 44 RT ON 41 17 17 78 E 5 07 PH [place] AR OP MA CY 50 #5 MC 91 G SP RA Y OM 60 01 02 30 30 00 WA Ac EP 50 -1 -1 .0 00 L- ti RA 50 3- 0- 00 07 MA ve ZO 14 20 20 45 RT LE 60 17 17 [address] AR MA 40 CY MG #5 91 CA PS UL E LI 54 12 02 30 30 00 WA Ac SI 45 -3 -0 .0 00 L- ti NO 80 0- 3- 00 07 MA ve [place] 99 20 20 43 RT [place] 71 16 17 60 0 82 PH 10 AR MA MG CY TA #5 BL 91 ET CL 16 12 01 60 30 00 WA Ac ON 72 [...] MG CY TA #5 BL 91 ET BR 00 12 60 30 00 WA Ac IL 18 -2 -2 .0 00 L- ti IN 60 3- 7- 00 07 MA ve TA 77 20 20 43 RT 76 16 17 60 90 0 75 PH AR MG MA CY TA BL #5 ET 91 AT 68 12 30 30 00 WA Ac OR 64 [...] -2 .0 00 L- ti RI 70 3- 7- 00 08 MA ve N 10 20 20 83 RT EC 42 16 17 57 7 52 PH 81 AR MA MG CY TA #5 BL 91 ET IP 00 01 36 30 00 YO Ac RA 48 -0 -2 0. 00 UR ti T- 70 4- 7- 00 00 ve AL 20 20 20 0 03 PH BU 16 17 17 19 AR T 0 03 MA 0. CY 5- 3( LL 2. C 5) MG /3 ML CE 16 01 06 13 30 00 WA Ac TI 57 -0 -2 .0 00 L- ti RI 10 2- 7- 00 08 MA ve ZI 40 20 20 83 RT NE 25 17 17 68 0 18 PH HC AR L MA 10 CY MG #5 91 TA BL ET ME 00 05 15 30 30 00 WA Ac TO 37 -0 -2 .0 00 L- ti [place] 80 2- 7- 00 07 MA ve OL 01 20 20 43 RT OL 80 17 17 61 5 11 PH TA AR RT MA RA CY TE #5 25 91 MG TA B MO 54 01 30 30 00 WA Ac NT 45 -0 -2 .0 00 L- ti EL 80 2- 7- 00 07 MA ve [place] 89 20 20 46 RT 01 17 17 19 T 0 54 PH SO AR D MA 10 CY MG #5 91 TA BL ET PA 68 12 30 30 00 LA Ac RO 38 -1 -2 .0 00 L- ti XE 20 5- 0- 00 07 MA ve TI 00 20 20 45 RT NE 10 16 17 84 6 50 PH HC AR L MA 40 CY MG #5 91 TA BL ET NI 43 12 01 28 28 00 LA Ac CO 59 -1 -2 .0 00 L- ti TI 80 6- 0- 00 08 MA ve NE 44 20 20 83 RT 82 16 17 73 21 8 60 PH AR MG MA /2 CY 4H R #5 PA 91 TC H OM 57 12 30 30 00 LA Ac EP 23 -0 -1 .0 00 L- ti RA 70 9- 3- 00 07 MA ve ZO 16 20 20 45 RT LE 23 16 17 [address] AR MA 40 CY MG #5 91 CA PS UL E IS 23 12 06 13 30 00 LA Ac OS 15 -1 -1 .0 00 L- ti OR 50 4- 3- 00 07 MA ve BI 17 20 20 45 RT DE 80 16 17 10 1 79 PH MN AR MA ER CY 60 #5 91 MG TA BL ET ME 00 12 30 30 00 LA Ac TO 37 -0 -0 .0 00 L- ti [place] 80 2- 9- 00 07 MA ve OL 01 20 20 43 RT OL 80 16 17 61 5 11 PH TA AR RT MA RA CY TE #5 25 91 MG TA B LI 68 12 06 13 30 00 LA Ac SI 18 -0 -0 .0 00 L- ti NO 00 3- 9- 00 07 MA ve [place] 51 20 20 43 RT IL 40 16 17 60 1 82 PH 10 AR MA MG CY TA #5 BL 91 ET CE 16 12 30 30 00 LA Ac TI 57 -0 -0 .0 00 L- ti RI 10 2- 9- 00 08 MA ve ZI 40 20 20 83 RT NE 25 16 17 68 0 18 PH HC AR L MA 10 CY MG #5 91 TA BL ET NI 47 02 0 No TR 78 -0 OF 10 9- Lo UR 30 20 ng AN 80 14 er TO 1 IN Ac ti MC ve R 10 0 MG CA P IP 00 10 0 No RA 48 -1 T- 70 7- Lo AL 20 20 ng BU 10 13 er T 1 0. Ac 5- ti 3( ve 2. 5) MG /3 ML Ae 08 10 0 No ro 37 -1 ch 30 7- Lo am 76 20 ng be 50 13 er r/ 0 Op Ac ti ti lowery ve le r [place] 00 10 0 No ED 05 -1 NI 40 7- Lo SO 01 20 ng NE 82 13 er 0 20 Ac ti MG ve TA BL ET AL 67 10 10 2 90 30 EA 24 AR Ac [place] 25 -2 -[address] 65 NO [...] 8- 8- 00 MA 73 LE ve [place] 34 20 20 RT 5 ET AM [...] 10 LOW[place] 05 LE 91 R 00 10 10 0 15 5 WA 71 WE Ac 37 -0 -1 .0 L- 38 HR ti 80 6- 0- 00 MA 28 MA ve 75 20 20 RT 8 N 19 11 11 II 3 PH I AR WI MA LL CY IA # M E 10 05 91 TR 00 10 10 0 12 3 WA 44 WE Ac AM 37 -0 -1 .0 L- 96 HR ti AD 84 6- 0- 00 MA 78 MA ve OL 15 20 20 RT 9 N 10 11 11 II HC 1 PH I L AR WI 50 MA LL CY IA MG # M E TA 10 BL 05 ET 91 00 09 10 6 30 30 WA 71 CO Ac 00 -2 -0 .0 L- 36 MM ti 60 2- 9- 00 MA 02 UN ve 11 20 20 RT 3 IT 73 11 11 Y 1 PH AL AR LE MA RG CY Y # & 10 TH 05 MA 91 PS C 00 09 10 6 30 30 WA 71 MA Ac 00 -2 -0 .0 L- 36 SH ti 60 2- 9- 00 MA 02 BU ve 11 20 20 RT 3 RN 73 11 11 1 PH AM AR Y MA B CY # 10 05 91 SY 00 09 09 5 10 30 WA 71 AR Ac MB 18 -1 -1 .1 L- 34 NO ti IC 60 5- 5- 99 MA 97 LD ve OR 37 20 20 RT 5 T 02 11 11 RI 16 0 PH CH 0- AR AR 4. MA D 5 CY W MC # G IN 10 LOWERY 05 LE 91 R 00 09 09 5 30 30 WA 71 AR Ac 00 -0 -1 .0 L- 34 NO ti 60 7- 2- 00 MA 00 LD ve 11 20 20 RT 4 73 11 11 RI 1 PH CH AR AR MA D CY W # 10 05 91 GA 53 04 09 2 90 30 WA 71 NO Ac BA 74 -1 -0 .0 L- 15 RF ti PE 60 4- 9- 00 MA 31 LE ve NT 10 20 20 RT 0 ET IN 10 11 11 R 1 PH 10 AR HE 0 MA NR MG CY Y # CA PS 10 UL 05 E 91 59 09 09 5 8. 16 WA 71 AR Ac 31 -0 -0 50 L- 34 NO ti 00 7- 7- 0 MA 00 LD ve 57 20 20 RT 3 92 11 11 RI 0 PH CH AR AR MA D CY W # 10 05 91 Vital Signs 06-23-2013 16:57 Name Value Interpretat Reference Comment ion Range Body 98.1 [degF] Temperature BP 92 mm[Hg] Diastolic BP Systolic 143 mm[Hg] Heart 78 /min Rate/Pulse O2% 100 % Respiratory 20 /min Rate 06-23-2013 16:38 Name Value Interpretat Reference Comment ion Range BP 93 mm[Hg] Diastolic BP Systolic 147 mm[Hg] Heart 83 /min Rate/Pulse O2% 97 % Respiratory 20 /min Rate 02-28-2013 21:30 Name Value Interpretat Reference Comment ion Range BP 83 mm[Hg] Diastolic BP Systolic 132 mm[Hg] Heart 82 /min Rate/Pulse O2% 97 % Respiratory 18 /min Rate 02-28-2013 21:00 Name Value Interpretat Reference Comment ion Range O2% 97 % Results Labs Lab Lab Date Result Refere Interp Status Commen Order Detail nces retati t Range on URINALYSIS/COMPLETE (06-23-2013 15:36) URINE YELLOW YELLOW complet COLOR 014 ed 15:36 URINE Cloudy CLEAR complet APPEARA 014 ed NCE 15:36 URINE 02-09-2 NEGATIV NEG complet GLUCOSE 014 E ed - 15:36 DIPSTIC K URINE NEGATIV NEG complet BILIRUB 014 E ed IN - 15:36 DIPSTIC K URINE NEGATIV NEG complet KETONE 014 E mg/dL ed 15:36 URINE Less 1.005-1 complet SPECIFI 014 than or .030 ed C 15:36 equal GRAVITY to 1.005 URINE 1+ NEG complet BLOOD 014 ed 15:36 URINE 6.0 UNK 5.0-8.5 complet PH 014 ed 15:36 URINE NEGATIV NEG complet PROTEIN 014 E mg/dL ed - 15:36 DIPSTIC K URINE 0.2 NEG complet UROBILI 014 E.U./dL ed NOGEN - 15:36 DIPSTIC K URINE NEGATIV NEG complet NITRATE 014 E ed - 15:36 DIPSTIC K URINE 1+ NEG complet LEUK 014 ed ESTERAS 15:36 E URINE 10-20 O complet WBC 014 wbc/hpf ed 15:36 URINE 10-20 0-5 complet SQUAMOU 014 #/hpf ed S CELLS 15:36 URINE 2+ O complet BACTERI 014 ed A 15:36 Procedures Procedure DOS Code Location Performer Comment [facility] [id number] [facility] INTRALUM DEVC PERQ Encounters Encounter Start End Date Code Location Performer Type Date [facility] 7 7 [facility] OUT[facility] [place] [facility] 7 7 [facility] [facility] [place] [facility] [place] [facility] [place] [facility] [place] [facility] [place] [place] [facility] [place] [facility] [place] [facility] [place] [facility] [place] [facility] [place] [facility] 6 [facility] [place] [facility] [place] [facility] [place] [facility] [place] [facility] [place] [facility] 6 6 [facility] [place] - 5 5 [facility] [place] - 5 5 [facility] [place] [facility] 5 5 [facility] 5 5 [facility] [place] - 5 5 [facility] [place] - 5 5 [facility] [place] - 5 5 [facility] [place] [facility] 5 5 [facility] [place] [facility] 5 5 [facility] [place] [facility] 5 5 [facility] [place] [facility] 5 5 [facility] [place] [facility] 5 5 [facility] [place] [facility] 5 5 [facility] [place] [facility] 5 5 [facility] [place] [facility] 5 5 [facility] [place] [facility] 5 5 [facility] [place] [facility] 5 5 [facility] [place] [facility] 5 5 [facility] - 4 4 [facility] [place] [facility] 4 4 [facility] [place] [facility] 4 4 [facility] [place] [facility] 4 4 [facility] [place] [facility] 4 4 [facility] [place] [facility] 4 4 [facility] [place] - 4 4 [facility] [place] - 4 4 [facility] WILI MIGUEL DO (ER[facility] 4 15:52 4 17:03 [facility] WILI Bowman MD (ER[facility] 3 20:50 3 21:33 [facility] [place] - 3 3 [facility] [place] - 3 3 [facility] [place] - 2 2 [facility] [place] - 2 2 [facility] [place] - 1 1 [facility] - 1 1 [facility] [place] [facility] 1 1 [facility] [place] [facility] 1 1 [facility] [place] - 1 1 [facility]
--- OUTSIDE RECORDS SUMMARY | 2017-03-20 09:37 | External Medical Summary Rpt | CCD ---
Author Author , RYLIE Organization RYLIE Address Unknown Phone [email or web address] Care Team Providers Care It Programmer Name Role Phone [facility] [place], Unavailable Unavailable [facility] [place] [facility] Unavailable Unavailable PSC, [facility] ARNSTU GRACE, ARNOLD Unavailable Unavailable GRACE ATTILA GELLER, Unavailable Unavailable MD,PSC, ATTILA GELLER MD,PSC ZOYA ANT, ZOYA ANT Unavailable Unavailable [facility] Unavailable Unavailable SERVICE, [facility] Unavailable Unavailable CONSULTANTS O, [facility], Unavailable Unavailable [facility] [place] [facility] Unavailable Unavailable PODIATRY, [facility] & Unavailable Unavailable ASTHMA P, [facility] NICOLE HENRY, Unavailable Unavailable NICOLE HENRY [facility] Unavailable Unavailable [place], [facility] Unavailable Unavailable ASSOCIATES, [facility] FRANCK JUÁREZ Unavailable Unavailable FARZAD MELISA, Unavailable Unavailable FARZAD MELISA BRANDYN RAFIA, BRANDYN Unavailable Unavailable RAFIA BRIANA BRUCE MD, Unavailable Unavailable JANIS GARAY MD Unavailable Unavailable [facility] Unavailable Unavailable INC, [facility] Unavailable [facility]available HOSPITAL, [facility] Unavailable Unavailable HOSPITAL P, [facility] H[facility]PITAL P [facility], Unavailable Unavailable [facility], Unavailable Unavailable [facility] Unavailable [facility]available IM[facility]ING [facility], [facility] Unavailable Unavailable MEDICAL G, [facility] Un[facility] Un[facility], [facility] RICKY JR DWI, RICKY Unavailable Unavailable JR DWI [facility] Unavailable Unavailable INTERNAL MED, [facility] LIZ HAM, LIZ HAM Unavailable Unavailable FADIA CHRISTIN, Unavailable Unavailable FADIA MITCHELL, Unavailable Unavailable VERO MITCHELL [facility] Unavailable Unavailable MEDICAL, [facility], Unavailable Unavailable [facility], Unavailable Unavailable PLL[facility], [facility], Unavailable Unavailable [facility] RODES CHANDA, RODES CHANDA Unavailable Unavailable SCIFRES, SCIFRES Unavailable Unavailable SCIFRES ANG, SCIFRES Unavailable Unavailable ANG [facility] Unavailable Unavailable [facility], [facility] Un[facility], [facility] Unavailable Unavailable HOSPITALS, [facility] HOSPITALS [facility], Unavailable Unavailable [facility] Verena Mosley MD, Unavailable Unavailable Verena Mosley MD [facility] # Unavailable Unavailable [id number], [facility] # [id number] RADAMES MITCHELL, Unavailable Unavailable ARIELLEHRMAN III PAULA [...] C [facility] INSUFFICIEN [place] [id number] OTHER 02-01-2017 [place] [facility]MPTOM[facility] & SERV SIGNS [facility] INVOLVING THE NS I10 ESSENTIAL 01-31-2017 [facility] HYPERT[facility] N I2510 ASHD [facility] [facility] [place] 01-31-2017 CORONARY HEALTHCARE ARTERY W/O HOSPITALS ANGINA PECTORIS I252 OLD 01-31-2017 [facility] I639 CEREBRAL 01-31-2017 [place] [facility] UNSPECIFIED FOUNDATION S22741 OTH S&S 01-31-2017 [facility] AMBULANCE COGNITIVE SERVICE FUNCT FLW CEREB INFARCT K219 GASTRO-ESOP 01-31-2017 H [facility] DISEASE HOSPITALS WITHOUT ESOPHAGITIS R200 ANESTHESIA 01-31-2017 [place] OF [facility] [id number] NGHIA 01-31-2017 [facility] COMA SCALE [place] SCORE 9-12 UNSPECIFIED TIME R471 DYSARTHRIA 01-31-2017 [facility] R4781 SLURRED 01-31-2017 [place] SPEECH [facility] R9431 ABNORMAL 01-31-2017 [place] [facility] ELECTROCARD SERV [employer] FOUNDATION Z743 NEED FOR 01-31-2017 [facility] CONTINUOUS [place] SUPERVISION Z9861 CORONARY 01-31-2017 ANGIOPLASTY [facility]ALTHCARE STATUS HOSPITALS E785 HYPERLIPIDE 01-24-2017 [facility] STACEY [facility] UNSPECIFIED INC I119 HYPERTENSIV 01-24-2017 [facility] E HEART [facility] DISEASE INC WITHOUT HEART FAILURE J449 CHRONIC 01-24-2017 [facility] OBSTRUCTIVE [facility] PULMONARY INC DISEASE UNS Z720 TOBACCO USE 01-24-2017 [facility] INC R0602 SHORTNESS 12-29-2016 [place] OF BREATH MEDICAL IMAGING ASS R079 CHEST PAIN 12-29-2016 [place] UNSPECIFIED MEDICAL IMAGING ASS R5383 OTHER 12-29-2016 [place] FATIGUE [facility]ICAL IM[facility]ING ASS R9439 ABNORMAL 12-29-2016 [facility] RESULT [facility] PHYSICIANS CARDIOVASCU GROUP LR FUNCTION STUDY Z955 PRESENCE OF 12-29-2016 [facility] CORONARY PHYSICIANS ANGIOPLASTY GROUP IMPLANT & GRAFT E119 TYPE 2 12-28-2016 [facility] [place] MELLITUS INTERNAL WITHOUT MED COMPLICATIO NS D30825 PAIN IN 12-27-2016 [facility] RIGHT [facility] SHOULDER INC Y30766 PAIN IN 12-27-2016 [facility] LEFT KNEE [facility] INC M542 CERVICALGIA 12-27-2016 [facility] INC M7061 TROCHANTERI 12-27-2016 [facility] C BURSITIS [facility] RIGHT HIP INC V45921 PAIN IN 11-04-2016 [facility] LEFT FOOT VALLEY INTERNAL MED Z0000 ENCOUNTER 11-04-2016 [facility] GEN ADULT VALLEY MED EXAM INTERNAL W/O MED ABNORMAL FIND M7989 OTHER 10-29-2016 [place] SPECIFIED MEDICAL SOFT TISSUE IMAGING ASS DISORDERS [id number] UNSPECIFIED 10-29-2016 [facility] SPRAIN [facility] LEFT FOOT INC INITIAL ENCOUNTER [id number] STRAIN 10-09-2016 [facility] MUSCLE FASC [facility] & TENDON INC NECK LEVL INIT ENC [id number] CONTUSION 10-09-2016 [facility] UNS FRONT [facility] WALL THORAX INC INITIAL ENCNTR I208 OTHER FORMS 08-23-2016 [facility] OF ANGINA PHYSICIANS PECTORIS GROUP I200 UNSTABLE 07-15-2016 [facility] ANGINA PHYSICIAN GROUP [id number] ASHD [facility] [place] 07-15-2016 [facility] COR ART PHYSICIAN W/UNSTABLE GROUP ANGINA PECTORIS L77041 ASHD [facility] [facility] [place] 07-15-2016 [facility] COR ARTREY [facility] W/UNS INC ANGINA PECTORIS Z951 PRESENCE OF 07-15-2016 [facility] AORTOCORONA INC RY BYPASS GRAFT H5213 MYOPIA 06-30-2016 [facility] BILATERAL J441 CHRONIC 06-27-2016 [facility] OBSTRUCTIVE VALLEY PULMONARY INTERNAL DZ MED W/EXACERBAT ION R0789 OTHER CHEST 06-27-2016 [facility] PAIN [facility] INC R064 HYPERVENTIL 06-09-2016 [facility]ANCE SERVICE J029 ACUTE 03-18-2016 [facility] PHARYNGITIS PHYSICIANS, [facility] UNSPECIFIED J209 ACUTE 03-18-2016 [facility] BRONCHITIS [facility] UNSPECIFIED INC K63778 ASHD [facility] [place] 02-03-2016 [facility] COR ART PHYSICIANS W/OTH FORMS GROUP ANGINA PECTORIS M797 FIBROMYALGI 02-03-2016 [facility] Z8679 PERSONAL 02-03-2016 [facility] HISTORY OT ASSOCIATES DISEASES CIRCULATORY SYSTEM R072 PRECORDIAL 02-02-2016 [facility] PAIN PHYSICIANS, [facility] U80959 PAIN IN 01-16-2016 [facility] RIGHT ANKLE PHYSICIANS, [facility] [id number] SPRAIN 12-31-2015 [facility] UNSPEC PHYSICIAN LIGAMENT GROUP RIGHT ANKLE INITIAL ENC G479 SLEEP 12-30-2015 [facility] DISORDER PHYSICIANS UNSPECIFIED GROUP M549 DORSALGIA 12-30-2015 [facility] UNSPECIFIED PHYSICIANS GROUP I214 NON-ST 12-24-2015 [facility] ELEVATION PHYSICIANS MYOCARDIAL GROUP INFARCTION U82307 ATHEROSCLER 12-24-2015 [facility] OSIS CABG PHYSICIANS UNS UNSTABL GROUP ANGINA PECTORIS [id number] ATHEROSCLER 12-24-2015 [facility] P ANGINA PECTORIS E118 TYPE 2 12-23-2015 [facility] DIABETES PHYSICIANS MELLITUS GROUP W/UNS COMPLICATIO NS I209 ANGINA 12-23-2015 [facility] PECTORIS PHYSICIANS UNSPECIFIED GROUP Z9119 PATIENTS 12-23-2015 [facility] NONCOMPLIAN PHYSICIANS CE W/OTH GROUP MED TX & REGIMEN J60654 OTHER LONG 12-07-2015 [facility] TERM PHYSICIANS CURRENT GROUP DRUG THERAPY B48615 PRESENCE OF 12-07-2015 [facility] OTHER PHYSICIANS CARDIAC GROUP IMPLANTS AND GRAFTS I2582 CHRONIC 12-02-2015 [place] [facility] OCCLUSION FOUNDATION OF CORONARY ARTERY G8929 OTHER 12-01-2015 [place] [facility] CHRONIC [facility] PAIN FOUNDATION R001 BRADYCARDIA 12-01-2015 [place] [facility] UNSPECIFIED FOUNDATION I510 CARDIAC 11-30-2015 [place] [facility] DEFECT FOUND[facility] ACQUIRED I517 CARDIOMEGAL 11-30-2015 [place] [facility] R7989 OTHER SPEC 11-13-2015 [facility] ABNORMAL PHYSICIANS, FINDINGS PLLC BLOOD CHEMISTRY L0390 CELLULITIS 10-10-2015 [facility] UNSPECIFIED PHYSICIANS, PLLC J90 PLEURAL 10-03-2015 [facility] [place] [facility] NOT ELSEWHERE CLASSIFIED P47861 POSTPROC 10-01-2015 [facility] HEMORR CIRC ASSOCIATES SYS PSC ORGAN/STRUC FLW CARD BP [id number] HEMORRHAGE 10-01-2015 [facility] D/T CARD HEALTH PROSTH DEVC MEDICAL G IMPL & GFT INIT I6502 OCCLUSION 09-30-2015 [facility] 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 J9811 ATELECTASIS 09-30-2015 [facility] [place] [facility] R0989 OTH SPEC SX 09-30-2015 [facility] SIGNS AMBULANCE INVLV THE SERVICE CIRC & RESP SYS C30577 ENCOUNTER 09-29-2015 [facility] FOR PHYSICIANS PREPROCEDUR GROUP AL CARIOVASCUL AR EXAM E663 OVERWEIGHT 09-04-2015 [facility] PHYSICIANS GROUP J40 BRONCHITIS 09-03-2015 [facility] NOT PHYSICIANS, SPECIFIED PLLC ACUTE OR CHRONIC R05 COUGH 09-03-2015 [place] [facility] [id number] LAC W/O FB 08-12-2015 [facility] RT INDEX [...] 08-04-2015 [facility] M2011 HALLUX 08-04-2015 [place] VALGUS [facility]ICAL ACQUIRED IMAGING ASS RIGHT FOOT M2041 OTHER 08-04-2015 [place] HAMMER TOES MEDICAL ACQUIRED IMAGING ASS RIGHT FOOT M2570 OSTEOPHYTE 08-04-2015 PRO[facility] UNSPECIFIED PODIATRY JOINT M7731 CALCANEAL 08-04-2015 [place] SPUR RIGHT MEDICAL FOOT IMAGING ASS T32009 PAIN IN 08-04-2015 [facility] RIGHT FOOT PODIATRY Z23 ENCOUNTER 07-22-2015 [facility] FOR PHYS[facility]IANS IMMUNIZATIO GROUP N B349 VIRAL [...] JANIS VIZCARRA GEN ORGN & MENSTRUAL CYCL M319FJU CONTUSION 06-26-2015 [facility] LOWER BACK PHYSICIANS, & PELVIS PLLC INITIAL ENCOUNTER E41IJLS UNSPECIFIED 06-26-2015 [facility] FALL [facility] INITIAL SERVICE ENCOUNTER Z043 ENCOUNTER 06-26-2015 [place] EXAM & MEDICAL OBSERVATION IMAGING ASS FOLLOW OTH ACCIDENT I455 OTHER 06-11-2015 [facility] SPECIFIED AMBULANCE HEART BLOCK SERVICE N761 SUBACUTE 06-08-2015 BRIANA BRUCE MD VAGINITIS Z10149 ENCOUNTER 06-08-2015 [facility] FOR OTHER [facility] PREPROCEDUR INC AL EXAMINATION N819 FEMALE 05-29-2015 BRIANA Hernandez GENITAL JANIS VIZCARRA PROLAPSE UNSPECIFIED N8329 OTHER 05-27-2015 [facility] OVARIAN PHYSICIANS, CYSTS PLLC R1084 GENERALIZED 05-27-2015 [place] ABDOMINAL MEDICAL PAIN IMAGING ASS Z959 PRESENCE 04-30-2015 [facility] CARDIAC & [facility] VASCULAR INC IMPLANT & GRAFT UNS N202 CALCULUS OF 04-13-2015 [facility] KIDNEY [facility] WITH INC CALCULUS OF URETER N3000 ACUTE 04-13-2015 [facility] CYSTITIS PHYSICIANS, WITHOUT PLLC HEMATURIA N390 URINARY 04-13-2015 [facility] TRACT PHYSICIANS, INFECTION PLL SITE NOT SPECIFIED R202 PARESTHESIA 04-13-2015 [facility] OF SKIN PHYSICIANS, [facility] I45159 PERSONAL 04-13-2015 [facility] HISTORY OF [facility] NICOTINE INC DEPENDENCE Y38524 PRESENCE OF 03-06-2015 [facility] OTHER [facility] VASCULAR INC IMPLANTS AND GRAFTS R9430 ABNORMAL 02-27-2015 [facility] RESULT CV LAR FUNCTION CONSULTANTS STUDY UNS O I459 CONDUCTION 02-26-2015 [facility] DISORDER [facility]ANCE UNSPECIFIED SERVICE J42 UNSPECIFIED 02-26-2015 [facility] R0600 DYSPNEA 02-26-2015 [facility] UNSPECIFIED LAR CONSULTANTS O Z881 ALLERGY 02-26-2015 [facility] STATUS TO REGIONAL OTHER MEDICAL ANTIBIOTIC AGENTS STATUS I272 OTHER 02-25-2015 [facility] P HYPERTENSIO N J410 SIMPLE 02-25-2015 [facility] P R55 SYNCOPE AND 02-25-2015 [facility] COLLAPSE [facility]ICIANS, [facility] J4520 MILD 02-23-2015 [facility]ITT[facility] [place] [facility] [place] [address] DEGEN 01-26-2015 [facility] LUMBAR/LUMB [facility] OSACRAL INC INTERVERTEB RAL DISC 7291 UNSPECIFIED 01-26-2015 [facility] MYALGIA [facility] AND INC MYOSITIS 9134 ELB 01-06-2015 [facility] FORARM&WRST PHYSICIANS, INSECT [facility] BITE NONVENOMOUS W/O INF 5990 URINARY 12-14-2014 [facility] TRACT [facility] INFECTION INC SITE NOT SPECIFIED 40472 OBSTRUCTIVE 12-05-2014 [facility] MEDICAL BRONCHITIS IMAGING ASS WITHOUT EXACERBAT 7862 COUGH 12-05-2014 [place] [facility] 13092 OTHER 12-05-2014 [place] NONSPECIFIC MEDICAL ABNORMAL IMAGING ASS FINDING OF LUNG FIELD 32211 EXTRINSIC 12-04-2014 [facility] ASTHMA, HOME UNSPECIFIED MEDICAL EQUIPME 54100 GEN 12-04-2014 [facility] OSTEOARTHRO HOME SIS MEDICAL INVOLVING EQUIPME MULTIPLE SITES 20002 PAIN IN 11-23-2014 [facility] JOINT, PHYSICIANS, LOWER LEG PLL 7245 UNSPECIFIED 11-23-2014 [facility] BACKACHE PHYSICIANS, [facility] 4919 UNSPECIFIED 11-12-2014 [facility] BRONCHITIS INC 7231 CERVICALGIA 10-31-2014 ATTILA GELLER MD,PSC 7295 PAIN IN 10-31-2014 ATTILA GELLER, TISSUES OF ,PSC LIMB 4139 OTHER AND 10-24-2014 [facility] UNSPECIFIED [facility] ANGINA INC PECTORIS 496 CHRONIC 10-24-2014 [facility] AIRWAY [facility] OBSTRUCTION INC NEC 88981 PAIN IN 10-24-2014 [place] JOINT, MEDICAL FOREARM IMAGING ASS 52464 CONTUSION 10-24-2014 [facility] OF HAND PHYSICIANS, [facility] 5641 IRRITABLE 10-07-2014 [facility] BOWEL PHYSICIANS SYNDROME GROUP 38189 OBSTRUCTIVE 10-02-2014 [facility] P WITH EXACERBATIO N 6929 CONTACT 10-02-[address] [facility] OTHER HOSPITAL P ECZEMA DUE UNSPEC CAUSE 16202 OTHER CHEST 10-02-2014 [facility] PAIN [facility] P 75499 CHEST PAIN 10-01-2014 [facility] UNSPECIFIED PHYSICIANS, [facility] 32063 ABDOMINAL 09-02-2014 [place] PA[place] RIGHT MEDICAL UPPER IMAGING ASS QUADRANT 490 BRONCHITIS 08-18-[address] [facility] [address] [facility] SPECIFIED HOSPITAL P ACUTE OR CHRONIC 7906 OTHER 08-18-[address] [place] [address] [facility] BLOOD [facility] P CHEMISTRY 6256 FEMALE 06-17-2014 BRIANA BRUCE MD INCONTINENC E 22991 INSOMNIA 06-03-2014 [facility] UNSPECIFIED PHYSICIANS GROUP 7831 ABNORMAL 06-03-2014 [facility] WEIGHT GAIN PHYSICIANS GROUP V5415 AFTERCARE 03-26-2014 [place] [facility] FRACTURE UPPER LEG V5489 OTHER 03-26-2014 [facility] AFTERCARE 29048 PAIN IN 02-21-2014 [place] JOINT MEDICAL PELVIC IMAGING ASS REGION AND THIGH 58326 COR 2014 [facility] ATHEROSLERO [facility] UNSPEC INC TYPE VESSEL [facility] [place] T V5869 LONG-TERM 02-12-2014 [facility] (CURRENT) DUYEN USE OF ,PSC OTHER MEDICATIONS V8281 SPECIAL 02-12-2014 [facility] SCREENING JOHNATHAN GELLER MD,PSC OSTEOPOROSI S 44565 CORONARY 02-11-2014 [place] [facility] ATHEROSCLER SERV OSIS [facility] [facility] [place] F[facility]ATION CORONARY ARTERY 462 ACUTE 02-07-2014 [facility]ERGENCY PHYS 19507 NAUSEA WITH 01-27-2014 [place] VOMITING MEDICAL IMAGING ASS 23137 ABDOMINAL 01-27-2014 [place] PAIN, MEDICAL UNSPECIFIED IMAGING ASS SITE 4019 UNSPECIFIED 12-18-2013 [facility] [place] ESSENTIAL DWI HYPERTENSIO N 76182 ASTHMA, 12-18-2013 [place] UNSPECIFIED DWI , UNSPECIFIED STATUS 82635 PRECORDIAL 12-18-2013 [facility] PAIN [facility]BULANCE SERVICE V7612 OTHER 10-22-2013 [facility] SCREENING [facility] MAMMOGRAM INC 7282 MUSCULAR 10-15-2013 [facility] WASTING AND DEN DISUSE ATROPHY NEC 56600 DISORDER OF 10-15-2013 [facility] BONE AND DEN CARTILAGE UNSPECIFIED 36269 OTHER 10-15-2013 [facility] MALAISE AND DEN FATIGUE 33045 OTHER 10-15-2013 [facility] GENERAL DEN SYMPTOMS 05835 NERVOUSNESS 10-15-2013 [facility] DEN 69588 ATTENTION 10-15-2013 [facility] OR DEN CONCENTRATI ON [...] INC 4739 UNSPECIFIED 09-12-2013 [facility] SINUSITIS CHRISTIN 75046 CHRONIC 09-12-2013 [facility] OBSTRUCTIVE [facility] ASTHMA INC UNSPECIFIED 29103 CHRONIC 09-12-2013 [facility] OBSTRUCTIVE CHRISTIN ASTHMA W/STATUS ASTHMATICUS 86927 SCOLIOSIS , 09-12-2013 [facility] IDIOPATHIC HENRY 86161 OTHER 09-12-2013 NICO[facility] DYSPNEA [place] [address] ESOPHAGEAL 09-11-2013 BRANDYN RFAIA REFLUX 3804 IMPACTED 08-22-2013 [facility] CERUMEN CHRISTIN 4660 ACUTE 08-22-2013 [facility] BRONCHITIS CHRISTIN 4770 ALLERGIC 08-22-2013 [facility] RHINITIS CHRISTIN DUE TO POLLEN 4778 ALLERGIC 08-22-2013 [facility] RHINITIS CHRISTIN DUE TO OTHER ALLERGEN 83315 CHRONIC 08-22-2013 [facility] OBSTRUCTIVE CHRISTIN ASTHMA WITH EXACERBATIO N 3555 TARSAL 08-05-2013 RODES CHANDA TUNNEL SYNDROME 7350 HALLUX 08-05-2013 RODES CHANDA VALGUS 7354 OTHER 08-05-2013 RODES CHANDA HAMMER TOE 5759 UNSPECIFIED 06-22-2012 NICOLE DISORDER HENRY OF GALLBLADDER 55815 ABDOMINAL 06-22-2012 [facility] PAIN RIGHT [facility] LOWER INC QUADRANT 486 PNEUMONIA, 06-07-2012 [facility] ORGANISM PAULA UNSPECIFIED 35982 DIVERTICULI 06-07-2012 [facility] TIS OF PAULA COLON 67214 DEHYDRATION 06-05-2012 BRAND[facility] RAFIA 42941 LEUKOCYTOSI 06-05-2012 [facility] RAFIA S UNSPECIFIED 5183 PULMONARY 06-05-2012 N[facility] EOSINOPHILI HENRY A 56953 FEVER 06-05-2012 [facility] UNSPECIFIED AMBULANCE SERVICE 95281 MIGRAINE 05-31-2012 [facility] UNSP W/O MELISA INTRACT W/O STATUS MIGRAINOSUS 7242 LUMBAGO 05-31-2012 [facility] MELISA 14947 SPASM OF 05-31-2012 [facility] MUSCLE MELISA 7292 UNSPECIFIED 05-31-2012 [facility] NEURALGIA MELISA NEURITIS AND RADICULITIS V5883 ENCOUNTER 05-31-2012 [facility] FOR MELISA THERAPEUTIC DRUG MONITORING 4772 ALLERGIC 04-17-2012 [facility] RHINITIS CHRISTIN DUE TO ANIMAL HAIR AND DANDER 7011 ACQUIRED 04-12-2012 RODES CHANDA KERATODERMA 45984 OTHER 04-12-2012 RODES CHANDA DISORDERS OF BONE AND CARTILAGE OTHER 23415 CONTUSION 04-12-2012 RODES CHANDA OF FOOT 9243 CONTUSION 01-31-2012 WEHRMAN III OF TOE PAULA 9599 INJURY 01-31-2012 [place] OTHER AND MEDICAL UNSPECIFIED IMAGING ASS UNSPECIFIED SITE 95665 OBESITY, 01-28-2012 NEHA EDWARDS UNSPECIFIED 88702 OSTEOARTHRO 11-03-2011 NE[facility] EDWARDS S INVLV MX SITES BUT NOT SPEC GEN 5999 UNSPECIFIED 09-28-2011 NE[facility] EDWARDS DISORDER OF URETHRA&URI NARY TRACT 80420 DIARRHEA 09-21-2011 [facility] ANT 7873 FLATULENCE 08-03-2011 [facility] ANT ERUCTATION AND GAS PAIN V642 SURG/OTH 07-31-2011 [facility] PROC NOT [facility] CARRIED OUT INC BECAUSE PTS DECN 4780 HYPERTROPHY 06-02-2011 [facility] OF NASAL ALLERGY & TURBINATES ASTHMA P 47012 EXTRINSIC 06-02-2011 COMMUN[facility] ASTHMA, ALLERGY & WITH ASTH[facility] P EXACERBATIO N V720 EXAMINATION 04-29-2011 [facility] ANG OF EYES AND VISION 26542 ENTHESOPATH 04-05-2011 [facility] Y OF H PODIATRY UNSPECIFIED SITE 7213 LUMBOSACRAL 03-30-2011 [facility] SPONDYLOSIS WITHOUT MYELOPATHY 7234 BRACHIAL 03-11-2011 [facility] NEURITIS OR [facility] INC RADICULITIS NOS 7244 THORACIC/SOFIA 03-11-2011 [facility] MBOSACRAL [facility] NEURITIS/RA INC DICULITIS UNSPEC 06611 PAIN IN 02-09-2011 [facility] JOINT, [facility] HOS[facility] MULTIPLE INC SITES 93094 MUSCLE 02-09-2011 [facility] WEAKNESS [facility] (GENERALIZE INC D) V727 DIAGNOSTIC 02-03-2011 [facility] SKIN AND CHRISTIN SENSITIZATI ON TESTS V5409 OTH 01-28-2011 [facility] [place] [facility] INVOLVING IMAGING ASS INTERNAL FIXATION DEVICE 562.11 Diverticuli [facility] [id number] Chronic [facility] Allergies, Adverse Reactions, Alerts Type Drug [...] PA 68 10 11 30 30 00 NM Ac RO 38 -0 -0 .0 00 L- ti XE 20 8- 3- 00 07 MA ve TI 00 20 20 50 RT NE 10 17 17 46 6 73 PH HC AR L MA 40 CY MG #5 91 TA BL ET DC 00 10 10 39 9 00 WA [...] FL 58 09 10 0. 1 00 NM Ac UA 16 -2 -2 50 00 [...] BR 00 09 10 60 30 00 NM Ac IL 18 -2 -2 .0 00 L- ti IN 60 5- 0- 00 07 MA ve TA 77 20 20 50 RT 76 17 17 46 90 0 71 PH AR MG MA CY TA BL #5 ET 91 SP 00 09 10 30 30 00 NM Ac IR 59 -2 -2 .0 00 L- ti IV 70 5- 0- 00 07 MA ve A 07 20 20 50 RT 18 54 17 17 48 1 65 PH MC AR G MA CP CY -H AN #5 DI 91 LOWERY LE R ME 00 09 10 30 30 00 NM Ac TO 37 -2 -2 .0 00 L- ti DC 80 5- 0- 00 07 MA ve OL 01 20 20 50 RT OL 80 17 17 46 1 72 PH TA AR RT MA RA CY TE #5 25 91 MG TA B OM 60 09 10 30 30 00 NM Ac EP 50 -2 -2 .0 00 L- ti RA 50 5- 0- 00 07 MA ve ZO 14 20 20 50 RT LE 60 17 [address] AR MA 40 CY MG #5 91 CA PS UL E IS 23 09 10 30 30 00 NM Ac OS 15 -2 -2 .0 00 L- ti OR 50 5- 0- 00 07 MA ve BI 17 20 20 50 RT DE 80 17 17 48 1 70 PH MN AR MA ER CY 60 #5 91 MG TA BL ET CE 16 09 10 30 30 00 NM Ac TI 57 -2 -2 .0 00 [...] AT 68 09 10 30 30 00 NM Ac OR 64 -2 -2 .0 00 [...] TR 50 08 09 30 30 00 NM Ac AZ 11 -1 -1 .0 00 [...] BR 00 08 09 60 30 00 NM Ac IL 18 -1 -1 .0 00 [...] NI 43 08 09 25 5 00 NM Ac TR 59 -1 -1 .0 00 L- ti OG 80 8- 5- 00 07 MA ve LY 43 20 20 50 RT CE 61 17 17 48 RI 1 67 PH N AR 0. MA 4 CY MG #5 TA 91 BL ET SL EQ 49 08 09 30 30 00 NM Ac 03 -1 -1 .0 00 L- ti 50 8- 5- 00 08 MA ve PI 46 20 20 84 RT RI 76 17 17 07 N 8 68 PH 81 AR MA MG CY CH #5 EW 91 AB LE TA B FL 60 08 16 30 00 NM Ac UT 43 -1 -1 .0 00 L- ti IC 20 8- 5- 00 07 MA ve 26 20 20 50 RT ON 41 17 17 48 E 5 66 PH DC AR OP MA CY 50 #5 MC 91 G SP RA Y SP 00 08 30 30 00 [facility] IR 59 -1 -1 .0 00 L- ti IV 70 8- 5- 00 07 MA ve A 07 20 20 50 RT 18 54 17 17 48 1 65 PH MC AR G MA CP CY -H AN #5 DI 91 LOWERY LE R CE 16 08 30 30 00 [facility] TI 57 -2 -1 .0 00 L- ti RI 10 0- 5- 00 08 MA ve ZI 40 20 20 84 RT NE 25 17 17 07 0 53 PH HC AR L MA 10 CY MG #5 91 TA BL ET PA 68 08 30 30 00 NM Ac RO 38 -2 -1 .0 00 L- ti XE 20 0- 5- 00 07 MA ve TI 00 20 20 50 RT NE 10 17 17 46 6 73 PH HC AR L MA 40 CY MG #5 91 TA BL ET LI 68 08 30 30 00 NM Ac SI 64 -2 -1 .0 00 L- ti NO 50 1- 5- 00 07 MA ve DC 55 20 20 50 RT IL 25 17 17 51 4 47 PH 10 AR MA MG CY TA #5 BL 91 ET CL 16 08 60 30 00 NM Ac ON 72 -1 -0 .0 00 [...] IS 23 08 09 30 30 00 NM Ac OS 15 -0 -0 .0 00 L- ti OR 50 4- 1- 00 07 MA ve BI 17 20 20 49 RT DE 80 17 17 33 1 53 PH MN AR MA ER CY 60 #5 91 MG TA BL ET ME 00 08 09 30 30 00 WA Ac TO 37 -0 -0 .0 00 L- ti DC 80 4- 1- 00 07 MA ve OL 01 20 20 49 RT OL 80 17 17 68 5 53 PH TA AR RT MA RA CY TE #5 25 91 MG TA B SP 00 08 09 4. 30 00 NM Ac IR 59 -0 -0 00 00 [...] TR 50 07 08 30 30 00 NM Ac AZ 11 -2 -1 .0 00 [...] ET MO 31 08 30 30 00 NM Ac NT 72 -1 -0 .0 00 L- ti EL 20 2- 4- 00 07 MA ve UK 72 20 20 49 RT 61 17 17 26 T 0 16 PH SO AR D MA 10 CY MG #5 91 TA BL ET IS 23 07 08 30 30 00 NM Ac OS 15 -0 -0 .0 00 L- ti OR 50 6- 4- 00 07 MA ve BI 17 20 20 49 RT DE 80 17 17 33 1 53 PH MN AR MA ER CY 60 #5 91 MG TA BL ET EQ 49 07 07 30 30 00 NM Ac 03 -0 -2 .0 00 L- [...] PA 68 06 07 30 30 00 NM Ac RO 38 -3 -2 .0 00 L- ti XE 20 0- 8- 00 07 MA ve TI 00 20 20 47 RT NE 10 17 17 42 6 92 PH HC AR L MA 40 CY MG #5 91 TA BL ET ME 00 11 18 30 30 00 NM Ac TO 37 -0 -2 .0 00 L- ti DC 80 5- 8- 00 07 MA ve OL 01 20 20 49 RT OL 80 17 17 68 5 53 PH TA AR RT MA RA CY TE #5 25 91 MG TA B SP 00 06 30 30 00 NM Ac IR 59 -2 -2 .0 00 L- ti IV 70 5- 1- 00 07 MA ve A 07 20 20 48 RT 18 54 17 17 08 1 47 PH MC AR G MA CP CY -H AN #5 DI 91 LOWERY LE R OM 60 06 30 30 00 NM Ac EP 50 -1 -1 .0 00 L- ti RA 50 9- 4- 00 07 MA ve ZO 14 20 20 49 RT LE 60 17 [address] AR MA 40 CY MG #5 91 CA PS UL E TR 50 06 30 30 00 NM Ac AZ 11 -1 -0 .0 00 L- ti OD 10 3- 7- 00 07 MA ve ON 43 20 20 48 RT E 30 17 17 69 50 1 03 PH AR MG MA CY TA BL #5 ET 91 BR 00 10 19 60 30 00 NM Ac IL 18 -1 -0 .0 00 L- ti IN 60 2 7- 00 07 MA ve TA 77 20 20 43 RT 76 17 17 60 90 0 75 PH AR MG MA CY TA BL #5 ET 91 MO 57 06 30 30 00 NM Ac NT 23 -0 -0 .0 00 L- ti EL 70 9- 7- 00 07 MA ve UK 25 20 20 49 RT 53 17 17 26 T 0 16 PH SO AR D MA 10 CY MG #5 91 TA BL ET CL 16 06 60 30 00 NM Ac ON 72 -0 -0 .0 00 L- ti AZ 90 9- 7- 00 04 MA ve EP 13 20 20 53 RT AM 71 17 17 05 1 6 95 PH AR MG MA CY TA BL #5 ET 91 00 10 19 30 30 00 NM Ac PI 90 -1 -0 .0 00 L- ti R- 47 2- 7- 00 08 MA ve LO 70 20 20 83 RT W 48 17 17 57 EC 0 52 PH AR 81 MA CY MG #5 TA 91 BL ET AT 68 06 07 30 30 00 NM Ac OR 64 -1 -0 .0 00 L- ti VA 50 2- 7- [address] 46 20 20 43 RT AT 15 17 17 60 IN 4 78 PH AR 80 MA CY MG #5 TA 91 BL ET ME 00 07 30 30 00 NM Ac TO 37 -1 -0 .0 00 L- ti DC 80 2- 7- 00 07 MA ve OL 01 20 20 43 RT OL 80 17 17 61 5 11 PH TA AR RT MA RA CY TE #5 25 91 MG TA B GA 00 06 07 90 30 00 NM Ac BA 22 -1 -0 .0 00 L- ti PE 82 2- 7- 00 07 MA ve NT 63 20 20 49 RT IN 71 17 17 28 1 97 PH 80 AR 0 MA MG CY TA #5 BL 91 ET IS 23 06 07 30 30 00 NM Ac OS 15 -1 -0 .0 00 L- ti OR 50 3- 7- 00 07 MA ve BI 17 20 20 49 RT DE 80 17 17 33 1 53 PH MN AR MA ER CY 60 #5 91 MG TA BL ET AM 00 06 06 30 30 00 NM Ac LO 37 -0 -3 .0 00 L- ti DI 85 2- 0- 00 07 MA ve PI 20 20 20 49 RT NE 90 17 17 13 5 87 PH BE AR SY MA LA CY TE 5 #5 91 MG TA B PA 68 06 30 30 00 NM Ac RO 38 -0 -3 .0 00 L- ti XE 20 2- 0- 00 07 MA ve TI 00 20 20 47 RT NE 10 17 17 42 6 92 PH HC AR L MA 40 CY MG #5 91 TA BL ET CE 16 06 30 30 00 NM Ac TI 57 -0 -3 .0 00 L- ti RI 10 2- 0- 00 08 MA ve ZI 40 20 20 83 RT NE 25 17 17 68 0 85 PH HC AR L MA 10 CY MG #5 91 TA BL ET NI 43 05 06 25 7 00 NM Ac TR 59 -3 -2 .0 00 L- ti OG 80 0- 3- 00 07 MA ve LY 43 20 20 49 RT CE 61 17 17 06 RI 1 69 PH N AR 0. MA 4 CY MG #5 TA 91 BL ET SL HY 00 05 06 [address] 40 -3 -2 .0 00 L- ti OC 60 0- 3- 00 02 MA ve OD 12 20 20 24 RT ON 30 17 17 05 -A 1 38 PH CE AR TA MA CO CY NO PH #5 EN 91 5- [...] BL #5 ET 91 LI 54 05 NM Ac SI 45 -1 -0 .0 00 L- ti NO 80 07 MA ve DC 99 20 20 43 RT IL 71 17 17 60 0 82 PH 10 AR MA MG CY TA #5 BL 91 ET AT 60 NM Ac OR 50 -1 -0 .0 00 L- ti VA [address] 67 20 20 43 RT AT 10 17 17 60 IN 9 78 PH AR 80 MA CY MG #5 TA 91 BL ET ME 00 NM Ac TO 37 -1 -0 .0 00 L- ti DC 80 07 MA ve OL 01 20 20 43 RT OL 80 17 17 61 5 11 PH TA AR RT MA RA CY TE #5 25 91 MG TA B IS 23 NM Ac OS 15 -1 -0 .0 00 L- ti OR 50 07 MA ve BI 17 20 20 45 RT DE 80 17 17 10 1 79 PH MN AR MA ER CY 60 #5 91 MG TA BL ET GA 00 00 NM Ac BA 22 -1 -0 .0 00 [...] CL 16 05 06 60 30 00 NM Ac ON 72 -0 -0 .0 00 L- ti AZ 90 9- 2- 00 04 MA ve EP 13 20 20 53 RT AM 71 17 17 02 1 6 87 PH AR MG MA CY TA BL #5 ET 91 OM 60 04 30 30 00 NM Ac EP 50 -2 -1 .0 00 L- ti RA 50 1- 9- 00 07 MA ve ZO 14 20 20 48 RT LE 60 17 [address] AR MA 40 CY MG #5 91 CA PS UL E AT 68 04 30 30 00 NM Ac OR 64 -1 -1 .0 00 L- ti VA 50 8- 2- [address] 46 20 20 43 RT AT 15 17 17 60 IN 4 78 PH AR 80 MA CY MG #5 TA 91 BL ET IS 23 04 30 30 00 NM Ac OS 15 -1 -1 .0 00 L- ti OR 50 8- 2- 00 07 MA ve BI 17 20 20 45 RT DE 80 17 17 10 1 79 PH MN AR MA ER CY 60 #5 91 MG TA BL ET ME 00 04 30 30 00 NM Ac TO 37 -1 -1 .0 00 L- ti DC 80 8- 2- 00 07 MA ve [...] LI 68 04 05 30 30 00 NM Ac SI 18 -1 -1 .0 00 L- ti NO 00 8- 2- 00 07 MA ve DC 51 20 20 43 RT IL 40 [...] 17 17 29 E 1 48 PH DC AR OP MA CY 50 #5 MC 91 G SP RA Y PA 68 04 05 30 30 00 NM Ac RO 38 -0 -0 .0 00 L- ti XE 20 9- 5- 00 07 MA ve TI 00 20 20 47 RT NE 10 17 17 42 6 92 PH HC AR L MA 40 CY MG #5 91 TA BL ET CE 16 04 05 30 30 00 NM Ac TI 57 -0 -0 .0 00 L- ti RI 10 9- 5- 00 08 MA ve ZI 40 20 20 83 RT NE 25 17 17 68 0 85 PH HC AR L MA 10 CY MG #5 91 TA BL ET CL 16 04 05 60 30 00 NM Ac ON 72 -0 -0 .0 00 L- ti AZ 90 6- 5- 00 04 MA ve EP 13 20 20 52 RT AM 71 17 17 99 1 6 24 PH AR MG MA CY TA BL #5 ET 91 SP 00 04 05 30 30 00 NM Ac IR 59 -0 -0 .0 00 L- ti IV 70 6- 5- 00 07 MA ve A 07 20 20 48 RT 18 54 17 17 08 1 47 PH MC AR G MA CP CY -H AN #5 DI 91 LOWERY LE R ME 00 03 04 30 30 00 NM Ac TO 37 -2 -1 .0 00 L- ti DC 80 1- 4- 00 07 MA ve OL 01 20 20 43 RT OL 80 17 17 61 5 11 PH TA AR RT MA RA CY TE #5 25 91 MG TA B BR 00 03 04 60 30 00 NM Ac IL 18 -2 -1 .0 00 L- ti IN 60 1- 4- 07 MA ve TA 77 20 20 43 RT 76 17 17 60 90 0 75 PH AR MG MA CY TA BL #5 ET 91 LI 54 03 04 30 30 00 WA Ac SI 45 -2 -1 .0 00 L- ti NO 80 1 4- 07 MA ve DC 99 20 20 43 RT IL 71 [...] FL 60 03 04 16 30 00 NM Ac UT 43 -2 -1 .0 00 L- ti IC 20 1 07 MA ve 26 20 20 44 RT ON 41 17 17 78 E 5 07 PH DC AR OP MA CY 50 #5 MC [...] GA 00 03 04 90 30 00 NM Ac BA 22 -2 -1 .0 00 [...] 37 -2 -2 .0 00 L- ti DC 80 3- 4- 00 07 MA ve OL 01 20 20 43 RT OL 80 17 17 61 5 11 PH TA AR RT MA RA CY TE #5 25 91 MG TA B LI 54 02 03 30 30 00 WA Ac SI 45 -2 -2 .0 00 L- ti NO 80 3- 4- 00 07 MA ve DC 99 20 20 43 RT IL 71 [...] 17 17 78 E 1 07 PH DC AR OP MA CY 50 #5 MC [...] E MO 54 02 30 30 00 NM Ac NT 45 -0 -0 .0 00 L- ti EL 80 3- 3- 00 07 MA ve UK 89 20 20 46 RT 01 17 17 85 T 0 23 PH SO AR D MA 10 CY MG #5 91 TA BL ET ME 00 02 30 30 00 WA Ac TO 37 -2 -2 .0 00 L- ti DC 80 8- 4- 00 07 MA ve [...] 80 8- 4- 00 07 MA ve DC 99 20 20 43 RT IL 71 [...] 17 17 78 E 5 07 PH DC AR OP MA CY 50 #5 MC [...] 80 0- 3- 00 07 MA ve DC 99 20 20 43 RT IL 71 [...] 37 -0 -2 .0 00 L- ti DC 80 2- 7- 00 07 MA ve [...] ET PA 68 12 30 30 00 NM Ac RO 38 -1 -2 .0 00 L- ti XE 20 5- 0- 00 07 MA ve TI 00 20 20 45 RT NE 10 16 17 84 6 50 PH HC AR L MA 40 CY MG #5 91 TA BL ET NI 43 12 01 28 28 00 NM Ac CO 59 -1 -2 .0 00 L- ti TI 80 6- 0- 00 08 MA ve NE 44 20 20 83 RT 82 16 17 73 21 8 60 PH AR MG MA /2 CY 4H R #5 PA 91 TC H OM 57 12 30 30 00 NM Ac EP 23 -0 -1 .0 00 L- ti RA 70 9- 3- 00 07 MA ve ZO 16 20 20 45 RT LE 23 16 17 [address] AR MA 40 CY MG #5 91 CA PS UL E IS 23 12 06 13 30 00 NM Ac OS 15 -1 -1 .0 00 L- ti OR 50 4- 3- 00 07 MA ve BI 17 20 20 45 RT DE 80 16 17 10 1 79 PH MN AR MA ER CY 60 #5 91 MG TA BL ET ME 00 12 30 30 00 NM Ac TO 37 -0 -0 .0 00 L- ti DC 80 2- 9- 00 07 MA ve OL 01 20 20 43 RT OL 80 16 17 61 5 11 PH TA AR RT MA RA CY TE #5 25 91 MG TA B LI 68 12 06 13 30 00 NM Ac SI 18 -0 -0 .0 00 L- ti NO 00 3- 9- 00 07 MA ve DC 51 20 20 43 RT IL 40 16 17 60 1 82 PH 10 AR MA MG CY TA #5 BL 91 ET CE 16 12 30 30 00 NM Ac TI 57 -0 -0 .0 00 [...] Ac ti ti lowery ve le r DC 00 10 0 No ED 05 -1 NI 40 7- Lo SO 01 20 ng NE 82 13 er 0 20 Ac ti MG ve TA BL ET AL 67 10 10 2 90 30 EA 24 AR Ac DC 25 -2 -[address] 65 NO [...] 8- 8- 00 MA 73 LE ve DC 34 20 20 RT 5 ET AM [...] Procedures Procedure DOS Code Location Performer Comment [facility] [id number] [place] 1 5 [facility] DEVC PERQ Encounters Encounter Start End Date Code Location Performer Type Date [facility] - 7 7 [facility] OUT[facility] [place] [facility] 7 [facility] [place] [facility] [place] [facility] [place] [facility] [place] [facility] [place] [facility] [place] [facility] [place] [facility] [place] [facility] [place] - 7 7 [facility] [place] [facility] 6 6 [facility] [place] [facility] 6 [facility] [place] [facility] 6 6 [facility] [place] [facility] 6 [facility] - 6 6 [facility] [place] - 6 6 [facility] [place] [facility] 6 6 [facility] [place] [facility] 6 6 [facility] [place] [facility] 6 6 [facility] [place] - 6 6 [facility] [place] - 5 5 [facility] [place] - 5 5 [facility] [place] - 5 5 [facility] - 5 5 [facility] [place] - 5 5 [facility] [place] [facility] 5 5 [facility] [place] [facility] 5 5 [facility] [place] - 5 5 [facility] [place] - 5 5 [facility] [place] [facility] 5 5 [facility] [place] - 5 5 [facility] [place] [facility] 5 5 [facility] [place] [facility] 5 5 [facility] [place] [facility] 5 5 [facility] [place] [facility] 5 5 [facility] [place] [facility] 5 5 [facility] [place] [facility] 5 5 [facility] [place] - 5 5 [facility] - 4 4 [facility] [place] - 4 4 [facility] [place] - 4 4 [facility] [place] - 4 4 [facility] [place] [facility] 4 4 [facility] [place] [facility] 4 4 [facility] [place] [facility] 4 4 [facility] [place] - 4 4 [facility] Emergency WILI MIGUEL DO (ER) 4 15:52 4 17:03 [facility] Emergency WILI Bowman MD (ER) 3 20:50 3 21:33 [facility] [place] - 3 3 [facility] [place] - 3 3 [facility] [place] - 2 2 [facility] [place] - 2 2 [facility] [place] - 1 1 [facility] 1 1 [facility] [place] - 1 1 [facility] [place] - 1 1 [facility] [place] - 1 1 [facility]
--- NOTE | 2017-03-20 09:45 | Urgent Treatment Center Report ---
History of Present Issue Date/Time Seen by Provider 03/20/17 0930 Visit Reason Pt arrived:Walked Presenting Problem:PT C/O OF RIGHT ANKLE PAIN FOR A WEEK. STATES SHE FELL IN A HOLE IN THE YARD. Location if Accident:Home Onset of symptoms date/time:/ or onset unknown for:MEDICAL HX UNKNOWN Have you (or family members/close friends) recently traveled outside the [place]? N If Yes, where/when: Have you had exposure to infectious disease within the past month? TB? Other? Specify: c/o persistant right ankle pain and swelling following falling in a hole and twisting right ankle 3 weeks ago. Saw PCP's office, Silvia Greenfield NP. Xray right foot and ankle negative. Rest, aliyah wrap, elevation not helping. Reports she can' t take NSAIDs and reports a hx of neuropathy. Hasn't called PCP "for fear that they would be mad at me for making too many appointments". Source patient Exam Limitations no limitations ALLERGIES Coded Allergies: Sulfa (Sulfonamide Antibiotics) (01/31/17) Home Medications Active Scripts RANOLAZINE (RANEXA) 500 MG PO BID #60 TAB Ref 2 Prov: 12/30/16 Trazodone Hcl (Trazodone HCl) 50 MG PO QHS #30 TAB Prov: 12/30/16 ALBUTEROL-IPRATROPIUM (Iprat-Albut 0.5-3(2.5) MG/3 Ml) 3 ML IH Q2HP PRN COPD #360 Prov: 12/30/16 Ticagrelor (Brilinta) 90 MG PO BID #60 TAB Ref 6 Prov: 12/30/16 Aspirin 81 MG PO DAILY 30 Days Prov: 12/30/16 Atorvastatin Calcium 80 MG PO QHS #30 TAB Prov: 12/30/16 Metoprolol Tartrate (Lopressor) 12.5 MG PO BID #30 TAB Prov: 12/30/16 NITROGLYCERIN (Nitrostat) 0.4 MG SL [id number] PRN NEEDED FOR CHEST PAIN #25 Ref 2 Prov: 12/30/16 Isosorbide Mononitrate (Isosorbide Mononitrate ER) 60 MG PO DAILY #30 Prov: 12/30/16 Gabapentin (Gabapentin 800MG) 800 MG PO Q8 #90 TAB Prov: 12/30/16 Omeprazole (Omeprazole 40MG) 40 MG PO DAILY #30 Prov: 12/30/16 Tiotropium [place] (Spiriva) 1 PUFF IH DAILY #30 Ref 1 Prov: 12/30/16 Cetirizine Hcl (Zyrtec) 10 MG PO DAILY #30 CAPSULE Ref 1 Prov: 12/30/16 PAROXETINE (Paroxetine HCl) 40 MG PO DAILY #30 TAB Ref 2 Prov: 12/30/16 Montelukast Sodium (Singulair 10MG) 10 MG PO DAILY #30 TAB Ref 2 Prov: 12/30/16 Fluticasone Propionate (Flonase 50 Mcg Nasal [place]) 1 SPRAY NA DAILYP PRN ALLERGIES #2 Ref 2 Prov: 12/30/16 Clonazepam (Clonazepam 1MG) 1 MG PO BID #60 TAB Prov: 12/30/16 CEFDINIR (Cefdinir) 300 MG PO BID #20 CAP Prov: 02/13/17 Prednisone (Prednisone 5MG) 5 MG PO DIRECTED #39 TAB Prov: 02/13/17 History Medical History General CAD? Yes Angina: Yes AR: Yes Hypertension? Yes Hyperlipidemia? Yes CHF? No DVT? No PE? No COPD? Yes Asthma? Yes Anemia? No GERD? Yes Gastric ulcers? No GI Bleed? No Hernia? No Thyroid Problems? No Hypothyroidism? No CVA? No Seizures? No Diabetes? No Insulin Dependent: No Insulin Pump: No Home FSBS? No Renal Insuffiency? Yes UTI? Yes Stones? No BPH? No GB Disease: Yes Nephritic Syndrome? No Asplenia? No Hepatitis? No Sickle Cell Disease? No Arthritis? Yes Migraines? Yes Cataracts? No Glaucoma? No MRSA? No HIV? No TB? No Anxiety? Yes Depression? Yes Cancer? Yes Site: CERVICAL More? Yes Additional hx: NEUROPATHY, BIPOLAR, FIBROMYLGIA, ENDOMETRIOSIS Immunization HX DT/Tetanus 5-10 Years Ago Flu 2015- Flu Season Pneumonia Received In Past Surgical Hx Previous Surgery?Y [place] FEET ORAL EXTRACTION W/RODS 2 KIDNEY SURGERIES 2 C -SECTION Hysterectomy-Partial Appendectomy [facility] LT FEMUR HEART STENTS X7 LEEP OPEN HEART SURGERY 09/27 [facility]ENTS [facility] Family History Family HX Diabetes Yes CAD Yes Hypertension Yes Hyperlipidemia Yes Cancer Yes TB No Social History Smoking Hx Smoker: Current Every Day Smoker Tobacco: Yes Type Cigarettes Packs/day 1 1/2 - 2 Packs Alcohol Alcohol: No Review of Systems All Other Systems Reviewed and Negative (as appropriate for CC) Constitutional denies fever Musculoskeletal see HPI Skin change in color (ecchymosis) Psychiatric/Neurological denies other (no new N/T) Physical Exam Vital Signs Vital Signs Date Time Temp Pulse Resp B/P Pulse O2 O2 Flow FiO2 Ox Delivery Rate 03/20 0931 98.6 69 20 159/93 94 General Appearance no apparent distress, obese, unkept appearance Respiratory Status No: respiratory distress. Cardiovascular no peripheral edema Peripheral Pulses Pulses normal Yes (PT/DP) Back gait abnormality (limp favoring right foot) Extremities limited range of motion (right ankle), moderate swelling right lateral malleous w/ mild medial malleous, moderate swelling throughout right foot, moderate tenderness right ankle lateral and medial malleous, no anterior or posterior pain; no TTP throughout foot, feet filthy w/ significant calluses, pt wearing fuzzy house shoes Neurologic alert, no motor/sensory deficits Skin warm/dry, bruising (right anterior distal lowerleg) Medical Decision Making LABS/Meds/Orders Pt receiving controlled substance in ED? No Results/Orders Orders Procedure Date/time Status STABILIZE JOINT 03/20 0939 Active XRAY/CT/US XRAY/CT/US Comment Rvwd previous right foot and right ankle xray ordered by Silvia Greenfield NP. Final reading negative for acute fracture on both Consult MD Physician Consult Consult/PCP Silvia Greenfield NP (PCP office) Time Called 0935 Reason Pt. Condition Comments Aware of current symptoms and exam. Agrees w/ plan for walking boot and referral to Dr. Prudence DPM Departure Departure Time of Disposition 0941 Disposition DC Home or Self Care(routine) Clinical Impression Primary Impression: Right ankle sprain Qualifiers: Encounter type: sequela Involved ligament of ankle: unspecified ligament Qualified Code: S93.401S - Sprain of unspecified ligament of right ankle, sequela Condition STABLE Referrals YINA SARAVIA DPM Already spoke to Brianne in Dr. Saravia's office. Pt to stop by office on way out of hospital and schedule follow up appointment. Patient Instructions DI for Ankle Sprain, How to Use a Walking Boot Additional Instructions * Rest * ice 15-20 mins 3-4 times a day * walking boot for support and swelling unless in shower. Be sure not too tight but not too loose either * Elevate as discussed as much as possible to help reduce swelling and therefore , pain * Follow up with Dr. saravia Discharge Counseling Counseled pt/family regarding diagnosis, medications/RX, home care, follow up needs at [phone]
--- OUTSIDE RECORDS SUMMARY | 2017-03-20 09:49 | External Medical Summary Rpt | CCD ---
Author Author , RYLIE RITTERDOT Address Unknown Phone [email or web address] [email or web address] Care Fitter / Welder Name Role Phone [facility] [place], Unavailable Unavailable [facility] [place] [facility] Unavailable Unavailable PSC, [facility] ARNOLD GRACE, ARNOLD Unavailable Unavailable GRACE ATTILA GELLER, Unavailable Unavailable ,IOANA, ATTILA GELLER MD,PSC ZOYA ANT, ZOYA ANT Unavailable Unavailable [facility] Unavailable Unavailable SERVICE, [facility]ASCULAR Unavailable Unavailable CONSULTANTS O, [facility], Unavailable Unavailable [facility] Unavailable Unavailable [facility]ATRY, [facility] & Unavailable Unavailable [facility] P, [facility] NICOLE HENRY, Unavailable Unavailable NICOLE HENRY [facility] Unavailable Unavailable [place], [facility] [place] [facility] Unavailable Unavailable ASSOCIATES, [facility] FRANCK JUÁREZ Unavailable Unavailable FARZAD MELISA, Unavailable Unavailable FARZAD MELISA BRANDYN RAFIA, BRANDYN Unavailable Unavailable RAFIA BRIANA BRUCE MD, Unavailable Unavailable BRIANA MOORE, JANIS Unavailable Unavailable [facility] Unavailable Unavailable INC, [facility] Unavailable Unavailable HOSPITAL, [facility] Unavailable Unavailable HOSPITAL P, [facility] P [facility], [facility]available Unavailable [facility], Unavailable Unavailable [facility] Unavailable Unavailable IMAGING ASS, [facility] Unavailable Unavailable MEDICAL G, [facility] Un[facility], [facility] RICKY JR DWI, RICKY Unavailable Unavailable JR DWI [facility] Unavailable Unavailable INTERNAL MED, [facility] LIZ HAM, LIZ HAM Unavailable Unavailable FADIA CHRISTIN, Unavailable Unavailable FADIA MITCHELL, Unavailable Unavailable VERO MITCHELL [facility] Unavailable Unavailable MEDICAL, [facility]ICAL [facility], Unavailable Unavailable [facility], Unavailable Unavailable PLLC, [facility], Unavailable Unavailable [facility] RODES CHANDA, RODES CHANDA Unavailable Unavailable SCIFRES, SCIFRES Unavailable Unavailable SCIFRES ANG, SCIFRES Unavailable Unavailable ANG [facility] Unavailable Unavailable [facility], [facility] Un[facility], [facility] Unavailable Unavailable HOSPITALS, [facility], Unavailable Unavailable [facility] # Unavailable Unavailable [id number], [facility] # [id number] WEHRMAN III PAULA, Unavailable Unavailable WEHRMAN III PAULA [facility], Unavailable Unavailable [facility] Purpose Continuity of Care Document - 01-19-2011 through 2016 Problems Code Diagnosis DOS Provider Status I340 NONRHEUMATI 02-01-2017 [facility] INSUFFICIEN CY I351 NONRHEUMATI 02-01-2017 [facility] AORTIC [facility] INSUFFICIEN CY I361 NONRHEUMATI 02-01-2017 [facility] TRICUSPID SERV [facility] INSUFFICIEN CY N79364 OTHER 02-01-2017 [facility] SYMPTOMS & SERV SIGNS [facility]OUND[facility] INVOLVING THE NS I10 ESSENTIAL 01-31-2017 [facility] N I2510 [facility]D [place] [facility] [place] 01-31-2017 CORONARY HEALTHCARE ARTERY W/O HOSPITALS ANGINA PECT[place]IS I252 OLD 01-31-2017 [facility] INF[facility]CTION [facility] I639 CEREBRAL 01-31-2017 [facility] UNSPECIFIED [facility]OUNDATION T29562 OTH S&S 01-31-2017 [facility] COGNITIVE SERVICE FUNCT FLW CEREB INFARCT K219 GASTRO-ESOP 01-31-2017 H [facility] DISEASE HOSPITALS WITHOUT ESOPHAGITIS R200 ANESTHESIA 01-31-2017 [place] OF [facility] [id number] NGHIA 01-31-2017 [facility] COMA SCALE [place] SCORE 9-12 UNSPECIFIED TIME R471 DYSARTHRIA 01-31-2017 AND [facility] ANARTHRIA [facility] R4781 SLURRED 01-31-2017 [place] SPEECH [facility] R9431 ABNORMAL 01-31-2017 [place] [facility] ELECTROCARD SERV IOGRAM [facility] Z743 NEED FOR 01-31-2017 [facility] CONTINUOUS [place] SUPERVISION Z9861 CORONARY 01-31-2017 ANGIOPLASTY HEALTHCARE STATUS HOSPITALS E785 HYPERLIPIDE 01-24-2017 [facility] IBARRA [facility] UNSPECIFIED INC I119 HYPERTENSIV 01-24-2017 [facility] E HEART [facility] DISEASE INC WITHOUT HEART FAILURE J449 CHRONIC 01-24-2017 [facility] OBSTRUCTIVE [facility] PULMONARY INC DISEASE UNS Z720 TOBACCO USE 01-24-2017 [facility] R0602 SHORTNESS 12-29-2016 [place] OF BREATH MEDICAL IM[facility]ING ASS R079 CHEST PAIN 12-29-2016 [place] UNSPECIFIED MEDICAL IMAGING ASS R5383 OTHER 12-29-2016 [place] FAT[facility]UE [facility] R9439 ABNORMAL 12-29-2016 [facility] RESULT OTH PHYSICIANS CARDIOVASCU GROUP LR FUNCTION STUDY Z955 PRESENCE OF 12-29-2016 [facility] CORONARY PHYSICIANS ANGIOPLASTY GROUP IMPLANT & GRAFT E119 TYPE 2 12-28-2016 [facility] DIABETES FABER MELLITUS INTERNAL WITHOUT MED COMPLICATIO NS W44146 PAIN IN 12-27-2016 [facility] RIGHT [facility] SHOULDER INC P12622 PAIN IN 12-27-2016 [facility] LEFT KNEE [facility] INC M542 CERVICALGIA 12-27-2016 [facility] INC M7061 TROCHANTERI 12-27-2016 [facility] C BURSITIS [facility] RIGHT HIP INC Q53818 PAIN IN 11-04-2016 [facility] LEFT FOOT VALLEY INTERNAL MED Z0000 ENCOUNTER 11-04-2016 [facility] GEN ADULT [facility]ER MED EXAM INTERNAL W/O MED ABNORMAL FIND M7989 OTHER 10-29-2016 [place] SPECIFIED MEDICAL SOFT TISSUE IMAGING ASS DISORDERS S36417F UNSPECIFIED 10-29-2016 [facility] SPRAIN [facility] LEFT FOOT INC INITIAL ENCOUNTER C445HCL STRAIN 10-09-2016 [facility] MUSCLE FASC [facility] & TENDON INC NECK LEVL INIT ENC [id number] CONTUSION 10-09-2016 [facility] UNS FRONT [facility] WALL THORAX INC INITIAL ENCNTR I208 OTHER FORMS 08-23-2016 [facility] OF ANGINA PHYSICIANS PECTORIS GROUP I200 UNSTABLE 07-15-2016 [facility] ANGINA PHYSICIAN GROUP V86839 [facility]D [place] [facility] [place] 07-15-2016 [facility] COR ART PHYSICIAN W/UNSTABLE GROUP ANGINA [place] R76568 ASHD [place] [facility] [place] 07-15-2016 [facility] COR ARTREY [facility] W/UNS INC ANGINA PECTORIS Z951 PRESENCE OF 07-15-2016 [facility] AORTOCORONA INC RY BYPASS GRAFT H5213 MYOPIA 06-30-2016 [facility] BILATERAL J441 CHRONIC 06-27-2016 [facility] OBSTRUCTIVE FABER PULMONARY INTERNAL DZ MED W/EXACERBAT ION R0789 OTHER CHEST 06-27-2016 [facility] PAIN [facility] INC R064 HYPERVENTIL 06-09-2016 [facility] J029 ACUTE 03-18-2016 [facility] PHARYNGITIS PHYSICIANS, [facility] UNSPECIFIED J209 ACUTE 03-18-2016 [facility] BRONCHITIS [facility] UNSPECIFIED INC A75599 ASHD [place] [facility] [place] 02-03-2016 [facility] COR ART PHYSICIANS W/OTH FORMS GROUP ANGINA PECTORIS M797 FIBROMYALGI 02-03-2016 [facility] Z8679 PERSONAL 02-03-2016 [facility] HISTORY OTH ASSOCIATES DISEASES CIRCULATORY SYSTEM R072 PRECORDIAL 02-02-2016 [facility] PAIN PHYSICIANS, [facility] H17684 PAIN IN 01-16-2016 [facility] RIGHT ANKLE PHYSICIANS, [facility] [id number] SPRAIN 12-31-2015 [facility] UNSPEC PHYSICIAN LIGAMENT GROUP RIGHT ANKLE INITIAL ENC G479 SLEEP 12-30-2015 [facility] DISORDER PHYSICIANS UNSPECIFIED GROUP M549 DORSALGIA 12-30-2015 [facility] UNSPECIFIED PHYSICIANS GROUP I214 NON-ST 12-24-2015 [facility] ELEVATION PHYSICIANS MYOCARDIAL GROUP INFARCTION J43111 ATHEROSCLER 12-24-2015 [facility] OSIS CABG PHYSICIANS UNS UNSTABL GROUP ANGINA P[place] V62689 ATHEROSCLER 12-24-2015 [facility] CABG [facility] P ANGINA PECTORIS E118 TYPE 2 12-23-2015 [facility] DIABETES PHYSICIANS MELLITUS GROUP W/UNS COMPLICATIO NS I209 ANGINA 12-23-2015 [facility] PECTORIS PHYSICIANS UNSPECIFIED GROUP Z9119 PATIENTS 12-23-2015 [facility] NONCOMPLIAN PHYSICIANS CE W/OTH GROUP MED TX & REGIMEN A06782 OTHER LONG 12-07-2015 [facility] TERM PHYSICIANS CURRENT GROUP DRUG THERAPY J87505 PRESENCE OF 12-07-2015 [facility] OTHER PHYSICIANS CARDIAC GROUP IMPLANTS AND GRAFTS I2582 CHRONIC 12-02-2015 [facility] T[facility] OCCLUSION FOUNDATION OF CORONARY ARTERY G8929 OTHER 12-01-2015 [place] [facility] CHRONIC [facility] PAIN FOUNDATION R001 BRADYCARDIA 12-01-2015 [facility] UNSPECIFIED FOUNDATION I510 CARDIAC 11-30-2015 [facility] SEPTAL [facility] DEFECT FOUNDATION ACQUIRED I517 CARDIOMEGAL 11-30-2015 [facility] Y SERV [facility] R7989 OTHER SPEC 11-13-2015 [facility] ABNORMAL PHYSICIANS, FINDINGS [facility] BLOOD CHEMISTRY L0390 CELLULITIS 10-10-2015 [facility] UNSPECIFIED PHYSICIANS, 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 J9811 ATELECTASIS 09-30-2015 [facility] [place] [facility] R0989 OTH SPEC SX 09-30-2015 [facility] SIGNS AMBULANCE INVLV THE SERVICE CIRC & RESP SYS L24253 ENCOUNTER 09-29-2015 [facility] FOR PHYSICIANS PREPROCEDUR GROUP AL CARIOVASCUL AR EXAM E663 OVERWEIGHT 09-04-2015 [facility] PHYSICIANS GROUP J40 BRONCHITIS 09-03-2015 [facility] NOT PHYSICIANS, SPECIFIED PLLC ACUTE OR CHRONIC R05 COUGH 09-03-2015 [place] [facility] S43458P LAC W/O FB 08-12-2015 [facility] RT INDEX [...] 08-04-2015 [facility] M2011 HALLUX 08-04-2015 [place] VALGUS [facility]ICAL ACQUIRED IMAGING ASS RIGHT FOOT M2041 OTHER 08-04-2015 [place] HAMMER TOES MEDICAL ACQUIRED IMAGING ASS RIGHT FOOT M2570 OSTEOPHYTE 08-04-2015 PROGR[facility]IVE UNSPECIFIED PODIATRY JOINT M7731 CALCANEAL 08-04-2015 [place] SPUR RIGHT MEDICAL FOOT IMAGING ASS N00303 PAIN IN 08-04-2015 PRO[facility] RIGHT FOOT PODIATRY Z23 ENCOUNTER 07-22-2015 [facility] FOR PHYSICIANS IMMUNIZATIO GROUP N B349 [...] N9489 OTH COND 06-30-2015 BRIANA Hernandez ASSOC W/ANN BRUCE MD GEN ORGN & MENSTRUAL CYCL P036HRK CONTUSION 06-26-2015 [facility] LOWER BACK PHYSICIANS, & PELVIS PLLC INITIAL ENCOUNTER J34RIOG UNSPECIFIED 06-26-2015 [facility] FALL AMBULANCE INITIAL SERVICE ENCOUNTER Z043 ENCOUNTER 06-26-2015 [place] EXAM & MEDICAL OBSERVATION IMAGING ASS FOLLOW OTH ACCIDENT I455 OTHER 06-11-2015 [facility] HEART BLOCK SERVICE N761 SUBACUTE 06-08-2015 BRIANA Hernandez AND ISABELLA BRUCE MD VAGINITIS U55331 ENCOUNTER 06-08-2015 [facility] FOR OTHER [facility] PREPROCEDUR INC AL EXAMINATION N819 FEMALE 05-29-2015 BRIANA Hernandez GENITAL JANIS VIZCARRA PROLAPSE UNSPECIFIED N8329 OTHER 05-27-2015 [facility] OVARIAN PHYSICIANS, CYSTS PLLC R1084 GENERALIZED 05-27-2015 [place] ABDOMINAL MEDICAL PAIN IMAGING ASS Z959 PRESENCE 04-30-2015 [facility] CARDIAC & [facility] VASCULAR INC IMPLANT & GRAFT UNS N202 CALCULUS OF 04-13-2015 [facility] KIDNEY [facility] WITH INC CALCULUS OF URETER N3000 ACUTE 04-13-2015 [facility] CYSTITIS PHYSICIANS, WITHOUT PLLC HEMATURIA N390 URINARY 04-13-2015 [facility] TRACT PHYSICIANS, INFECTION [facility] SITE NOT SPECIFIED R202 PARESTHESIA 04-13-2015 [facility] OF SKIN PHYSICIANS, [facility] J59399 PERSONAL 04-13-2015 [facility] HISTORY OF [facility]OS[facility] NICOTINE INC DEPENDENCE I25291 PRESENCE OF 03-06-2015 [facility] OTHER [facility] VASCULAR INC IMPLANTS AND GRAFTS R9430 ABNORMAL 02-27-2015 [facility] RESULT CV LAR FUNCTION CONSULTANTS STUDY UNS O I459 CONDUCTION 02-26-2015 [facility] DISORDER AMBULANCE UNSPECIFIED SERVICE J42 UNSPECIFIED 02-26-2015 [facility] R0600 DYSPNEA 02-26-2015 [facility] UNSPECIFIED LAR CONSULTANTS O Z881 ALLERGY 02-26-2015 [facility] STATUS TO REGIONAL OTHER MEDICAL ANTIBIOTIC AGENTS STATUS I272 OTHER 02-25-2015 [facility] P HYPERTENSIO N J410 SIMPLE 02-25-2015 [facility] P R55 SYNCOPE AND 02-25-2015 [facility] COLLAPSE PHYSICIANS, [facility] J4520 MILD 02-23-2015 [facility] [place] [address] DEGEN 01-26-2015 [facility] LUMBAR/LUMB [facility] OSACRAL INC INTERVERTEB RAL DISC 7291 UNSPECIFIED 01-26-2015 [facility] MYALGIA [facility] AND INC MYOSITIS 9134 ELB 01-06-2015 [facility] FORARM&WRST PHYSICIANS, INSECT PLL BITE NONVENOMOUS W/O INF 5990 URINARY 12-14-2014 [facility] TRACT [facility] INFECTION INC SITE NOT SPECIFIED 73764 OBSTRUCTIVE 12-05-2014 [place] CHRONIC MEDICAL BRONCHITIS IMAGING ASS WITHOUT EXACERBAT 7862 COUGH 12-05-2014 [place] [facility] 07095 OTHER 12-05-2014 [place] NONSPECIFIC MEDICAL ABNORMAL IMAGING ASS FINDING OF LUNG FIELD 47099 EXTRINSIC 12-04-2014 [facility] ASTHMA, HOME UNSPECIFIED MEDICAL EQUIPME 74086 GEN 12-04-2014 [facility] OSTEOARTHRO HOME SIS MEDICAL INVOLVING EQUIPME MULTIPLE SITES 41666 PAIN IN 11-23-2014 [facility] JOINT, PHYSICIANS, LOWER LEG PLLC 7245 UNSPECIFIED 11-23-2014 [facility] BACKACHE PHYSICIANS, [facility] 4919 UNSPECIFIED 11-12-2014 [facility] CHRONIC [facility] BRONCHITIS INC 7231 CERVICALGIA 10-31-2014 ATTILA GELLER MD,PSC 7295 PAIN IN 10-31-2014 ATTILA GELLER, TISSUES OF ,PSC LIMB 4139 OTHER AND 10-24-2014 [facility] UNSPECIFIED MEM HOSP ANGINA INC PECTORIS 496 CHRONIC 10-24-2014 [facility] AIRWAY MEM HOSP OBSTRUCTION INC NEC 14344 PAIN IN 10-24-2014 [place] JOINT, MEDICAL FOREARM IMAGING ASS 18148 CONTUSION 10-24-2014 [facility] OF HAND PHYSICIANS, PLLC 5641 IRRITABLE 10-07-2014 [facility] BOWEL PHYSICIANS SYNDROME GROUP 54313 OBSTRUCTIVE 10-02-2014 [facility] P WITH EXACERBATIO N 6929 CONTACT 10-02-2014 [facility] DERMATITIS& [facility] OTHER [facility] P ECZEMA DUE UNSPEC CAUSE 03052 OTHER CHEST 10-02-2014 [facility] PAIN [facility] P 80922 CHEST PAIN 10-01-2014 [facility] UNSPECIFIED PHYSICIANS, [facility] 60340 ABDOMINAL 09-02-2014 [place] PAIN RIGHT MEDICAL UPPER IMAGING ASS QUADRANT 490 BRONCHITIS 08-18-2014 [facility] P ACUTE OR CHRONIC 7906 OTHER 08-18-2014 [facility] ABNORMAL [facility] P CHEMISTRY 6256 FEMALE 06-17-2014 B[place]ANA [place] INCONTINENC E [address] INSOMNIA 06-03-2014 [facility] UNSPECIFIED PHYSICIANS GROUP 7831 ABNORMAL 06-03-2014 [facility] WEIGHT GAIN PHYSICIANS GROUP V5415 AFTERCARE 03-26-2014 [facility] TRAUMATIC [facility] FRACTURE UPPER LEG V5489 OTHER 03-26-2014 [facility] AFTERCARE 55053 PAIN IN 02-21-2014 [place] JOINT MEDICAL PELVIC IMAGING ASS REGION AND THIGH 98694 COR 2014 [facility] ATHEROSLERO [facility] UNSPEC INC TYPE VESSEL [place] [facility] [place]/NATHALIE T V5869 LONG-TERM 02-12-2014 ATTILA (CURRENT) DUYEN, USE OF ,PSC OTHER MEDICATIONS V8281 SPECIAL 02-12-2014 [facility] SCREENING JOHNATHAN GELLER MD,PSC OSTEOPOROSI S 49916 CORONARY 02-11-2014 [facility] ATHEROSCLER SERV [facility] [facility] [place] FOUNDATION CORONARY ARTERY 462 ACUTE 02-07-2014 [facility] EMERGENCY PHYS 82066 NAUSEA WITH 01-27-2014 [place] VOMITING MEDICAL IMAGING ASS 60861 ABDOMINAL 01-27-2014 [place] PAIN, MEDICAL UNSPECIFIED IMAGING ASS SITE 4019 UNSPECIFIED 12-18-2013 [facility] [place] ESSENTIAL DWI HYPERTENSIO N 93416 ASTHMA, 12-18-2013 [place] UNSPECIFIED DWI , UNSPECIFIED STATUS 22020 PRECORDIAL 12-18-2013 [facility] PAIN AMBULANCE SERVICE V7612 OTHER 10-22-2013 [facility] SCREENING [facility] MAMMOGRAM INC 7282 MUSCULAR 10-15-2013 [facility] WASTING AND DEN DISUSE ATROPHY NEC 66237 DISORDER OF 10-15-2013 [facility] BONE AND DEN CARTILAGE UNSPECIFIED 42535 OTHER 10-15-2013 [facility] MALAISE AND DEN FATIGUE 16307 OTHER 10-15-2013 [facility] GENERAL DEN SYMPTOMS 00019 NERVOUSNESS 10-15-2013 [facility] DEN 18961 ATTENTION 10-15-2013 [facility] OR DEN CONCENTRATI ON [...] INC 4739 UNSPECIFIED 09-12-2013 [facility] SINUSITIS CHRISTIN 86721 CHRONIC 09-12-2013 [facility] OBSTRUCTIVE [facility]OS[facility] ASTHMA INC UNSPECIFIED 72893 CHRONIC 09-12-2013 [facility] OBSTRUCTIVE CHRISTIN ASTHMA W/STATUS ASTHMATICUS 56696 SCOLIOSIS , 09-12-2013 NICO[facility] IDIOPATHIC HENRY 05045 OTHER 09-12-2013 NICOLE DYSPNEA [place] [address] ESOPHAGEAL 09-11-2013 BRANDYN RAFIA REFLUX 3804 IMPACTED 08-22-2013 [facility] CERUMEN CHRISTIN 4660 ACUTE 08-22-2013 [facility] BRONCHITIS CHRISTIN 4770 ALLERGIC 08-22-2013 [facility] RHINITIS CHRISTIN DUE TO POLLEN 4778 ALLERGIC 08-22-2013 [facility] RHINITIS CHRISTIN DUE TO OTHER ALLERGEN 17078 CHRONIC 08-22-2013 [facility] OBSTRUCTIVE CHRISTIN ASTHMA WITH EXACERBATIO N 3555 TARSAL 08-05-2013 RODES CHANDA TUNNEL SYNDROME 7350 HALLUX 08-05-2013 RODES CHANDA VALGUS 7354 OTHER 08-05-2013 RODES CHANDA HAMMER TOE 5759 UNSPECIFIED 06-22-2012 NICOLE DISORDER HENRY OF GALLBLADDER 70351 ABDOMINAL 06-22-2012 [facility] PAIN RIGHT [facility] LOWER INC QUADRANT 486 PNEUMONIA, 06-07-2012 [facility] ORGANISM PAULA UNSPECIFIED 81722 DIVERTICULI 06-07-2012 [facility] TIS OF PAULA COLON 31982 DEHYDRATION 06-05-2012 BRANDYN RAFIA 58181 LEUKOCYTOSI 06-05-2012 BRANDYN RAFIA S UNSPECIFIED 5183 PULMONARY 06-05-2012 NICOLE EOSINOPHILI HENRY A 77195 FEVER 06-05-2012 [facility] UNSPECIFIED AMBULANCE SERVICE 77021 MIGRAINE 05-31-2012 [facility] UNSP W/O MELISA INTRACT W/O STATUS MIGRAINOSUS 7242 LUMBAGO 05-31-2012 [facility] MELISA 04359 SPASM OF 05-31-2012 [facility] MUSCLE MELISA 7292 UNSPECIFIED 05-31-2012 [facility] NEURALGIA MELISA NEURITIS AND RADICULITIS V5883 ENCOUNTER 05-31-2012 [facility] FOR MELISA THERAPEUTIC DRUG MONITORING 4772 ALLERGIC 04-17-2012 [facility] RHINITIS CHRISTIN DUE TO ANIMAL HAIR AND DANDER 7011 ACQUIRED 04-12-2012 RODES CHANDA KERATODERMA 53109 OTHER 04-12-2012 RODES CHANDA DISORDERS OF BONE AND CARTILAGE OTHER 69266 CONTUSION 04-12-2012 RODES CHANDA OF FOOT 9243 CONTUSION 01-31-2012 WEHRMAN III OF TOE PAULA 9599 INJURY 01-31-2012 [place] OTHER AND MEDICAL UNSPECIFIED IMAGING ASS UNSPECIFIED SITE 01090 OBESITY, 01-28-2012 ARNSTU GRACE UNSPECIFIED 70114 OSTEOARTHRO 11-03-2011 NEHA EDWARDS S INVLV MX SITES BUT NOT SPEC GEN 5999 UNSPECIFIED 09-28-2011 NEHA EDWARDS DISORDER OF URETHRA&URI NARY TRACT 61986 DIARRHEA 09-21-2011 [facility] ANT 7873 FLATULENCE 08-03-2011 [facility] ANT ERUCTATION AND GAS PAIN V642 SURG/OTH 07-31-2011 [facility] PROC NOT [facility] CARRIED OUT INC BECAUSE PTS DECN 4780 HYPERTROPHY 06-02-2011 COMMUNITY OF NASAL ALLERGY & TURBINATES ASTHMA P 40254 EXTRINSIC 06-02-2011 COMMUNITY ASTHMA, ALLERGY & WITH AST[facility] P EXACERBATIO N V720 EXAMINATION 04-29-2011 SCIFRES ANG OF EYES AND VISION 05067 ENTHESOPATH 04-05-2011 [facility]ONWEALT Y OF H PODIATRY UNSPECIFIED SITE 7213 LUMBOSACRAL 03-30-2011 [facility] SPONDYLOSIS WITHOUT MYELOPATHY 7234 BRACHIAL 03-11-2011 [facility] NEURITIS OR [facility] INC RADICULITIS NOS 7244 THORACIC/SOFIA 03-11-2011 [facility] MBOSACRAL [facility] NEURITIS/RA INC DICULITIS UNSPEC 76211 PAIN IN 02-09-2011 [facility] JOINT, [facility] HOS[facility] MULTIPLE INC SITES 19849 MUSCLE 02-09-2011 [facility] WEAKNESS [facility] (GENERALIZE INC D) V727 DIAGNOSTIC 02-03-2011 [facility] SKIN AND CHRISTIN SENSITIZATI ON TESTS V5409 OTH 01-28-2011 [place] [facility] INVOLV[facility]ING ASS INTERNAL FIXATION DEVICE Medications Na ND Rx Da Fi Fi Am Da Di Ph RX Ph St me C No te ll ll ou ys ag ar # ys at rm s nt no ma ic us Or Da si cy ia de te s n re d PA 68 10 11 30 30 00 WA Ac RO 38 -0 -0 .0 00 L- ti XE 20 8- 3- 00 07 MA ve TI 00 20 20 50 RT NE 10 17 17 46 6 73 PH HC AR L MA 40 CY MG #[address] 00 10 10 39 9 00 TN Ac ED 14 -0 -2 .0 00 L- ti NI 39 2- 7- 00 07 MA ve SO 74 20 20 51 RT NE 01 17 17 31 5 0 35 PH AR MG MA CY TA BL #5 ET 91 CE 68 10 10 20 10 00 TN Ac FD 18 -0 -2 .0 00 L- ti IN 00 2- 7- 00 07 MA ve IR 71 20 20 51 RT 16 17 17 31 30 0 36 PH 0 AR MG MA CY CA PS #5 UL 91 E CL 00 09 10 60 30 00 TN Ac ON 18 -2 -2 .0 00 L- ti AZ 50 1- 0- 00 04 MA ve EP 06 20 20 53 RT AM 40 17 17 21 1 5 61 PH AR MG MA CY TA BL #5 ET 91 FL 58 09 10 0. 1 00 TN Ac UA 16 -2 -2 50 00 L- ti RI 00 5- 0- 0 07 MA ve X 90 20 20 51 RT QU 75 17 17 18 AD 2 06 PH AR 20 MA 17 CY -2 01 #5 8 91 SY RI NG E GA 00 09 10 90 30 00 TN Ac BA 22 -2 -2 .0 00 L- ti PE 82 5- 0- 00 04 MA ve NT 63 20 20 53 RT IN 71 17 17 17 1 22 PH 80 AR 0 MA MG CY TA #5 BL 91 ET NI 43 09 10 25 5 00 TN Ac TR 59 -2 -2 .0 00 L- ti OG 80 5- 0- 00 07 MA ve LY 43 20 20 50 RT CE 61 17 17 48 RI 1 67 PH N AR 0. MA 4 CY MG #5 TA 91 BL ET SL TR 50 09 10 30 30 00 TN Ac AZ 11 -2 -2 .0 00 L- ti OD 10 5- 0- 00 07 MA ve ON 43 20 20 50 RT E 30 17 17 03 50 1 96 PH AR MG MA CY TA BL #5 ET 91 BR 00 09 10 60 30 00 TN Ac IL 18 -2 -2 .0 00 L- ti IN 60 5- 0- 00 07 MA ve TA 77 20 20 50 RT 76 17 17 46 90 0 71 PH AR MG MA CY TA BL #5 ET 91 SP 00 09 10 30 30 00 TN Ac IR 59 -2 -2 .0 00 L- ti IV 70 5- 0- 00 07 MA ve A 07 20 20 50 RT 18 54 17 17 48 1 65 PH MC AR G MA CP CY -H AN #5 DI 91 LOWERY LE R ME 00 09 10 30 30 00 TN Ac TO 37 -2 -2 .0 00 L- ti CT 80 5- 0- 00 07 MA ve OL 01 20 20 50 RT OL 80 17 17 46 1 72 PH TA AR RT MA RA CY TE #5 25 91 MG TA B OM 60 09 10 30 30 00 TN Ac EP 50 -2 -2 .0 00 L- ti RA 50 5- 0- 00 07 MA ve ZO 14 20 20 50 RT LE 60 17 [address] AR MA 40 CY MG #5 91 CA PS UL E IS 23 09 10 30 30 00 TN Ac OS 15 -2 -2 .0 00 L- ti OR 50 5- 0- 00 07 MA ve BI 17 20 20 50 RT DE 80 17 17 48 1 70 PH MN AR MA ER CY 60 #5 91 MG TA BL ET CE 16 09 10 30 30 00 TN Ac TI 57 -2 -2 .0 00 L- ti RI 10 5- 0- 00 08 MA ve ZI 40 20 20 84 RT NE 25 17 17 07 0 53 PH HC AR L MA 10 CY MG #5 91 TA BL ET EQ 49 09 10 30 30 00 TN Ac 03 -2 -2 .0 00 L- ti 50 5- 0- 00 08 MA ve PI 46 20 20 84 RT RI 76 17 17 07 N 8 68 PH 81 AR MA MG CY CH #5 EW 91 AB LE TA B AT 68 09 10 30 30 00 TN Ac OR 64 -2 -2 .0 00 L- ti VA 50 5- 0- [address] 46 20 20 51 RT AT 15 17 17 18 IN 4 09 PH AR 80 MA CY MG #5 TA 91 BL ET PA 68 09 10 30 30 00 TN Ac RO 38 -1 -1 .0 00 L- ti XE 20 5- 3- 00 07 MA ve TI 00 20 20 47 RT NE 10 17 17 42 6 92 PH HC AR L MA 40 CY MG #5 91 TA BL ET MO 57 09 10 30 30 00 TN Ac NT 23 -0 -0 .0 00 L- ti EL 70 8- 6- 00 07 MA ve UK 25 20 20 50 RT 53 17 17 46 T 0 78 PH SO AR D MA 10 CY MG #5 91 TA BL ET TR 50 08 09 30 30 00 TN Ac AZ 11 -1 -1 .0 00 L- ti OD 10 8- 5- 00 07 MA ve ON 43 20 20 50 RT E 30 17 17 46 50 1 70 PH AR MG MA CY TA BL #5 ET 91 BR 00 08 09 60 30 00 TN Ac IL 18 -1 -1 .0 00 L- ti IN 60 8- 5- 07 MA ve TA 77 20 20 50 RT 76 17 17 46 90 0 71 PH AR MG MA CY TA BL #5 ET 91 AT 68 08 09 30 30 00 TN Ac OR 64 -1 -1 .0 00 L- ti VA 50 8- 5- [address] 46 20 20 50 RT AT 15 17 17 46 IN 4 74 PH AR 80 MA CY MG #5 TA 91 BL ET SP 00 08 30 30 00 TN Ac IR 59 -1 -1 .0 00 L- ti IV 70 8- 5- 07 MA ve A 07 20 20 50 RT 18 54 17 17 48 1 65 PH MC AR G MA CP CY -H AN #5 DI 91 LOWERY LE R FL 60 08 09 16 30 00 TN Ac UT 43 -1 -1 .0 00 L- ti IC 20 8- 5- 07 MA ve 26 20 20 50 RT ON 41 17 17 48 E [address] AR OP MA CY 50 #5 MC 91 G SP RA Y EQ 49 08 09 30 30 00 TN Ac 03 -1 -1 .0 00 L- ti 50 8- 5- 00 08 MA ve PI 46 20 20 84 RT RI 76 17 17 07 N 8 68 PH 81 AR MA MG CY CH #5 EW 91 AB LE TA B NI 43 08 09 25 5 00 TN Ac TR 59 -1 -1 .0 00 L- ti OG 80 8- 5- 00 07 MA ve LY 43 20 20 50 RT CE 61 17 17 48 RI 1 67 PH N AR 0. MA 4 CY MG #5 TA 91 BL ET SL IP 00 08 09 10 30 00 TN Ac RA 48 -1 -1 80 00 L- ti T- 70 8- 5- .0 07 MA ve AL 20 20 20 00 50 RT BU 10 17 17 48 T 3 68 PH 0. AR 5- MA 3( CY 2. 5) #5 91 MG /3 ML OM 60 08 30 30 00 WA Ac EP [...] ET CE 16 08 02 11 30 00 WA Ac TI 57 -2 -1 .0 00 L- ti RI 10 0- 5- 00 08 MA ve ZI 40 20 20 84 RT NE 25 17 17 07 0 53 PH HC AR L MA 10 CY MG #5 91 TA BL ET PA 68 08 02 11 30 00 WA Ac RO 38 -2 -1 .0 00 L- ti XE 20 0- 5- 00 07 MA ve TI 00 20 20 50 RT NE 10 17 17 46 6 73 PH HC AR L MA 40 CY MG #5 91 TA BL ET LI 68 08 02 11 30 00 WA Ac SI 64 -2 -1 .0 00 L- ti NO 50 1- 5- [address] 55 20 20 50 RT [place] 25 17 17 51 4 47 PH 10 AR MA MG CY TA #5 BL 91 ET CL 16 08 60 30 00 WA Ac ON 72 -1 -0 .0 00 L- ti AZ 90 5- 8- 00 04 MA ve EP 13 20 20 53 RT AM 71 17 17 16 1 6 46 PH AR MG MA CY TA BL #5 ET 91 MO 57 08 30 30 00 WA Ac NT 23 -1 -0 .0 00 L- ti EL 70 6- 8- 00 07 MA ve UK 25 20 20 49 RT 53 17 17 26 T 0 16 PH SO AR D MA 10 CY MG #5 91 TA BL ET IS 23 08 30 30 00 WA Ac OS 15 -0 -0 .0 00 L- ti OR 50 4- 1- 00 07 MA ve BI 17 20 20 49 RT DE 80 17 17 33 1 53 PH MN AR MA ER CY 60 #5 91 MG TA BL ET ME 00 08 09 30 30 00 WA Ac TO 37 -0 -0 .0 00 L- ti CT 80 4- 1- 00 07 MA ve OL 01 20 20 49 RT OL 80 17 17 68 5 53 PH TA AR RT MA RA CY TE #5 25 91 MG TA B SP 00 08 09 4. 30 00 TN Ac IR 59 -0 -0 00 00 L- ti IV 70 8- 1- 0 07 MA ve A 16 20 20 50 RT RE 06 17 17 26 SP 1 43 PH IM AR AT MA CY 1. 25 #5 91 MC G IN H PA 68 07 08 30 30 00 TN Ac RO 38 -2 -2 .0 00 L- ti XE 20 8- 5- 00 07 MA ve TI 00 20 20 47 RT NE 10 17 17 42 6 92 PH HC AR L MA 40 CY MG #5 91 TA BL ET CE 16 07 08 30 30 00 TN Ac TI 57 -2 -2 .0 00 L- ti RI 10 8- 5- 00 08 MA ve ZI 40 20 20 83 RT NE 25 17 17 68 0 85 PH HC AR L MA 10 CY MG #5 91 TA BL ET PN 00 07 08 0. 1 00 TN Ac EU 00 -2 -1 50 00 L- ti MO 64 4- 8- 0 07 MA ve VA 83 20 20 50 RT X 70 17 17 03 23 3 63 PH AR SY MA RI CY NG E #5 91 TR 50 07 08 30 30 00 TN Ac AZ 11 -2 -1 .0 00 L- ti OD 10 5- 8- 00 07 MA ve ON 43 20 20 50 RT E 30 17 17 03 50 1 96 PH AR MG MA CY TA BL #5 ET 91 GA 00 07 08 90 30 00 TN Ac BA 22 -1 -1 .0 00 L- ti PE 82 5- 1- 00 04 MA ve NT 63 20 20 53 RT IN 71 17 17 10 1 77 PH 80 AR 0 MA MG CY TA #5 BL 91 ET OM 60 07 08 30 30 00 TN Ac EP 50 -1 -1 .0 00 L- ti RA 50 9- 1- 00 07 MA ve ZO 14 20 20 49 RT LE 60 17 17 [address] AR MA 40 CY MG #5 91 CA PS UL E CL 16 07 08 60 30 00 TN Ac ON 72 -1 -1 .0 00 L- ti AZ 90 4- 1- 00 04 MA ve EP 13 20 20 53 RT AM 71 17 17 10 1 6 47 PH AR MG MA CY TA BL #5 ET 91 BR 00 07 08 60 30 00 TN Ac IL 18 -1 -1 .0 00 L- ti IN 60 4- 1- 00 07 MA ve TA 77 20 20 49 RT 76 17 17 87 90 0 20 PH AR MG MA CY TA BL #5 ET 91 MO 31 07 08 30 30 00 TN Ac NT 72 -1 -0 .0 00 L- ti EL 20 2- 4- 00 07 MA ve UK 72 20 20 49 RT 61 17 17 26 T 0 16 PH SO AR D MA 10 CY MG #5 91 TA BL ET IS 23 07 08 30 30 00 TN Ac OS 15 -0 -0 .0 00 L- ti OR 50 6- 4- 00 07 MA ve BI 17 20 20 49 RT DE 80 17 17 33 1 53 PH MN AR MA ER CY 60 #5 91 MG TA BL ET CE 16 06 30 30 00 TN Ac TI 57 -3 -2 .0 00 L- ti RI 10 0- 8- 00 08 MA ve ZI 40 20 20 83 RT NE 25 17 17 68 0 85 PH HC AR L MA 10 CY MG #5 91 TA BL ET PA 68 06 30 30 00 TN Ac RO 38 -3 -2 .0 00 L- ti XE 20 0- 8- 00 07 MA ve TI 00 20 20 47 RT NE 10 17 17 42 6 92 PH HC AR L MA 40 CY MG #5 91 TA BL ET EQ 49 07 30 30 00 TN Ac 03 -0 -2 .0 00 L- ti 50 5- 8- 00 08 MA ve PI 56 20 20 83 RT RI 33 17 17 57 N 2 52 PH EC AR MA 81 CY MG #5 91 TA BL ET ME 00 11 18 30 30 00 TN Ac TO 37 -0 -2 .0 00 L- ti CT 80 5- 8- 00 07 MA ve OL 01 20 20 49 RT OL 80 17 17 68 5 53 PH TA AR RT MA RA CY TE #5 25 91 MG TA B SP 00 10 19 30 30 00 TN Ac IR 59 -2 -2 .0 00 L- ti IV 70 5- 1- 00 07 MA ve A 07 20 20 48 RT 18 54 17 17 08 1 47 PH MC AR G MA CP CY -H AN #5 DI 91 LOWERY LE R OM 60 06 30 30 00 TN Ac EP 50 -1 -1 .0 00 L- ti RA 50 9- 4- 00 07 MA ve ZO 14 20 20 49 RT LE 60 17 [address] AR MA 40 CY MG #5 91 CA PS UL E MO 57 06 30 30 00 WA Ac NT 23 [...] TA BL #5 ET 91 TR 50 06 30 30 00 WA Ac AZ 11 -1 -0 .0 00 L- ti OD 10 3 7- 00 07 MA ve ON 43 20 20 48 RT E 30 17 17 69 50 1 03 PH AR MG MA CY TA BL #5 ET 91 BR 00 10 19 60 30 00 TN Ac IL 18 -1 -0 .0 00 [...] TA 91 BL ET AT 68 06 30 30 00 WA Ac OR 64 -1 -0 .0 00 L- ti VA 50 2- 7- [address] 46 20 20 43 RT AT 15 17 17 60 IN 4 78 PH AR 80 MA CY MG #5 TA 91 BL ET ME 00 10 19 30 30 00 WA Ac TO 37 -1 -0 .0 00 L- ti CT 80 2- 7- 00 07 MA ve [...] TA #5 BL 91 ET IS 23 07 30 30 00 WA Ac OS 15 -1 -0 .0 00 L- ti OR 50 3- 7- 00 07 MA ve BI 17 20 20 49 RT DE 80 17 17 33 1 53 PH MN AR MA ER CY 60 #5 91 MG TA BL ET AM 00 10 18 30 30 00 TN Ac LO 37 -0 -3 .0 00 L- ti DI 85 2- 0- 00 07 MA ve PI 20 20 20 49 RT NE 90 17 17 13 5 87 PH BE AR SY MA LA CY TE 5 #5 91 MG TA B PA 68 06 11 11 30 00 TN Ac RO 38 -0 -3 .0 00 L- ti XE 20 2- 0- 00 07 MA ve TI 00 20 20 47 RT NE 10 17 17 42 6 92 PH HC AR L MA 40 CY MG #5 91 TA BL ET CE 16 06 11 11 30 00 TN Ac TI 57 -0 -3 .0 00 L- ti RI 10 2- 0- 00 08 MA ve ZI 40 20 20 83 RT NE 25 17 17 68 0 85 PH HC AR L MA 10 CY MG #5 91 TA BL ET NI 43 05 06 25 7 00 TN Ac TR 59 -3 -2 .0 00 L- ti OG 80 0- 3- 00 07 MA ve LY 43 20 20 49 RT CE 61 17 17 06 RI 1 69 PH N AR 0. MA 4 CY MG #5 TA 91 BL ET SL HY 00 05 06 [address] 40 -3 -2 .0 00 L- ti OC 60 0- 3- 00 02 MA ve OD 12 20 20 24 RT ON 30 17 17 05 -A 1 38 PH CE AR TA MA MO CY NO PH #5 EN 91 5- 32 5 OM 60 05 11 11 30 00 TN Ac EP 50 -2 -1 .0 00 L- ti RA 50 2- 6- 00 07 MA ve ZO 14 20 20 48 RT LE 60 17 17 [address] AR MA 40 CY MG #5 91 CA PS UL E BR 00 05 60 30 00 TN Ac IL 18 -1 -0 .0 00 L- ti IN 60 5- 9- 00 07 MA ve TA 77 20 20 43 RT 76 17 17 60 90 0 75 PH AR MG MA CY TA BL #5 ET 91 LI 54 05 30 30 00 TN Ac SI 45 -1 -0 .0 00 L- ti NO 80 5- 9- [address] 99 20 20 43 RT IL 71 17 17 60 0 82 PH 10 AR MA MG CY TA #5 BL 91 ET AT 60 00 WA Ac OR 50 -1 -0 .0 00 L- ti VA [address] 67 20 20 43 RT AT 10 17 17 60 IN 9 78 PH AR 80 MA CY MG #5 TA 91 BL ET ME 00 00 TN Ac TO 37 -1 -0 .0 00 L- ti CT 80 5- 07 MA ve OL 01 20 20 43 RT OL 80 17 17 61 5 11 PH TA AR RT MA RA CY TE #5 25 91 MG TA B IS 23 00 TN Ac OS 15 -1 -0 .0 00 L- ti OR 50 07 MA ve BI 17 20 20 45 RT DE 80 17 17 10 1 79 PH MN AR MA ER CY 60 #5 91 MG TA BL ET GA 00 09 17 89 30 00 TN Ac BA 22 -1 -0 .0 00 L- ti PE 82 07 MA ve NT 63 20 20 47 RT IN 71 17 17 76 1 13 PH 80 AR 0 MA MG CY TA #5 BL 91 ET EQ 49 00 TN Ac 03 -1 -0 .0 00 L- ti 50 08 MA ve PI 56 20 20 83 RT RI 33 17 17 57 N 2 52 PH EC AR MA 81 CY MG #5 91 TA BL ET CE 16 00 TN Ac TI 57 -0 -0 .0 00 L- ti RI 10 7- 2- 00 08 MA ve ZI 40 20 20 83 RT NE 25 17 17 68 0 85 PH HC AR L MA 10 CY MG #5 91 TA BL ET PA 68 05 11 11 29 00 TN Ac RO 38 -0 -0 .0 00 L- ti XE 20 7- 2- 00 07 MA ve TI 00 20 20 47 RT NE 10 17 17 42 6 92 PH HC AR L MA 40 CY MG #5 91 TA BL ET TR 50 00 TN Ac AZ 11 -0 -0 .0 00 L- ti OD 10 9- 2- 00 07 MA ve ON 43 20 20 48 RT E 30 17 17 69 50 1 03 PH AR MG MA CY TA BL #5 ET 91 CL 16 05 30 00 TN Ac ON 72 -0 -0 .0 00 [...] ET ME 00 04 30 30 00 TN Ac TO 37 -1 -1 .0 00 L- ti CT 80 8- 2- 00 07 MA ve [...] LI 68 04 05 30 30 00 WA Ac SI 18 -1 -1 .0 00 L- ti NO 00 8- 2- [address] 51 20 20 43 RT IL 40 [...] 17 17 [address] AR OP MA CY 50 #5 MC 91 G SP RA Y PA 68 04 10 11 30 00 TN Ac RO 38 -0 -0 .0 00 L- ti XE 20 07 MA ve TI 00 20 20 47 RT NE 10 17 17 42 6 92 PH HC AR L MA 40 CY MG #5 91 TA BL ET CE 16 04 10 11 30 00 TN Ac TI 57 -0 -0 .0 00 L- ti RI 10 08 MA ve ZI 40 20 20 83 RT NE 25 17 17 68 0 85 PH HC AR L MA 10 CY MG #5 91 TA BL ET CL 16 04 30 00 TN Ac ON 72 -0 -0 .0 00 L- ti AZ 90 04 MA ve EP 13 20 20 52 RT AM 71 17 17 99 1 6 24 PH AR MG MA CY TA BL #5 ET 91 SP 00 04 10 11 29 00 TN Ac IR 59 -0 -0 .0 00 L- ti IV 70 07 MA ve A 07 20 20 48 RT 18 54 17 17 08 1 47 PH MC AR G MA CP CY -H AN #5 DI 91 LOWERY LE R ME 00 03 09 11 29 00 TN Ac TO 37 -2 -1 .[address]- [address] 80 07 MA ve OL 01 20 20 43 RT OL 80 17 17 61 5 11 PH TA AR RT MA RA CY TE #5 25 91 MG TA B BR 00 03 04 60 30 00 TN Ac IL 18 -2 -1 .0 00 L- ti IN 60 07 MA ve TA 77 20 20 43 RT 76 17 17 60 90 0 75 PH AR MG MA CY TA BL #5 ET 91 LI 54 03 04 30 30 00 TN Ac SI 45 -2 -1 .0 00 L- ti NO [address] 99 20 20 43 RT IL 71 17 17 60 0 82 PH 10 AR MA MG CY TA #5 BL 91 ET IS 23 03 04 30 30 00 TN Ac OS 15 -2 -1 .0 00 [...] FL 60 03 04 16 30 00 TN Ac UT 43 -2 -1 .0 00 L- ti IC 20 1- 4- 00 07 MA ve 26 20 20 44 RT ON 41 17 17 78 E [address] AR OP MA CY 50 #5 MC [...] GA 00 03 04 90 30 00 TN Ac BA 22 -2 -1 .0 00 L- ti PE 82 1- 4- 00 07 MA ve NT 63 20 20 47 RT IN 71 17 17 76 1 13 PH 80 AR 0 MA MG CY TA #5 BL 91 ET PA 68 03 03 30 30 00 TN Ac RO 38 -0 -3 .0 00 L- ti XE 20 4- 1- 00 07 MA ve TI 00 20 20 47 RT NE 10 17 17 42 6 92 PH HC AR L MA 40 CY MG #5 91 TA BL ET OM 60 03 03 30 30 00 TN Ac EP 50 -0 -3 .0 00 L- ti RA 50 7- 1- 00 07 MA ve ZO 14 20 20 45 RT LE 60 17 [address] AR MA 40 CY MG #5 91 CA PS UL E CL 16 03 03 60 30 00 TN Ac ON 72 -0 -3 .0 00 [...] 37 -2 -2 .0 00 L- ti CT 80 3- 4- 00 07 MA ve OL 01 20 20 43 RT OL 80 17 17 61 5 11 PH TA AR RT MA RA CY TE #5 25 91 MG TA B LI 54 02 03 30 30 00 WA Ac SI 45 -2 -2 .0 00 L- ti NO 80 3- 4- [address] 99 20 20 43 RT IL 71 [...] 17 17 78 E [address] AR OP MA CY 50 #5 MC [...] CL 16 01 02 60 30 00 TN Ac ON 72 -3 -2 .0 00 L- ti AZ 90 0- 4- 00 04 MA ve EP 13 20 20 52 RT AM 71 17 17 91 1 6 97 PH AR MG MA CY TA BL #5 ET 91 LI 54 01 02 30 30 00 TN Ac SI 45 -2 -2 .0 00 L- ti NO 80 8- 4- [address] 99 20 20 43 RT IL 71 17 17 60 0 82 PH 10 AR MA MG CY TA #5 BL 91 ET ME 00 02 30 30 00 TN Ac TO 37 -2 -2 .0 00 L- ti CT 80 8- 4- 00 07 MA ve OL 01 20 20 43 RT OL 80 17 17 61 5 11 PH TA AR RT MA RA CY TE #5 25 91 MG TA B CE 16 01 02 30 30 00 TN Ac TI 57 -2 -2 .0 00 L- ti RI 10 8- 4- 00 08 MA ve ZI 40 20 20 83 RT NE 25 17 17 68 0 18 PH HC AR L MA 10 CY MG #5 91 TA BL ET IS 23 01 02 30 30 00 TN Ac OS 15 -2 -1 .0 00 [...] CY TA BL #5 ET 91 00 05 16 30 30 00 WA Ac PI 53 -2 -1 .0 00 L- ti RI 61 3- 7- 00 08 MA ve N 00 20 20 83 RT EC 41 17 17 57 0 52 PH 81 AR MA MG CY TA #5 BL 91 ET GA 00 01 02 30 00 WA Ac BA 22 -2 -1 .0 00 L- ti PE 82 3- 7- 00 07 MA ve NT 63 20 20 46 RT IN 71 17 17 04 1 12 PH 80 AR 0 MA MG CY TA #5 BL 91 ET FL 60 01 02 16 30 00 TN Ac UT 43 -2 -1 .0 00 L- ti IC 20 3- 7- 00 07 MA ve 26 20 20 44 RT ON 41 17 17 78 E [address] AR OP MA CY 50 #5 MC 91 G SP RA Y PA 68 01 30 00 TN Ac RO 38 -2 -1 .0 00 L- ti XE 20 5- 7- 00 07 MA ve TI 00 20 20 46 RT NE 10 17 17 69 6 89 PH HC AR L MA 40 CY MG #5 91 TA BL ET OM 60 05 16 29 30 TN Ac EP 50 -1 -1 .0 00 L- ti RA 50 3- 0- 00 07 MA ve ZO 14 20 20 45 RT LE 60 17 17 [address] AR MA 40 CY MG #5 91 CA PS UL E LI 54 12 30 00 TN Ac SI 45 -3 -0 .0 00 L- ti NO 80 0- 3- [address] 99 20 20 43 RT IL 71 16 17 60 0 82 PH 10 AR MA MG CY TA #5 BL 91 ET CE 16 05 15 29 30 00 TN Ac TI 57 -0 -2 .0 00 L- ti RI 10 2- 7- 00 08 MA ve ZI 40 20 20 83 RT NE 25 17 17 68 0 18 PH HC AR L MA 10 CY MG #5 91 TA BL ET ME 00 05 15 30 30 00 TN Ac TO 37 -0 -2 .0 00 L- ti CT 80 2- 7- 00 07 MA ve OL 01 20 20 43 RT OL 80 17 17 61 5 11 PH TA AR RT MA RA CY TE #5 25 91 MG TA B MO 54 01 30 30 00 TN Ac NT 45 -0 -2 .0 00 [...] 5) MG /3 ML BR 00 12 01 60 30 00 WA Ac IL 18 [...] TA 91 BL ET EC 42 12 01 30 30 00 WA Ac OT 03 -2 [...] NI 43 12 01 28 28 00 WA Ac CO 59 -1 -2 .0 00 L- ti TI 80 6- 0- 00 08 MA ve NE 44 20 20 83 RT 82 16 17 73 21 8 60 PH AR MG MA /2 CY 4H R #5 PA 91 TC H IS 23 12 30 30 00 WA Ac OS 15 -1 -1 .0 00 L- ti OR 50 4- 3- 00 07 MA ve BI 17 20 20 45 RT DE 80 16 17 10 1 79 PH MN AR MA ER CY 60 #5 91 MG TA BL ET OM 57 12 06 13 30 00 WA Ac EP 23 -0 -1 .0 00 L- ti RA 70 9- 3- 00 07 MA ve ZO 16 20 20 45 RT LE 23 16 17 [address] AR MA 40 CY MG #5 91 CA PS UL E ME 00 12 06 13 29 00 WA Ac TO 37 -0 -0 .0 00 L- ti CT 80 2- 9- 00 07 MA ve OL 01 20 20 43 RT OL 80 16 17 61 5 11 PH TA AR RT MA RA CY TE #5 25 91 MG TA B LI 68 12 06 13 29 00 WA Ac SI 18 -0 -0 .0 00 L- ti NO 00 [address] 51 20 20 43 RT IL 40 [...] 2 90 30 EA [address] 25 -2 -[address] 65 NO [...] 8- 8- 00 MA [address] 34 20 20 RT 5 ET AM [...] GA 53 04 09 2 90 30 TN 71 NO Ac BA 74 -1 -0 [...] D CY W # 10 05 91 Procedures Procedure DOS Code Location Performer Comment DILATION [id number] [facility] DEVC PERQ Encounters Encounter Start End Date Code Location Performer Type Date [facility] [place] [facility] [place] [facility] [place] [facility] [place] [facility] [place] [facility] [place] [facility] [place] [facility] [place] [facility] [place] [facility] [place] [facility] [place] [facility] 6 [facility] [place] [facility] [place] [facility] [place] [facility] [place] [facility] [place] [facility] [place] [facility] 6 6 [facility] [place] [facility] 6 6 [facility] [place] [facility] [place] [facility] [place] [facility] [place] [facility] 5 5 [facility] [place] [facility] [place] [facility] [place] [facility] [place] [facility] [place] [facility] 5 [facility] [place] [facility] [place] [facility] 5 [facility] [place] [facility] 5 5 [facility] [place] [facility] [place] [facility] [place] [facility] 5 [facility] [place] [facility] 5 5 [facility] [place] [facility] 5 [facility] [place] [facility] - 4 4 [facility] [place] [facility] 4 [facility] [place] [facility] 4 [facility] [place] [facility] [place] [facility] [place] [facility] [place] [facility] [place] [facility] [place] [facility] [place] [facility] 3 3 [facility] [place] [facility] [place] [facility] [place] [facility] [place] [facility] [place] [facility] [place] [facility]
--- OUTSIDE RECORDS SUMMARY | 2017-03-20 09:49 | External Medical Summary Rpt | CCD ---
Author Author , RYLIE RITTERDOT Address Unknown Phone [email or web address] Team Providers Care Lapidarist Name Role Phone [facility] [place], Unavailable Unavailable [facility] Unavailable Unavailable [facility], [facility] ARNOLD GRACE, ARNOLD Unavailable Unavailable GRACE ATTILA GELLER, Unavailable Unavailable ,IOANA, ATTILA GELLER MD,PSC ZOYA ANT, ZOYA ANT Unavailable Unavailable [facility] Unavailable Unavailable SERVICE, [facility]ULAR Unavailable Unavailable CONSULTANTS O, [facility] [place] [facility], Unavailable Unavailable [facility] [place] [facility] Unavailable Unavailable PODIATRY, [facility] & Unavailable Unavailable ASTHMA P, [facility] NICOLE HENRY, Unavailable Unavailable NICOLE HENRY [facility] Unavailable Unavailable [place], [facility] Unavailable Unavailable ASSOCIATES, [facility] FRANCK JUÁREZ Unavailable Unavailable FARZAD MELISA, Unavailable Unavailable FARZAD MELISA BRANDYN RAFIA, BRANDYN Unavailable Unavailable RAFIA BRIANA BRUCE MD, Unavailable Unavailable BRIANA MOORE, JANIS Unavailable Unavailable [facility] Unavailable Unavailable INC, [facility] Unavailable [facility]available HOSPITAL, [facility] Unavailable Unavailable HOSPITAL P, [facility]PITAL P [facility], Unavailable Unavailable [facility], Unavailable Unavailable [facility] Unavailable Unavailable IMAGING ASS, [facility] Unavailable Unavailable MEDICAL G, [facility] Un[facility], [facility] RICKY JR DWI, RICKY Unavailable Unavailable JR DWI [facility] Unavailable Unavailable INTERNAL MED, [facility] LIZ HAM, LIZ HAM Unavailable Unavailable FADIA CHRISTIN, Unavailable Unavailable FADIA MITCHELL, Unavailable Unavailable VERO MITCHELL [facility] Unavailable Unavailable MEDICAL, [facility] MEDICAL [facility], Unavailable Unavailable [facility], Unavailable Unavailable PLLC, [facility], Unavailable Unavailable [facility] RODES CHANDA, RODES CHANDA Unavailable Unavailable SCIFRES, SCIFRES Unavailable Unavailable SCIFRES ANG, SCIFRES Unavailable Unavailable ANG [facility] Unavailable Unavailable [facility], [facility] Unavailable Unavailable [facility]OSPITALS, [facility], Unavailable Unavailable [facility] # Unavailable Unavailable [id number], [facility] # [id number] WEHRMAN III PAULA, Unavailable Unavailable WEHRMAN III [...] C TRICUSPID SERV VALVE [facility]ATION INSUFFICIEN CY [id number] OTHER 02-01-2017 [place] MEDICAL SYMPTOMS & SERV SIGNS [facility]OUNDATION INVOLVING THE NS I10 ESSENTIAL 01-31-2017 [facility] HYPERTEN[facility]O HOSPITALS N I2510 [place]SHD [place] 01-31-2017 CORONARY HEALTHCARE ARTERY W/O HOSPITALS ANGINA PECT[place]IS I252 OLD 01-31-2017 [facility] INF[facility]CTION [facility] I639 CEREBRAL 01-31-2017 [place] [facility]CTION SERV UNSPECIFIED FOUNDATION M10645 OTH S&S 01-31-2017 [facility] COGNITIVE SERVICE FUNCT FLW CEREB INFARCT K219 GASTRO-ESOP 01-31-2017 H [facility] DISEASE HOSPITALS WITHOUT ESOPHAGITIS R200 ANESTHESIA 01-31-2017 [place] OF SKIN [facility]ICAL IM[facility] ASS [id number] NGHIA 01-31-2017 [facility] COMA SCALE [place] SCORE 9-12 UNSPECIFIED TIME R471 DYSARTHRIA 01-31-2017 AND [facility] R4781 SLURRED 01-31-2017 [place] SPEECH MEDICAL IMAGING ASS R9431 ABNORMAL 01-31-2017 [place] [facility] ELECTROCARD SERV IOGRAM FOUNDATION Z743 NEED FOR 01-31-2017 [facility] CONTINUOUS [place] SUPERVISION Z9861 CORONARY 01-31-2017 ANGIOPLASTY [facility]ALTHCARE STATUS HOSPITALS E785 HYPERLIPIDE 01-24-2017 [facility] IBARRA [facility] UNSPECIFIED INC I119 HYPERTENSIV 01-24-2017 [facility] E HEART [facility] DISEASE INC WITHOUT HEART FAILURE J449 CHRONIC 01-24-2017 [facility] OBSTRUCTIVE [facility] PULMONARY INC DISEASE UNS Z720 TOBACCO USE 01-24-2017 [facility] INC R0602 SHORTNESS 12-29-2016 [place] OF BREATH MEDICAL IMAGING ASS R079 CHEST PAIN 12-29-2016 [place] UNSPECIFIED MEDICAL IMAGING ASS R5383 OTHER 12-29-2016 [place] FAT[facility]UE [facility] R9439 ABNORMAL 12-29-2016 [facility] RESULT OTH PHYSICIANS CARDIOVASCU GROUP LR FUNCTION STUDY Z955 PRESENCE OF 12-29-2016 [facility] CORONARY PHYSICIANS ANGIOPLASTY GROUP IMPLANT & GRAFT E119 TYPE 2 12-28-2016 [facility] DIABETES [place] MELLITUS INTERNAL WITHOUT MED COMPLICATIO NS R74165 PAIN IN 12-27-2016 [facility] RIGHT [facility] HOSP SHOULDER INC A76053 PAIN IN 12-27-2016 [facility] LEFT KNEE [facility] INC M542 CERVICALGIA 12-27-2016 [facility] INC M7061 TROCHANTERI 12-27-2016 [facility] C BURSITIS [facility] RIGHT HIP INC H42650 PAIN IN 11-04-2016 [facility] LEFT FOOT VALLEY INTERNAL MED Z0000 ENCOUNTER 11-04-2016 [facility] GEN ADULT [place] MED EXAM INTERNAL W/O MED ABNORMAL FIND M7989 OTHER 10-29-2016 [place] SPECIFIED MEDICAL SOFT TISSUE IMAGING ASS DISORDERS [id number] UNSPECIFIED 10-29-2016 [facility] SPR[facility] LEFT FOOT INC INITIAL ENCOUNTER K203IJN STRAIN 10-09-2016 [facility] MUSCLE FASC [facility] & TENDON INC NECK LEVL INIT ENC [id number] CONTUSION 10-09-2016 [facility] UNS FRONT [facility] WALL THORAX INC INITIAL ENCNTR I208 OTHER FORMS 08-23-2016 [facility] OF ANGINA PHYSICIANS PECTORIS GROUP I200 UNSTABLE 07-15-2016 [facility] ANGINA PHYSICIAN GROUP Z70697 [place]SHD [place] 07-15-2016 [facility] COR ART PHYSICIAN W/UNSTABLE GROUP ANGINA PECT[place]IS K57897 ASHD [place] 07-15-2016 [facility] COR ARTREY [facility] W/UNS INC ANGINA [place]IS Z951 PRESENCE OF 07-15-2016 [facility] AORTOCORONA INC RY BYPASS GRAFT H5213 MYOPIA 06-30-2016 [facility] BILATERAL J441 CHRONIC 06-27-2016 [facility] OBSTRUCTIVE [place] PULMONARY INTERNAL DZ MED W/EXACERBAT ION R0789 OTHER CHEST 06-27-2016 [facility] PAIN [facility] INC R064 HYPERVENTIL 06-09-2016 [facility] SERVICE J029 ACUTE 03-18-2016 [facility] PHARYNGITIS PHYSICIANS, [facility] UNSPECIFIED J209 ACUTE 03-18-2016 [facility] BRONCHITIS [facility] UNSPECIFIED INC Q19670 ASHD [place] 02-03-2016 [facility] COR ART PHYSICIANS W/OTH FORMS GROUP ANGINA PECTORIS M797 FIBROMYALGI 02-03-2016 [facility] Z8679 PERSONAL 02-03-2016 [facility] HISTORY OTH ASSOCIATES DISEASES CIRCULATORY SYSTEM R072 PRECORDIAL 02-02-2016 [facility] PAIN PHYSICIANS, [facility] C76892 PAIN IN 01-16-2016 [facility] RIGHT ANKLE PHYSICIANS, [facility] [id number] SPRAIN 12-31-2015 [facility] UNSPEC PHYSICIAN LIGAMENT GROUP RIGHT ANKLE INITIAL ENC G479 SLEEP 12-30-2015 [facility] DISORDER PHYSICIANS UNSPECIFIED GROUP M549 DORSALGIA 12-30-2015 [facility] UNSPECIFIED PHYSICIANS GROUP I214 NON-ST 12-24-2015 [facility] ELEVATION PHYSICIANS MYOCARDIAL GROUP INFARCTION F59108 ATHEROSCLER 12-24-2015 [facility] OSIS CABG PHYSICIANS UNS UNSTABL GROUP ANGINA PECTORIS I74085 ATHEROSCLER 12-24-2015 [facility] OSIS CABG [facility] P ANGINA PECTORIS E118 TYPE 2 12-23-2015 [facility] DIABETES PHYSICIANS MELLITUS GROUP W/UNS COMPLICATIO NS I209 ANGINA 12-23-2015 [facility] PECTORIS PHYSICIANS UNSPECIFIED GROUP Z9119 PATIENTS 12-23-2015 [facility] NONCOMPLIAN PHYSICIANS CE W/OTH GROUP MED TX & REGIMEN M69235 OTHER LONG 12-07-2015 [facility] TERM PHYSICIANS CURRENT GROUP DRUG THERAPY F55240 PRESENCE OF 12-07-2015 [facility] OTHER PHYSICIANS CARDIAC GROUP IMPLANTS AND GRAFTS I2582 CHRONIC 12-02-2015 [place] [facility] TOTAL SERV OCCLUSION FOUNDATION OF CORONARY ARTERY G8929 OTHER 12-01-2015 [place] [facility] CHRONIC SERV PAIN FOUNDATION R001 BRADYCARDIA 12-01-2015 [place] [facility]ICAL SERV UNSPECIFIED FOUNDATION I510 CARDIAC 11-30-2015 [place] [facility] SEPTAL SERV DEFECT FOUNDATION ACQUIRED I517 CARDIOMEGAL 11-30-2015 [place] [facility] Y SERV FOUNDATION R7989 OTHER SPEC 11-13-2015 [facility] ABNORMAL PHYSICIANS, FINDINGS [facility] BLOOD CHEMISTRY L0390 CELLULITIS 10-10-2015 [facility] UNSPECIFIED PHYSICIANS, [facility] J90 PLEURAL 10-03-2015 [facility] [place] [facility] NOT ELSEWHERE CLASSIFIED O32383 POSTPROC 10-01-2015 [facility] HEMORR CIRC [facility]OC[facility]ATES SYS PSC ORGAN/STRUC FLW CARD BP [id number] HEMORRHAGE 10-01-2015 [facility] D/T CARD HEALTH PROSTH DEVC MEDICAL G IMPL & GFT INIT I6502 OCCLUSION 09-30-2015 [facility] AND [facility] 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 J9811 ATELECTASIS 09-30-2015 [facility] [place] [facility] R0989 OTH SPEC SX 09-30-2015 [facility] & SIGNS AMBULANCE INVLV THE SERVICE CIRC & RESP SYS S33832 ENCOUNTER 09-29-2015 [facility] FOR PHYSICIANS PREPROCEDUR GROUP AL CARIOVASCUL AR EXAM E663 OVERWEIGHT 09-04-2015 [facility] PHYSICIANS GROUP J40 BRONCHITIS 09-03-2015 [facility] NOT PHYSICIANS, SPECIFIED PLLC ACUTE OR CHRONIC R05 COUGH 09-03-2015 [place] [facility] [id number] LAC W/O FB 08-12-2015 [facility] RT INDEX [...] 08-04-2015 [facility] [place] [facility] M2011 HALLUX 08-04-2015 [place] VALGUS MEDICAL ACQUIRED IMAGING ASS RIGHT FOOT M2041 OTHER 08-04-2015 [place] HAMMER TOES MEDICAL ACQUIRED IMAGING ASS RIGHT FOOT M2570 OSTEOPHYTE 08-04-2015 PROGRESSIVE UNSPECIFIED PODIATRY JOINT M7731 CALCANEAL 08-04-2015 [place] SPUR RIGHT MEDICAL FOOT IMAGING ASS G31638 PAIN IN 08-04-2015 [facility] RIGHT FOOT PODIATRY Z23 ENCOUNTER 07-22-2015 [facility] FOR PH[facility]IANS IMMUNIZATIO GROUP N B349 VIRAL [...] BRUCE MD GEN ORGN & MENSTRUAL CYCL V433GSU CONTUSION 06-26-2015 [facility] LOWER BACK PHYSICIANS, & PELVIS PLLC INITIAL ENCOUNTER M16XSFZ UNSPECIFIED 06-26-2015 [facility] FALL AMBULANCE INITIAL SERVICE ENCOUNTER Z043 ENCOUNTER 06-26-2015 [place] EXAM & MEDICAL OBSERVATION IMAGING ASS FOLLOW OTH ACCIDENT I455 OTHER 06-11-2015 [facility] HEART BLOCK SERVICE N761 SUBACUTE 06-08-2015 BRIANA Hernandez AND ISABELLA BRUCE MD VAGINITIS B35222 ENCOUNTER 06-08-2015 [facility] FOR OTHER [facility] PREPROCEDUR INC AL EXAMINATION N819 FEMALE 05-29-2015 BRIANA Hernandez GENITAL JANIS VIZCARRA PROLAPSE UNSPECIFIED N8329 OTHER 05-27-2015 [facility] OVARIAN PHYSICIANS, CYSTS PLLC R1084 GENERALIZED 05-27-2015 [place] ABDOMINAL MEDICAL PAIN IMAGING ASS Z959 PRESENCE 04-30-2015 [facility] CARDIAC & [facility] VASCULAR INC IMPLANT & GRAFT UNS N202 CALCULUS OF 04-13-2015 [facility] KIDNEY [facility] WITH INC CALCULUS OF URETER N3000 ACUTE 04-13-2015 [facility] CYSTITIS PHYSICIANS, WITHOUT PLLC HEMATURIA N390 URINARY 04-13-2015 [facility] TRACT PHYSICIANS, INFECTION [facility] SITE NOT SPECIFIED R202 PARESTHESIA 04-13-2015 [facility] OF SKIN PHYSICIANS, [facility] X84276 PERSONAL 04-13-2015 [facility] HISTORY OF [facility] HOS[facility] NICOTINE INC DEPENDENCE P62892 PRESENCE OF 03-06-2015 [facility] OTHER [facility] VASCULAR INC IMPLANTS AND GRAFTS R9430 ABNORMAL 02-27-2015 [facility] RESULT CV LAR FUNCTION CONSULTANTS STUDY UNS O I459 CONDUCTION 02-26-2015 [facility] DISORDER AMBULANCE UNSPECIFIED SERVICE J42 UNSPECIFIED 02-26-2015 [facility] R0600 DYSPNEA 02-26-2015 [facility] UNSPECIFIED LAR CONSULTANTS O Z881 ALLERGY 02-26-2015 [place] STATUS TO REGIONAL OTHER MEDICAL ANTIBIOTIC AGENTS STATUS I272 OTHER 02-25-2015 [facility] P HYPERTENSIO N J410 SIMPLE 02-25-2015 [facility] P R55 SYNCOPE AND 02-25-2015 [facility] COLLAPSE PHYSICIANS, [facility] J4520 MILD 02-23-2015 [facility]ITTEN [place] [address] DEGEN 01-26-2015 [facility] LUMBAR/LUMB [facility] OSACRAL INC INTERVERTEB RAL DISC 7291 UNSPECIFIED 01-26-2015 [facility] MYALGIA [facility] AND INC MYOSITIS 9134 ELB 01-06-2015 [facility] FORARM&WRST PHYSICIANS, INSECT PLL BITE NONVENOMOUS W/O INF 5990 URINARY 12-14-2014 [facility] TRACT [facility] INFECTION INC SITE NOT SPECIFIED 22170 OBSTRUCTIVE 12-05-2014 [place] CHRONIC MEDICAL BRONCHITIS IMAGING ASS WITHOUT EXACERBAT 7862 COUGH 12-05-2014 [place] [facility] 12943 OTHER 12-05-2014 [place] NONSPECIFIC MEDICAL ABNORMAL IMAGING ASS FINDING OF LUNG FIELD 98904 EXTRINSIC 12-04-2014 CELINA ASTHMA, HOME UNSPECIFIED MEDICAL EQUIPME 44085 GEN 12-04-2014 CELINA OSTEOARTHRO HOME SIS MEDICAL INVOLVING EQUIPME MULTIPLE SITES 89761 PAIN IN 11-23-2014 [facility] JOINT, PHYSICIANS, LOWER LEG PLLC 7245 UNSPECIFIED 11-23-2014 [facility] BACKACHE PHYSICIANS, [facility] 4919 UNSPECIFIED 11-12-2014 [facility] CHRONIC [facility] BRONCHITIS INC 7231 CERVICALGIA 10-31-2014 ATTILA GELLER MD,PSC 7295 PAIN IN 10-31-2014 ATTILA GELLER, TISSUES OF ,PSC LIMB 4139 OTHER AND 10-24-2014 [facility] UNSPECIFIED MEM HOS[facility] ANGINA INC PECTORIS 496 CHRONIC 10-24-2014 [facility] AIRWAY [facility] OBSTRUCTION INC NEC 88084 PAIN IN 10-24-2014 [place] JOINT, MEDICAL FOREARM IMAGING ASS 97343 CONTUSION 10-24-2014 [facility] OF HAND PHYSICIANS, PLLC 5641 IRRITABLE 10-07-2014 [facility] BOWEL PHYSICIANS SYNDROME GROUP 64528 OBSTRUCTIVE 10-02-2014 [facility] P WITH EXACERBATIO N 6929 CONTACT 10-02-2014 [facility] DERMATITIS& [facility] OTHER [facility] P ECZEMA DUE UNSPEC CAUSE 43237 OTHER CHEST 10-02-2014 [facility] PAIN [facility] P 89233 CHEST PAIN 10-01-2014 [facility] UNSPECIFIED PHYSICIANS, [facility] 61805 ABDOMINAL 09-02-2014 [place] PAIN RIGHT MEDICAL UPPER IMAGING ASS QUADRANT 490 BRONCHITIS 08-18-2014 [facility] NOT [facility] P ACUTE OR CHRONIC 7906 OTHER 08-18-2014 [facility] ABNORMAL [facility] P CHEMISTRY 6256 FEMALE 06-17-2014 BRIANA BRUCE [place] INCONTINENC E 15922 INSOMNIA 06-03-2014 [facility] UNSPECIFIED PHYSICIANS GROUP 7831 ABNORMAL 06-03-2014 [facility] WEIGHT GAIN PHYSICIANS GROUP V5415 AFTERCARE 03-26-2014 [facility] HEALING SERV TRAUMATIC FOUNDATION FRACTURE UPPER LEG V5489 OTHER 03-26-2014 [facility] AFTERCARE 87405 PAIN IN 02-21-2014 [place] JOINT MEDICAL PELVIC IMAGING ASS REGION AND THIGH 51350 COR 2014 [facility] ATHEROSLERO [facility] UNSPEC INC TYPE VESSEL [place]ATH[place] T V5869 LONG-TERM 02-12-2014 ATTILA (CURRENT) DUYEN, USE OF ,PSC OTHER MEDICATIONS V8281 SPECIAL 02-12-2014 [facility] SCREENING JOHNATHAN GELLER MD,PSC OSTEOPOROSI S 97964 CORONARY 02-11-2014 [facility] MEDICAL ATHEROSCLER SERV OSIS [place] [facility] CORONARY ARTERY 462 ACUTE 02-07-2014 [facility]ERG[facility]Y PH[facility] 44174 NAUSEA WITH 01-27-2014 [place] VOMITING MEDICAL IMAGING ASS 41006 ABDOMINAL 01-27-2014 [place] PAIN, MEDICAL UNSPECIFIED IMAGING ASS SITE 4019 UNSPECIFIED 12-18-2013 [place] ESSENTIAL DWI HYPERTENSIO N 38527 ASTHMA, 12-18-2013 [place] UNSPECIFIED DWI , UNSPECIFIED STATUS 71813 PRECORDIAL 12-18-2013 [facility] PAIN AMBULANCE SERVICE V7612 OTHER 10-22-2013 [facility] SCREENING [facility] MAMMOGRAM INC 7282 MUSCULAR 10-15-2013 [facility] WASTING AND DEN DISUSE ATROPHY NEC 20149 DISORDER OF 10-15-2013 [facility] BONE AND DEN CARTILAGE UNSPECIFIED 45332 OTHER 10-15-2013 [facility] MALAISE AND DEN FATIGUE 36747 OTHER 10-15-2013 [facility] GENERAL DEN SYMPTOMS 16857 NERVOUSNESS 10-15-2013 [facility] DEN 95679 ATTENTION 10-15-2013 [facility] OR DEN CONCENTRATI ON [...] INC 4739 UNSPECIFIED 09-12-2013 [facility] SINUSITIS CHRISTIN 60741 CHRONIC 09-12-2013 [facility] OBSTRUCTIVE [facility] HOS[facility] ASTHMA INC UNSPECIFIED 54070 CHRONIC 09-12-2013 [facility] OBSTRUCTIVE CHRISTIN ASTHMA W/STATUS ASTHMATICUS 27068 SCOLIOSIS , 09-12-2013 NICOLE IDIOPATHIC HENRY 96617 OTHER 09-12-2013 NICOLE DYSPNEA [place] [address] ESOPHAGEAL 09-11-2013 BRANDYN RAFIA REFLUX 3804 IMPACTED 08-22-2013 [facility] CERUMEN CHRISTIN 4660 ACUTE 08-22-2013 [facility] BRONCHITIS CHRISTIN 4770 ALLERGIC 08-22-2013 [facility] RHINITIS CHRISTIN DUE TO POLLEN 4778 ALLERGIC 08-22-2013 [facility] RHINITIS CHRISTIN DUE TO OTHER ALLERGEN 92372 CHRONIC 08-22-2013 [facility] OBSTRUCTIVE CHRISTIN ASTHMA WITH EXACERBATIO N 3555 TARSAL 08-05-2013 RODES CHANDA TUNNEL SYNDROME 7350 HALLUX 08-05-2013 RODES CHANDA VALGUS 7354 OTHER 08-05-2013 RODES CHANDA HAMMER TOE 5759 UNSPECIFIED 06-22-2012 NICOLE DISORDER HENRY OF GALLBLADDER 16179 ABDOMINAL 06-22-2012 [facility] PAIN RIGHT [facility] LOWER INC QUADRANT 486 PNEUMONIA, 06-07-2012 [facility] ORGANISM PAULA UNSPECIFIED 98017 DIVERTICULI 06-07-2012 [facility] TIS OF PAULA COLON 63691 DEHYDRATION 06-05-2012 BRANDYN RAFIA 70397 LEUKOCYTOSI 06-05-2012 BRANDYN RAFIA S UNSPECIFIED 5183 PULMONARY 06-05-2012 NICOLE EOSINOPHILI HENRY A 63474 FEVER 06-05-2012 [facility] UNSPECIFIED AMBULANCE SERVICE 36171 MIGRAINE 05-31-2012 [facility] UNSP W/O MELISA INTRACT W/O STATUS MIGRAINOSUS 7242 LUMBAGO 05-31-2012 [facility] MELISA 79618 SPASM OF 05-31-2012 [facility] MUSCLE MELISA 7292 UNSPECIFIED 05-31-2012 [facility] NEURALGIA MELISA NEURITIS AND RADICULITIS V5883 ENCOUNTER 05-31-2012 [facility] FOR MELISA THERAPEUTIC DRUG MONITORING 4772 ALLERGIC 04-17-2012 [facility] RHINITIS CHRISTIN DUE TO ANIMAL HAIR AND DANDER 7011 ACQUIRED 04-12-2012 RODES CHANDA KERATODERMA 75586 OTHER 04-12-2012 RODES CHANDA DISORDERS OF BONE AND CARTILAGE OTHER 25952 CONTUSION 04-12-2012 RODES CHANDA OF FOOT 9243 CONTUSION 01-31-2012 WEHRMAN III OF TOE PAULA 9599 INJURY 01-31-2012 [place] OTHER AND MEDICAL UNSPECIFIED IMAGING ASS UNSPECIFIED SITE 58730 OBESITY, 01-28-2012 ARNSTU GRACE UNSPECIFIED 47882 OSTEOARTHRO 11-03-2011 NEHA EDWARDS S INVLV MX SITES BUT NOT SPEC GEN 5999 UNSPECIFIED 09-28-2011 NEHA EDWARDS DISORDER OF URETHRA&URI NARY TRACT 89579 DIARRHEA 09-21-2011 [facility] ANT 7873 FLATULENCE 08-03-2011 [facility] ANT ERUCTATION AND GAS PAIN V642 SURG/OTH 07-31-2011 [facility] PROC NOT [facility] CARRIED OUT INC BECAUSE PTS DECN 4780 HYPERTROPHY 06-02-2011 COMMUNITY OF NASAL ALLERGY & TURBINATES ASTHMA P 18912 EXTRINSIC 06-02-2011 COMMUNITY ASTHMA, ALLERGY & WITH ASTH[facility] P EXACERBATIO N V720 EXAMINATION 04-29-2011 SCIFRES ANG OF EYES AND VISION 32039 ENTHESOPATH 04-05-2011 [facility]ONWEALT Y OF H PODIATRY UNSPECIFIED SITE 7213 LUMBOSACRAL 03-30-2011 [facility] SPONDYLOSIS WITHOUT MYELOPATHY 7234 BRACHIAL 03-11-2011 [facility] NEURITIS OR [facility] INC RADICULITIS NOS 7244 THORACIC/SOFIA 03-11-2011 [facility] MBOSACRAL [facility] NEURITIS/RA INC DICULITIS UNSPEC 72989 PAIN IN 02-09-2011 [facility] JOINT, [facility] HOS[facility] MULTIPLE INC SITES 37191 MUSCLE 02-09-2011 [facility] WEAKNESS [facility] (GENERALIZE INC D) V727 DIAGNOSTIC 02-03-2011 [facility] SKIN AND CHRISTIN SENSITIZATI ON TESTS V5409 OTH 01-28-[address] [place] [address] [facility] [facility] MEDICAL INVOLVING IMAGING ASS INTERNAL FIXATION [...] CY MG #5 91 TA BL ET NV 00 10 10 39 9 00 OH Ac ED 14 -0 -2 .0 00 L- ti NI 39 2- 7- 00 07 MA ve SO 74 20 20 51 RT NE 01 17 17 31 5 0 35 PH AR MG MA CY TA BL #5 ET 91 CE 68 10 10 20 10 00 OH Ac FD 18 -0 -2 .0 00 L- ti IN 00 2- 7- 00 07 MA ve IR 71 20 20 51 RT 16 17 17 31 30 0 36 PH 0 AR MG MA CY CA PS #5 UL 91 E CL 00 09 10 60 30 00 OH Ac ON 18 -2 -2 .0 00 L- ti AZ 50 1- 0- 00 04 MA ve EP 06 20 20 53 RT AM 40 17 17 21 1 5 61 PH AR MG MA CY TA BL #5 ET 91 FL 58 09 10 0. 1 00 OH Ac UA 16 -2 -2 50 00 L- ti RI 00 5- 0- 0 07 MA ve X 90 20 20 51 RT QU 75 17 17 18 AD 2 06 PH AR 20 MA 17 CY -2 01 #5 8 91 SY RI NG E GA 00 09 10 90 30 00 OH Ac BA 22 -2 -2 .0 00 L- ti PE 82 5- 0- 00 04 MA ve NT 63 20 20 53 RT IN 71 17 17 17 1 22 PH 80 AR 0 MA MG CY TA #5 BL 91 ET NI 43 09 10 25 5 00 OH Ac TR 59 -2 -2 .0 00 L- ti OG 80 5- 0- 00 07 MA ve LY 43 20 20 50 RT CE 61 17 17 48 RI 1 67 PH N AR 0. MA 4 CY MG #5 TA 91 BL ET SL TR 50 09 10 30 30 00 OH Ac AZ 11 -2 -2 .0 00 L- ti OD 10 5- 0- 00 07 MA ve ON 43 20 20 50 RT E 30 17 17 03 50 1 96 PH AR MG MA CY TA BL #5 ET 91 BR 00 09 10 60 30 00 OH Ac IL 18 -2 -2 .0 00 L- ti IN 60 5- 0- 00 07 MA ve TA 77 20 20 50 RT 76 17 17 46 90 0 71 PH AR MG MA CY TA BL #5 ET 91 SP 00 09 10 30 30 00 OH Ac IR 59 -2 -2 .0 00 L- ti IV 70 5- 0- 00 07 MA ve A 07 20 20 50 RT 18 54 17 17 48 1 65 PH MC AR G MA CP CY -H AN #5 DI 91 LOWERY LE R ME 00 09 10 30 30 00 OH Ac TO 37 -2 -2 .0 00 L- ti NV 80 5- 0- 00 07 MA ve OL 01 20 20 50 RT OL 80 17 17 46 1 72 PH TA AR RT MA RA CY TE #5 25 91 MG TA B OM 60 09 10 30 30 00 OH Ac EP 50 -2 -2 .0 00 L- ti RA 50 5- 0- 00 07 MA ve ZO 14 20 20 50 RT LE 60 17 [address] AR MA 40 CY MG #5 91 CA PS UL E IS 23 09 10 30 30 00 OH Ac OS 15 -2 -2 .0 00 L- ti OR 50 5- 0- 00 07 MA ve BI 17 20 20 50 RT DE 80 17 17 48 1 70 PH MN AR MA ER CY 60 #5 91 MG TA BL ET CE 16 09 10 30 30 00 OH Ac TI 57 -2 -2 .0 00 L- ti RI 10 5- 0- 00 08 MA ve ZI 40 20 20 84 RT NE 25 17 17 07 0 53 PH HC AR L MA 10 CY MG #5 91 TA BL ET EQ 49 09 10 30 30 00 OH Ac 03 -2 -2 .0 00 L- ti 50 5- 0- 00 08 MA ve PI 46 20 20 84 RT RI 76 17 17 07 N 8 68 PH 81 AR MA MG CY CH #5 EW 91 AB LE TA B AT 68 09 10 30 30 00 OH Ac OR 64 -2 -2 .0 00 L- ti VA 50 5- 0- [address] 46 20 20 51 RT AT 15 17 17 18 IN 4 09 PH AR 80 MA CY MG #5 TA 91 BL ET PA 68 09 10 30 30 00 OH Ac RO 38 -1 -1 .0 00 L- ti XE 20 5- 3- 00 07 MA ve TI 00 20 20 47 RT NE 10 17 17 42 6 92 PH HC AR L MA 40 CY MG #5 91 TA BL ET MO 57 09 10 30 30 00 OH Ac NT 23 -0 -0 .0 00 L- ti EL 70 8- 6- 00 07 MA ve UK 25 20 20 50 RT 53 17 17 46 T 0 78 PH SO AR D MA 10 CY MG #5 91 TA BL ET TR 50 08 09 30 30 00 OH Ac AZ 11 -1 -1 .0 00 L- ti OD 10 8- 5- 00 07 MA ve ON 43 20 20 50 RT E 30 17 17 46 50 1 70 PH AR MG MA CY TA BL #5 ET 91 BR 00 08 09 60 30 00 OH Ac IL 18 -1 -1 .0 00 L- ti IN 60 8- 5- 07 MA ve TA 77 20 20 50 RT 76 17 17 46 90 0 71 PH AR MG MA CY TA BL #5 ET 91 AT 68 08 09 30 30 00 OH Ac OR 64 -1 -1 .0 00 L- ti VA 50 8- 5- [address] 46 20 20 50 RT AT 15 17 17 46 IN 4 74 PH AR 80 MA CY MG #5 TA 91 BL ET SP 00 08 30 30 00 OH Ac IR 59 -1 -1 .0 00 L- ti IV 70 8- 5- 07 MA ve A 07 20 20 50 RT 18 54 17 17 48 1 65 PH MC AR G MA CP CY -H AN #5 DI 91 LOWERY LE R FL 60 08 09 16 30 00 OH Ac UT 43 -1 -1 .0 00 L- ti IC 20 8- 5- 07 MA ve 26 20 20 50 RT ON 41 17 17 48 E 5 66 PH NV AR OP MA CY 50 #5 MC 91 G SP RA Y EQ 49 08 09 30 30 00 OH Ac 03 -1 -1 .0 00 L- ti 50 8- 5- 00 08 MA ve PI 46 20 20 84 RT RI 76 17 17 07 N 8 68 PH 81 AR MA MG CY CH #5 EW 91 AB LE TA B NI 43 08 09 25 5 00 OH Ac TR 59 -1 -1 .0 00 L- ti OG 80 8- 5- 00 07 MA ve LY 43 20 20 50 RT CE 61 17 17 48 RI 1 67 PH N AR 0. MA 4 CY MG #5 TA 91 BL ET SL IP 00 08 09 10 30 00 OH Ac RA 48 -1 -1 80 00 [...] 50 1- 5- 00 07 MA ve NV 55 20 20 50 RT IL 25 [...] 37 -0 -0 .0 00 L- ti NV 80 4- 1- 00 07 MA ve OL 01 20 20 49 RT OL 80 17 17 68 5 53 PH TA AR RT MA RA CY TE #5 25 91 MG TA B SP 00 08 09 4. 30 00 OH Ac IR 59 -0 -0 00 00 L- ti IV 70 8- 1- 0 07 MA ve A 16 20 20 50 RT RE 06 17 17 26 SP 1 43 PH IM AR AT MA CY 1. 25 #5 91 MC G IN H PA 68 07 08 30 30 00 OH Ac RO 38 -2 -2 .0 00 L- ti XE 20 8- 5- 00 07 MA ve TI 00 20 20 47 RT NE 10 17 17 42 6 92 PH HC AR L MA 40 CY MG #5 91 TA BL ET CE 16 07 08 30 30 00 OH Ac TI 57 -2 -2 .0 00 L- ti RI 10 8- 5- 00 08 MA ve ZI 40 20 20 83 RT NE 25 17 17 68 0 85 PH HC AR L MA 10 CY MG #5 91 TA BL ET PN 00 07 08 0. 1 00 OH Ac EU 00 -2 -1 50 00 L- ti MO 64 4- 8- 0 07 MA ve VA 83 20 20 50 RT X 70 17 17 03 23 3 63 PH AR SY MA RI CY NG E #5 91 TR 50 07 08 30 30 00 OH Ac AZ 11 -2 -1 .0 00 L- ti OD 10 5- 8- 00 07 MA ve ON 43 20 20 50 RT E 30 17 17 03 50 1 96 PH AR MG MA CY TA BL #5 ET 91 GA 00 07 08 90 30 00 OH Ac BA 22 -1 -1 .0 00 L- ti PE 82 5- 1- 00 04 MA ve NT 63 20 20 53 RT IN 71 17 17 10 1 77 PH 80 AR 0 MA MG CY TA #5 BL 91 ET OM 60 07 08 30 30 00 OH Ac EP 50 -1 -1 .0 00 L- ti RA 50 9- 1- 00 07 MA ve ZO 14 20 20 49 RT LE 60 17 [address] AR MA 40 CY MG #5 91 CA PS UL E CL 16 07 08 60 30 00 OH Ac ON 72 -1 -1 .0 00 L- ti AZ 90 4- 1- 00 04 MA ve EP 13 20 20 53 RT AM 71 17 17 10 1 6 47 PH AR MG MA CY TA BL #5 ET 91 BR 00 07 08 60 30 00 OH Ac IL 18 -1 -1 .0 00 L- ti IN 60 4- 1- 00 07 MA ve TA 77 20 20 49 RT 76 17 17 87 90 0 20 PH AR MG MA CY TA BL #5 ET 91 MO 31 07 08 30 30 00 OH Ac NT 72 -1 -0 .0 00 L- ti EL 20 2- 4- 00 07 MA ve UK 72 20 20 49 RT 61 17 17 26 T 0 16 PH SO AR D MA 10 CY MG #5 91 TA BL ET IS 23 07 08 30 30 00 OH Ac OS 15 -0 -0 .0 00 L- ti OR 50 6- 4- 00 07 MA ve BI 17 20 20 49 RT DE 80 17 17 33 1 53 PH MN AR MA ER CY 60 #5 91 MG TA BL ET CE 16 06 30 30 00 OH Ac TI 57 -3 -2 .0 00 L- ti RI 10 0- 8- 00 08 MA ve ZI 40 20 20 83 RT NE 25 17 17 68 0 85 PH HC AR L MA 10 CY MG #5 91 TA BL ET PA 68 06 30 30 00 OH Ac RO 38 -3 -2 .0 00 L- ti XE 20 0- 8- 00 07 MA ve TI 00 20 20 47 RT NE 10 17 17 42 6 92 PH HC AR L MA 40 CY MG #5 91 TA BL ET EQ 49 07 30 30 00 OH Ac 03 -0 -2 .0 00 L- ti 50 5- 8- 00 08 MA ve PI 56 20 20 83 RT RI 33 17 17 57 N 2 52 PH EC AR MA 81 CY MG #5 91 TA BL ET ME 00 11 18 30 30 00 OH Ac TO 37 -0 -2 .0 00 L- ti NV 80 5- 8- 00 07 MA ve OL 01 20 20 49 RT OL 80 17 17 68 5 53 PH TA AR RT MA RA CY TE #5 25 91 MG TA B SP 00 10 19 30 30 00 OH Ac IR 59 -2 -2 .0 00 L- ti IV 70 5- 1- 00 07 MA ve A 07 20 20 48 RT 18 54 17 17 08 1 47 PH MC AR G MA CP CY -H AN #5 DI 91 LOWERY LE R OM 60 06 30 30 00 OH Ac EP 50 -1 -1 .0 00 [...] BR 00 10 19 60 30 00 OH Ac IL 18 -1 -0 .0 00 [...] 37 -1 -0 .0 00 L- ti NV 80 2- 7- 00 07 MA ve [...] AM 00 10 18 30 30 00 OH Ac LO 37 -0 -3 .0 00 L- ti DI 85 2- 0- 00 07 MA ve PI 20 20 20 49 RT NE 90 17 17 13 5 87 PH BE AR SY MA LA CY TE 5 #5 91 MG TA B PA 68 06 11 11 30 00 OH Ac RO 38 -0 -3 .0 00 L- ti XE 20 2- 0- 00 07 MA ve TI 00 20 20 47 RT NE 10 17 17 42 6 92 PH HC AR L MA 40 CY MG #5 91 TA BL ET CE 16 06 11 11 30 00 OH Ac TI 57 -0 -3 .0 00 L- ti RI 10 2- 0- 00 08 MA ve ZI 40 20 20 83 RT NE 25 17 17 68 0 85 PH HC AR L MA 10 CY MG #5 91 TA BL ET NI 43 05 06 25 7 00 OH Ac TR 59 -3 -2 .0 00 L- ti OG 80 0- 3- 00 07 MA ve LY 43 20 20 49 RT CE 61 17 17 06 RI 1 69 PH N AR 0. MA 4 CY MG #5 TA 91 BL ET SL HY 00 05 06 [address] 40 -3 -2 .0 00 L- ti OC 60 0- 3- 00 02 MA ve OD 12 20 20 24 RT ON 30 17 17 05 -A 1 38 PH CE AR TA MA PR CY NO PH #5 EN 91 5- 32 5 OM 60 05 11 11 30 00 OH Ac EP 50 -2 -1 .0 00 L- ti RA 50 2- 6- 00 07 MA ve ZO 14 20 20 48 RT LE 60 17 17 [address] AR MA 40 CY MG #5 91 CA PS UL E BR 00 05 60 30 00 OH Ac IL 18 -1 -0 .0 00 L- ti IN 60 5- 9- 00 07 MA ve TA 77 20 20 43 RT 76 17 17 60 90 0 75 PH AR MG MA CY TA BL #5 ET 91 LI 54 05 30 30 00 OH Ac SI 45 -1 -0 .0 00 L- ti NO 80 5- 9- 00 07 MA ve NV 99 20 20 43 RT IL 71 [...] TA 91 BL ET ME 00 00 OH Ac TO 37 -1 -0 .0 00 L- ti NV 80 5- 07 MA ve OL 01 20 20 43 RT OL 80 17 17 61 5 11 PH TA AR RT MA RA CY TE #5 25 91 MG TA B IS 23 00 OH Ac OS 15 -1 -0 .0 00 L- ti OR 50 07 MA ve BI 17 20 20 45 RT DE 80 17 17 10 1 79 PH MN AR MA ER CY 60 #5 91 MG TA BL ET GA 00 09 17 89 30 00 OH Ac BA 22 -1 -0 .0 00 L- ti PE 82 07 MA ve NT 63 20 20 47 RT IN 71 17 17 76 1 13 PH 80 AR 0 MA MG CY TA #5 BL 91 ET EQ 49 00 OH Ac 03 -1 -0 .0 00 L- ti 50 08 MA ve PI 56 20 20 83 RT RI 33 17 17 57 N 2 52 PH EC AR MA 81 CY MG #5 91 TA BL ET CE 16 00 OH Ac TI 57 -0 -0 .0 00 L- ti RI 10 7- 2- 00 08 MA ve ZI 40 20 20 83 RT NE 25 17 17 68 0 85 PH HC AR L MA 10 CY MG #5 91 TA BL ET PA 68 05 11 11 29 00 OH Ac RO 38 -0 -0 .0 00 L- ti XE 20 7- 2- 00 07 MA ve TI 00 20 20 47 RT NE 10 17 17 42 6 92 PH HC AR L MA 40 CY MG #5 91 TA BL ET TR 50 00 OH Ac AZ 11 -0 -0 .0 00 L- ti OD 10 9- 2- 00 07 MA ve ON 43 20 20 48 RT E 30 17 17 69 50 1 03 PH AR MG MA CY TA BL #5 ET 91 CL 16 05 30 00 OH Ac ON 72 -0 -0 .0 00 [...] ET ME 00 04 30 30 00 OH Ac TO 37 -1 -1 .0 00 L- ti NV 80 8- 2- 00 07 MA ve [...] 00 8- 2- 00 07 MA ve NV 51 20 20 43 RT IL 40 [...] 17 17 29 E 1 48 PH NV AR OP MA CY 50 #5 MC 91 G SP RA Y PA 68 04 10 11 30 00 OH Ac RO 38 -0 -0 .0 00 L- ti XE 20 07 MA ve TI 00 20 20 47 RT NE 10 17 17 42 6 92 PH HC AR L MA 40 CY MG #5 91 TA BL ET CE 16 04 10 11 30 00 OH Ac TI 57 -0 -0 .0 00 L- ti RI 10 08 MA ve ZI 40 20 20 83 RT NE 25 17 17 68 0 85 PH HC AR L MA 10 CY MG #5 91 TA BL ET CL 16 04 30 00 OH Ac ON 72 -0 -0 .0 00 L- ti AZ 90 04 MA ve EP 13 20 20 52 RT AM 71 17 17 99 1 6 24 PH AR MG MA CY TA BL #5 ET 91 SP 00 04 10 11 29 00 OH Ac IR 59 -0 -0 .0 00 L- ti IV 70 07 MA ve A 07 20 20 48 RT 18 54 17 17 08 1 47 PH MC AR G MA CP CY -H AN #5 DI 91 LOWERY LE R ME 00 03 09 11 29 00 OH Ac TO 37 -2 -1 .0 00 L- ti NV 80 07 MA ve OL 01 20 20 43 RT OL 80 17 17 61 5 11 PH TA AR RT MA RA CY TE #5 25 91 MG TA B BR 00 03 04 60 30 00 OH Ac IL 18 -2 -1 .0 00 L- ti IN 60 07 MA ve TA 77 20 20 43 RT 76 17 17 60 90 0 75 PH AR MG MA CY TA BL #5 ET 91 LI 54 03 04 30 30 00 OH Ac SI 45 -2 -1 .0 00 L- ti NO 80 07 MA ve NV 99 20 20 43 RT IL 71 17 17 60 0 82 PH 10 AR MA MG CY TA #5 BL 91 ET IS 23 03 04 30 30 00 OH Ac OS 15 -2 -1 .0 00 [...] FL 60 03 04 16 30 00 OH Ac UT 43 -2 -1 .0 00 L- ti IC 20 1- 4- 00 07 MA ve 26 20 20 44 RT ON 41 17 17 78 E 5 07 PH NV AR OP MA CY 50 #5 MC [...] GA 00 03 04 90 30 00 OH Ac BA 22 -2 -1 .0 00 L- ti PE 82 1- 4- 00 07 MA ve NT 63 20 20 47 RT IN 71 17 17 76 1 13 PH 80 AR 0 MA MG CY TA #5 BL 91 ET PA 68 03 03 30 30 00 OH Ac RO 38 -0 -3 .0 00 L- ti XE 20 4- 1- 00 07 MA ve TI 00 20 20 47 RT NE 10 17 17 42 6 92 PH HC AR L MA 40 CY MG #5 91 TA BL ET OM 60 03 03 30 30 00 OH Ac EP 50 -0 -3 .0 00 L- ti RA 50 7- 1- 00 07 MA ve ZO 14 20 20 45 RT LE 60 17 [address] AR MA 40 CY MG #5 91 CA PS UL E CL 16 03 03 60 30 00 OH Ac ON 72 -0 -3 .0 00 [...] 37 -2 -2 .0 00 L- ti NV 80 3- 4- 00 07 MA ve OL 01 20 20 43 RT OL 80 17 17 61 5 11 PH TA AR RT MA RA CY TE #5 25 91 MG TA B LI 54 02 03 30 30 00 [place] Ac SI 45 -2 -2 .0 00 L- ti NO 80 3- 4- 00 07 MA ve NV 99 20 20 43 RT IL 71 [...] 17 17 78 E 1 07 PH NV AR OP MA CY 50 #5 MC [...] CL 16 01 02 60 30 00 OH Ac ON 72 -3 -2 .0 00 L- ti AZ 90 0- 4- 00 04 MA ve EP 13 20 20 52 RT AM 71 17 17 91 1 6 97 PH AR MG MA CY TA BL #5 ET 91 LI 54 01 02 30 30 00 OH Ac SI 45 -2 -2 .0 00 L- ti NO 80 8- 4- 00 07 MA ve NV 99 20 20 43 RT IL 71 17 17 60 0 82 PH 10 AR MA MG CY TA #5 BL 91 ET ME 00 02 30 30 00 OH Ac TO 37 -2 -2 .0 00 L- ti NV 80 8- 4- 00 07 MA ve OL 01 20 20 43 RT OL 80 17 17 61 5 11 PH TA AR RT MA RA CY TE #5 25 91 MG TA B CE 16 01 02 30 30 00 OH Ac TI 57 -2 -2 .0 00 L- ti RI 10 8- 4- 00 08 MA ve ZI 40 20 20 83 RT NE 25 17 17 68 0 18 PH HC AR L MA 10 CY MG #5 91 TA BL ET IS 23 01 02 30 30 00 OH Ac OS 15 -2 -1 .0 00 [...] FL 60 01 02 16 30 00 OH Ac UT 43 -2 -1 .0 00 L- ti IC 20 3- 7- 00 07 MA ve 26 20 20 44 RT ON 41 17 17 78 E 5 07 PH NV AR OP MA CY 50 #5 MC 91 G SP RA Y PA 68 01 30 00 OH Ac RO 38 -2 -1 .0 00 L- ti XE 20 5- 7- 00 07 MA ve TI 00 20 20 46 RT NE 10 17 17 69 6 89 PH HC AR L MA 40 CY MG #5 91 TA BL ET OM 60 05 16 29 30 OH Ac EP 50 -1 -1 .0 00 L- ti RA 50 3- 0- 00 07 MA ve ZO 14 20 20 45 RT LE 60 17 [address] AR MA 40 CY MG #5 91 CA PS UL E LI 54 12 30 00 OH Ac SI 45 -3 -0 .0 00 L- ti NO 80 0- 3- 00 07 MA ve NV 99 20 20 43 RT IL 71 16 17 60 0 82 PH 10 AR MA MG CY TA #5 BL 91 ET CE 16 05 15 29 30 00 OH Ac TI 57 -0 -2 .0 00 L- ti RI 10 2- 7- 00 08 MA ve ZI 40 20 20 83 RT NE 25 17 17 68 0 18 PH HC AR L MA 10 CY MG #5 91 TA BL ET ME 00 05 15 30 30 00 OH Ac TO 37 -0 -2 .0 00 L- ti NV 80 2- 7- 00 07 MA ve OL 01 20 20 43 RT OL 80 17 17 61 5 11 PH TA AR RT MA RA CY TE #5 25 91 MG TA B MO 54 01 30 30 00 OH Ac NT 45 -0 -2 .0 00 [...] 37 -0 -0 .0 00 L- ti NV 80 2- 9- 00 07 MA ve OL 01 20 20 43 RT OL 80 16 17 61 5 11 PH TA AR RT MA RA CY TE #5 25 91 MG TA B LI 68 12 06 13 29 00 [place] Ac SI 18 -0 -0 .0 00 L- ti NO 00 3 07 MA ve NV 51 20 20 43 RT IL 40 [...] 2 90 30 EA 24 AR Ac NV 25 -2 -[address] 65 NO [...] 8- 8- 00 MA 73 LE ve NV 34 20 20 RT 5 ET AM [...] GA 53 04 09 2 90 30 OH 71 NO Ac BA 74 -1 -0 [...] Procedure DOS Code Location Performer Comment DILATION [id number] [facility] [place] [facility] DEVC PERQ Encounters Encounter Start End Date Code Location Performer Type Date [facility] [place] [facility] 7 [facility] [place] [facility] [place] [facility] [place] [facility] [place] [facility] [place] [facility] [place] [facility] [place] [facility] [place] [facility] [place] [facility] [place] [facility] [place] [facility] [place] [facility] [place] [facility] [place] [facility] [place] [facility] [place] [facility] [place] [facility] [place] [facility] [place] [facility] [place] [facility] [place] [facility] [place] [facility] [place] [facility] [place] [facility] [place] [facility] [place] [facility] [place] [facility] [place] [facility] [place] [facility] OUTPATIEN COUNTS [facility]CLUDE 234 BEDS AT [facility] [place] [facility] 5 [facility] [place] [facility] [place] [facility] [place] [facility] 5 [facility] COUNTS INCLUDE 234 BEDS AT [facility] [place] [facility] 5 [facility] OUTPATI[facility] COUNTS [facility]CLUDE 234 BEDS AT [facility] [place] [facility] 5 [facility] [place] [facility] 5 [facility] OUT[facility] COUNTS [facility]CLUDE 234 BEDS AT [facility] - 4 4 [facility] [place] [facility] 4 [facility] [place] [facility] 4 [facility] OUTPATIEN COUNTS [facility]CLUDE 234 BEDS AT THE [facility] [place] [facility] 4 [facility] [place] [facility] 4 4 [facility] [place] [facility] [place] [facility] [place] [facility] [place] [facility] 3 [facility] [place] [facility] 2 [facility] [place] [facility] [place] [facility] [place] [facility] [place] [facility] 1 [facility] [place] [facility] 1 [facility]
--- OUTSIDE RECORDS SUMMARY | 2017-03-20 09:51 | External Medical Summary Rpt | CCD ---
Author Author , RYLIE YOUNGBLOOD Address Unknown Phone [email or web address] Immunization Name Date Rout CVX Reac Dose [...]
--- OUTSIDE RECORDS SUMMARY | 2017-03-20 09:51 | External Medical Summary Rpt | CCD ---
Author Author , RYLIE YOUNGBLOOD Address Unknown Phone [email or web address] Immunization Name Date Rout CVX Reac Dose [...]
--- OUTSIDE RECORDS SUMMARY | 2017-03-20 09:52 | External Medical Summary Rpt ---
[...] - 2.0 % Normal No Feb 13 inform2016 leukocyte on in 12:50 PM s in source Blood by data Automated count Eosinophi 0.0 - 0.4 K/mm3 Normal No Feb 13 ls 2016 [#/volume on in 12:50 PM ] [...] Normal No Feb 13 t [Volume 47.0 2016 on in 12:50 PM Fraction] source of Blood data Hemoglobi 12.2 - g/dL Normal No Feb 13 n 16.2 2016 [Mass/vol on in 12:50 PM ume] in source Blood data Lymphocyt 0.7 - 4.5 K/mm3 Normal No Feb 13 es 2016 [#/volume on in 12:50 PM ] in source Unspecifi data ed specimen by Automated count Lymphocyt 10 - 50.0 % Normal No Feb 13 es 2016 [#/volume on in 12:50 PM ] [...] 4.2 - 5.4 M/mm3 Low No Feb 2 kamaljit 2016 [#/volume on in 12:50 PM [...] - 0.2 K/MM3 Normal No Sep 19 ati 2016 5:40 [#/volume on in PM ] in source Blood by data Automated count Basophils 0.1 - 2.0 % Normal No Sep 19 / informati 2016 5:40 leukocyte on in PM s [...] K/mm3 Normal No Sep 19 kamaljit informati 2016 5:40 [#/volume on in PM ] in source Blood by data Automated count Granulocy 37.0 - % Normal No Sep 19 kamaljit/100 80.0 informati 2016 5:40 leukocyte on in PM s in source Blood by data Automated count Hematocri 37.0 - % Low No Sep 19 t [Volume 47.0 informati 2016 5:40 on in PM Fraction] source of Blood data Hemoglobi 12.2 - g/dL Low No Sep 19 n 16.2 informati 2017 5:40 [Mass/vol on in PM ume] in source Blood data Lymphocyt 0.7 - 4.5 K/mm3 Normal No Sep 19 es informati 2016 5:40 [#/volume on in PM ] in source Unspecifi data ed specimen by Automated count Lymphocyt 10 - 50.0 % Normal No Sep 19 es informati 2016 5:40 [#/volume on in PM ] in source Unspecifi data ed specimen by Automated count Erythrocy 27 - 31.2 pg High No Sep 19 te mean informati 2016 5:40 corpuscul on in PM [...] 1.0 K/mm3 Normal No Sep 19 informati 2016 5:40 [#/volume on in PM ] in source Blood by data Automated count Monocytes 1.7 - 9.3 % Normal No Sep 19 /100 informati 2016 5:40 leukocyte on in PM s [...] 142 - 424 K/mm3 No No Dec 16 informati informati 2017 4:57 [#/volume on in on in PM ] in source source Blood data data Erythrocy 4.2 - 5.4 M/mm3 Low No Dec 16 kamaljit informati 2017 4:57 [#/volume on in PM ] in source Amniotic data fluid Erythrocy 11.5 - % Normal No Dec 28 te 17.5 informati 2016 4:57 distribut on in PM ion width [...] Plasma Urea 7 - 18 mg/dL Normal No Nov 09 nitrogen informati 2016 8:14 [Mass/vol on in AM ume] in source Serum or data Plasma Calcium 8.5 - mg/dL Normal No Nov 09 [Mass/vol 10.1 informati 2016 8:14 ume] in on in AM Serum or source Plasma data Chloride 98 - 107 mmoL/L Normal Nov 09 [Moles/vo informati 2016 8:14 lume] [...] data Glucose 74 - 106 mg/dL Normal Nov 09 [Mass/vol informati 2016 8:14 ume] [...] ume] in data Serum or Plasma by meryl on Triglycer 30 - 200 mg/dL Normal No Nov 09 viviane informati 2017 8:14 [Moles/vo on in AM lume] in source Serum or data Plasma Cholester 0 - 40 No Normal No Nov 09 ol in informati informati 2017 8:14 VLDL on in on in AM [Mass/vol source source ume] in data data Serum or Plasma
[2017-03-20 09:54] VITALS: BP 159/93
== END 2017-03-20 09:56 | disposition home or self-care (01) ==
LOC: UTC 09:19
PROC: 2W3QX1Z Immobilization of Right Lower Leg using Splint (ICD-10-PCS; principal; 2017-03-20)
DX: S93.401A Sprain of unspecified ligament of right ankle, initial encounter (principal); F17.210 Nicotine dependence, cigarettes, uncomplicated; K21.9 Gastro-esophageal reflux disease without esophagitis; J44.9 Chronic obstructive pulmonary disease, unspecified; I10 Essential (primary) hypertension; I25.10 Atherosclerotic heart disease of native coronary artery without angina pectoris; W01.0XXA Fall on same level from slipping, tripping and stumbling without subsequent striking against object, initial encounter; Y92.017 Garden or yard in single-family (private) house as the place of occurrence of the external cause